=== PATIENT | female | born 1995 | race Caucasian/White ===

== ENCOUNTER 2023-02-01 20:48 | Outpatient (REF) | payer OTHER, SELFPAY ==
[2023-02-08 14:09] LABS: Age Gdln ACOG Testing Note (.); IGP, rfx Aptima HPV ASCU Note (.)
== END 2023-02-01 20:49 | disposition home or self-care (01) ==
LOC: LAB 20:48
PROVIDERS: Visit Provider Physician Assistant
DX: Z12.4 Encounter for screening for malignant neoplasm of cervix (principal)
CPT/HCPCS: G0145

== ENCOUNTER 2024-01-25 09:27 | Outpatient (OUT) | payer OTHER, SELFPAY ==
--- NOTE | 2024-01-25 09:29 | US_ITS ---
[address] [address] Patient Name: GEOVANNA MATA MRN: [id number] date: 1995 Sex: F Assigned Patient Location: [facility] Current Patient Location: [facility] Accession/Order Number: [id number] Exam Date: 01/25/2024 09:30 Report Date: 01/25/2024 14:19 At the request of: MARTIN PEREZ Procedure: US pelvis w/ transvaginal EXAMINATION: US pelvis w/ transvaginal HISTORY: POLYCYSTIC OVARIAN DISEASE ; abdominal pain, abnormal periods COMPARISON: Ultrasound pelvis 09/07/2021 TECHNIQUE: Transabdominal and/or transvaginal sonographic examination was performed as indicated by examination type. FINDINGS: UTERUS: Normal size and appearance. Uterus size: 7.9 x 3.3 x 4.6 cm ENDOMETRIUM: Normal homogeneous appearance. Endometrial thickness: 2 mm RIGHT OVARY: Contains several follicles of varying size. Duplex Doppler demonstrates normal waveform and flow; resistive index 0.6. Ovary size: 4.1 x 2.5 x 4.0 cm LEFT OVARY: Normal size and appearance. Duplex Doppler demonstrates normal waveform and flow; resistive index 0.7. Ovary size: 2.7 x 1.9 x 3.6 cm CUL-DE-SAC: Unremarkable. No significant free fluid. BLADDER: Unremarkable. OTHER: None. US/US pelvis w/ transvaginal IMPRESSION: 1. No abnormal or suspicious findings to account for patient's symptoms. 2. No ovarian findings to suggest polycystic ovarian syndrome. Electronically authenticated by: THONG PAYNE Date: 01/25/2024 14:19
== END 2024-01-25 09:28 | disposition home or self-care (01) ==
LOC: NOMS 09:27
PROVIDERS: Visit Provider Obstetrics & Gynecology
DX: E28.2 Polycystic ovarian syndrome (principal)
CPT/HCPCS: 76830; 76856

== ENCOUNTER 2024-02-09 13:48 | Outpatient (OUT) | payer OTHER, SELFPAY ==
[2024-02-09 16:00] LABS: Estimated Average Glucose 85 mg/dL; Glycohemoglobin A1C 4.6 % (4.5-6.2)
[2024-02-09 16:15] LABS: Thyroid Stimulating Hormone 1.153 uIU/mL (0.358-3.740)
[2024-02-09 16:22] LABS: HCG Quantitative <1 mIU/mL
[2024-02-09 16:48] LABS: Basophils Absolute Auto 0.1 10^3/uL (0.0-0.1); Basophils Percent Auto 0.8 % (0.2-2.0); Eosinophils Absolute Auto 0.5 10^3/uL (0.0-0.7); Eosinophils Percent Auto 4.7 % (0.9-7.0); Hematocrit 45.7 % (36.0-48.0); Hemoglobin 15.5 g/dL (12.0-16.0); Immature Granulocytes Abs Auto 0.03 10^3/uL (0.00-0.03); Immature Granulocytes Pct Auto 0.3 % (0.0-0.5); Lymphocytes Absolute Auto 2.3 10^3/uL (1.2-3.8); Lymphocytes Percent Auto 20.4 % (20.5-60.0); Mean Corpuscular HGB Conc 33.9 g/dL (29.9-35.2); Mean Corpuscular Hemoglobin 29.5 pg (26.7-34.0); Mean Platelet Volume 12.5 fL (9.5-13.5); Monocytes Absolute Auto 0.5 10^3/uL (0.3-0.8); Monocytes Percent Auto 4.1 % (1.7-12.0); Neutrophils Absolute Auto 7.9 10^3/uL (1.4-6.5); Neutrophils Percent Auto 69.7 % (43.0-75.0); Platelet Count 313 10^3/uL (150-450); Red Blood Count 5.25 10^6/uL (4.20-5.40); Red Cell Distribution Width 12.8 % (11.0-15.0); White Blood Count 11.4 10^3/uL (4.0-11.0)
[2024-02-10 08:12] LABS: FSH 2.5 mIU/mL (.); Luteinizing Hormone(LH) 3.4 mIU/mL (.)
[2024-02-14 18:08] LABS: DHEA, Serum 525 ng/dL (31-701)
== END 2024-02-09 13:49 | disposition home or self-care (01) ==
LOC: LAB 13:49
PROVIDERS: Visit Provider Obstetrics & Gynecology
DX: E28.2 Polycystic ovarian syndrome (principal)
CPT/HCPCS: 36415; 82626; 82627; 83001; 83002; 83036; 84439; 84443; 84702; 85025

== ENCOUNTER 2024-04-11 20:14 | Outpatient (REF) | payer OTHER, SELFPAY ==
--- OUTSIDE RECORDS SUMMARY | 2024-04-11 20:18 | XMS_ITS | CCD ---
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 Unavailable [phone] Jade Duarte Unavailable Gris Gardner Unavailable Reese Ramos Unavailable ALFRED Gomez Primary Care Provider MD Reese Ramos Attending Provider ALFRED Gomez Attending Provider REQUEST, NONE LISTED Primary Care Unavaila ble MIKHAIL, DR ANTON Brooks Consulting Unavailable GABRIELLA ., HU Admitting Unavailable GABRIELLA ., HU Attending Unavailable WENDY VENTURA Consulting Unavailable GABRIELLA ., HU Consulting Unavailable SIRI MARSH Consulting Unavailable MISC, DR FONTANEZ Admitting Unavailable MISC, DR FONTANEZ Attending Unavailable REQUEST, NONE LISTED Primary Care Unavaila ble MISC, DR FONTANEZ Consulting Unavailable KARASIK ., DR THORPE Admitting Unavailabl e KARASIK ., DR THORPE Attending Unavailabl e KARASIK ., DR THORPE Consulting Unavailabl e REQUEST, NONE LISTED Primary Care Unavaila KIM Macias Primary Care Physician Ty Roach DO Primary Care Provider Noemy Bhandari Unavailable Unavailable Brown, Justin A Referring Unavailable Brown, Justin A Attending Unavailable Brown, Justin A Admitting Unavailable Brown, Justin A Attending Unavailable Brown, Justin A Admitting Unavailable Brown, Justin A Referring Unavailable Brown, Justin A Referring Unavailable Brown, Justin A Attending Unavailable Brown, Justin A Admitting Unavailable Brown, Justin A Attending Unavailable Brown, Justin A Admitting Unavailable Brown, Justin A Referring Unavailable Kim Gomez Primary Care Unavailable Reese Ramos Attending Unavailable Reese Ramos Admitting Unavailable BROWN, JUSTIN A Attending Unavailable BEAN GASTON Attending Unavailable BROWN, JUSTIN A Referring Unavailable SANAZ JIMENEZ Attending Unavailable BROWN, JUSTIN A Referring Unavailable TATTERSALL, MATTIE Attending Unavailable BROWN, JUSTIN A Referring Unavailable TATTERSALL, MATTIE Attending Unavailable BROWN, JUSTIN A Referring Unavailable TATTERSALL, MATTIE Attending Unavailable BROWN, JUSTIN A Referring Unavailable TATTERSALL, MATTIE Attending Unavailable BROWN, JUSTIN A Referring Unavailable TATTERSALL, MATTIE Attending Unavailable BROWN, JUSTIN A Referring Unavailable TATTERSALL, MATTIE Attending Unavailable BROWN, JUSTIN A Referring Unavailable TATTERSALL, MATTIE Attending Unavailable BROWN, JUSTIN A Referring Unavailable TATTERSALL, MATTIE Attending Unavailable BROWN, JUSTIN A Referring Unavailable BROWN, JUSTIN A Attending Unavailable GOMEZ, KYRA Attending Unavailable BROWN, JUSTIN A Referring Unavailable BROWN, JUSTIN A Referring Unavailable BROWN, JUSTIN A Attending Unavailable BROWN, JUSTIN A Attending Unavailable DYER, KYRA Attending Unavailable BROWN, JUSTIN A Referring Unavailable TATTERSALL, MATTIE Attending Unavailable BROWN, JUSTIN A Referring Unavailable TATTERSALL, MATTIE Attending Unavailable BROWN, JUSTIN A Referring Unavailable TATTERSALL, MATTIE Attending Unavailable BROWN, JUSTIN A Referring Unavailable BROWN, JUSTIN A Attending Unavailable TATTERSALL, MATTIE Attending Unavailable BROWN, JUSTIN A Referring Unavailable TATTERSALL, MATTIE Attending Unavailable BROWN, JUSTIN A Referring Unavailable BROWN, JUSTIN A Attending Unavailable BROWN, JUSTIN A Attending Unavailable MARTIN PEREZ Attending Unavailable CHRIS, MARTIN Attending Unavailable MARIA ELENA WHITNEY Attending Unavailable Allergies Allergy Classification Reported Allergen(s) Allergy Type Date of Onset Reaction(s) Facility (20 sources) cefdinir Drug Allergy stomach upset [employer] Other (20 sources) cats, dust, ragweed Propensity to adverse reactions 3 Unknown [facility] (4 sources) Amoxicillin / Clavulanate; Translations: [amoxicillin-cl avulanate] Drug Allergy Stomach ache (finding) [facility] (4 sources) Cat; Translations: [Cats] Propensity to adverse reactions to substance Nasal congestion (finding) [facility] (4 sources) Dust; Translations: [Dust] Propensity to adverse reactions to substance Nasal congestion (finding) [facility] (4 sources) Seasonal allergy; Translations: [Seasonal] Drug allergy Congestion [facility] (4 sources) Ragweed; Translations: [Ragweed] Propensity to adverse reactions to substance Nasal congestion (finding) [facility] (6 sources) House dust mite Allergy to substance 1 Unknown [facility] (6 sources) Cat Hair Extract Allergy to substance 1 Unknown [facility] (6 sources) Mixed Ragweed Propensity to adverse reactions 1 Unknown [facility] (4 sources) cefdinir Drug Allergy 3 stomach upset [facility] (3 sources) Pollen Allergy to substance 4 [facility] (3 sources) Amoxicillin-Pot Clavulanate Drug Allergy 4 GI intolerance [facility] Medications Current Medications Medication Drug Class(es) Dates Sig (Normalized) Sig (Original) 0.5 ML semaglutide 1 MG/ML Auto-Injector [Wegovy] (4 sources) inject 1 mg by subcutaneous injection every week Wegovy 0.5 MG/0.5ML 1 mg Subcutaneous Once a week for 30 day(s) Active 0.5 ML semaglutide 2 MG/ML Auto-Injector [Wegovy] (4 sources) Start: 02-24-2021 Wegovy 1 MG/0.5ML as directed Subcutaneous Weekly for 30 days Feb, Active 0.75 ML semaglutide 2.27 MG/ML Auto-Injector [Wegovy] (1 source) Start: 02-24-2021 Wegovy 1.7 MG/0.75ML as directed Subcutaneous Weekly for 30 days Feb, Active 0.75 ML semaglutide 3.2 MG/ML Auto-Injector [Wegovy] (7 sources) Start: 02-24-2021 inject 0.75 mL by subcutaneous injection every week Wegovy 2.4 MG/0.75ML 0.75 ml Subcutaneous Weekly for 30 days Feb, Active inject 0.75 mL by salazar bcutaneous injection every week Wegovy 2.4 MG/0.75ML 0.75 ml Subcutaneou s Weekly for 30 days Active 3 ML semaglutide 1.34 MG/ML Pen Injector [Ozempic] (2 sources) Start: 01-28-2022 inject 1 mg by subcutaneous injection every week Ozempic (1 MG/DOSE) 4 MG/3ML 1 mg Subcutaneous Weekly for 1 days Jan, Active 3 ML semaglutide 2.68 MG/ML Pen Injector [Ozempic] (1 source) Start: 10-14-2021 inject 2 mg by subcutaneous injection every week Ozempic (2 MG/DOSE) 8 MG/3ML 2 mg Subcutaneous Once a week for 28 days October, Active acetaminophen 500 mg oral tablet (4 sources) Start: 08-18-2023 take 1 tablet by mouth every four hours as needed Acetaminophen Extra Strength 500 MG tablet Take 1 tablet by mouth every 4 (four) hours if needed 08/18/2023 Active [id number] 200 actuat albuterol 0.09 mg/actuat metered dose inhaler (16 sources) beta2-Adrener gic Agonist Start: 10-10-2023 take 1 puff(s) by inhalation every four hours as needed albuterol HFA 90 mcg/act inhaler Indications: Exacerbation of asthma, unspecified asthma severity, unspecified whether persistent (CMS/HCC) INHALE 1 PUFF INTO THE LUNGS EVERY 4 HOURS NEEDED FOR 30 DAYS 18 g 3 10/10/2023 Active Start: 05-11-2023 take 3 mL by inhalat ion every four hours albuterol 0.083% Inh Ernestina 3 mL 0.083% - 3mL dosing units, Inhalation, q4hr Allergy symptoms Start Date: 05/11/23 Status: Ordered Start: 07-04-2022 take 1 puff(s) by in halation every four hours as needed albuterol HFA 90 mcg/act inhaler INHALE 1 PUFF INTO THE LUNGS EVERY 4 HOURS NEEDED FOR 30 DAYS 0 07/04/2022 Active Albuterol Sulfat e HFA 108 (90 Base) MCG/ACT Inhalation for 30 Days PRN Active Albuterol Sulfat e HFA 108 (90 Base) MCG/ACT Inhalation for 30 Days PRN Active Amoxicillin / Clavulanate (4 sources) Penicillin-class Antibacterial Augmentin Active aspirin 81 mg delayed release oral tablet (1 source) Platelet Aggregation Inhibitor, Nonsteroidal Anti-inflammatory Drug Start: 08-18-19 End: 09-08-19 take 2 tablets by mouth once daily aspirin 81 mg Oral EC Tab 162 mg = 2 tab(s), Oral, Daily, X 21 day(s), # 42 tab(s), Refills(s) 0, Pharmacy: [facility] #[id number], 160.5, cm, 08/04/23 6:49:00 EST, Height/Length Dosing, 93.5, kg, 08/04/23 6:49:00 EST, Weight Dosing Start Date: 08/18/23 Stop Date: 09/08/23 Status: Ordered 24 hr buPROPion hydrochloride 300 mg extended release oral tablet (20 sources) Aminoketone take 1 tablet by mouth every twenty-four hours buPROPion HCl ER (XL) 300 MG 1 tablet in the morning Orally Once a day Active take 1 tablet by francois th every twenty-four hours buPROPion HCl ER (XL) 150 MG 1 tablet in the morning Orally Once a day Active drospirenone 4 mg oral tablet (6 sources) Progestin Start: 02-15-2024 take 1 tablet by mouth once daily Drospirenone (Slynd) 4 MG tablet Indications: PCOS (polycystic ovarian syndrome) Take 1 tablet by mouth Daily for 28 days 28 tablet 02/15/2024 Active ethinyl estradiol 0.035 mg / norgestimate 0.25 mg oral tablet (20 sources) Progestin, Estrogen Start: 06-26-2023 End: 06-25-2024 norgestimate-ethiny l estradiol (Sarah) 0.25-35 MG-MCG tablet Indications: Uses control Take 1 tablet by mouth in the morning. 28 tablet 12 06/26/2023 03/14/2024 Discontinued Start: 05-11-2023 take 1 tablet by francois th once daily Sarah 0.25mg-35mcg oral tablet 1 tab(s), Oral, Daily, Refill(s) 0, control/menstrual regulation Start Date: 05/11/23 Status: Ordered take 1 tablet by francois th every twenty-four hours Sarah 0.25-35 MG-MCG 1 tablet Orally Once a day control Active take 1 tablet by francois th every twenty-four hours Sarah 0.25-35 MG-MCG 1 tablet Orally Once a day Active fexofenadine hydrochloride 180 mg oral tablet (18 sources) Histamine-1 Receptor Antagonist Start: 05-11-2023 take 1 tablet by mouth once daily Rosanne 24 Hour Allergy oral tablet 180 mg = 1 tab(s), Oral, Daily, Allergy symptoms Start Date: 05/11/23 Status: Ordered Rosanne Active fluticasone propionate 0.05 mg/actuat metered dose nasal spray (20 sources) Corticosteroid Start: 05-11-2023 take 1 spray(s) nasal route twice daily Flonase 0.05 mg/inh [place] 1 spray(s), Nasal, BID Allergy symptoms, each nostril Start Date: 05/11/23 Status: Ordered take 1 spray(s) nasal route once daily fluticasone (Flonase) 50 MCG/ACT nasal spray USE 1 SPRAY IN EACH NOSTRIL ONCE A DAY for 90 Active take 1-2 spray(s) na dilip route once daily at bedtime FLONASE 50 mcg 1-2 sprays each NOSTRIL Q HS Active gabapentin 300 mg oral capsule (1 source) Anti-epileptic Agent Start: 08-18-2023 End: 09-01-2023 take 1 capsule by mouth three times daily gabapentin 300 mg Cap 300 mg = 1 cap(s), Oral, TID, X 14 day(s), # 42 cap(s), Refills(s) 0, Pharmacy: [email or web address] #[id number], 160.5, cm, 08/04/23 6:49:00 EST, Height/Length Dosing, 93.5, kg, 08/04/23 6:49:00 EST, Weight Dosing Start Date: 08/18/23 Stop Date: 09/01/23 Status: Ordered ketorolac tromethamine 10 mg oral tablet (1 source) Nonsteroidal Anti-inflammatory Drug, Cyclooxygenase Inhibitor Start: 08-18-2023 End: 08-23-2023 take 1 tablet by mouth three times daily at mealtime ketorolac 10 mg Tab 10 mg = 1 tab(s), Oral, TID, take with food, X 5 day(s), # 15 tab(s), Refills(s) 0, Pharmacy: [email or web address] #[id number], 160.5, cm, 08/04/23 6:49:00 EST, Height/Length Dosing, 93.5, kg, 08/04/23 6:49:00 EST, Weight Dosing Start Date: 08/18/23 Stop Date: 08/23/23 Status: Ordered loratadine 10 mg oral tablet (17 sources) take 1 tablet by mouth every twenty-four hours Loratadine 10 MG 1 tablet Orally Once a day Active meloxicam 15 mg oral tablet (1 source) Nonsteroidal Anti-inflammatory Drug Start: 08-18-2023 take 1 tablet by mouth once daily meloxicam 15 mg Tab 15 mg = 1 tab(s), Oral, Daily, start after finishing ketorolac, # 30 tab(s), Refills(s) 0, Pharmacy: [email or web address] #[id number], 160.5, cm, 08/04/23 6:49:00 EST, Height/Length Dosing, 93.5, kg, 08/04/23 6:49:00 EST, Weight Dosing Start Date: 08/18/23 Status: Ordered methylPREDNISolone 4 mg oral tablet (2 sources) Corticosteroid Start: 05-23-2021 methylPREDNISolone 4 MG as directed Orally Once a day for 6 days May, Active naltrexone hydrochloride 50 mg oral tablet (4 sources) Opioid Antagonist Start: 05-13-2022 take 0.5 tablet by mouth once daily Naltrexone HCl 50 MG 1/2 tablet Orally Once a day for 30 day(s) May, Active oxyCODONE hydrochloride 5 mg oral tablet (1 source) Opioid Agonist Start: 08-18-2023 take 1 tablet by mouth every four hours as needed for pain oxyCODONE 5 mg Tab 5 mg = 1 tab(s), Oral, q4hr, PRN Breakthrough Pain, # 20 tab(s), Refills(s) 0, Pharmacy: [email or web address] #[id number], 160.5, cm, 08/04/23 6:49:00 EST, Height/Length Dosing, 93.5, kg, 08/04/23 6:49:00 EST, Weight Dosing Start Date: 08/18/23 Status: Ordered Ozempic (2 MG/DOSE) 8 MG/3ML (1 source) Start: 10-14-2021 inject 2 mg by subcutaneous injection every week Ozempic (2 MG/DOSE) 8 MG/3ML 2 mg Subcutaneous Once a week for 28 days October, Active phentermine hydrochloride 37.5 mg oral tablet (20 sources) Sympathomimetic Amine Anorectic Start: 05-11-2023 take 1 capsule by mouth once daily Adipex-P 37.5 mg oral capsule 37.5 mg = 1 cap(s), Oral, Daily, Other (see comment) Start Date: 05/11/23 Status: Ordered Start: 02-24-2023 End: 04-13-2024 take 1 tablet by mouth before mealtime phentermine (Adipex-P) 37.5 MG tablet Indications: Encounter for weight management Take 1 tablet (37.5 mg) by mouth in the morning. Take before meals. 30 tablet 03/14/2024 04/13/2024 Active Start: 02-15-2023 take 1 tablet by francois every twenty-four hours Phentermine HCl 37.5 MG 1 tablet Orally Once a day for 30 days [id number]. Okay to fill January 27. Feb, Active Start: 01-04-2023 take 1 tablet by francois once daily Phentermine HCl 37.5 MG 1 tablet Orally Once a day for 30 days [id number]-[id number]. Okay to fill January 27. Jan, Active Start: 11-16-2022 take 1 tablet by francois once daily Phentermine HCl 37.5 MG 1 tablet Orally Once a day for 30 days [id number]-[id number]. 14 Nov, 2022 Active take 1 tablet by francois th once daily Phentermine HCl 37.5 MG 1 tablet Orally Once a day for 30 days [id number]-[id number]. Active Completed/Discontinued Medications Medication Drug Class(es) Dates Sig (Normalized) Sig (Original) atorvastatin 40 mg oral tablet (20 sources) HMG-CoA Reductase Inhibitor take 1 tablet by mouth every twenty-four hours Atorvastatin Calcium 40 MG 1 tablet Orally Once a day Not-Taking ibuprofen 200 mg oral tablet (1 source) Nonsteroidal Anti-inflammatory Drug Start: 08-03-2023 take 1-3 tablets by mouth twice daily as needed ibuprofen 200 mg Tab 400 mg = 2 tab(s), Oral, BID, PRN Pain 1-3, Refills(s) 0, Pain Start Date: 08/03/23 Status: Ordered 24 hr metFORMIN hydrochloride 500 mg extended release oral tablet (13 sources) Biguanide take 1 tablet by mouth every twenty-four hours metFORMIN HCl ER 500 MG 1 tablet Orally Once a day Not-Taking take 1 tablet by francois th every other week at dinner, then take 2 tablets by mouth once daily metFORMIN HCl ER 500 MG 1 tablet with breakfast or evening meal and in 2 weeks if no side effects take 2 tablets Orally Once a day for 90 days Active naproxen sodium 220 mg oral capsule (5 sources) Nonsteroidal Anti-inflammatory Drug Start: 05-11-2023 take 1-3 capsules by mouth every twelve hours as needed Aleve 220 mg oral capsule 220 mg = 1 cap(s), Oral, q12hr, PRN Pain 1-3 Start Date: 05/11/23 Status: Ordered naproxen (Napros yn) 250 MG tablet Take by mouth 0 Active take 1 tablet by francois th every twelve hours at mealtime as needed Aleve 220 MG 1 tablet with food or milk as needed Orally every 12 hrs Active spironolactone 100 mg oral tablet (20 sources) Aldosterone Antagonist take 1 tablet by mouth every twelve hours Spironolactone 100 MG 1 tablet p.o. bid Not-Taking Problems Active Problems Problem Classification Problem Date Documented Date Episodic/Chronic Administrative/social admission (3 sources) Dietary counseling and surveillance; Translations: [Patient encounter status] Onset: 03-29-2023 03-14-2024 Episodic Allergic reactions (6 sources) Atopic dermatitis; Translations: [Atopic dermatitis, unspecified] Onset: 02-17-2021 02-28-2023 Chronic Anxiety disorders (20 sources) Anxiety; Translations: [Anxiety disorder, unspecified] Onset: 01-24-2020 Resolved: 01-13-2022 Chronic Asthma (6 sources) Exacerbation of asthma; Translations: [Unspecified asthma with (acute) exacerbation] Onset: 04-18-2021 02-28-2023 Chronic Disorders of lipid metabolism (20 sources) Hypercholesterolemia ; Translations: [Pure hypercholesterolemia , unspecified] Onset: 03-08-2018 Resolved: 01-13-2022 Chronic Mood disorders (2 sources) Depressive disorder 08-03-2023 Chronic Other aftercare (3 sources) Encounter for therapeutic drug level monitoring Onset: 07-23-2021 Resolved: 11-12-2021 Episodic Other ear and sense organ disorders (20 sources) Impacted cerumen; Translations: [Impacted cerumen] Episodic Other endocrine disorders (20 sources) Polycystic ovaries; Translations: [Polycystic ovarian syndrome] Chronic Other endocrine disorders (14 sources) Polycystic ovarian syndrome; Translations: [PCOS (polycystic ovarian syndrome) E28.2] Onset: 02-24-2021 Resolved: 01-13-2022 Chronic Other endocrine disorders (3 sources) Polycystic ovary syndrome 05-11-2023 Chronic Other endocrine disorders (6 sources) Polycystic ovary; Translations: [Polycystic ovarian syndrome] Onset: 02-28-2023 02-28-2023 Chronic Other female genital disorders (6 sources) Abnormal uterine bleeding; Translations: [Abnormal uterine and vaginal bleeding, unspecified] Onset: 02-28-2023 02-28-2023 Chronic Other non-traumatic joint disorders (1 source) Pain in left knee; Translations: [Pain in joint, lower leg] 07-18-2023 Episodic Other nutritional; endocrine; and metabolic disorders (20 sources) Obesity; Translations: [Obesity, unspecified] Onset: 02-28-2023 02-28-2023 Chronic Other nutritional; endocrine; and metabolic disorders (15 sources) Obesity, unspecified; Translations: [Obesity (BMI 35.0-39.9 without comorbidity) E66.9] Onset: 02-24-2021 Resolved: 01-13-2022 Chronic Other nutritional; endocrine; and metabolic disorders (20 sources) Body mass index 30+ - obesity; Translations: [Body mass index (BMI) 38.0-38.9, adult] Chronic Other nutritional; endocrine; and metabolic disorders (1 source) Body mass index (BMI) 38.0-38.9, adult; Translations: [BMI 38.0-38.9,adult Z68.38] Onset: 02-26-2021 Resolved: 02-26-2021 Chronic Other nutritional; endocrine; and metabolic disorders (1 source) Body mass index (BMI) 37.0-37.9, adult Onset: 06-18-2021 Resolved: 06-18-2021 Chronic Other nutritional; endocrine; and metabolic disorders (1 source) Body mass index (BMI) 35.0-35.9, adult Onset: 10-01-2021 Resolved: 10-01-2021 Chronic Other nutritional; endocrine; and metabolic disorders (6 sources) Morbid obesity; Translations: [Morbid (severe) obesity due to excess calories] Onset: 03-08-2018 02-28-2023 Chronic Other nutritional; endocrine; and metabolic disorders (1 source) Abnormal weight gain Episodic Other nutritional; endocrine; and metabolic disorders (5 sources) Weight increased; Translations: [Abnormal weight gain] Onset: 02-28-2023 02-28-2023 Episodic Other upper respiratory disease (8 sources) Seasonal allergy; Translations: [Other seasonal allergic rhinitis] Onset: 03-06-2018 02-28-2023 Chronic Other upper respiratory infections (6 sources) Recurrent sinusitis; Translations: [Chronic sinusitis, unspecified] Onset: 02-28-2023 02-28-2023 Chronic Other upper respiratory infections (2 sources) Acute laryngitis; Translations: [Acute upper respiratory infection, unspecified] Onset: 05-23-2021 Resolved: 05-23-2021 Episodic Substance-related disorders (3 sources) Smoker 05-11-2023 Chronic Comment on above: Added secondary to d ocumentation in Social History. Unclassified (3 sources) CONTACT W/AND (SUSP) EXPOS COVID-19; Translations: [CONTACT W/AND (SUSP) EXPOS COVID-19] Onset: 07-30-2022 Past or Other Problems Problem Classification Problem Date Documented Da te Episodic/Chronic Abdominal pain (4 sources) Unspecified abdominal pain; Translations: [Right lower quadrant pain] Onset: 09-07-2021 Episodic Biliary tract disease (6 sources) Chronic cholecystitis with calculus; Translations: [Calculus of gallbladder with chronic cholecystitis without obstruction] Onset: 12-25-2015 02-28-2023 Episodic Immunizations and screening for infectious disease (2 sources) Contact with and (suspected) exposure to other viral communicable diseases; Translations: [Encounter for screening for human papillomavirus (HPV)] Onset: 05-23-2021 Resolved: 05-23-2021 Episodic Nausea and vomiting (2 sources) Nausea Onset: 11-12-2021 Resolved: 01-13-2022 Episodic Other aftercare (1 source) skilled nursing (current) use of hormonal contraceptives; Translations: [FOIL WRAPPER HORMONAL CONTRACEPTIVES] Onset: 09-09-2021 Episodic Other aftercare (1 source) watermaster (current) use of oral hypoglycemic drugs; Translations: [FPC USE ORAL HYPOGLYCEMIC DX] Onset: 09-09-2021 Episodic Other aftercare (1 source) Other halfway (current) drug therapy; Translations: [OTH FOIL WRAPPER CURRENT DRUG THERAPY] Onset: 09-09-2021 Episodic Other gastrointestinal disorders (2 sources) Diarrhea, unspecified; Translations: [Diarrhea R19.7] Onset: 02-24-2021 Resolved: 03-26-2021 Episodic Other nutritional; endocrine; and metabolic disorders (3 sources) Weight gain; Translations: [Abnormal weight gain] Onset: 02-28-2023 02-28-2023 Episodic Other screening for suspected conditions (not mental disorders or infectious disease) (4 sources) Encounter for screening for malignant neoplasm of cervix; Translations: [ENC SCREENING MALIG NEOPLASM CERV] Onset: 01-07-2022 Episodic Other skin disorders (6 sources) Female hirsutism; Translations: [Hirsutism] Onset: 02-28-2023 02-28-2023 Episodic Unclassified (1 source) CONTACT W/AND (SUSP) EXPOS COVID-19; Translations: [CONTACT W/AND (SUSP) EXPOS COVID-19] Onset: 07-27-2022 Unclassified (3 sources) Onset: 04-05-2015 Resolved: 11-21-2015 11-23-2015 Results Test Name Value Interpretation Reference Range Facility IntraOperative Documentson 0 08-25-2023 IntraOperative Documents [id number] Normal [facility] Postoperative Documentson Postoperative Documents [id number] #1.00TIFF Normal [facility] Main OR Intraoperative Recor don 08-22-2023 Main OR Intraoperative Record IntraOp Document Type FT Summary Primary Physician: Justin Vail DO Finalized Date/Time: 08/22/23 12:18:30 Pt. Name: ALEXUS MATA/Sex: 1995 Female Med Rec #: [id number] Physician: Justin Vail DO Financial #: [id number] Pt. Type: A Room/Bed: [place] [address] Admit/Disch: 08/18/23 09:52:25 - 08/18/23 17:20:00 Institution: Case Times FT Entry 1 Patient Times In Room 08/18/23 12:57:00 Out Room 08/18/23 15:20:00 Procedure Times Start 08/18/23 13:30:00 Stop 08/18/23 15:07:00 Anesthesia Times Start 08/18/23 12:57:00 Stop 08/18/23 15:20:00 Block Timeout w/ 08/18/23 12:10:00 Anesthesia Last Modified By: Mica STAFFORD, Marialuisa Richardson 08/18/23 15:20:46 General Comments: BLOCK DONE BY DR. MARK AT 1210, ASSISETD BY Valdemar PIRES RN; HR= 84BPM, O2= 100% ON ROOM AIR -Biju DIAMOND RN 08/22/2023 chart opened to review and send charges. nydia diop Case Attendance FT Entry 1 Entry 2 Entry 3 Case Attendee Julius BURTON, oMrales Vail DO, Justin Pulliam PAPER BALING 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, Asif Role Performed Anesthesiologist Surgeon - Primary PAPER BALING 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/SA Director Of Special Education Time In 08/18/23 12:57:00 08/18/23 12:57:00 08/18/23 12:57:00 Time Out 08/18/23 13:47:00 08/18/23 15:20:00 08/18/23 15:20:00 Procedure KNEE MEDIAL KNEE MEDIAL KNEE MEDIAL PATELLOFEMORAL LIGAMENT PATELLOFEMORAL LIGAMENT PATELLOFEMORAL LIGAMENT BRADLEY(Left) BRADLEY(Left) BRADLEY(Left) Comments DR. MARK SUPERVISING Last Modified By: Mica RN, Marialuisa Diamond RN, Marialuisa Diamond RN, Marialuisa Richardson 08/18/23 Jojo Richardson 08/18/23 Jojo P 08/18/23 15:20:47 15:20:47 15:20:47 Entry 4 Entry 5 Entry 6 Case Attendee Nanda ZHOU, TECHNICAL SPECIALIST, [place]ica STAFFORD, Kirsten Polk Role Performed TECHNICAL SPECIALIST Historian Research Assistant - Primary Scrub - Primary Time In 08/18/23 13:45:00 08/18/23 12:57:00 08/18/23 12:57:00 Time Out 08/18/23 14:33:00 08/18/23 15:20:00 08/18/23 15:20:00 Procedure KNEE MEDIAL KNEE MEDIAL KNEE MEDIAL PATELLOFEMORAL LIGAMENT PATELLOFEMORAL LIGAMENT PATELLOFEMORAL LIGAMENT BRADLEY(Left) BRADLEY(Left) BRADLEY(Left) Comments DR. MARK SUPERVISING Last Modified By: Mica RN, Marialuisa Diamond RN, Marialuisa Diamond RN, Marialuisa Richardson 08/18/23 Jojo P 08/18/23 Jojo P 08/18/23 15:20:47 15:20:47 15:20:47 Entry 7 Entry 8 Case Attendee Brooke BURTON, Franko Nicole RT(R), Maris Role Performed Anesthesiologist Fruit Canner Director Of Special Education Time In 08/18/23 14:30:00 08/18/23 12:57:00 Time Out 08/18/23 15:20:00 08/18/23 14:46:00 Procedure KNEE MEDIAL KNEE MEDIAL PATELLOFEMORAL LIGAMENT PATELLOFEMORAL LIGAMENT BRADLEY(Left) BRADLEY(Left) Comments DR. MARK SUPERVISING Last Modified By: Mica STAFFORD, Marialuisa Diamond RN, Marialuisa Richardson 08/18/23 Jojo P 08/18/23 15:20:47 15:20:47 General Comments: TALISHA LOAIZA - ARTHREX REP and AAKASH GREGORYI REP PRESENT FOR CASE -VNYDIA DANIELSONlighting engineer Protocols FT Pre-Care Text: Implements protective measures prior to operative or invasive procedure, confirms identity before the operative or invasive procedure, verifies operative procedure, surgical site, and laterality Entry 1 Procedure(s) KNEE MEDIAL Patient Identity Birthday, Blood Band, PATELLOFEMORAL LIGAMENT Verified (select at ID Band Check, Patient BRADLEY(Left) least 2): Participation Consents / H and P Anesthesia Consent, Operative Site Present Verified HandP, Surgery/Procedure Marking Verified Consent, Transfusion Consent Surgical Site Yes Laterality Verified Yes Verified Procedure Verified Yes Correct Patient Yes Position Verified Availability Equipment, Implant, Prep Dry Yes Verified (If Medication, X-ray Applicable) PreOp Antibiotic Yes Time Out Yared CASTRO, Justin A, Given Participants Julius BURTON, Heraclio Mckenzie CST, Mica Gold RN, Harini Smallwood Madison A Time Out Complete 08/18/23 13:27:00 Outcomes Met? Yes Last Modified By: Mica STAFFORD, Marialuisa Richardson 08/18/23 13:51:10 Post-Care Text: The patient is free from signs and symptoms of injury caused by extraneous objects Allergy Information FT Pre-Care Text: Verifies allergies Entry 1 Allergies Reviewed? Yes Allergies Reviewed Self/Patient With Outcomes Met? Yes Last Modified By: Marialuisa Diamond RN 08/18/23 13:51:14 Post-Care Text: The patient received appropriate medication(s) safely administered during the perioperative period Surgical Procedures FT Entry 1 Procedure Description Procedure KNEE MEDIAL Modifiers Left PATELLOFEMORAL LIGAMENT RECONSTRUCTION Surgeon Description LEFT KNEE ARTHROSCOPY WITH MEDIAL PATELLOFEMORAL LIGAMENT RECONSTRUCTION WITH OPEN AUTOLOGOUS CHONDROCYTE IMPLANTATION TO THE PATELLA Primary Procedure Yes Primary Surgeon Justin Vail DO Start 08/18/23 13:30:00 Stop 08/18/23 15:07:00 Anesthesia Type General Surgical Service Orthopedics Wound Class 1 - Clean Last Modified By: Marialuisa Diamond RN 08/18/23 15:07:58 General Case D (more content not included)... [facility] Consent for Anesthesiaon Consent for Anesthesia [id number] [id number] #1.00TIFF [facility] Discharge Instructionson Discharge Instructions [id number] [id number] #1.00TIFF [facility] IntraOperative Documentson 0 08-21-2023 IntraOperative Documents [id number] #1.00TIFF [facility] IntraOperative Documents [id number] #1.00TIFF [facility] IntraOperative Documents [id number] #1.00TIFF [facility] Preoperative Documentson Preoperative Documents [id number] #1.00TIFF [facility] Consent for Treatmenton 08-03 Consent for Treatment [id number] #1.00TIFF [facility] Discharge Instructionson 03- 15-2024 Discharge Instructions ADOLFO ALEXUS Youngblood :1995 Visit Date:08/18/2023 Inpatient Discharge Instructions Your Care Team Admitting Physician - Justin Vail DO Referring Physician - Justin Vail DO Reason for Your Visit LEFT KNEE PATELLA INSTABILITY Procedure History Arthroscopy of knee (05/26/2023), Cholecystectomy (05/11/2016), Arthroscopy of knee, tubes in ears. What to do next New Follow Up Appointments after Discharge Follow Up with Justin Vail When: 08/29/2023 02:30 PM EDT Comments: Appointment has already been scheduled. Call for any problems. Where: [address] [place] [id number]- [facility] (1) Medications What How Much When Instructions Next Dose New acetaminophen (acetaminophen 500 mg Tab) 1 Tablets By Mouth Every 4 hours as needed for as needed for pain Pickup at [email or web address] New aspirin (aspirin 81 mg Oral EC Tab) 2 Tablets By Mouth Every day Duration: 21 Days Pickup at [email or web address] New gabapentin (gabapentin 300 mg Cap) 1 Capsules By Mouth 3 times a day Duration: 14 Days Pickup at [facility] New ketorolac (ketorolac 10 mg Tab) 1 Tablets By Mouth 3 times a day Duration: 5 Days take with food Pickup at [facility] New meloxicam (meloxicam 15 mg Tab) 1 Tablets By Mouth Every day start after finishing ketorolac Pickup at [facility] New oxycodone (oxyCODONE 5 mg Tab) 1 Tablets By Mouth Every 4 hours as needed for Breakthrough Pain Pickup at [facility] Unchanged ethinyl estradiol-norgestima te (Sarah 0.25mg-35mcg oral tablet) 1 Tablets By Mouth Every day Unchanged fexofenadine (Rosanne 24 Hour Allergy oral tablet) 1 Tablets By Mouth Every day Unchanged fluticasone nasal (Flonase 0.05 mg/ inh [place]) 1 Sprays Nasal Inhalation 2 times a day as needed for Allergy symptoms each nostril Unchanged phentermine (Adipex-P 37.5 mg oral capsule) 1 Capsules By Mouth Every day Pharmacy Information [facility] #37: [address] [place], [place] [id number] [phone] What How Much When Comments Stop Taking ibuprofen (ibuprofen 200 mg Tab) 2 Tablets By Mouth 2 times a day as needed for Pain 1-3 Allergies Augmentin (Stomach pain) Cats (Nasal congestion) Dust (Nasal congestion) Ragweed (Nasal congestion) Seasonal (Congestion) Devices Implanted/Removed This Visit Notice: You have devices implanted this visit that may not be MRI compatible. Implanted KNEE MEDIAL PATELLOFEMORAL LIGAMENT BRADLEY Knee L ACL TIGHTROPE II RT, WITH INTERNAL BRACE LIGAMENT AUGMENTATION 08/18/2023 CONNECT PRE-SUTURED TENDON 08/18/2023 ALEXANDRA AUTOLOGOUS CHONDROCYTES ON PRCINE COLLAGEN MEMBRANE 08/18/2023 MPFL IMPLANT SYSTEM, FASTTHREAD SCREW AND BIOCOMPOSITE SWIVELOCK ANCHORS, 3.9 X 17.9/6 X 20MM 08/18/2023 Education Materials [place], [place] [facility] DISCHARGE INSTRUCTIONS: KNEE SURGERY Diet Begin with a liquid diet and advance to your normal diet as tolerated. Activity Until your first post-operative visit elevate you knee higher than your heart, whenever you are sitting or lying down. Knee swelling will gradually decrease after surgery. Increased swelling is usually a sign of over-activity and should be a signal for you to be less active and apply ice as needed. Your exercise program is the james to successful rehabilitation of your knee. Do the exercises daily as instructed. You will begin physical therapy after your first postoperative visit. You may not bear weight on your operative leg. You must use your crutches or walker for support when ambulating. This is important for protection of your knee after surgery. Your brace should remain locked in full extension at all times until your follow up visit. Driving is legal, but if you are involved in an accident, you must be able to prove that you maintained full control of your vehicle. For this reason, it is advised that you do not drive until your strength returns. Increased Pain Usually this is the result of over-activity and should respond well to rest, ice and elevation. If this does not provide relief, take the pain medication as directed but do not return to activity. If severe pain persists despite rest, elevation and medication, contact your surgeon. You will be given a prescription for pain medication when you leave the hospital. Please inform us of any known drug allergy. If you have any problems with the medication, it should be discontinued and our office notified. The sensation of splashing of fluid inside the knee is not cause for concern. It represents residual fluids from surgery and they will be absorbed generally in the first few days. Elevation of the leg and application of an ice pack to the knee will minimize swelling and discomfort in the first 48 hours after surgery. Incisions The portals of entry may be sore and (more content not included)... Normal [facility] Comment on above: Result Comment: Elec tronically Signed By: Sybil STAFFORD, Jeanie Stokes\.br\Date and Time Signed: 08/18/23 16:09 EDT H&P Updateon 08-18-2023 H&P Update [id number] #1.00TIFF Normal [facility] Inpatient Patient Summaryon 08-18-2023 Inpatient Patient Summary [address] [address] [facility] Clinical Discharge Instructions PERSON INFORMATION Name: ALEXUS MATA PHYSICIANS Admitting Physician: Justin Vail DO Attending Physician: Justin Vail DO PCP: KIM GOMEZ CNP Discharge Diagnosis: Comment: PATIENT EDUCATION INFORMATION Instructions: Wallace Vail - ACL Reconstruction/Menis cus Repair (Custom) Medication Leaflets: Follow up: MEDICATION LIST New Medications [email or web address], [address], [place] [id number], [phone] acetaminophen (acetaminophen 500 mg Tab) 1 Tablets By Mouth every 4 hours as needed as needed for pain. Refills: 0. aspirin (aspirin 81 mg Oral EC Tab) 2 Tablets By Mouth every day for 21 Days. Refills: 0. gabapentin (gabapentin 300 mg Cap) 1 Capsules By Mouth 3 times a day for 14 Days. Refills: 0. ketorolac (ketorolac 10 mg Tab) 1 Tablets By Mouth 3 times a day for 5 Days. take with food. Refills: 0. meloxicam (meloxicam 15 mg Tab) 1 Tablets By Mouth every day. start after finishing ketorolac. Refills: 0. oxycodone (oxyCODONE 5 mg Tab) 1 Tablets By Mouth every 4 hours as needed Breakthrough Pain. Refills: 0. Medications to Continue with No Changes Other Medications ethinyl estradiol-norgestima te (Sarah 0.25mg-35mcg oral tablet) 1 Tablets By Mouth every day. fexofenadine (Rosanne 24 Hour Allergy oral tablet) 1 Tablets By Mouth every day. fluticasone nasal (Flonase 0.05 mg/inh [place]) 1 Sprays Nasal Inhalation 2 times a day as needed Allergy symptoms. each nostril. phentermine (Adipex-P 37.5 mg oral capsule) 1 Capsules By Mouth every day., weight loss No Longer Take the Following Medications ibuprofen (ibuprofen 200 mg Tab) 2 Tablets By Mouth 2 times a day as needed Pain 1-3. Comment: Normal [facility] Main OR PACU I Recordon 08-03 Main OR PACU I Record PACU Phase I Document Type FT Summary Primary Physician: Justin Vail DO Finalized Date/Time: 08/18/23 16:29:33 Pt. Name: ALEXUS MATA D.O.B./Sex: 1995 Female Med Rec #: [id number] Physician: Justin Vail DO Financial #: [id number] Pt. Type: A Room/Bed: [place] [address] Admit/Disch: 08/18/23 09:52:25 - Institution: Case Times PACU I FT Pre-Care Text: Identifies barriers to communication and implements measures to provide psychological support Develops individualized plan of care, and ensures continuity of care Maintains patient's dignity and privacy, and maintains patient confidentiality Identifies and reports philosophical, cultural, and spiritual beliefs and values Identifies individual values and wishes concerning care Implements aseptic technique, and administers prescribed antibiotic therapy and immunizing agents as ordered Evaluates postoperative tissue perfusion Implements thermoregulation measures, and monitors body temperature Evaluates postoperative respiratory status Evaluates postoperative cardiac status Evaluates postoperative neurological status Assesses pain control, collaborated in initiating patient-controlled analgesia and implements alternative methods of pain control Verifies allergies, administers prescribed medications and solutions, evaluates response to medications Entry 1 In PACU I 08/18/23 15:22:00 Discharge from PACU 08/18/23 16:13:00 I Outcomes Met? Yes Last Modified By: Mattie Pires I 08/18/23 16:29:19 Post-Care Text: The patient demonstrates knowledge of the expected response to the operative or invasive procedure The patient's care is consistent with the individualized perioperative plan of care The patient's right to privacy is maintained The patient's value system, lifestyle, ethnicity, and culture are considered, respected, and incorporated into the perioperative plan of care The patient participates in decisions affecting his or her perioperative plan of care The patient is free from signs and symptoms of infection The patient has wound/tissue perfusion consistent with or improved from baseline levels established preoperatively The patient is at or returning to normothermia at the conclusion of the immediate postoperative period The patient's respiratory function is consistent with or improved from baseline levels established preoperatively The patient's cardiovascular status is consistent with or improved from baseline levels established preoperatively The patient's cardiovascular status is consistent with or improved from baseline levels established preoperatively The patient demonstrates and/or reports adequate pain control throughout the perioperative period The patient received appropriate medication(s), safely administered during the perioperative period Acuity Level PACU I FT Entry 1 Start Time 08/18/23 15:22:00 Stop Time 08/18/23 16:13:00 Acuity Level Acuity Level I Last Modified By: Mattie Pires I 08/18/23 16:29:29 Finalized By: Mattie Pires I Document Signatures Signed By: Mattie Pires I 08/18/23 16:29 Normal [facility] Main OR Preoperative Recordo n 08-18-2023 Main OR Preoperative Record PreOp Document Type FT Summary Primary Physician: Justin Vail DO Finalized Date/Time: 08/18/23 13:58:45 Pt. Name: ALEXUS MATA/Sex: 1995 Female Med Rec #: [id number] Physician: Justin Vail DO Financial #: [id number] Pt. Type: A Room/Bed: [place] [address] Admit/Disch: 08/18/23 09:52:25 - Institution: Case Times PreOp FT Pre-Care Text: Verifies consent for planned procedure, identifies individual values and wishes concerning care, includes family members in perioperative teaching Entry 1 Patient Times. In Pre Surgery 08/18/23 10:30:00 Out Pre Surgery 08/18/23 12:55:00 Outcomes Met? Yes Last Modified By: Marialuisa Diamond RN 08/18/23 13:58:43 Post-Care Text: The patient participates in decisions affecting his or her perioperative plan of care Finalized By: Marialuisa Diamond RN Document Signatures Signed By: Marialuisa Diamond RN 08/18/23 13:58 Normal [facility] Monitor Recordon 08-18-2023 Monitor Record [id number] 5#1.00TIFF Normal [facility] Monitor Record [id number] 9#1.00TIFF Normal [facility] Operative Reporton Operative Report Patient: ALEXUS MATA Age: 28 years Sex: Female : 1995 Associated Diagnoses: None Author: Justin Vail DO DATE OF SURGERY: 08/18/2023 SURGEON: Justin Vail D.O. 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 Examination under anesthesia, left knee 2. Matrix-induced autologous chondrocyte implantation to the patella (ALEXANDRA procedure) 3. Medial patellofemoral ligament reconstruction with hamstring allograft 4. Physician use of intraoperative fluoroscopy ANESTHESIA: General with regional block ANESTHESIOLOGIST: Noe Mark DO and MICHEAL Arce/MICHEAL Roman IMPLANTS: 1. ALEXANDRA 2.0 cm graft 2. MPFL reconstruction: Arthrex 3.9 mm biocomposite swivelock anchors x 2 in the patella, Tightrope in the femur, 4 mm hamstring allograft pre-sutured tendon OPERATIVE INDICATIONS: Alexus is a 28-year-old female who has a history of left knee arthroscopy with lateral release in 2010 performed by another surgeon. She was found to have cartilage damage to the medial patella at the time of surgery. She has continued to have patellar instability episodes over the years with continued pain. She underwent left knee diagnostic arthroscopy with cartilage harvesting on 05/26/2023 and recovered well from the surgery. She returns today for the second of two stages in her surgical process. She agreed to proceed after a discussion of the risks, benefits, complications, alternatives, and expectations. Please see office notes for further details. PROCEDURE IN DETAIL: The correct operative site was identified and marked in the preoperative holding area. The patient was given IV antibiotics in accordance with SCIP protocol and 1 g of tranexamic acid intravenously. The patient was transported to the regional block room and administered a regional anesthetic nerve block by the anesthesiologist. I requested the regional block to assist with intraoperative and postoperative pain control. The patient was transported to the operating room and placed supine on the operating table. The patient was administered general anesthetic. After adequate anesthesia was obtained, a well-padded tourniquet was applied to the operative upper thigh. Surgical timeout was performed with all required personnel present. The knee was examined and found to have full flexion and extension, negative jumping J sign, 3 quadrant lateral translation of the patella with the knee fully extended which is increased when compared to the contralateral right knee. Negative Jimmy's, negative anterior and posterior drawer, no varus or valgus instability at 0 and 30 degrees. No effusion. The presutured hamstring allograft was thawed in saline. A sandbag bump was placed under the left hip and the BoneFoam was placed under the left lower extremity. The operative lower extremity was prepped and draped in the usual sterile fashion. The limb was exsanguinated with an Esmarch and the tourniquet was inflated to 300 mmHg. A longitudinal incision over the anterior midline was made. Medial and lateral skin flaps were developed. A scalpel was used to dissect between the VMO and joint capsule. The layer was developed with scissors down to the medial epicondyle. The joint capsule was then opened medially and the capsulotomy was extended proximally for a few cm proximal to the patella and distally along the medial border of the patellar tendon. The medial meniscus was visualized to avoid damaging the tissue. The patella was partially everted and full access to the undersurface of the patella was achieved. The osteochondral defect was examined. It was located along the medial facet and extended into the central facet along the inferior half of the patella. This measured approximately 18 mm cephalad to caudad by 15 mm medial to lateral. The defect was near full-thickness without any bone loss. The lateral facet and trochlea were free of articular changes. The appropriately sized ALEXANDRA oval cutting guide was selected and placed around the defect. The oval cutter was pressed into the patella to create definitive borders around the defect. The indentation made by the cutter was then deepened with a 15 blade to create vertical ruvalcaba circumferentially. Fibrocartilage at the defect was removed with a ringed curette down to the calcified layer. A piece of the Esmarch was cut using the oval cutter to create a template for the ALEXANDRA implant. The oval piece of Esmarch was placed into the prepared defect and fit appropriately with full containment around all of its edges. The medial border of the patella was then exposed. A trough was created with a rongeur. The guide pin was placed in the prepared trough approximately 5 mm distal to the superior edge of the patella. The second guide pin (more content not included)... Normal [facility] Comment on above: Result Comment: Elec tronically Signed By: Justin Vail DO\.br\Date and Time Signed: 08/18/23 16:05 EDT Operative Report Patient: ALEXUS MATA Age: 28 years Sex: Female : 1995 Associated Diagnoses: None Author: Siri Weber DO Procedure Nerve Block Block Type: Adductor canal block. Laterality: Left. Informed consent for anesthesia management: Anesthesia options discussed including nerve block, Description of the procedure, risks, benefits, and alternatives was provided, The patient's questions were addressed. Time out: Confirmed correct patient, procedure and site. Time: Date/Time 08/18/2023 12:17:00. Indication: Block for postoperative pain management as requested by surgeon. Anesthesia Method: IV Sedation with monitored anesthesia care, The patient remained awake and able to interact in a meaningful way throughout the procedure. Preparation: The patient was placed in the following position Supine, Continuous pulse oximetry applied, Using maximal sterile barrier technique per current [facility] guidelines including hand hygeine, Guidance (Ultrasound used to identify anatomical landmarks, Using sterile gel and probe covers, Permanent image retained), The site was prepped with ChloraPrep. Procedure: Anesthetic Agent Ropivacaine 0.5% (20mL) with 4mg Decadron, Catheter size 21 guage, Catheter length 100 mm, Needle was inserted without pain or parasthesia in the conscious patient, Number of attempts 1, Negative attempt at aspiration for blood, Medial and lateral spread of the anesthestic was observed, Periodic negative attempts at aspiration of blood were made as the local was injected, No pain or parathesia were elicited with injection of the anesthetic in the conscious patient, It was idetified that the correct anesthetic agent was administered to the correct site, Site post-procedure care Transparent dressing applied. Complications: None, The patient tolerated the procedure as expected. Normal [facility] Comment on above: Result Comment: Elec tronically Signed By: Jas Anesthesiology ()Siri.br\Date and Time Signed: 08/18/23 12:22 EDT Outpatient Surgery Discharge Instructionon 08-18-2023 Outpatient Surgery Discharge Instruction [place] [address] Patient Discharge Instructions PERSON INFORMATION Name: ALEXUS MATA Date of : 1995 Current Date: 08/18/2023 11:46:44 PHYSICIANS Admitting Physician: Justin Vail DO Discharge Diagnosis: ALEXUS MATA has been given the following list of follow-up instructions, prescriptions, and patient education materials: IF UNABLE TO CONTACT YOUR PHYSICIAN AND YOU FEEL IT IS AN EMERGENCY, GO TO THE NEAREST EMERGENCY ROOM OR CALL 911 IADOLFO LINDSEY D, have received the attached patient education materials/instructio ns and have verbalized understanding: May we do a follow up call? Yes No I was present when discharge instructions were given Patient Signature Date Clinican/Nurse Signature Date Follow up: Pharmacy Information: You may receive a survey from [employer] asking you to rate your care experience. Your feedback is important and will help us understand what we do well and how we can improve the quality of care we provide to you, your loved ones and our community. It?s an honor to serve you. Thank you for choosing [facility] HERE ARE THE MEDICATION CHANGES THAT OCCURRED DURING YOUR HOSPITAL STAY New Medications [email or web address], [address] [place], [place] [id number], [phone] acetaminophen (acetaminophen 500 mg Tab) 1 Tablets By Mouth every 4 hours as needed as needed for pain. Refills: 0. aspirin (aspirin 81 mg Oral EC Tab) 2 Tablets By Mouth every day for 21 Days. Refills: 0. gabapentin (gabapentin 300 mg Cap) 1 Capsules By Mouth 3 times a day for 14 Days. Refills: 0. ketorolac (ketorolac 10 mg Tab) 1 Tablets By Mouth 3 times a day for 5 Days. take with food. Refills: 0. meloxicam (meloxicam 15 mg Tab) 1 Tablets By Mouth every day. start after finishing ketorolac. Refills: 0. oxycodone (oxyCODONE 5 mg Tab) 1 Tablets By Mouth every 4 hours as needed [facility]. Refills: 0. Medications to Continue with No Changes Other Medications ethinyl estradiol-norgestima te (Sarah 0.25mg-35mcg oral tablet) 1 Tablets By Mouth every day. fexofenadine (Rosanne 24 Hour Allergy oral tablet) 1 Tablets By Mouth every day. fluticasone nasal (Flonase 0.05 mg/inh [place]) 1 Sprays Nasal Inhalation 2 times a day as needed Allergy symptoms. each nostril. phentermine (Adipex-P 37.5 mg oral capsule) 1 Capsules By Mouth every day., weight loss No Longer Take the Following Medications ibuprofen (ibuprofen 200 mg Tab) 2 Tablets By Mouth 2 times a day as needed Pain 1-3. PATIENT EDUCATION INFORMATION Instructions: [place], [place] [facility] DISCHARGE INSTRUCTIONS: KNEE SURGERY Diet Begin with a liquid diet and advance to your normal diet as tolerated. Activity Until your first post-operative visit elevate you knee higher than your heart, whenever you are sitting or lying down. Knee swelling will gradually decrease after surgery. Increased swelling is usually a sign of over-activity and should be a signal for you to be less active and apply ice as needed. Your exercise program is the james to successful rehabilitation of your knee. Do the exercises daily as instructed. You will begin physical therapy after your first postoperative visit. You may not bear weight on your operative leg. You must use your crutches or walker for support when ambulating. This is important for protection of your knee after surgery. Your brace should remain locked in full extension at all times until your follow up visit. Driving is legal, but if you are involved in an accident, you must be able to prove that you maintained full control of your vehicle. For this reason, it is advised that you do not drive until your strength returns. Increased Pain Usually this is the result of over-activity and should respond well to rest, ice and elevation. If this does not provide relief, take the pain medication as directed but do not return to activity. If severe pain persists despite rest, elevation and medication, contact your surgeon. You will be given a prescription for pain medication when you leave the hospital. Please inform us of any known drug allergy. If you have any problems with the medication, it should be discontinued and our office notified. The sensation of splashing of fluid inside the knee is not cause for concern. It represents residual fluids from surgery and they will be absorbed generally in the first few days. Elevation of the leg and application of an ice pack to the knee will minimize swelling and discomfort in the first 48 hours (more content not included)... Normal [facility] Patient Education - Texton 0 08-18-2023 Patient Education - Text [place], [place] [facility] DISCHARGE INSTRUCTIONS: KNEE SURGERY Diet Begin with a liquid diet and advance to your normal diet as tolerated. Activity Until your first post-operative visit elevate you knee higher than your heart, whenever you are sitting or lying down. Knee swelling will gradually decrease after surgery. Increased swelling is usually a sign of over-activity and should be a signal for you to be less active and apply ice as needed. Your exercise program is the james to successful rehabilitation of your knee. Do the exercises daily as instructed. You will begin physical therapy after your first postoperative visit. You may not bear weight on your operative leg. You must use your crutches or walker for support when ambulating. This is important for protection of your knee after surgery. Your brace should remain locked in full extension at all times until your follow up visit. Driving is legal, but if you are involved in an accident, you must be able to prove that you maintained full control of your vehicle. For this reason, it is advised that you do not drive until your strength returns. Increased Pain Usually this is the result of over-activity and should respond well to rest, ice and elevation. If this does not provide relief, take the pain medication as directed but do not return to activity. If severe pain persists despite rest, elevation and medication, contact your surgeon. You will be given a prescription for pain medication when you leave the hospital. Please inform us of any known drug allergy. If you have any problems with the medication, it should be discontinued and our office notified. The sensation of splashing of fluid inside the knee is not cause for concern. It represents residual fluids from surgery and they will be absorbed generally in the first few days. Elevation of the leg and application of an ice pack to the knee will minimize swelling and discomfort in the first 48 hours after surgery. Incisions The portals of entry may be sore and develop bruising over the next several days. The bruising eventually resolves and does not require any special care. There may be some numbness around the portals that can take several days or several weeks to resolve as the swelling subsides. Do not apply creams or lotions to your knee. Your portals will heal best if kept dry. Dressing A soft compression dressing has been applied to your knee. This dressing should be comfortable and absorb any leakage of fluid after surgery. Although the dressing may become moist or blood stained, this is not usually a cause for concern. If this persists beyond 2-3 days, notify your surgeon. Your bandage may be removed at your first physical therapy appointment. Leave the adhesive bandage in place until follow up. The adhesive bandage is waterproof, so you may shower. Precautions If you develop fever (101 degrees or above), increasing pain (not relieved by rest, elevation, ice and medication as prescribed), redness, or persistent swelling in your calves or feet that doesn't respond to elevation, please contact the office or the hospital. If you notice increasing drainage from the operative portals after the first few days, this should also be reported. You may have been prescribed aspirin after surgery. Take this as prescribed to help prevent blood clots. Return Visit Your post-operative follow-up appointment is generally between 7 and 14 days after surgery. You will be given an appointment card with this information. Do not hesitate to call the office or the hospital if any problems or questions arise before your appointment. Justin Vail DO [facility] [address] [place] [address] Reviewed: 11-20 [facility] Progress Note-Physicianon Progress Note-Physician Patient: ALEXUS MATA Age: 28 years Sex: Female : 1995 Associated Diagnoses: None Author: Brandon Schilling Jr., DO Postoperative Information Postoperative disposition: Postoperative disposition: Home. Optimetrix number: Optimetrix number [id number]. Anesthetic utilized: General. Physical Examination Vital Signs 08/18/2023 16:15 EDT Heart Rate Monitored 69 bpm SpO2 100 % 08/18/2023 16:15 EDT Respiratory Rate 16 br/min 08/18/2023 16:15 EDT Systolic Blood Pressure 127 mmHg Diastolic Blood Pressure 82 mmHg Mean Arterial Pressure, Monitered 97 mmHg 08/18/2023 15:50 EDT Heart Rate Monitored 80 bpm Respiratory Rate Monitored 16 br/min Systolic Blood Pressure 118 mmHg Diastolic Blood Pressure 71 mmHg Mean Arterial Pressure, Cuff 87 mmHg SpO2 99 % 08/18/2023 15:35 EDT Heart Rate Monitored 82 bpm Respiratory Rate Monitored 16 br/min Systolic Blood Pressure 88 mmHg LOW Diastolic Blood Pressure 61 mmHg Mean Arterial Pressure, Cuff 70 mmHg SpO2 99 % 08/18/2023 15:30 EDT Heart Rate Monitored 89 bpm Respiratory Rate Monitored 17 br/min Systolic Blood Pressure 106 mmHg Diastolic Blood Pressure 58 mmHg LOW Mean Arterial Pressure, Cuff 74 mmHg SpO2 98 % 08/18/2023 15:25 EDT Heart Rate Monitored 87 bpm Respiratory Rate Monitored 13 br/min Systolic Blood Pressure 115 mmHg Diastolic Blood Pressure 80 mmHg Mean Arterial Pressure, Cuff 92 mmHg SpO2 100 % 08/18/2023 15:22 EDT Temperature Temporal Artery 36.4 DegC Heart Rate Monitored 84 bpm Respiratory Rate Monitored 13 br/min Systolic Blood Pressure 113 mmHg Diastolic Blood Pressure 46 mmHg LOW Mean Arterial Pressure, Cuff 68 mmHg SpO2 99 % Pain Assessment: Pain Assessment 08/18/2023 15:47 EDT Patient Preferred Pain Tool Other 08/18/2023 15:43 EDT Primary Pain Location Knee Primary Pain Laterality Left Patient Preferred Pain Tool Numeric rating Numeric Pain Scale 5 = Moderate pain Numeric Pain Score 5 08/18/2023 15:39 EDT Primary Pain Location Knee Primary Pain Laterality Left Patient Preferred Pain Tool Numeric rating Numeric Pain Scale 5 = Moderate pain Numeric Pain Score 5 08/18/2023 15:35 EDT Primary Pain Location Knee Primary Pain Laterality Left Patient Preferred Pain Tool Numeric rating Numeric Pain Scale 6 Numeric Pain Score 6 08/18/2023 15:31 EDT Primary Pain Location Knee Primary Pain Laterality Left Patient Preferred Pain Tool Numeric rating Numeric Pain Scale 6 Numeric Pain Score 6 08/18/2023 15:22 EDT Primary Pain Location Knee Primary Pain Laterality Left Numeric Pain Scale 6 Numeric Pain Score 6 . General: Awake, Alert, Appropriate. Respiratory: Adequate air exchange, Non-labored. Cardiovascular: Stable, Normal peripheral perfusion. Neurological: Neurologic exam at baseline. No changes.. Assessment Anesthetic outcome No anesthetic complications noted. No nausea/vomiting. Review / Management Condition: Stable. Plan Transfer/Discharge: Transfer/Discharge Discharge when meets criteria ( From PACU to Ambulatory Surgery Unit, and To home ). Normal [facility] Comment on above: Result Comment: Elec tronically Signed By: Brandon Schilling Jr., DO.tobias\Date and Time Signed: 08/18/23 16:26 EDT Progress Note-Physician Patient: ALEXUS MATA Age: 28 years Sex: Female : 1995 Associated Diagnoses: None Author: [facility] ()Siri Preoperative Information Anesthesia history: Patient history: None. Family history+: None. Anesthesia results Informed consent: Signed by patient. Including risks, benefits, and alternatives related to the: Anesthetic plan, Postoperative pain management plan. Re-evaluation prior to induction: Siri Mark DO. Health Status Allergies: Allergic Reactions (Selected) Severity Not Documented Augmentin- Stomach pain. Cats- Nasal congestion. Dust- Nasal congestion. Ragweed- Nasal congestion. Seasonal- Congestion., Allergies (5) Active Severity Reaction Dust Nasal congestion Cats Nasal congestion Ragweed Nasal congestion Seasonal Congestion Augmentin Stomach pain Current medications: (Selected) Inpatient Medications Ordered HYDROmorphone 1 mg/mL injectable solution: 0.4 mg = 0.4 mL, Injection, IV Push, q4min PRN Pain for 5 dose(s), Stop date Limited # of times, Routine, Start date 08/18/23 10:47:00 EDT, 08/18/23 10:47:00 EDT Lactated Ringers IV Ernestina 1000 mL 1,000 mL: 1,000 mL, IV, 100 mL/hr, Routine, Start date 08/18/23 10:47:00 EDT, 10 hour(s), Total volume (mL): 1,000, 93.5 kg, 2.04, m2 Lactated Ringers IV Ernestina 1000 mL 1,000 mL: 1,000 mL, IV, 150 mL/hr, Routine, Start date 08/18/23 10:00:00 EDT, 6.7 hour(s), Total volume (mL): 1,000, 93.5 kg, 2.04, m2 Zofran 4 mg/2 mL Injection: 4 mg = 2 mL, Injection, IV Push, Once PRN Nausea/Vomiting, Routine, Start date 08/18/23 10:47:00 EDT, 08/18/23 10:47:00 EDT cefazolin additive + Sodium Chloride 0.9% intravenous solution 50 mL: 2 gram = 1 EA, Powder-Inj, IV Piggyback, PREOP, Routine, Start date 08/18/23 10:00:00 EDT, 100 mL/hr, Infuse over 30 minute(s) promethazine additive 12.5 mg + Sodium Chloride 0.9% IV Ernestina 50 mL (INT) 50 mL: IV Piggyback, Once PRN Nausea/Vomiting, Routine, Start date 08/18/23 10:47:00 EDT, 151.5 mL/hr, Infuse over 20 minute(s), 08/18/23 10:47:00 EDT tranexamic acid additive + premix generic diluent 100 mL: 1,000 mg = 100 mL, Soln-IV, IV Piggyback, Once, Stop date 08/18/23 10:00:00 EDT, Routine, Start date 08/18/23 10:00:00 EDT, 200 mL/hr, Infuse over 30 minute(s) Documented Medications Documented Adipex-P 37.5 mg oral capsule: 37.5 mg = 1 cap(s), Oral, Daily, Other (see comment) Rosanne 24 Hour Allergy oral tablet: 180 mg = 1 tab(s), Oral, Daily, Allergy symptoms Flonase 0.05 mg/inh [place]: 1 spray(s), Nasal, BID Allergy symptoms, each nostril Sarah 0.25mg-35mcg oral tablet: 1 tab(s), Oral, Daily, Refill(s) 0, control/menstrual regulation ibuprofen 200 mg Tab: 400 mg = 2 tab(s), Oral, BID, PRN Pain 1-3, Refills(s) 0, Pain, Home Medications (5) Active Adipex-P 37.5 mg oral capsule 37.5 mg = 1 cap(s), Oral, Daily Rosanne 24 Hour Allergy oral tablet 180 mg = 1 tab(s), Oral, Daily Flonase 0.05 mg/inh [place] 1 spray(s), PRN, Nasal, BID ibuprofen 200 mg Tab 400 mg = 2 tab(s), PRN, Oral, BID Sarah 0.25mg-35mcg oral tablet 1 tab(s), Oral, Daily , Medications (7) Active Scheduled: (2) ceFAZolin + Sodium Chloride 0.9% Minibag 50 mL 2 gram 1 EA, IV Piggyback, PREOP tranexamic acid + Generic Diluent 100 mL 1,000 mg 100 mL, IV Piggyback, Once Continuous: (2) Lactated Ringers 1,000 mL 1,000 mL, IV, 150 mL/hr Lactated Ringers 1,000 mL 1,000 mL, IV, 100 mL/hr PRN: (3) HYDROmorphone 1 mg/mL SOLN [F] 0.4 mg 0.4 mL, IV Push, q4min ondansetron 2 mg/mL Inj [F] 4 mg 2 mL, IV Push, Once promethazine 12.5 mg + Sodium Chloride 0.9% 50 mL 12.5 mg 0.5 mL, IV Piggyback, Once Problem list: All Problems Anxiety / SNOMED CT 21803937 / Confirmed Depression / SNOMED CT 92735308 / Confirmed PCOS (polycystic ovarian syndrome) / SNOMED CT 331073430 / Confirmed Seasonal allergies / SNOMED CT 4444179927 / Confirmed Smoker / SNOMED CT 015193633 / Confirmed Added secondary to documentation in Social History. Resolved: / SNOMED CT 877132354, Active Problems (5) Anxiety Depression PCOS (polycystic ovarian syndrome) Seasonal allergies Smoker Histories Past Medical History: Resolved ([id number]): Onset on 04/05/2015 at 19 years. Resolved on 11/21/2015 at 20 years. Family History: No family history items have been selected or recorded. Procedure history: Arthroscopy of knee ([id number]) on 05/26/2023 at 27 Years. Cholecystectomy ([id number]) on 05/11/2016 at 20 Years. tubes in ears. Arthroscopy of LEFT knee ([id number]). 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 Normal [facility] Comment on above: Result Comment: Elec tronically Signed By: [facility] (), Siri Hoover.br\Date and Time Signed: 08/18/23 10:48 EDT SEROLOGYOrdered By: Tico Shine on 08-18-2023 HCG.beta subunit (U) [Moles/Vol] Negative Normal [facility] [place] U BetaHcg [place] 08-18-2023 HCG.beta subunit (U) [Moles/Vol] Negative Normal [facility] Comment on above: Performed By: #### 2 [id number] ####[facility] [id number] [place] [address] XR Knee 1 or 2 Views Lefton 08-18-2023 XR Knee 1 or 2 Views Left Exam Date/Time: 08/18/2023 14:56 EDT Reason for Exam: Pain, Traumatic Report IMPRESSION: Intraprocedural fluoroscopic support has been provided. Please refer to the procedure report. EXAMINATION: XR Knee 1 or 2 Views Left CLINICAL HISTORY: Pain, Traumatic COMPARISONS: None available. FINDINGS: Fluoroscopic assistance was provided during ACL repair Number of images: 5 series The total radiation time is 27.8 seconds, Radiation dose area product is microGy*m2 Cumulative radiation dose is 2.16mGy Ordering Provider: Justin Vail FINAL REPORT Dictated: 08/18/2023 4:52 pm Isauro Reza MD, V. Signed (Electronic Signature): 08/18/2023 4:52 pm Signed by: Isauro Reza MD, V. Transcribed by: SUSAN Technologist: CC Technical Comments Radiation Dose: Ka,r in mGy = 2.16 DAP = na Normal [facility] Consent for Procedure/Surger yon 08-17-2023 Consent for Procedure/Surgery [id number] #1.00TIFF Normal [facility] Scanned GI Testingon 024 Scanned GI Testing [id number] 6#1.00TIFF Normal [facility] CBC w/ Auto Diffon 4 Basophils/100 WBC (Bld) 0.7 % Normal 0.0-2.0 [facility] Comment on above: Performed By: #### 2 [id number] ####[address] [address] Basophils/Leukocytes Auto (Bld) [Pure # fraction] 0.1 E9/L Normal 0.0-0.2 [facility] Comment on above: Performed By: #### 2 752207 ####[address] [address] Eosinophils (Bld) [#/Vol] 0.3 E9/L Normal 0.0-0.5 [facility] Comment on above: Performed By: #### 2 352499 ####[address] [address] Eosinophils/100 WBC (Bld) 4.2 % Normal 0.0-8.0 [facility] Comment on above: Performed By: #### 2 791589 ####[address] [address] Erythrocyte distribution width (RBC) [Ratio] 13.1 % Normal 10.9-14.2 [facility] Comment on above: Performed By: #### 2 044680 ####[address] [address] Hematocrit (Bld) [Volume fraction] 42.7 % Normal 34.0-46.0 [facility] Comment on above: Performed By: #### 2 345562 ####[address] [address] Hemoglobin (Bld) [Mass/Vol] 14.1 g/dL Normal 12.0-16.0 [facility] Comment on above: Performed By: #### 2 981531 ####[address] [address] Lymphocytes (Bld) [#/Vol] 1.8 E9/L Normal 1.0-4.0 [facility] Comment on above: Performed By: #### 2 752584 ####[address] [address] Lymphocytes/100 WBC (Bld) 23.9 % Normal 14.0-50.0 [facility] Comment on above: Performed By: #### 2 160356 ####[address] [address] MCH (RBC) [Entitic mass] 29.5 pg Normal 27.0-34.0 [facility] Comment on above: Performed By: #### 2 834549 ####[address] [address] MCHC (RBC) [Mass/Vol] 32.9 g/dL Normal 31.4-36.[address] [facility] Comment on above: Performed By: #### 2 578775 ####[address] [address] MCV (RBC) [Entitic vol] 89.7 fL Normal 80.0-100.0 [facility] Comment on above: Performed By: #### 2 950864 ####[address] [address] Monocytes (Bld) [#/Vol] 0.4 E9/L Normal 0.2-1.0 [facility] Comment on above: Performed By: #### 2 318689 ####[address] [address] Neutrophils (Bld) [#/Vol] 4.9 E9/L Normal 2.0-7.5 [facility] Comment on above: Performed By: #### 2 468490 ####[address] [address] Neutrophils/100 WBC (Bld) 66.2 % Normal 36.0-75.0 [facility] Comment on above: Performed By: #### 2 095976 ####[address] [address] Platelet mean volume (Bld) [Entitic vol] 10.3 fL Normal 6.4-10.8 [facility] Comment on above: Performed By: #### 2 561952 ####[facility] [address] [place] [address] Platelets (Bld) [#/Vol] 251.0 E9/L Normal 150.0-500.0 [facility] Comment on above: Performed By: #### 2 983410 ####[facility] [id number] [place] [address] RBC (Bld) [#/Vol] 4.8 E12/L Normal 4.3-5.9 [facility] Comment on above: Performed By: #### 2 606986 ####[facility] [id number] [place] [address] WBC corrected for nucl RBC Auto (Bld) [#/Vol] 7.4 E9/L Normal 4.0-11.0 [facility] Comment on above: Performed By: #### 2 482098 ####[facility] [address] [place] [address] Consent for Treatmenton 07-07 Consent for Treatment [id number] #1.00TIFF Normal [facility] HEMATOLOGYOrdered By: SYSTEM SYSTEM on 08-03-2023 Basophils/100 WBC (Bld) 0.7 % Normal 0.0 - 2.0 % Remisol Heme Basophils/Leukocytes Auto (Bld) [Pure # fraction] 0.1 E9/L Normal 0.0 - 0.2 E9/L Remisol Heme Eosinophils (Bld) [#/Vol] 0.3 E9/L Normal 0.0 - 0.5 E9/L Remisol Heme Eosinophils/100 WBC (Bld) 4.2 % Normal 0.0 - 8.0 % Remisol Heme Erythrocyte distribution width (RBC) [Ratio] 13.1 % Normal 10.9 - 14.2 % Remisol Heme Hematocrit (Bld) [Volume fraction] 42.7 % Normal 34.0 - 46.0 % Remisol Heme Hemoglobin (Bld) [Mass/Vol] 14.1 g/dL Normal 12.0 - 16.0 gm/dL Remisol Heme Lymphocytes (Bld) [#/Vol] 1.8 E9/L Normal 1.0 - 4.0 E9/L Remisol [facility]e Lymphocytes/100 WBC (Bld) 23.9 % Normal 14.0 - 50.0 % Remisol Heme MCH (RBC) [Entitic mass] 29.5 pg Normal 27.0 - 34.0 pg Remisol Heme MCHC (RBC) [Mass/Vol] 32.9 g/dL Normal 31.4 - 36.0 gm/dL Remisol [facility]e MCV (RBC) [Entitic vol] 89.7 fL Normal 80.0 - 100.0 fL [facility]e Monocytes (Bld) [#/Vol] 0.4 E9/L Normal 0.2 - 1.0 E9/L Remisol Heme Monocytes/100 WBC (Bld) 5.0 % Normal 4.0 - 14.0 % Remisol Heme Neutrophils (Bld) [#/Vol] 4.9 E9/L Normal 2.0 - 7.5 E9/L Remisol Heme Neutrophils/100 WBC (Bld) 66.2 % Normal 36.0 - 75.0 % Remisol Heme Platelet mean volume (Bld) [Entitic vol] 10.3 fL Normal 6.4 - 10.8 fL Remisol Heme Platelets (Bld) [#/Vol] 251.0 E9/L Normal 150.0 - 500.0 E9/L Remisol Heme RBC (Bld) [#/Vol] 4.8 E12/L Normal 4.3 - 5.9 E12/L [facility]e WBC corrected for nucl RBC Auto (Bld) [#/Vol] 7.4 E9/L Normal 4.0 - 11.0 E9/L Rem[facility]e IntraOperative Documentson 0 06-08-2023 IntraOperative Documents [id number] #1.00TIFF Normal [facility] Postoperative Documentson Postoperative Documents [id number] 7#1.00TIFF Normal [facility] Consent for Anesthesiaon Consent for Anesthesia [id number] 8#1.00TIFF Normal [facility] Discharge Instructionson Discharge Instructions [id number] 3#1.00TIFF Normal [facility] IntraOperative Documentson 1 07-31-2022 IntraOperative Documents [id number] 5#1.00TIFF Normal [facility] Main OR Intraoperative Recor don 05-30-2023 Main OR Intraoperative Record IntraOp Document Type FT Summary Primary Physician: Justin Vail DO Finalized Date/Time: 05/30/23 14:29:53 Pt. Name: ALEXUS MATA /Sex: 1995 Female Med Rec #: [id number] Physician: Justin Vail DO Financial #: [id number] Pt. Type: A Room/Bed: [place] [address] Admit/Disch: 05/26/23 07:17:31 - 05/26/23 12:00:00 Institution: Case Times FT Entry 1 Patient Times In Room 05/26/23 09:17:00 Out Room 05/26/23 10:08:00 Procedure Times Start 05/26/23 09:41:00 Stop 05/26/23 10:04:00 Anesthesia Times Start 05/26/23 09:17:00 Stop 05/26/23 10:08:00 Last Modified By: Tavia Sanchez 05/26/23 10:12:04 General Comments: 05/30/23 Chart opened to review and send charges LRoth CSFA Case Attendance FT Entry 1 Entry 2 Entry 3 Case Attendee Franko Pacheco DO, Jason A Wilhelm CST, Benjamin Role Performed Anesthesiologist Surgeon - Primary PAPER BALING 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/SA Director Of Special Education Time In 05/26/23 09:17:00 05/26/23 09:17:00 05/26/23 09:17:00 Time Out 05/26/23 10:08:00 05/26/23 10:08:00 05/26/23 10:08:00 Procedure KNEE ARTHROSCOPY(Left) KNEE ARTHROSCOPY(Left) KNEE ARTHROSCOPY(Left) Comments IS SUPERVISING Last Modified By: Fara PAPER BALING 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, Liane Amy Waldrop CST, CST, Amy Hauser 05/30/23 14:20:49 05/30/23 14:20:49 05/30/23 14:20:49 Entry 4 Entry 5 Entry 6 Case Attendee Hector Field Kelsie E Crosby RN, Maria Elena Keith Role Performed Scrub - Primary Historian Research Assistant - Primary Historian Research Assistant - Primary Time In 05/26/23 09:17:00 05/26/23 09:17:00 05/26/23 09:17:00 Time Out 05/26/23 10:08:00 05/26/23 10:08:00 05/26/23 10:08:00 Procedure KNEE ARTHROSCOPY(Left) KNEE ARTHROSCOPY(Left) KNEE ARTHROSCOPY(Left) Comments Last Modified By: Amy Chaudhari CST, CST, Liane E Roth CST, Amy Hauser 05/30/23 14:20:49 05/30/23 14:20:49 05/30/23 14:20:49 General Comments: TREVOR JOLLY, ARTHREX REP, IN ATTENDANCE.MAYELA CASTAÑEDA RN. Perioperative Protocols FT Pre-Care Text: Implements protective measures prior to operative or invasive procedure, confirms identity before the operative or invasive procedure, verifies operative procedure, surgical site, and laterality Entry 1 Procedure(s) KNEE ARTHROSCOPY(Left) Patient Identity Birthday, ID Band Verified (select at Check, Patient least 2): Participation Consents / H and P Anesthesia Consent, Operative Site Present Verified HandP, Surgery/Procedure Marking Verified Consent, Transfusion Consent Surgical Site Yes Laterality Verified Yes Verified Procedure Verified Yes Correct Patient Yes Position Verified Availability Equipment, Medication Prep Dry Yes Verified (If Applicable) PreOp Antibiotic Yes Time Out Franko Pacheco, Given Participants Justin Vail DO, Wilhelm CST, Emir Gold Kendall R, Burgderfer, Kelsie E, Crosby RN, Maria Elena Keith Time Out Complete 05/26/23 09:38:00 Outcomes Met? Yes Last Modified By: Amy Chaudhari CST 05/30/23 14:20:53 Post-Care Text: The patient is free from signs and symptoms of injury caused by extraneous objects Allergy Information FT Pre-Care Text: Verifies allergies Entry 1 Allergies Reviewed? Yes Allergies Reviewed Self/Patient With Outcomes Met? Yes Last Modified By: Tavia Sanchez 05/26/23 09:12:08 Post-Care Text: The patient received appropriate medication(s) safely administered during the perioperative period Surgical Procedures FT Entry 1 Procedure Description Procedure KNEE ARTHROSCOPY Modifiers Left Surgeon Description LEFT KNEE ARTHROSCOPY, CARTILAGE HARVEST AND CHONDROPLASTY Primary Procedure Yes Primary Surgeon Justin Vail DO Start 05/26/23 09:41:00 Stop 05/26/23 10:04:00 Anesthesia Type General Surgical Service Orthopedics Wound Class 1 - Clean Last Modified By: Amy Chaudhari CST 05/30/23 14:21:08 General Case Data FT Pre-Care Text: Classifies surgical wound, implements aseptic technique, initiates traffic control Entry 1 Case Information OR OR 7 FT Case Level Level 3 Wound Class 1 - Clean Specialty Orthopedics ASA Class 2 Preop Diagnosis LEFT KNEE PATELLA Postop Same As Preop Yes INSTABILITY Postop Diagnosis LEFT KNEE PATELLA Outcomes Met? Yes INSTABILITY Last Modified By: Amy Chaudhari CST 05/30/23 14:22:30 Post-Care Text: The patient is free from signs and symptoms of infection Skin Assessment (Pre Procedure) FT Pre-Care Text: Implements protective measures to prevent skin/ tissue injury due to thermal or mechanical sources Evaluates for signs and symptoms of physical injury to skin and tissue Entry 1 Skin Integrity Intact, [place], Warm, and Skin Abnormality No Dry Outcomes Met? Yes Last Modified By: Tavia Sanchez 05/26/23 09:34:41 Post-Care Text: The patient is free from signs and symptoms of injury caused by extraneous objects Patient Positioning FT Pre-Care Text: Identifies physical alterations that require additional precautions for procedure-specific posi (more content not included)... Normal [facility] Preoperative Documentson Preoperative Documents [id number] 4#1.00TIFF [facility] Consent for Treatmenton 05-06 Consent for Treatment [id number] #1.00TIFF [facility] Discharge Instructionson Discharge Instructions ALEXUS MATA :1995 Visit Date:05/26/2023 Inpatient Discharge Instructions Your Care Team Admitting Physician - Justin Vail DO Referring Physician - Justin Vail DO Reason for Your Visit LEFT KNEE PATELLA INSTABILITY Tests Performed U Beta Hcg Qual This Is Your Medications List acetaminophen-hydroc odone ([place] 325 mg-5 mg oral tablet) albuterol (albuterol 0.083% Inh Ernestina 3 mL) aspirin (aspirin 81 mg Oral EC Tab) docusate (Colace 100 mg Cap) ethinyl estradiol-norgestima te (Sarah 0.25mg-35mcg oral tablet) fexofenadine (Rosanne 24 Hour Allergy oral tablet) fluticasone nasal (Flonase 0.05 mg/inh [place]) ibuprofen (ibuprofen 600 mg Tab) phentermine (Adipex-P 37.5 mg oral capsule) [Image Removed: STOP]Stop taking these medications naproxen (Aleve 220 mg oral capsule) Medications What How Much When Instructions Next Dose New acetaminophen-hydroc odone ([place] 325 mg-5 mg oral tablet) See instructions 1-2 tab(s) Oral q4hr Pickup at [facility] take with food New aspirin (aspirin 81 mg Oral EC Tab) 2 Tablets By Mouth Every day Pickup at [facility] New docusate (Colace 100 mg Cap) 1 Capsules By Mouth 2 times a day as needed for for constipation Pickup at [facility] New ibuprofen (ibuprofen 600 mg Tab) 1 Tablets By Mouth Every 6 hours as needed for as needed for pain with food or milk Pickup at [facility] Unchanged albuterol (albuterol 0.083% Inh Ernestina 3 mL) 0.083% - 3mL dosing units Inhalation Every 4 hours as needed for Allergy symptoms Unchanged ethinyl estradiol-norgestima te (Sarah 0.25mg-35mcg oral tablet) 1 Tablets By Mouth Every day Unchanged fexofenadine (Rosanne 24 Hour Allergy oral tablet) 1 Tablets By Mouth Every day Unchanged fluticasone nasal (Flonase 0.05 mg/ inh [place]) 1 Sprays Nasal Inhalation 2 times a day as needed for Allergy symptoms each nostril Unchanged phentermine (Adipex-P 37.5 mg oral capsule) 1 Capsules By Mouth Every day Pharmacy Information [email or web address]: [address] [place], [place] [id number] [phone] What How Much When Comments Stop Taking naproxen (Aleve 220 mg oral capsule) 1 Capsules By Mouth Every 12 hours as needed for Pain 1-3 Allergies Augmentin (Stomach pain) Cats (Nasal congestion) Dust (Nasal congestion) Ragweed (Nasal congestion) Seasonal (Congestion) Education Materials [place], [place] [facility] DISCHARGE INSTRUCTIONS: KNEE ARTHROSCOPY Diet Begin with a liquid diet and advance to your normal diet as tolerated. Activity You may gradually increase your activity as tolerated. Until your first post-operative visit elevate your knee higher than your heart, whenever you are sitting or lying down. Knee swelling will gradually decrease after surgery. Increased swelling is usually a sign of over-activity and should be a signal for you to be less active and apply ice as needed. Your exercise program is the james to successful rehabilitation of your knee. Do the exercises daily as instructed. You will receive further exercises at your next visit as needed. The possible need for Physical Therapy will then be discussed. You may bear weight on your operative leg, but you use your crutches or walker for support when ambulating. This is important for protection of your knee after surgery. Although you will find that you can walk without crutches or walker, it is not healthy for you until you regain adequate muscle strength. Use your crutches or walker until your limp is gone. You are encouraged to bend your knee as this is comfortably tolerated. Do not forcefully bend until you have permission by your surgeon. Driving is legal, but if you are involved in an accident, you must be able to prove that you maintained full control of your vehicle. For this reason, it is advised that you do not drive until your strength returns, generally in 1-2 weeks. Similarly, all sports activities are discouraged, at least until your first post-operative visit at which time we will discuss how and when to resume sports. Increased Pain Usually this is the result of over-activity and should respond well to rest, ice and elevation. If this does not provide relief, take the pain medication as directed but do not return to activity. If severe pain persists despite rest, elevation and medication, contact your surgeon. You will be given a prescription for pain medication when you leave the hospital. Please inform us of any known drug allergy. If you have any problems with the medication, it should be discontinued and our office notified. The sensation of splashing of fluid inside the knee is not cause for concern. It represents residual fluids from surgery and they will be absorbed generally in the first few days. Elevation of the leg and application of an ice pack to (more content not included)... Normal [facility] Comment on above: Result Comment: Elec tronically Signed By: Jalen STAFFORD, Yessica Olson\.br\Date and Time Signed: 05/26/23 11:43 EST H&P Updateon 05-26-2023 H&P Update [id number] #1.00TIFF Normal [facility] Inpatient Patient Summaryon 05-26-2023 Inpatient Patient Summary [address] [address] [facility] Clinical Discharge Instructions PERSON INFORMATION Name: ALEXUS MATA [facility]#:[id number] PHYSICIANS Admitting Physician: Justin Vail DO Attending Physician: Justin Vail DO PCP: KIM GOMEZ CNP Discharge Diagnosis: Comment: PATIENT EDUCATION INFORMATION Instructions: Wallace Vail - Knee Arthroscopy (Custom) Medication Leaflets: Follow up: MEDICATION LIST New Medications [facility], [address], [place] [id number], [phone] acetaminophen-hydroc odone ([place] 325 mg-5 mg oral tablet) 1-2 tab(s) Oral q4hr; as needed for pain. Refills: 0. aspirin (aspirin 81 mg Oral EC Tab) 2 Tablets By Mouth every day. Refills: 0. docusate (Colace 100 mg Cap) 1 Capsules By Mouth 2 times a day as needed for constipation. Refills: 0. ibuprofen (ibuprofen 600 mg Tab) 1 Tablets By Mouth every 6 hours as needed as needed for pain. with food or milk. Refills: 0. Medications to Continue with No Changes Other Medications albuterol (albuterol 0.083% Inh Ernestina 3 mL) 0.083% - 3mL dosing units Inhalation every 4 hours as needed Allergy symptoms. ethinyl estradiol-norgestima te (Sarah 0.25mg-35mcg oral tablet) 1 Tablets By Mouth every day. fexofenadine (Rosanne 24 Hour Allergy oral tablet) 1 Tablets By Mouth every day. fluticasone nasal (Flonase 0.05 mg/inh [place]) 1 Sprays Nasal Inhalation 2 times a day as needed Allergy symptoms. each nostril. phentermine (Adipex-P 37.5 mg oral capsule) 1 Capsules By Mouth every day. No Longer Take the Following Medications naproxen (Aleve 220 mg oral capsule) 1 Capsules By Mouth every 12 hours as needed Pain 1-3. Comment: Amena [facility] Main OR PACU I Recordon 05-06 Main OR PACU I Record PACU Phase I Document Type FT Summary Primary Physician: Justin Vail DO Finalized Date/Time: 05/26/23 10:40:59 Pt. Name: ALEXUS MATA./Sex: 1995 Female Med Rec #: [id number] Physician: Justin Vail DO Financial #: [id number] Pt. Type: A Room/Bed: [place] [address] Admit/Disch: 05/26/23 07:17:31 - Institution: Case Times PACU I FT Pre-Care Text: Identifies barriers to communication and implements measures to provide psychological support Develops individualized plan of care, and ensures continuity of care Maintains patient's dignity and privacy, and maintains patient confidentiality Identifies and reports philosophical, cultural, and spiritual beliefs and values Identifies individual values and wishes concerning care Implements aseptic technique, and administers prescribed antibiotic therapy and immunizing agents as ordered Evaluates postoperative tissue perfusion Implements thermoregulation measures, and monitors body temperature Evaluates postoperative respiratory status Evaluates postoperative cardiac status Evaluates postoperative neurological status Assesses pain control, collaborated in initiating patient-controlled analgesia and implements alternative methods of pain control Verifies allergies, administers prescribed medications and solutions, evaluates response to medications Entry 1 In PACU I 05/26/23 10:11:00 Discharge from PACU 05/26/23 10:51:00 I Outcomes Met? Yes Last Modified By: Sonia Carpenter RN 05/26/23 10:40:47 Post-Care Text: The patient demonstrates knowledge of the expected response to the operative or invasive procedure The patient's care is consistent with the individualized perioperative plan of care The patient's right to privacy is maintained The patient's value system, lifestyle, ethnicity, and culture are considered, respected, and incorporated into the perioperative plan of care The patient participates in decisions affecting his or her perioperative plan of care The patient is free from signs and symptoms of infection The patient has wound/tissue perfusion consistent with or improved from baseline levels established preoperatively The patient is at or returning to normothermia at the conclusion of the immediate postoperative period The patient's respiratory function is consistent with or improved from baseline levels established preoperatively The patient's cardiovascular status is consistent with or improved from baseline levels established preoperatively The patient's cardiovascular status is consistent with or improved from baseline levels established preoperatively The patient demonstrates and/or reports adequate pain control throughout the perioperative period The patient received appropriate medication(s), safely administered during the perioperative period Acuity Level PACU I FT Entry 1 Start Time 05/26/23 10:11:00 Stop Time 05/26/23 10:51:00 Acuity Level Acuity Level I Last Modified By: Sonia Carpenter RN 05/26/23 10:40:57 Finalized By: Sonia Carpenter RN Document Signatures Signed By: Sonia Carpenter RN 05/26/23 10:40 Normal [facility] Main OR PACU II Recordon Main OR PACU II Record PACU Phase II Document Type FT Summary Primary Physician: Justin Vail DO Finalized Date/Time: 05/26/23 13:17:39 Pt. Name: ALEXUS MATA/Sex: 1995 Female Med Rec #: [id number] Physician: Justin Vail DO Financial #: [id number] Pt. Type: A Room/Bed: [place] [address] Admit/Disch: 05/26/23 07:17:31 - 05/26/23 12:00:00 Institution: Case Times PACU II FT Pre-Care Text: Identifies barriers to communication and implements measures to provide psychological support and determines knowledge level Develops individualized plan of care, and ensures continuity of care Maintains patient's dignity and privacy, and maintains patient confidentiality Identifies and reports philosophical, cultural, and spiritual beliefs and values Identifies individual values and wishes concerning care administers prescribed antibiotic therapy and immunizing agents as ordered, Evaluates postoperative tissue perfusion Implements thermoregulation measures, and monitors body temperature Evaluates postoperative respiratory status Evaluates postoperative cardiac status Evaluates postoperative neurological status Assesses pain control, collaborated in initiating patient-controlled analgesia and implements alternative methods of pain control Verifies allergies, administers prescribed medications and solutions, evaluates response to medications Entry 1 In PACU II 05/26/23 11:00:00 Discharge from PACU 05/26/23 12:00:00 II Outcomes Met? Yes Last Modified By: Yessica Rao RN 05/26/23 13:17:36 Post-Care Text: The patient demonstrates knowledge of the expected response to the operative or invasive procedure The patient's care is consistent with the individualized perioperative plan of care The patient's right to privacy is maintained The patient's value system, lifestyle, ethnicity, and culture are considered, respected, and incorporated into the perioperative plan of care The patient participates in decisions affecting his or her perioperative plan of care. The patient is free from signs and symptoms of infection The patient has wound/tissue perfusion consistent with or improved from baseline levels established preoperatively The patient is at or returning to normothermia at the conclusion of the immediate postoperative period The patient's respiratory function is consistent with or improved from baseline levels established preoperatively The patient's cardiovascular status is consistent with or improved from baseline levels established preoperatively The patient's neurological status is consistent with or improved from baseline levels established preoperatively The patient demonstrates and/or reports adequate pain control throughout the perioperative period The patient received appropriate medication(s), safely administered during the perioperative period Finalized By: Yessica Rao RN Document Signatures Signed By: Yessica Rao RN 05/26/23 13:17 Normal [facility] Main OR Preoperative Recordo n 05-26-2023 Main OR Preoperative Record PreOp Document Type FT Summary Primary Physician: Justin Vail DO Finalized Date/Time: 05/26/23 09:34:50 Pt. Name: ALEXUS MATA D.O.B./Sex: 1995 Female Med Rec #: [id number] Physician: Justin Vail DO Financial #: [id number] Pt. Type: A Room/Bed: [facility]/ Admit/Disch: 05/26/23 07:17:31 - Institution: Case Times PreOp FT Pre-Care Text: Verifies consent for planned procedure, identifies individual values and wishes concerning care, includes family members in perioperative teaching Entry 1 Patient Times. In Pre Surgery 05/26/23 07:15:00 Out Pre Surgery 05/26/23 09:15:00 Outcomes Met? Yes Last Modified By: Tavia Sanchez 05/26/23 09:34:48 Post-Care Text: The patient participates in decisions affecting his or her perioperative plan of care Finalized By: Tavia Sanchez Document Signatures Signed By: Tavia Sanchez 05/26/23 09:34 Normal [facility] Monitor Recordon 05-26-2023 Monitor Record [id number] [id number] Normal [facility] Operative Reporton Operative Report Patient: ALEXUS MATA Age: 27 years Sex: Female : 1995 Associated Diagnoses: None Author: Justin Vail DO DATE OF SURGERY: 05/26/2023 SURGEON: Justin Vail D.O. CUSTODIAL MANAGER: Bk Pulliam CFA PREOPERATIVE DIAGNOSIS: Recurrent patellar instability, cartilage defect medial patellar facet, left knee POSTOPERATIVE DIAGNOSIS: Recurrent patellar instability, cartilage defect medial patellar facet, left knee PROCEDURE: 1. Examination under anesthesia, left knee 2. Left knee diagnostic arthroscopy 3. Arthroscopic chondroplasty to the patella 4. Arthroscopic cartilage harvest ANESTHESIA: General ANESTHESIOLOGIST: MICHEAL Roman and Brandon Schilling DO OPERATIVE INDICATIONS: Alexus is a 27-year-old female who underwent left knee arthroscopy, excision of plica, chondroplasty, and lateral release on 11/15/2010 by another surgeon. The intraoperative photographs showed significant cartilage damage to the medial patella with a delaminated loose chondral flap. Since surgery she has had continued intermittent pain in the knee. She has been complaining of a painful popping sensation and feels her kneecap has been popping out of place . Her pain is located primarily at the medial aspect of the knee. She has not been able to remain as active as she would like. MRI showed cartilage irregularity at the medial patella, normal TT-TG distance, and normal patellar height. No loose bodies or meniscus/ligamentous pathology. She presents today for the above procedure and we will plan on returning at a later date to implant cartilage to her patella and perform a reconstruction of the medial patellofemoral ligament to stabilize the patella. She agreed to proceed after a discussion of the risks, benefits, complications, alternatives, and expectations. Please see office notes for further details. PROCEDURE IN DETAIL: The correct operative site was identified and marked in the preoperative holding area. The patient was transported to the operating room and placed supine on the operating table. The patient was administered general anesthetic. After adequate anesthesia was obtained, a well-padded tourniquet was applied to the operative upper thigh. Surgical timeout was performed with all required personnel present. The knee was examined and found to have full flexion and extension, negative jumping J sign, negative Jimmy's, negative anterior and posterior drawer, no varus or valgus instability. Increased lateral patellar translation when compared to the contralateral right knee. The operative lower extremity was placed into the arthroscopic leg sotelo and the nonoperative lower extremity was placed onto the padded well leg sotelo. The foot of the table was dropped. The operative lower extremity was prepped and draped in the usual sterile fashion. The limb was exsanguinated with an Esmarch and the tourniquet was inflated to 300 mmHg. A standard anterolateral portal was made. The arthroscope was introduced into the knee. The scope was taken medially where an anteromedial portal was established with outside-in technique using spinal needle localization. A hook probe was inserted and a diagnostic arthroscopy was carried out with the findings as noted below: 1. Patellofemoral compartment: The patella had a grade 3 osteochondral defect measuring approximately 21 mm cephalad to caudad and 18 m medial to lateral that extended from the medial facet into the central patella. Grade 2 changes surrounding the periphery of the lesion. Lateral patellar facet was free of articular changes. The trochlea had grade 1 grooving centrally. No loose bodies, no plica, no synovitis. 2. Medial compartment: Medial meniscus was free of tears. Medial femoral condyle and medial tibial plateau were free of articular changes. 3. Intercondylar notch: ACL and PCL intact. 4. Lateral compartment: Lateral meniscus free of tears. Lateral femoral condyle and lateral tibial plateau were free of articular changes. 5. The medial and lateral gutters were free of any loose bodies or debris. The arthroscope was placed into the AM portal and all aspects of the knee were examined once again. The fibrillated cartilage along the patella was smoothed with the motorized shaver. The scope was placed into the intercondylar notch where a ringed curette was used to harvest cartilage from the anterior aspect of the notch. The cartilage fragments were transferred to the ALEXANDRA container in sterile fashion. The knee was thoroughly irrigated. All arthroscopic instruments were removed. The portals were closed with 4-0 nylon. Dressing consisting of bacitracin, Adaptic, 4 x 4?s, and soft roll was applied. Tourniquet was deflated and adequate perfusion was noted to return to the extremity. Yair bandage was wrapped around the knee. The patient was reversed from anesthesia having tolerated the procedure well. The patient was transported to the recovery room in good condition. Sponge and needle counts w (more content not included)... Normal [facility] Comment on above: Result Comment: Elec tronically Signed By: Justin Vail DO\.br\Date and Time Signed: 05/26/23 18:28 EST Outpatient Surgery Discharge Instructionon 05-26-2023 Outpatient Surgery Discharge Instruction [place] [id number] Patient Discharge Instructions PERSON INFORMATION Name: ALEXUS MATA Date of : 1995 Current Date: 05/26/2023 10:08:57 PHYSICIANS Admitting Physician: Justin Vail DO Discharge Diagnosis: ALEXUS MATA has been given the following list of follow-up instructions, prescriptions, and patient education materials: IF UNABLE TO CONTACT YOUR PHYSICIAN AND YOU FEEL IT IS AN EMERGENCY, GO TO THE NEAREST EMERGENCY ROOM OR CALL 911 IADOLFO LINDSEY D, have received the attached patient education materials/instructio ns and have verbalized understanding: May we do a follow up call? Yes No I was present when discharge instructions were given Patient Signature Date Clinican/Nurse Signature Date Follow up: Pharmacy Information: You may receive a survey from [employer] asking you to rate your care experience. Your feedback is important and will help us understand what we do well and how we can improve the quality of care we provide to you, your loved ones and our community. It?s an honor to serve you. Thank you for choosing [facility] HERE ARE THE MEDICATION CHANGES THAT OCCURRED DURING YOUR HOSPITAL STAY New Medications [facility], [address] [place], [place] [id number], [phone] acetaminophen-hydroc odone ([place] 325 mg-5 mg oral tablet) 1-2 tab(s) Oral q4hr; as needed for pain. Refills: 0. aspirin (aspirin 81 mg Oral EC Tab) 2 Tablets By Mouth every day. Refills: 0. docusate (Colace 100 mg Cap) 1 Capsules By Mouth 2 times a day as needed for constipation. Refills: 0. ibuprofen (ibuprofen 600 mg Tab) 1 Tablets By Mouth every 6 hours as needed as needed for pain. with food or milk. Refills: 0. Medications to Continue with No Changes Other Medications albuterol (albuterol 0.083% Inh Ernestina 3 mL) 0.083% - 3mL dosing units Inhalation every 4 hours as needed Allergy symptoms. ethinyl estradiol-norgestima te (Sarah 0.25mg-35mcg oral tablet) 1 Tablets By Mouth every day. fexofenadine (Rosanne 24 Hour Allergy oral tablet) 1 Tablets By Mouth every day. fluticasone nasal (Flonase 0.05 mg/inh [place]) 1 Sprays Nasal Inhalation 2 times a day as needed Allergy symptoms. each nostril. phentermine (Adipex-P 37.5 mg oral capsule) 1 Capsules By Mouth every day. No Longer Take the Following Medications naproxen (Aleve 220 mg oral capsule) 1 Capsules By Mouth every 12 hours as needed Pain 1-3. PATIENT EDUCATION INFORMATION Instructions: [place], [place] [facility] DISCHARGE INSTRUCTIONS: KNEE ARTHROSCOPY Diet Begin with a liquid diet and advance to your normal diet as tolerated. Activity You may gradually increase your activity as tolerated. Until your first post-operative visit elevate your knee higher than your heart, whenever you are sitting or lying down. Knee swelling will gradually decrease after surgery. Increased swelling is usually a sign of over-activity and should be a signal for you to be less active and apply ice as needed. Your exercise program is the james to successful rehabilitation of your knee. Do the exercises daily as instructed. You will receive further exercises at your next visit as needed. The possible need for Physical Therapy will then be discussed. You may bear weight on your operative leg, but you use your crutches or walker for support when ambulating. This is important for protection of your knee after surgery. Although you will find that you can walk without crutches or walker, it is not healthy for you until you regain adequate muscle strength. Use your crutches or walker until your limp is gone. You are encouraged to bend your knee as this is comfortably tolerated. Do not forcefully bend until you have permission by your surgeon. Driving is legal, but if you are involved in an accident, you must be able to prove that you maintained full control of your vehicle. For this reason, it is advised that you do not drive until your strength returns, generally in 1-2 weeks. Similarly, all sports activities are discouraged, at least until your first post-operative visit at which time we will discuss how and when to resume sports. Increased Pain Usually this is the result of over-activity and should respond well to rest, ice and elevation. If this does not provide relief, take the pain medication as directed but do not return to activity. If severe pain persists despite rest, elevation and medication, contact your surgeon. You will be given a prescription for pain medication when you leave the hospital. (more content not included)... Normal [facility] Patient Education - Texton 1 07-27-2022 Patient Education - Text [place], [place] [facility] DISCHARGE INSTRUCTIONS: KNEE ARTHROSCOPY Diet Begin with a liquid diet and advance to your normal diet as tolerated. Activity You may gradually increase your activity as tolerated. Until your first post-operative visit elevate your knee higher than your heart, whenever you are sitting or lying down. Knee swelling will gradually decrease after surgery. Increased swelling is usually a sign of over-activity and should be a signal for you to be less active and apply ice as needed. Your exercise program is the james to successful rehabilitation of your knee. Do the exercises daily as instructed. You will receive further exercises at your next visit as needed. The possible need for Physical Therapy will then be discussed. You may bear weight on your operative leg, but you use your crutches or walker for support when ambulating. This is important for protection of your knee after surgery. Although you will find that you can walk without crutches or walker, it is not healthy for you until you regain adequate muscle strength. Use your crutches or walker until your limp is gone. You are encouraged to bend your knee as this is comfortably tolerated. Do not forcefully bend until you have permission by your surgeon. Driving is legal, but if you are involved in an accident, you must be able to prove that you maintained full control of your vehicle. For this reason, it is advised that you do not drive until your strength returns, generally in 1-2 weeks. Similarly, all sports activities are discouraged, at least until your first post-operative visit at which time we will discuss how and when to resume sports. Increased Pain Usually this is the result of over-activity and should respond well to rest, ice and elevation. If this does not provide relief, take the pain medication as directed but do not return to activity. If severe pain persists despite rest, elevation and medication, contact your surgeon. You will be given a prescription for pain medication when you leave the hospital. Please inform us of any known drug allergy. If you have any problems with the medication, it should be discontinued and our office notified. The sensation of splashing of fluid inside the knee is not cause for concern. It represents residual fluids from surgery and they will be absorbed generally in the first few days. Elevation of the leg and application of an ice pack to the knee will minimize swelling and discomfort in the first 48 hours after surgery. Incisions The portals of entry may be sore and develop bruising over the next several days. The bruising eventually resolves and does not require any special care. There may be some numbness around the portals that can take several days or several weeks to resolve as the swelling subsides. Do not apply creams or lotions to your knee. Your portals will heal best if kept dry. [facility] Discharge Instructs for Knee Arthroscopy Page 2 Dressing A soft compression dressing has been applied to your knee. This dressing should be comfortable and absorb any leakage of fluid after surgery. Although the dressing may become moist or blood stained, this is not usually a cause for concern. If this persists beyond 2-3 days, notify your surgeon. You may remove the dressing 2 days after your surgery. You may possibly have tape strips or sutures under the dressing. Do not remove these if present. Apply bandaids to the operative sites and keep these clean until your first post-operative visit. Apply betadine and band-aids to the puncture wounds in the morning (and again in the evening as needed) on a daily basis. Bathing You may shower 2 days after surgery. Bathing or soaking in water should be avoided until your first post-operative visit. Keep incisions dry until healed over. Precautions If you develop fever (101 degrees or above), increasing pain (not relieved by rest, elevation, ice and medication as prescribed), redness, or persistent swelling in your calves or feet that doesn't respond to elevation, please contact the office or the hospital. If you notice increasing drainage from the operative portals after the first few days, this should also be reported. You may have been prescribed aspirin after surgery. Take this as prescribed to help prevent blood clots. Return Visit Your post-operative follow-up appointment is generally between 7 and 10 days after surgery. You will be given an appointment card with this information. Do not hesitate to call the office or the hospital if any problems or questions arise before your appointment. Justin Vail DO [facility] [address] [place] [address] Reviewed: 08-20 [facility] Progress Note-Physicianon Progress Note-Physician Patient: ALEXUS MATA Age: 27 years Sex: Female : 1995 Associated Diagnoses: None Author: Brandon Schilling Jr., DO Postoperative Information Postoperative disposition: Postoperative disposition: Home. Optimetrix number: Optimetrix number [id number]. Anesthetic utilized: General. Physical Examination Vital Signs 05/26/2023 11:58 EST Heart Rate Monitored 72 bpm SpO2 98 % 05/26/2023 11:58 EST Respiratory Rate 16 br/min 05/26/2023 11:58 EST Systolic Blood Pressure 123 mmHg Diastolic Blood Pressure 72 mmHg Mean Arterial Pressure, Monitered 89 mmHg 05/26/2023 10:58 EST Heart Rate Monitored 80 bpm SpO2 100 % 05/26/2023 10:58 EST Respiratory Rate 20 br/min 05/26/2023 10:56 EST Temperature Oral 36.3 DegC 05/26/2023 10:56 EST Systolic Blood Pressure 110 mmHg Diastolic Blood Pressure 73 mmHg Mean Arterial Pressure, Monitered 85 mmHg 05/26/2023 10:51 EST Temperature Temporal Artery 37.1 DegC Heart Rate Monitored 58 bpm LOW Respiratory Rate Monitored 15 br/min Systolic Blood Pressure 89 mmHg Diastolic Blood Pressure 64 mmHg Mean Arterial Pressure, Cuff 72 mmHg SpO2 100 % 05/26/2023 10:45 EST Heart Rate Monitored 80 bpm Respiratory Rate Monitored 24 br/min Systolic Blood Pressure 111 mmHg Diastolic Blood Pressure 89 mmHg Mean Arterial Pressure, Cuff 96 mmHg SpO2 100 % 05/26/2023 10:30 EST Heart Rate Monitored 82 bpm Respiratory Rate Monitored 16 br/min Systolic Blood Pressure 109 mmHg Diastolic Blood Pressure 65 mmHg Mean Arterial Pressure, Cuff 80 mmHg SpO2 99 % 05/26/2023 10:25 EST Heart Rate Monitored 75 bpm Respiratory Rate Monitored 21 br/min Systolic Blood Pressure 105 mmHg Diastolic Blood Pressure 72 mmHg Mean Arterial Pressure, Cuff 83 mmHg SpO2 98 % 05/26/2023 10:20 EST Heart Rate Monitored 95 bpm Respiratory Rate Monitored 15 br/min Systolic Blood Pressure 95 mmHg Diastolic Blood Pressure 64 mmHg Mean Arterial Pressure, Cuff 74 mmHg SpO2 98 % 05/26/2023 10:15 EST Heart Rate Monitored 80 bpm Respiratory Rate Monitored 23 br/min Systolic Blood Pressure 109 mmHg Diastolic Blood Pressure 63 mmHg Mean Arterial Pressure, Cuff 78 mmHg SpO2 98 % 05/26/2023 10:11 EST Temperature Temporal Artery 36.5 DegC Heart Rate Monitored 78 bpm Respiratory Rate Monitored 20 br/min Systolic Blood Pressure 105 mmHg Diastolic Blood Pressure 65 mmHg Blood Pressure Location Left arm Mean Arterial Pressure, Cuff 78 mmHg SpO2 98 % Pain Assessment: Controlled, Pain Assessment 05/26/2023 11:58 EST Preliminary Pain Scale 3 05/26/2023 10:58 EST Preliminary Pain Scale 4 05/26/2023 10:46 EST Numeric Pain Scale 4 Acceptable Pain Intensity - Numeric 4 05/26/2023 10:30 EST Pain Symptoms Self Report Yes, able to self report Primary Pain Location Knee Primary Pain Laterality Left Primary Pain Quality Burning Numeric Pain Scale 5 = Moderate pain . General: Awake, Alert, Appropriate. Respiratory: Adequate air exchange, Non-labored. Cardiovascular: Stable, Normal peripheral perfusion. Neurological: Neurologic exam at baseline. No changes.. Assessment Anesthetic outcome No anesthetic complications noted. No nausea/vomiting. Review / Management Condition: Stable. Plan Transfer/Discharge: Transfer/Discharge Discharge when meets criteria ( From PACU to Ambulatory Surgery Unit, and To home ). Normal [facility] Comment on above: Result Comment: Elec tronically Signed By: Brandon Schilling Jr., DO\.br\Date and Time Signed: 05/26/23 12:24 EST Progress Note-Physician Patient: ALEXUS MATA Age: 27 years Sex: Female : 1995 Associated Diagnoses: None Author: Brandon Schilling Jr., DO Preoperative Information Anesthesia Preop Info NPO since midnight Anesthesia history: Patient history: No prior anesthetic problems. Informed consent: Signed by patient. Re-evaluation prior to induction: Initial evaluation reviewed: No significant change. Health Status Allergies: Allergic Reactions (Selected) Severity Not Documented Augmentin- Stomach pain. Cats- Nasal congestion. Dust- Nasal congestion. Ragweed- Nasal congestion. Seasonal- Congestion., Allergies (5) Active Reaction Augmentin Stomach pain Cats Nasal congestion Dust Nasal congestion Ragweed Nasal congestion Seasonal Congestion Current medications: (Selected) Inpatient Medications Ordered HYDROmorphone 1 mg/mL injectable solution: 0.4 mg = 0.4 mL, Injection, IV Push, q4min PRN Pain for 5 dose(s), Stop date Limited # of times, Routine, Start date 05/26/23 8:37:00 EST, 05/26/23 8:37:00 EST Lactated Ringers IV Ernestina 1000 mL 1,000 mL: 1,000 mL, IV, 100 mL/hr, Routine, Start date 05/26/23 8:37:00 EST, 10 hour(s), Total volume (mL): 1,000, 90.5 kg, 2.01, m2 Lactated Ringers IV Ernestina 1000 mL 1,000 mL: 1,000 mL, IV, 150 mL/hr, Routine, Start date 05/26/23 7:15:00 EST, 6.7 hour(s), Total volume (mL): 1,000, 90.5 kg, 2.01, m2 cefazolin additive + Sodium Chloride 0.9% intravenous solution 50 mL: 2 gram = 1 EA, Powder-Inj, IV Piggyback, PREOP, Routine, Start date 05/26/23 7:15:00 EST, 100 mL/hr, Infuse over 30 minute(s) tranexamic acid additive + premix generic diluent 100 mL: 1,000 mg = 100 mL, Soln-IV, IV Piggyback, Once, Stop date 05/26/23 8:00:00 EST, Routine, Start date 05/26/23 8:00:00 EST, 200 mL/hr, Infuse over 30 minute(s) Documented Medications Documented Adipex-P 37.5 mg oral capsule: 37.5 mg = 1 cap(s), Oral, Daily, Anxiety Aleve 220 mg oral capsule: 220 mg = 1 cap(s), Oral, q12hr, PRN Pain 1-3 Rosanne 24 Hour Allergy oral tablet: 180 mg = 1 tab(s), Oral, Daily, Allergy symptoms Flonase 0.05 mg/inh [place]: 1 spray(s), Nasal, BID Allergy symptoms, each nostril Sarah 0.25mg-35mcg oral tablet: 1 tab(s), Oral, Daily, Refill(s) 0, control/menstrual regulation albuterol 0.083% Inh Ernestina 3 mL: 0.083% - 3mL dosing units, Inhalation, q4hr Allergy symptoms, Home Medications (6) Active Adipex-P 37.5 mg oral capsule 37.5 mg = 1 cap(s), Oral, Daily albuterol 0.083% Inh Ernestina 3 mL 0.083% - 3mL dosing units, PRN, Inhalation, q4hr Aleve 220 mg oral capsule 220 mg = 1 cap(s), PRN, Oral, q12hr Rosanne 24 Hour Allergy oral tablet 180 mg = 1 tab(s), Oral, Daily Flonase 0.05 mg/inh [place] 1 spray(s), PRN, Nasal, BID Sarah 0.25mg-35mcg oral tablet 1 tab(s), Oral, Daily , Medications (5) Active Scheduled: (2) ceFAZolin + Sodium Chloride 0.9% Minibag 50 mL 2 gram 1 EA, IV Piggyback, PREOP tranexamic acid + Generic Diluent 100 mL 1,000 mg 100 mL, IV Piggyback, Once Continuous: (2) Lactated Ringers 1,000 mL 1,000 mL, IV, 150 mL/hr Lactated Ringers 1,000 mL 1,000 mL, IV, 100 mL/hr PRN: (1) HYDROmorphone 1 mg/mL SOLN [F] 0.4 mg 0.4 mL, IV Push, q4min Problem list: All Problems PCOS (polycystic ovarian syndrome) / SNOMED CT 678788044 / Confirmed Smoker / SNOMED CT 055070151 / Confirmed Added secondary to documentation in Social History. Resolved: / SNOMED CT 522359482 Histories Past Medical History: Resolved ([id number]): Onset on 04/05/2015 at 19 years. Resolved on 11/21/2015 at 20 years. Procedure history: Cholecystectomy ([id number]) on 05/11/2016 at 20 Years. tubes in ears. Arthroscopy of LEFT knee ([id number]). 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 Physical Examination Vital Signs 05/26/2023 7:40 EST Apical Heart Rate 96 bpm 05/26/2023 7:38 EST Heart Rate Monitored 86 bpm Systolic Blood Pressure 112 mmHg Diastolic Blood Pressure 69 mmHg Mean Arterial Pressure, Monitered 84 mmHg 05/26/2023 7:37 EST Heart Rate Monitored 86 bpm SpO2 97 % 05/26/2023 7:36 EST Respiratory Rate 20 br/min 05/26/2023 7:36 EST Systolic Blood Pressure 126 mmHg Diastolic Blood Pressure 70 mmHg Mean Arterial Pressure, Monitered 89 mmHg 05/26/2023 7:36 EST Temperature Oral 36.6 DegC Airway: Mallampati classification: II (soft palate, fauces, uvula visible). Respiratory: Lungs are clear to auscultation, Respirations are non-labored. Cardiovascular: Regular rhythm. Review / Management Results r (more content not included)... Normal [facility] Comment on above: Result Comment: Elec tronically Signed By: Brandon Schilling Jr., DO\.br\Date and Time Signed: 05/26/23 08:47 EST U BetaHcg [place] 05-26-2023 HCG.beta subunit (U) [Moles/Vol] Negative Normal [facility] Comment on above: Performed By: #### 2 [id number] ####[facility] [id number] [place] [address] Consent for Procedure/Surger yon 05-25-2023 Consent for Procedure/Surgery [id number]#[id number] Normal [facility] Auto Diffon 05-11-2023 Basophils/100 WBC (Bld) 0.9 % Normal 0.0-2.0 [facility] Comment on above: Order Comment: Order Added by Discern Expert. Performed By: #### 2 [id number], [id number] ####[address] [address] Basophils/Leukocytes Auto (Bld) [Pure # fraction] 0.1 E9/L Normal 0.0-0.2 [facility] Comment on above: Order Comment: Order Added by Discern Expert. Performed By: #### 2 [id number], [id number] ####[address] [address] Eosinophils/100 WBC (Bld) 9.2 % High 0.0-8.0 [facility] Comment on above: Order Comment: Order Added by Garcia Expert. Performed By: #### 2 [id number], [id number] ####[address] [address] Eosinophils/Leukocytes Auto (Bld) [Pure # fraction] 0.5 E9/L Normal 0.0-0.5 [facility] Comment on above: Order Comment: Order Added by Garcia Expert. Performed By: #### 2 [id number], [id number] ####[address] [address] Lymphocytes/100 WBC (Bld) 23.1 % Normal 14.0-50.0 [facility] Comment on above: Order Comment: Order Added by Garcia Expert. Performed By: #### 2 [id number], [id number] ####[address] [address] Lymphocytes/Leukocytes Auto (Bld) [Pure # fraction] 1.3 E9/L Normal 1.0-4.0 [facility] Comment on above: Order Comment: Order Added by Discern Expert. Performed By: #### 2 [id number], [id number] ####[address] [address] Monocytes/100 WBC (Bld) 5.5 % Normal 4.0-14.0 [facility] Comment on above: Order Comment: Order Added by Discern Expert. Performed By: #### 2 [id number], [id number] ####[place] [address] [place] [address] Monocytes/Leukocytes Auto (Bld) [Pure # fraction] 0.3 E9/L Normal 0.2-1.0 [facility] Comment on above: Order Comment: Order Added by Discern Expert. Performed By: #### 2 [id number], [id number] ####[address] [address] Neutrophils/100 WBC (Bld) 61.3 % Normal 36.0-75.0 [facility] Comment on above: Order Comment: Order Added by Discern Expert. Performed By: #### 2 [id number], [id number] ####[address] [address] Neutrophils/Leukocytes Auto (Bld) [Pure # fraction] 3.5 E9/L Normal 2.0-7.5 [facility] Comment on above: Order Comment: Order Added by Discern Expert. Performed By: #### 2 [id number], [id number] ####[address] [address] CBC w/ Auto Diffon 3 Erythrocyte distribution width (RBC) [Ratio] 13.2 % Normal 10.9-14.2 [facility] Comment on above: Performed By: #### 2 900455, [id number] ####[address] [address] Hematocrit (Bld) [Volume fraction] 42.7 % Normal 34.0-46.0 [facility] Comment on above: Performed By: #### 2 408046, [id number] ####[address] [address] Hemoglobin (Bld) [Mass/Vol] 14.2 g/dL Normal 12.0-16.0 [facility] Comment on above: Performed By: #### 2 536729, [id number] ####[address] [address] MCH (RBC) [Entitic mass] 29.8 pg Normal 27.0-34.0 [facility] Comment on above: Performed By: #### 2 [id number], [id number] ####[address] [address] MCHC (RBC) [Mass/Vol] 33.2 g/dL Normal 31.4-36.[address] [facility] Comment on above: Performed By: #### 2 [id number], [id number] ####[place] [id number] MCV (RBC) [Entitic vol] 89.9 fL Normal 80.0-100.0 [facility] Comment on above: Performed By: #### 2 186677, [id number] ####[place] [address] Platelet mean volume (Bld) [Entitic vol] 10.9 fL High 6.4-10.8 [facility] Comment on above: Performed By: #### 2 988071, [id number] ####[address] [address] Platelets (Bld) [#/Vol] 249.0 E9/L Normal 150.0-500.0 [facility] Comment on above: Performed By: #### 2 [id number], [id number] ####[place] [id number] RBC (Bld) [#/Vol] 4.8 E12/L Normal 4.3-5.9 [facility] Comment on above: Performed By: #### 2 928698, [id number] ####[place] [id number] WBC corrected for nucl RBC Auto (Bld) [#/Vol] 5.6 E9/L Normal 4.0-11.0 [facility] Comment on above: Performed By: #### 2 938404, [id number] ####[place] [id number] Consent for Treatmenton Consent for Treatment [id number] #1.00TIFF Normal [facility] HEMATOLOGYOrdered By: SYSTEM SYSTEM on 05-11-2023 Basophils/100 WBC (Bld) 0.9 % Normal 0.0 - 2.0 % [facility] Basophils/Leukocytes Auto (Bld) [Pure # fraction] 0.1 E9/L Normal 0.0 - 0.2 E9/L [facility] Eosinophils/100 WBC (Bld) 9.2 % High 0.0 - 8.0 % [facility] Eosinophils/Leukocytes Auto (Bld) [Pure # fraction] 0.5 E9/L Normal 0.0 - 0.5 E9/L [facility] Lymphocytes/100 WBC (Bld) 23.1 % Normal 14.0 - 50.0 % [facility] Lymphocytes/Leukocytes Auto (Bld) [Pure # fraction] 1.3 E9/L Normal 1.0 - 4.0 E9/L [facility] Monocytes/100 WBC (Bld) 5.5 % Normal 4.0 - 14.0 % [facility] Monocytes/Leukocytes Auto (Bld) [Pure # fraction] 0.3 E9/L Normal 0.2 - 1.0 E9/L [facility] Neutrophils/100 WBC (Bld) 61.3 % Normal 36.0 - 75.0 % [facility] Neutrophils/Leukocytes Auto (Bld) [Pure # fraction] 3.5 E9/L Normal 2.0 - 7.5 E9/L [facility] HEMATOLOGYOrdered By: Aiyana Cruz on 05-11-2023 Erythrocyte distribution width (RBC) [Ratio] 13.2 % Normal 10.9 - 14.2 % [facility] Hematocrit (Bld) [Volume fraction] 42.7 % Normal 34.0 - 46.0 % [facility] Hemoglobin (Bld) [Mass/Vol] 14.2 g/dL Normal 12.0 - 16.0 gm/dL [facility] MCH (RBC) [Entitic mass] 29.8 pg Normal 27.0 - 34.0 pg [facility] MCHC (RBC) [Mass/Vol] 33.2 g/dL Normal 31.4 - 36.0 gm/dL [facility] MCV (RBC) [Entitic vol] 89.9 fL Normal 80.0 - 100.0 fL [facility] Platelet mean volume (Bld) [Entitic vol] 10.9 fL High 6.4 - 10.8 fL [facility] Platelets (Bld) [#/Vol] 249.0 E9/L Normal 150.0 - 500.0 E9/L [facility] RBC (Bld) [#/Vol] 4.8 E12/L Normal 4.3 - 5.9 E12/L [facility] [place] [facility] WBC corrected for nucl RBC Auto (Bld) [#/Vol] 5.6 E9/L Normal 4.0 - 11.0 E9/L [facility] [place] [facility] RESPIRATORY PANEL PLUSon Adenovirus Not detected Normal NOT DETECTED [facility] Comment on above: Performed By: #### R SPLUS #### [facility] [address] [place] [address] Dr. Lucy Andrews. Parapertusis Not detected Normal NOT DETECTED [facility] Comment on above: Performed By: #### R SPLUS #### [facility] [address] [place] [address] Dr. Lucy Werner Pertussis Not detected Normal NOT DETECTED [facility] Comment on above: Performed By: #### R SPLUS #### [facility] [address] [place] [address] Dr. Lucy Thomas Chlamydia Pneumoniae Not detected Normal NOT DETECTED [facility] Comment on above: Performed By: #### R SPLUS #### [facility] [address] [place] [address] Dr. Lucy Thomas Coronavirus [id number] Not detected Normal NOT DETECTED [facility] Comment on above: Performed By: #### R SPLUS #### [facility] [address] [place] [address] Dr. Lucy Thomas Coronavirus [id number] Not detected Normal NOT DETECTED [facility] Comment on above: Performed By: #### R SPLUS #### [facility] [address] [place], [place] [id number] Dr. Lucy Thomas Coronavirus [id number] Not detected Normal NOT DETECTED [facility] Comment on above: Performed By: #### R SPLUS #### [facility] [address] [place] [address] Dr. Lucy Thomas Coronavirus OC43 Not detected Normal NOT DETECTED [facility] [place] Comment on above: Performed By: #### R SPLUS #### [facility] [place] [facility] [address] [place] [address] Dr. Lucy Thomas Influenza A H1 Not detected Normal NOT DETECTED [facility] Comment on above: Performed By: #### R SPLUS #### [facility] [place] [facility] [address] [place] [address] Dr. Lucy Thomas Influenza A H1 2009 Not detected Normal NOT DETECTED [facility] Comment on above: Performed By: #### R SPLUS #### [facility] [place] [facility] [address] [place] [address] Dr. Lucy Thomas Influenza A H3 Not detected Normal NOT DETECTED [facility] Comment on above: Performed By: #### R SPLUS #### [facility] [place] [facility] [address] [place] [address] Dr. Lucy Thomas Influenza B Not detected Normal NOT DETECTED [facility] Comment on above: Performed By: #### R SPLUS #### [facility] [place] [facility] [address] [place] [address] Dr. Lucy Thomas Metapneumovirus Not detected Normal NOT DETECTED The [facility] Comment on above: Performed By: #### R SPLUS #### [facility] [place] [facility] [address] [place] [address] Dr. Lucy Thomas Mycoplas. Pneumoniae Not detected Normal NOT DETECTED The [facility] [place] Comment on above: Performed By: #### R SPLUS #### [facility] [place] [facility] [address] [place] [address] Dr. Lucy Thomas Parainfluenza 1 Not detected Normal NOT DETECTED The [facility] Comment on above: Performed By: #### R SPLUS #### [facility] [place] [facility] [address] [place] [address] Dr. Lucy Thomas Parainfluenza 2 Not detected Normal NOT DETECTED The [facility] Comment on above: Performed By: #### R SPLUS #### [facility] [place] [facility] [address] [place] [address] Dr. Lucy Thomas Parainfluenza 3 Not detected Normal NOT DETECTED The [facility] Comment on above: Performed By: #### R SPLUS #### [facility] [place] [facility] [address] [place] [address] Dr. Lucy Thomas Parainfluenza 4 Not detected Normal NOT DETECTED The [facility] Comment on above: Performed By: #### R SPLUS #### [facility] [place] [facility] [address] [place] [address] Dr. Lucy Thomas Rhino/Enterovirus Not detected Normal NOT DETECTED The [facility] [place] Comment on above: Performed By: #### R SPLUS #### [facility] [place] [facility] [address] [place] [address] Dr. Lucy Thomas RP2 Header 1 RESPIRATORY PANEL: VIRUSES Normal The [facility] [place] Comment on above: Performed By: #### R SPLUS #### [facility] [place] [facility] [address] [place] [address] Dr. Lucy Thomas RP2 Header 2 RESPIRATORY PANEL: BACTERIA Normal The [facility] [place] Comment on above: Performed By: #### R SPLUS #### [facility] [place] [facility] [address] [place] [address] Dr. Lucy Thomas RSV Not detected Normal NOT DETECTED [facility] Comment on above: Performed By: #### R SPLUS #### [facility] [place] [facility] [address] [place] [address] Dr. Lucy Thomas SARS-CoV-2 (COVID-19) RNA BAUTISTA+probe Ql (Unsp spec) Not detected Normal NOT DETECTED The [facility] [place] Comment on above: Performed By: #### R SPLUS #### [facility] [place] [facility] [address] [place] [address] Dr. Lucy Thomas Vitamin B12on 07-22-2022 Cobalamin (Vitamin B12) [Mass/Vol] 309 pg/mL [employer] Other COVID-19 Detected/Not Detect edOrdered By: Kim Gomez on 05-19-2022 SARS-CoV-2 (COVID-19) RNA BAUTISTA+non-probe Ql (Nph) Not detected Not Detecte [facility] Comment on above: This is a duplicate RP2.1 COVID (PCR) result to be used for statistical tracking purpose only. No Panel InformationOrdered By: Kim Gomez on 05-19-2022 Respiratory Panel (PCR) [facility] PAP ACOG PANEL 2: 21 to 29on 01-11-2022 . . Normal [facility] Comment on above: Performed By: #### [id number] #### [facility] [place] [facility] [address] [place] [address] Dr. Lucy Thomas Age Gdln ACOG Testing - [facility] Comment on above: Performed By: #### [id number] #### [facility] [place] [facility] [address] [place] [address] Dr. Lucy Thomas DIAGNOSIS: Comment [facility] Comment on above: Result Comment: NEGA TIVE FOR INTRAEPITHELIAL LESION OR MALIGNANCY. Performed By: #### [id number] #### [facility] [place] [facility] [address] [place] [address] Dr. Lucy Thomas Methodology: Comment [facility] Comment on above: Result Comment: This liquid based ThinPrep(R) pap test was screened with the use of an image guided system. Performed By: #### [id number] #### [facility] [place] [facility] [address] [place] [address] Dr. Lucy Thomas Note: Comment [facility] Comment on above: Result Comment: The Pap smear is a screening test designed to aid in the detection of premalignant and malignant conditions of the uterine cervix. It is not a diagnostic procedure and should not be used as the sole means of detecting cervical cancer. Both false-positive and false-negative reports do occur. . Performed By: #### [id number] #### [facility] [place] [facility] [address] [place] [address] Dr. Lucy Thomas Performed by: Comment Normal [facility] Comment on above: Result Comment: [employer] (ASCP) Performed By: #### [id number] #### [facility] [place] [facility] [address] [place] [address] Dr. Lucy Thomas Reflex Criteria: Comment Normal [facility] Comment on above: Result Comment: The HPV DNA reflex criteria were not met with this specimen result therefore, no HPV testing was performed. . Performed By: #### [id number] #### [facility] [place] [facility] [address] [place] [address] Dr. Lucy Thomas Specimen adequacy: Comment Normal [facility] Comment on above: Result Comment: Sati sfactory for evaluation. Endocervical and/or squamous metaplastic cells (endocervical component) are present. Performed By: #### 4 [id number] #### [facility] [place] [facility] [address] [place] [address] Dr. Lucy Thomas AMYLASEon 09-07-2021 Amylase [Catalytic activity/Vol] 52 U/L Normal 25-115 [facility] Comment on above: Performed By: #### A MY, LIPA, CMP #### [facility] [place] [facility] [address] [place] [address] Dr. Lucy Thomas CBC AUTO DIFFon 09-07-2021 BASO # 0.0 103/ul Normal 0.0-0.1 [facility] Comment on above: Performed By: #### C BC #### [facility] [place] [facility] [address] [place] [address] Dr. Lucy Thomas Basophils/100 WBC (Bld) 0.4 % Normal 0.2-2.0 [facility] Comment on above: Performed By: #### C BC #### [facility] [place] [facility] [address] [place] [address] Dr. Lucy Thomas EO # 0.2 103/ul Normal 0.0-0.7 [facility] Comment on above: Performed By: #### C BC #### [facility] [place] [facility] [address] [place] [address] Dr. Lucy Thomas Eosinophils/100 WBC (Bld) 1.9 % Normal 0.9-7.0 [facility] Comment on above: Performed By: #### C BC #### [facility] [place] [facility] [address] [place] [address] Dr. Lucy Thomas Erythrocyte distribution width (RBC) [Ratio] 12.8 % Normal 11.0-15.0 [facility] Comment on above: Performed By: #### C BC #### [facility] [place] [facility] [address] [place] [address] Dr. Lucy Thomas Hematocrit (Bld) [Volume fraction] 42.6 % Normal 36.0-48.0 [facility] Comment on above: Performed By: #### C BC #### [facility] [place] [facility] [address] [place] [address] Dr. Lucy Thomas Hemoglobin (Bld) [Mass/Vol] 14.4 g/dL Normal 12.0-16.0 The [facility] [place] Comment on above: Performed By: #### C BC #### [facility] [place] [facility] [address] [place] [address] Dr. Lucy Thomas IG # 0.03 10e3/ul Normal 0.00-0.03 [facility] Comment on above: Performed By: #### C BC #### [facility] [place] [facility] [address] [place] [address] Dr. Lucy Thomas IG % 0.3 % Normal 0.0-0.5 [facility] Comment on above: Performed By: #### C BC #### [facility] [place] [facility] [address] [place] [address] Dr. Lucy Thomas LYMPH # 2.2 103/ul Normal 1.2-3.8 [facility] Comment on above: Performed By: #### C BC #### [facility] [place] [facility] [address] [place] [address] Dr. Lucy Thomas Lymphocytes/100 WBC (Bld) 22.7 % Normal 20.5-60.0 The [facility] [place] Comment on above: Performed By: #### C BC #### [facility] [place] [facility] [address] [place] [address] Dr. Lucy Thomas MANUAL DIFF REQ NO Normal [facility] Comment on above: Performed By: #### C BC #### [facility] [place] [facility] [address] [place] [address] Dr. Lucy Thomas MCH (RBC) [Entitic mass] 29.0 pg Normal 26.7-34.0 [facility] Comment on above: Performed By: #### C BC #### [facility] [place] [facility] [address] [place] [address] Dr. Lucy Thomas MCHC (RBC) [Mass/Vol] 33.8 g/dL Normal 29.9-35.2 [facility] Comment on above: Performed By: #### C BC #### [facility] [place] [facility] [address] [place] [address] Dr. Lucy Thomas MCV (RBC) [Entitic vol] 85.7 fL Normal 81.0-99.0 The [facility] [place] Comment on above: Performed By: #### C BC #### [facility] [place] [facility] [address] [place] [address] Dr. Lucy Thomas MONO # 0.5 103/ul Normal 0.3-0.8 [facility] Comment on above: Performed By: #### C BC #### [facility] [place] [facility] [address] [place] [address] Dr. Lucy Thomas Monocytes/100 WBC (Bld) 5.5 % Normal 1.7-12.0 [facility] Comment on above: Performed By: #### C BC #### [facility] [place] [facility] [address] [place] [address] Dr. Lucy Thomas NEUT # 6.8 103/ul Critically high 1.4-6.5 [facility] Comment on above: Performed By: #### C BC #### [facility] [place] [facility] [address] [place] [address] Dr. Lucy Thomas Neutrophils/100 WBC (Bld) 69.2 % Normal 43.0-75.0 The [facility] [place] Comment on above: Performed By: #### C BC #### [facility] [place] [facility] [address] [place] [address] Dr. Lucy Thomas Platelet mean volume (Bld) [Entitic vol] 12.0 fL Normal 9.5-13.5 [facility] Comment on above: Performed By: #### C BC #### [facility] [place] [facility] [address] [place] [address] Dr. Lucy Thomas PLT 282 103/ul Normal 150-450 [facility] Comment on above: Performed By: #### C BC #### [facility] [place] [facility] [address] [place], [place] [address] Dr. Lucy Thomas RBC 4.97 106/ul Normal 4.20-5.40 [facility] Comment on above: Performed By: #### C BC #### [facility] [place] [facility] [address] [place], [place] [address] Dr. Lucy Thomas WBC 9.8 103/ul Normal 4.0-11.0 [facility] Comment on above: Performed By: #### C BC #### [facility] [place] [facility] [address] [place], [place] [address] ABD/PELV W CONon 09-08-19 CT ABD/PELV W CON EXAM: CT ABD/PELV W CON REASON FOR EXAM: Female, 26 years, ABDOMINAL DISTENSION (GASEOUS). TECHNIQUE: Computed tomography of the abdomen and pelvis is performed in the axial projection from the lung bases to the pubic symphysis. Sagittal and coronal reconstructed images are performed. Dose reduction techniques were achieved by using automated exposure control and/or adjustment of mA and/or KVP according to patient size and/or use of iterative reconstruction technique. A total of 100 mL Omnipaque 300 IV contrast was given. Study was performed without oral contrast. COMPARISON: Pelvic ultrasound, same date FINDINGS: Lung bases: The lung bases are clear. There is no pleural effusion. The visualized portions of the heart are unremarkable. Liver: The liver is normal. Gallbladder: The gallbladder has been removed. Spleen: The spleen is normal. Pancreas: The pancreas is normal. Adrenal glands: The adrenal glands are normal bilaterally. Right kidney: The kidney is normal in size. There is no renal calculus or hydronephrosis. Left kidney: The kidney is normal in size. There is no renal calculus or hydronephrosis. Stomach: The stomach is normal. Small bowel: The small bowel is normal. Large bowel: The colon is normal. Appendix: The appendix is not confidently identified. No right lower quadrant inflammatory changes are seen. Aorta: The aorta is normal. IVC: The IVC is normal. Retroperitoneum: Normal retroperitoneum. Bladder: The bladder is normal. Pelvic organs: Normal uterus. Abdominal wall: Normal abdominal wall. Osseous structures: Normal bony structures. IMPRESSION: No bowel obstruction or acute renal pathology. The appendix is not confidently identified. Postoperative changes of cholecystectomy. Electronically authenticated by: WENDY VENTURA Date: 2021-09-07 19:17 Normal The [facility] [place] ER URINE PROFILEon 2 Bilirubin Ql (U) Negative Normal NEGATIVE The [facility] Comment on above: Performed By: #### E RUR #### [facility] [place] [facility] [address] [place] [address] Dr. Lucy Thomas Clarity (U) CLEAR Normal CLEAR The [facility] [place] Comment on above: Performed By: #### E RUR #### [facility] [place] [facility] [address] [place] [address] Dr. Lucy Thomas Color (U) LT. YELLOW Normal YELLOW [facility] Comment on above: Performed By: #### E RUR #### [facility] [place] [facility] [address] [place] [address] Dr. Lucy JACOBO A micrscopic examination will be performed if indicated. Normal The [facility] [place] Comment on above: Performed By: #### E RUR #### [facility] [place] [facility] [address] [place] [address] Dr. Lucy Thomas Glucose Ql (U) Negative Normal NEGATIVE [facility] Comment on above: Performed By: #### E RUR #### [facility] [place] [facility] [address] [place] [address] Dr. Lucy Thomas Hemoglobin Ql (U) Negative Normal NEGATIVE The [facility] Comment on above: Performed By: #### E RUR #### [facility] [place] [facility] [address] [place] [address] Dr. Lucy Thomas Ketones Ql (U) 15 mg/dl Abnormal NEGATIVE [facility] Comment on above: Performed By: #### E RUR #### [facility] [place] [facility] [address] [place] [address] Dr. Lucy Thomas LEUKOCYTES Negative Normal NEGATIVE The [facility] [place] Comment on above: Performed By: #### E RUR #### [facility] [place] [facility] [address] [place] [address] Dr. Lucy Thomas Nitrite Ql (U) Negative Normal NEGATIVE [facility] Comment on above: Performed By: #### E RUR #### [facility] [place] [facility] [address] [place] [address] Dr. Lucy Thomas pH (U) 6.0 [pH] Normal 5-9 [facility] Comment on above: Performed By: #### E RUR #### [facility] [place] [facility] [address] [place] [address] Dr. Lucy Thomas SPEC GRAVITY <=1.005 Abnormal 1.005-<=1.02 5 [facility] Comment on above: Performed By: #### E RUR #### [facility] [place] [facility] [address] [place] [address] Dr. Lucy Thomas UA PROTEIN Negative Normal NEGATIVE/ TRACE [facility] Comment on above: Performed By: #### E RUR #### [facility] [place] [facility] [address] [place] [address] Dr. Lucy Thomas UR MICRO IND NOT INDICATED Normal [facility] Comment on above: Performed By: #### E RUR #### [facility] [place] [facility] [address] [place] [address] Dr. Lucy Thomas Urobilinogen Qn (U) 0.2 {Yamileth'U}/dL Normal 0.2 - 1. 0 [facility] Comment on above: Performed By: #### E RUR #### [facility] [place] [facility] [address] [place] [address] Dr. Lucy Thomas LIPASEon 09-07-2021 Lipase [Catalytic activity/Vol] 96.0 U/L Normal 23.0-300.0 [facility] Comment on above: Performed By: #### A MY, LIPA, CMP #### [facility] [place] [facility] [address] [place] [address] Dr. Lucy Thomas PREG HCG QUALon 09-07-2021 , QUAL Negative Normal NEGATIVE [facility] Comment on above: Performed By: #### P REG #### [facility] [place] [facility] [address] [place] [address] Dr. Lucy Thomas PROF 14(COMP METB)on 022 Albumin [Mass/Vol] 3.7 g/dL Normal 3.4-5.0 [facility] Comment on above: Performed By: #### A NEMO SANCHEZA, CMP #### [facility] [place] [facility] [address] [place] [address] Dr. Lucy Thomas Albumin/Globulin [Mass ratio] 1.0 {ratio} Normal [facility] Comment on above: Performed By: #### A LAURA LIPA, CMP #### [facility] [place] [facility] [address] [place] [address] Dr. Lucy Thomas ALP [Catalytic activity/Vol] 73 U/L Normal 46-116 [facility] Comment on above: Performed By: #### A LAURA LIPA, CMP #### [facility] [place] [facility] [address] [place] [address] Dr. Lucy Thomas ALT [Catalytic activity/Vol] 24 U/L Normal 14-59 [facility] Comment on above: Performed By: #### A LAURA LIPA, CMP #### [facility] [place] [facility] [address] [place] [address] Dr. Lucy Thomas Anion gap [Moles/Vol] 15.5 mmol/L Normal [facility] Comment on above: Performed By: #### A LAURA LIPA, CMP #### [facility] [place] [facility] [address] [place] [address] Dr. Lucy Thomas AST [Catalytic activity/Vol] 14 U/L Critically low 15-37 [facility] Comment on above: Performed By: #### A LAURA LIPA, CMP #### [facility] [place] [facility] [address] [place] [address] Dr. Lucy Thomas Bilirubin [Mass/Vol] 0.8 mg/dL Normal 0.2-1.3 The [facility] [place] Comment on above: Performed By: #### A LAURA LIPA, CMP #### [facility] [place] [facility] [address] [place] [address] Dr. Lucy Thomas Calcium [Mass/Vol] 8.9 mg/dL Normal 8.5-10.1 [facility] Comment on above: Performed By: #### A LAURA LIPA, CMP #### [facility] [place] [facility] [address] [place] [address] [address] Lucy Thomas Chloride [Moles/Vol] 102 mmol/L Normal 98-107 The [facility] [place] Comment on above: Performed By: #### A CHRIS SANCHEZ, CMP #### [facility] [place] [facility] [address] [place] [address] Dr. Lucy Thomas CO2 [Moles/Vol] 21.8 mmol/L Critically low 22.0-30.0 The [facility] [place] Comment on above: Performed By: #### A CHRIS SANCHEZ, CMP #### [facility] [place] [facility] [address] [place] [address] [address] Lucy Thomas Creatinine [Mass/Vol] 0.77 mg/dL Normal 0.52-1.04 The [facility] [place] Comment on above: Performed By: #### A CHRIS SANCHEZ, CMP #### [facility] [place] [facility] [address] [place] [address] Dr. Lucy Thomas EGFR-AF ZAMBIAN >60 Normal >=60 [facility] Comment on above: Performed By: #### A CHRIS SANCHEZ, CMP #### [facility] [place] [facility] [address] [place] [address] Dr. Lucy Thomas EGFR-NON AF ZAMBIAN >60 Normal >=60 The [facility] [place] Comment on above: Performed By: #### A CHRIS SANCHEZ, CMP #### [facility] [place] [facility] [address] [place] [address] Dr. Lucy Thomas Globulin (S) [Mass/Vol] 3.6 g/dL Normal The [facility] [place] Comment on above: Performed By: #### A CHRIS SANCHEZ, CMP #### [facility] [address] [place] [address] Dr. Lucy Thomas Glucose [Mass/Vol] 82 mg/dL Normal 74-106 [facility] Comment on above: Performed By: #### A CHRIS SANCHEZ, CMP #### [facility] [address] [place] [address] Dr. Lucy Thomas Potassium [Moles/Vol] 3.3 mmol/L Critically low 3.4-5.0 [facility] Comment on above: Performed By: #### A CHRIS SANCHEZ, CMP #### [facility] [address] [address] [address] Lucy Thomas Protein [Mass/Vol] 7.3 g/dL Normal 6.1-8.2 [facility] Comment on above: Performed By: #### A MY, LIPA, CMP #### [facility] [address] [address] [address] Lucy Thomas Sodium [Moles/Vol] 136 mmol/L Critically low 137-145 [facility] Comment on above: Performed By: #### A MY, LIPA, CMP #### [facility] [address] [place] [address] Dr. Lucy Thomas Urea nitrogen [Mass/Vol] 8.0 mg/dL Normal 7.0-18.0 [facility] Comment on above: Performed By: #### A MY, LIPA, CMP #### [facility] [address] [place] [address] Dr. Lucy Thomas Urea nitrogen/Creatinine [Mass ratio] 10.4 mg/mg Normal [facility] Comment on above: Performed By: #### A MY, LIPA, CMP #### [facility] [address] [place] [address] Dr. Lucy Thomas US PELVIS TRANSVAGon 09-07- 022 US PELVIS TRANSVAG EXAM: Pelvic sonography TECHNIQUE: Endovaginal B-mode ultrasound with color Doppler. COMPARISONS: Pelvic ultrasound 01/21/2017 HISTORY: Pain FINDINGS: Uterus demonstrates normal echotexture and gross appearance. The uterus measures 8.3 x 3.7 x 4.9 cm. Endometrial stripe measures 2 mm. Unremarkable appearance of the cervix. There is trace likely physiologic free fluid in the right adnexa. Right ovary measures 3.2 x 1.3 x 1.7 cm. Normal parenchymal echotexture, color Doppler flow and arterial and venous waveforms. Left ovary measures 2.1 x 2.6 x 2.2 cm. Normal parenchymal echotexture, color Doppler flow and arterial and venous waveforms. No solid or cystic adnexal mass. IMPRESSION: Trace likely physiologic free fluid within the right adnexa. Pelvic viscera is otherwise unremarkable appearance. Electronically authenticated by: SIRI MARSH Date: 2021-09-07 18:29 Normal [facility] COVID Quick Testingon 2020 Result Negative [employer] Other Vital Signs Date Time Vital Sign Value Performing Clinician Facility 03-14-2024 11:17-0400 Body height 157.5 cm Maria Elena VELASCO Work Phone: [facility] 03-14-2024 11:17-0400 Body mass index (BMI) [Ratio] 36.95 kg/m2 Maria Elena Whitney PA Work Phone: [facility] 03-14-2024 11:17-0400 Body weight 91.63 kg Maria Elena Whitney PA Work Phone: [facility] 03-14-2024 11:17-0400 Diastolic blood pressure 80 mm[Hg] Maria Elena VELASCO Work Phone: [facility] 03-14-2024 11:17-0400 Systolic blood pressure 122 mm[Hg] Maria Elena VELASCO Work Phone: [facility] 08-18-2023 17:06-0400 Heart rate 70 /min Justin Vail [facility] 08-18-2023 17:06-0400 SaO2% (BldA) [Mass fraction] 98 % Justin Vail [facility] 08-18-2023 17:06-0400 Diastolic blood pressure 78 mm[Hg] Justin Vail [facility] 08-18-2023 17:06-0400 Mean blood pressure 93 mm[Hg] Justin Vail [facility] 08-18-2023 17:06-0400 Systolic blood pressure 123 mm[Hg] Justin Vail [facility] 08-18-2023 17:05-0400 Respiratory rate 16 /min Justin Vail [facility] 08-18-2023 16:15-0400 Heart rate 69 /min Justin Vail [facility] 08-18-2023 16:15-0400 SaO2% (BldA) [Mass fraction] 100 % Justin Brown [facility] 08-18-2023 16:15-0400 Respiratory rate 16 /min Justin Brown [facility] 08-18-2023 16:15-0400 Diastolic blood pressure 82 mm[Hg] Justin Brown [facility] 08-18-2023 16:15-0400 Mean blood pressure 97 mm[Hg] Justin Brown [facility] 08-18-2023 16:15-0400 Systolic blood pressure 127 mm[Hg] Justin Brown [facility] 08-18-2023 16:15-0400 Mean blood pressure 97 mm[Hg] Justin Brown [facility] 08-18-2023 16:08-0400 Body temperature 97.34 [degF] Justin Vail [facility] 08-18-2023 16:08-0400 Diastolic blood pressure 65 mm[Hg] Justin Brown [facility] 08-18-2023 16:08-0400 Heart rate 73 /min Justin Vail [facility] 08-18-2023 16:08-0400 Mean blood pressure 74 mm[Hg] Justin Brown [facility] 08-18-2023 16:08-0400 Respiratory rate 14 /min Justin Brown [facility] 08-18-2023 16:08-0400 SaO2% (BldA) [Mass fraction] 99 % Justin Vail [facility] 08-18-2023 16:08-0400 Systolic blood pressure 93 mm[Hg] Justin Brown [facility] 08-18-2023 15:55-0400 Mean blood pressure 82 mm[Hg] Justin Brown [facility] 08-18-2023 15:55-0400 Respiratory rate 14 /min Justin Brown [facility] 08-18-2023 15:50-0400 Respiratory rate 16 /min Justin Brown [facility] 08-18-2023 15:22-0400 Body temperature 97.52 [degF] Justin Vail [facility] 08-18-2023 15:15-0400 Respiratory rate 15 /min Justin Vail [facility] 08-18-2023 10:26-0400 Blood Pressure Location Justin Brown [facility] 08-18-2023 10:26-0400 Mean blood pressure 83 mm[Hg] Justin Brown [facility] 08-18-2023 10:23-0400 Blood Pressure Location Justin Brown [facility] 08-18-2023 10:23-0400 Body temperature 98.06 [degF] Justin Brown [facility] 08-03-2023 12:35-0500 Diastolic blood pressure 83 mm[Hg] Justin Brown [facility] 08-03-2023 12:35-0500 Heart rate 97 /min Justin Brown [facility] 08-03-2023 12:35-0500 Mean blood pressure 104 mm[Hg] Justin Brown [facility] 08-03-2023 12:35-0500 Systolic blood pressure 146 mm[Hg] Justin Brown [facility] 08-03-2023 12:34-0500 Heart rate 75 /min Justin Vail [facility] 08-03-2023 12:34-0500 SaO2% (BldA) [Mass fraction] 98 % Justin Vail [facility] 08-03-2023 12:34-0500 Respiratory rate 18 /min Justin Vail [facility] 08-03-2023 12:34-0500 Body temperature 98.24 [degF] Justin Vail [facility] 08-03-2023 12:34-0500 Diastolic blood pressure 78 mm[Hg] Justin Vail [facility] 08-03-2023 12:34-0500 Mean blood pressure 97 mm[Hg] Justin Vail [facility] 08-03-2023 12:34-0500 Systolic blood pressure 136 mm[Hg] Justin Brown [facility] 05-11-2023 07:52-0500 Diastolic blood pressure 71 mm[Hg] Justin Vail [facility] 05-11-2023 07:52-0500 Heart rate 99 /min Justin Vail [facility] 05-11-2023 07:52-0500 Mean blood pressure 88 mm[Hg] Justin Brown [facility] 05-11-2023 07:52-0500 Systolic blood pressure 121 mm[Hg] Justin Brown [facility] 05-11-2023 07:51-0500 Heart rate 104 /min Justin Vail [facility] 05-11-2023 07:51-0500 SaO2% (BldA) [Mass fraction] 99 % Justin Vail [facility] 05-11-2023 07:50-0500 Diastolic blood pressure 75 mm[Hg] Justin Vail [facility] 05-11-2023 07:50-0500 Mean blood pressure 89 mm[Hg] Justin Vail [facility] 05-11-2023 07:50-0500 Systolic blood pressure 115 mm[Hg] Justin Vail [facility] 03-29-2023 10:30-0400 Body height 157.48 cm Reese Ramos Other [employer] Other 03-29-2023 10:30-0400 Body mass index (BMI) [Ratio] 36.01 kg/m2 Reese Ramos Other [employer] Other 03-29-2023 10:30-0400 Body weight 89.31 kg Reese Ramos Other [employer] Other 03-29-2023 10:30-0400 Diastolic blood pressure 72 mm[Hg] Reese Ramos Other [employer] Other 03-29-2023 10:30-0400 Respiratory rate 18 /min Reese Ramos Other [employer] Other 03-29-2023 10:30-0400 SaO2% (BldA) [Mass fraction] 95 % Reese Ramos Other [employer] Other 03-29-2023 10:30-0400 Systolic blood pressure 112 mm[Hg] Reese Ramos Other [employer] Other 01-04-2023 09:00-0400 Body height 157.48 cm Reese Ramos Other [employer] Other 01-04-2023 09:00-0400 Body mass index (BMI) [Ratio] 35.97 kg/m2 Reese Ramos Other [employer] Other 01-04-2023 09:00-0400 Body weight 89.22 kg Reese Rojodiff Other [employer] Other 01-04-2023 09:00-0400 Diastolic blood pressure 72 mm[Hg] Reese Rojodiff Other [employer] Other 01-04-2023 09:00-0400 Respiratory rate 18 /min Reese Rojodiff Other [employer] Other 01-04-2023 09:00-0400 SaO2% (BldA) [Mass fraction] 94 % Reese Rojodiff Other [employer] Other 01-04-2023 09:00-0400 Systolic blood pressure 109 mm[Hg] Reese Rojodiff Other [employer] Other 11-16-2022 09:15-0400 Body height 157.48 cm Reese Rojodiff Other [employer] Other 11-16-2022 09:15-0400 Body mass index (BMI) [Ratio] 36.39 kg/m2 Reese Rojodiff Other [employer] Other 11-16-2022 09:15-0400 Body weight 90.27 kg Reese Rojodiff Other [employer] Other 11-16-2022 09:15-0400 Diastolic blood pressure 80 mm[Hg] Reese Ramos Other [employer] Other 11-16-2022 09:15-0400 Respiratory rate 18 /min Reese Ramos Other [employer] Other 11-16-2022 09:15-0400 SaO2% (BldA) [Mass fraction] 98 % Reese Ramos Other [employer] Other 11-16-2022 09:15-0400 Systolic blood pressure 102 mm[Hg] Reese Rojodiff Other [employer] Other 10-12-2022 15:00-0400 Body height 157.48 cm Reese Ramos Other [employer] Other 10-12-2022 15:00-0400 Body mass index (BMI) [Ratio] 38.19 kg/m2 Reese Rojodiff Other [employer] Other 10-12-2022 15:00-0400 Body weight 94.71 kg Reese Rojodiff Other [employer] Other 10-12-2022 15:00-0400 Diastolic blood pressure 63 mm[Hg] Reese Rojodiff Other [employer] Other 10-12-2022 15:00-0400 Respiratory rate 18 /min Reese Rojodiff Other [employer] Other 10-12-2022 15:00-0400 SaO2% (BldA) [Mass fraction] 97 % Reese Rojodiff Other [employer] Other 10-12-2022 15:00-0400 Systolic blood pressure 113 mm[Hg] Reese Rojodiff Other [employer] Other 07-22-2022 10:30-0500 Body height 157.48 cm Reese Rojodiff Other [employer] Other 07-22-2022 10:30-0500 Body mass index (BMI) [Ratio] 35.5 kg/m2 Reese Rojodiff Other [employer] Other 07-22-2022 10:30-0500 Body weight 88.04 kg Reese Rojodiff Other [employer] Other 07-22-2022 10:30-0500 Diastolic blood pressure 74 mm[Hg] Reese Rojodiff Other [employer] Other 07-22-2022 10:30-0500 Respiratory rate 18 /min Reese Rojodiff Other [employer] Other 07-22-2022 10:30-0500 SaO2% (BldA) [Mass fraction] 98 % Reese Rojodiff Other [employer] Other 07-22-2022 10:30-0500 Systolic blood pressure 106 mm[Hg] Reese Rojodiff Other [employer] Other 05-13-2022 11:00-0500 Body height 157.48 cm Reese Rojodiff Other [employer] Other 05-13-2022 11:00-0500 Body mass index (BMI) [Ratio] 35.41 kg/m2 Reese Ramos Other [employer] Other 05-13-2022 11:00-0500 Body weight 87.82 kg Reese Ramos Other [employer] Other 05-13-2022 11:00-0500 Diastolic blood pressure 71 mm[Hg] Reese Ramos Other [employer] Other 05-13-2022 11:00-0500 Respiratory rate 18 /min Reese Ramos Other [employer] Other 05-13-2022 11:00-0500 SaO2% (BldA) [Mass fraction] 98 % Reese Ramos Other [employer] Other 05-13-2022 11:00-0500 Systolic blood pressure 106 mm[Hg] Reese Ramos Other [employer] Other 01-13-2022 12:15-0400 Body height 157.48 cm Reese Ramos Other [employer] Other 01-13-2022 12:15-0400 Body mass index (BMI) [Ratio] 34.89 kg/m2 Reese Ramos Other [employer] Other 01-13-2022 12:15-0400 Body weight 86.55 kg Reese Ramos Other [employer] Other 01-13-2022 12:15-0400 Diastolic blood pressure 76 mm[Hg] Reese Rojodiff Other [employer] Other 01-13-2022 12:15-0400 Respiratory rate 18 /min Reese Ramos Other [employer] Other 01-13-2022 12:15-0400 SaO2% (BldA) [Mass fraction] 98 % Reese Ramos Other [employer] Other 01-13-2022 12:15-0400 Systolic blood pressure 106 mm[Hg] Reese Ramos Other [employer] Other 11-12-2021 09:30-0400 Body height 157.48 cm Reese Ramos Other [employer] Other 11-12-2021 09:30-0400 Body mass index (BMI) [Ratio] 35.04 kg/m2 Reese Ramos Other [employer] Other 11-12-2021 09:30-0400 Body weight 86.91 kg Reese Ramos Other [employer] Other 11-12-2021 09:30-0400 Diastolic blood pressure 73 mm[Hg] Reese Rojodiff Other [employer] Other 11-12-2021 09:30-0400 Respiratory rate 18 /min Reese Ramos Other [employer] Other 11-12-2021 09:30-0400 SaO2% (BldA) [Mass fraction] 97 % Reesemagy Rojodiff Other [employer] Other 11-12-2021 09:30-0400 Systolic blood pressure 106 mm[Hg] Reesemagy Rojodiff Other [employer] Other 10-01-2021 10:15-0400 Body height 157.48 cm Jade Fitt Other [employer] Other 10-01-2021 10:15-0400 Body mass index (BMI) [Ratio] 35.68 kg/m2 Jade Fitt Other [employer] Other 10-01-2021 10:15-0400 Body weight 88.5 kg Jade Fitt Other [employer] Other 07-23-2021 11:30-0500 Body height 157.48 cm Reese Ramos Other [employer] Other 07-23-2021 11:30-0500 Body mass index (BMI) [Ratio] 35.9 kg/m2 Reese Ramos Other [employer] Other 07-23-2021 11:30-0500 Body weight 89.04 kg Reese Ramos Other [employer] Other 07-23-2021 11:30-0500 Diastolic blood pressure 69 mm[Hg] Reese Ramos Other [employer] Other 07-23-2021 11:30-0500 Respiratory rate 18 /min Reese Ramos Other [employer] Other 07-23-2021 11:30-0500 SaO2% (BldA) [Mass fraction] 99 % Reese Ramos Other [employer] Other 07-23-2021 11:30-0500 Systolic blood pressure 105 mm[Hg] Reese Ramos Other [employer] Other 06-18-2021 10:15-0500 Body height 157.48 cm Jade Fitt Other [employer] Other 06-18-2021 10:15-0500 Body mass index (BMI) [Ratio] 37.29 kg/m2 Jade Fitt Other [employer] Other 06-18-2021 10:15-0500 Body weight 92.49 kg Jade Fitt Other [employer] Other 05-23-2021 14:00-0500 Body height 157.48 cm Gris Gardner Other [employer] Other 05-23-2021 14:00-0500 Body mass index (BMI) [Ratio] 36.94 kg/m2 Gris Gardner Other [employer] Other 05-23-2021 14:00-0500 Body temperature 97.5 [degF] Gris Gardner Other [employer] Other 05-23-2021 14:00-0500 Body weight 91.63 kg Gris Gardner Other [employer] Other 05-23-2021 14:00-0500 Respiratory rate 18 /min Gris Gardner Other [employer] Other 05-23-2021 14:00-0500 SaO2% (BldA) [Mass fraction] 97 % Gris Gardner Other [employer] Other 03-26-2021 11:00-0400 Body height 157.48 cm Reese Ramos . Other [employer] Other 03-26-2021 11:00-0400 Body mass index (BMI) [Ratio] 38 kg/m2 Reese Ramos Jr. Other [employer] Other 03-26-2021 11:00-0400 Body weight 94.26 kg Reese Ramos Jr. Other [employer] Other 03-26-2021 11:00-0400 Diastolic blood pressure 80 mm[Hg] Reese Ramos Jr. Other [employer] Other 03-26-2021 11:00-0400 Respiratory rate 18 /min Reese De Diosjulien Hernandez. Other [employer] Other 03-26-2021 11:00-0400 SaO2% (BldA) [Mass fraction] 95 % Reese De Diosjulien Hernandez. Other [employer] Other 03-26-2021 11:00-0400 Systolic blood pressure 112 mm[Hg] Reese Ramos . Other [employer] Other 02-26-2021 09:30-0400 Body height 157.48 cm Jade Duarte Other [employer] Other 02-24-2021 12:30-0400 Body height 157.48 cm Reese Ramos Jr. Other [employer] Other 02-24-2021 12:30-0400 Body mass index (BMI) [Ratio] 38.83 kg/m2 Reese Rojochante Noel Other [employer] Other 02-24-2021 12:30-0400 Body weight 96.3 kg Reese Ramos Other [employer] Other 02-24-2021 12:30-0400 Diastolic blood pressure 77 mm[Hg] Reese Rojochante Noel Other [employer] Other 02-24-2021 12:30-0400 Respiratory rate 18 /min Reese Rojochante Noel Other [employer] Other 02-24-2021 12:30-0400 SaO2% (BldA) [Mass fraction] 97 % Reese Rojochante Noel Other [employer] Other 02-24-2021 12:30-0400 Systolic blood pressure 114 mm[Hg] Reese De Diosjulien Noel Other [employer] Other Encounters Encounter Date Encounter Type Care Provider Facility Start: 03-14-2024 End: 03-14-2024 Bamboo flowsheet Maria Elena VELASCO Work Phone: [facility] Start: 03-14-2024 End: 03-14-2024 Bamboo flowsheet Maria Elena VELASCO Work Phone: [facility] Start: 03-14-2024 End: 03-14-2024 Office outpatient visit 15 minutes Maria Elena VELASCO Work Phone: [facility] Comment on above: Encounter for weight management; Weight gain Start: 03-14-2024 End: 03-14-2024 ambulatory MARIA ELENA WHITNEY Not Available Start: 02-15-2024 End: 02-15-2024 ambulatory MARTIN PEREZ Not Available Start: 01-18-2024 End: 01-18-2024 ambulatory MARTIN PEREZ Not Available Start: 01-16-2024 End: 01-16-2024 ambulatory JUSTIN Olson YARED Not Available Start: 11-14-2023 End: 11-14-2023 ambulatory JUSTIN Olson YARED Not Available Start: 10-31-2023 End: 10-31-2023 ambulatory MATTIE MOYALL Not Available Start: 10-17-2023 End: 10-17-2023 ambulatory MATTIE MENGTERSALL Not Available Start: 10-03-2023 End: 10-03-2023 ambulatory JUSTIN VAIL Not Available Start: 09-28-2023 End: 09-28-2023 ambulatory MATTIE MOYALL Not Available Start: 09-21-2023 End: 09-21-2023 ambulatory MATTIE MOYALL Not Available Start: 09-14-2023 End: 09-14-2023 ambulatory MATTIE MOYALL Not Available Start: 09-04-2023 End: 09-04-2023 ambulatory KYRA DYER Not Available Start: 08-29-2023 End: 08-29-2023 ambulatory JUSTIN Olson YARED Not Available Start: 08-21-2023 End: 08-21-2023 ambulatory KYRA DYER Not Available Start: 08-18-2023 End: 08-18-2023 ambulatory Justin Whitney Yared Facility[facility] Start: 08-18-2023 End: 08-18-2023 Admission to same day surgery center Justin Vail [facility] Start: 08-03-2023 End: 08-04-2023 ambulatory Justin Vail Facility:[facility] Start: 08-03-2023 End: 08-03-2023 ambulatory JUSTIN Olson YARED Not Available Start: 08-03-2023 End: 08-03-2023 Patient encounter procedure Justin Vail [facility] Start: 07-18-2023 Bamboo flowsheet Mattie Doll P TA [facility] Start: 07-18-2023 Bamboo flowsheet Mattie Tattersall P TA [facility] Start: 07-18-2023 End: 07-18-2023 Admission to same day surgery center 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 Doll 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 [facility] Comment on above: S/P arthroscopic gerry carla of left knee (Primary Dx); Acute pain of left knee Start: 07-18-2023 End: 07-18-2023 ambulatory Mattie Doll 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 [facility] Start: 07-13-2023 Bamboo flowsheet Mattie Mengtersall P TA [facility] Start: 07-13-2023 Bamboo flowsheet Mattie Moyall P TA [facility] Start: 07-13-2023 End: 07-13-2023 ambulatory MATTIE MENGTERSALL Not Available Start: 07-06-2023 End: 07-06-2023 ambulatory MATTIE TATTERSALL Not Available Start: 2023 End: 2023 ambulatory MATTIE TATTERSALL Not Available Start: 06-29-2023 End: 06-29-2023 ambulatory MATTIE TATTERSALL Not Available Start: 06-27-2023 End: 06-27-2023 ambulatory MATTIE TATTERSALL Not Available Start: 06-22-2023 End: 06-22-2023 ambulatory MATTIE TATTERSALL Not Available Start: 06-20-2023 End: 06-20-2023 ambulatory MATTIE TATTERSALL Not Available Start: 06-16-2023 End: 06-16-2023 ambulatory SANAZ RIYAALEXIS Not Available Start: 06-14-2023 End: 06-14-2023 ambulatory BEAN GASTON Not Available Start: 06-06-2023 End: 06-06-2023 ambulatory JUSTIN VAIL Not Available Start: 05-26-2023 End: 05-26-2023 ambulatory Justin Vail Facility:[facility] Start: 05-11-2023 End: 05-12-2023 ambulatory Justin Vail Facility:[facility] Start: 05-11-2023 End: 05-11-2023 Patient encounter procedure Justin Vail [facility] Start: 03-29-2023 Follow-up encounter Reese reyes [facility] Start: 03-29-2023 End: 03-30-2023 ambulatory Kim Gomez [facility] Other Start: 02-15-2023 End: 02-15-2023 ambulatory Reese Ramos Other [employer] [facility] Other Start: 02-15-2023 Telephone encounter Reese reyes [facility] Start: 02-03-2023 End: 02-03-2023 ambulatory Reese Ramos Other [facility] [facility] Other Start: 02-03-2023 Telephone encounter Reese reyes [facility] Start: 01-04-2023 End: 01-04-2023 ambulatory Reese Ramos Other [facility] [facility] Other Start: 01-04-2023 Follow-up encounter Reese reyes [facility] Start: 11-16-2022 End: 11-16-2022 ambulatory Reese Ramos Other [facility] [facility] Other Start: 11-16-2022 Follow-up encounter Reese reyes [facility] Start: 10-12-2022 End: 10-12-2022 ambulatory Reese Ramos Other [facility] Other Start: 10-12-2022 Follow-up encounter Reese reyes [facility] Start: 09-23-2022 End: 09-23-2022 ambulatory Jade Gerald Other [employer] [facility] Other Start: 09-23-2022 Telephone encounter Jade Sarabia [facility] Start: 07-27-2022 End: 07-27-[address] DOCTOR MAGDALENO Facility: Start: 07-22-2022 End: 07-22-2022 ambulatory Reesemagy Ramos Other [employer] [facility] Other Start: 07-22-2022 Follow-up encounter Reese Richard Gustavo [facility]ant[facility] Start: 07-08-2022 End: 07-08-2022 ambulatory Reese Ramos Other [facility] [facility] Other Start: 07-08-2022 Telephone encounter Reese Richard Gustavo amy [facility] Start: 05-19-2022 End: 05-19-2022 ambulatory SAUSAGE WRAPPER-C Kim Gomez Work Phone: [facility] Work Phone: Start: 05-19-2022 End: 05-19-2022 Patient encounter procedure SAUSAGE WRAPPER-C Kim Gomez Work Phone: [facility] Swab Start: 05-13-2022 End: 05-13-2022 ambulatory Reese Ramos Other [facility] [facility] Other Start: 05-13-2022 Follow-up encounter Reese Ramos Gustavo amy [facility] Start: 05-13-2022 Registered Recurring SAUSAGE WRAPPER-C Soraya Gomez Work Phone: [facility] Management Start: 04-21-2022 End: 04-21-2022 ambulatory Jade Duarte Other [employer] [facility] Other Start: 04-21-2022 Telephone encounter Jade Duarte [facility] Start: 04-19-2022 End: 04-19-2022 ambulatory Reese Ramos Other [facility] [facility] Other Start: 04-19-2022 Telephone encounter Reese Ramos Gustavo amy [facility] Start: 01-13-2022 End: 01-13-2022 ambulatory Reese Ramos Other [facility] [facility] Other Start: 01-13-2022 Follow-up encounter Reese Ramos Gustavo reyes [facility] Start: 01-07-2022 End: 01-07-[address] MAURILIO TURK . 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 Jade Duarte [facility] Start: 10-01-2021 End: 10-01-2021 ambulatory Jade Duarte Other [facility] [facility] Other Start: 09-07-2021 End: 09-07-[address] VALENTINO LISTED REQUEST [facility] [facility] Other Start: 09-07-2021 Telephone encounter Reese Richard Gustavo reyes [facility] Start: 08-20-2021 End: 08-20-2021 ambulatory Jade Duarte Other [facility] [facility] Other Start: 08-20-2021 Telephone encounter Jade Duarte [facility] Start: 08-10-2021 End: 08-10-2021 ambulatory Reese Ramos Other [facility] [facility] Other Start: 08-10-2021 Telephone encounter Reese Ramos Gustavo reyes [facility] Start: 07-23-2021 End: 07-23-2021 ambulatory Reese Ramos Other [facility] [facility] Other Start: 07-23-2021 Follow-up encounter Reese Ramos Gustavo reyes [facility] Start: 06-18-2021 ([facility] FU) [facility] F/ 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 Jade Duarte [facility] Start: 06-18-2021 End: 06-18-2021 ambulatory Jade Duarte Other [employer] Other Start: 05-23-2021 End: 05-23-2021 ambulatory Gris Gardner Other [employer] Other Start: 05-23-2021 Office outpatient vi sit 15 minutes Gris Gardner [facility] [place] Start: 03-26-2021 Follow-up encounter Reese peterson [facility] Start: 03-15-2021 Telephone encounter Reese peterson [facility] Start: 03-10-2021 Telephone encounter Reese peterson [facility] Start: 02-26-2021 IBT for Obesity init ial 30 min (Max charge 2 units) Jade Paulnellie [facility] Start: 02-24-2021 Follow-up encounter Reese peterson [facility] Procedures Date Procedure Procedure Detail Performing Clinician Start: 08-18-2023 Arthroscopy of knee Francois on [employer] Comment on above: with medial patellof emoral ligament reconstruction with open autologous chondrocyte implantation Start: 05-26-2023 Arthroscopy of knee Francois on [employer] Start: 05-11-2016 Cholecystectomy Justin thompson Arthroscopy of knee Justin Tobias own History of operative procedure on knee S/P arthroscopic surgery of left knee Mattie Mengcamilla 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 Respiratory Panel (PCR) [employer] Kim Gomez Work Phone: tubes in ears Justin Vail Plan of Treatment Date Care Activity Detail Author Start: 04-18-2024 End: 04-18-2024 Patient encounter procedure 04/18/2024 3:45 PM EST Office Visit [facility] [address] [place] [address] Brown, Justin A, DO [address] [place] [address] [facility] Start: 04-11-2024 End: 04-11-2024 Patient encounter procedure 04/11/2024 10:00 AM EST Office Visit [facility] [address] [place] [phone] Maria Elena Whitney, PA [address] [place], [place] [id number] [facility] Start: 03-14-2024 End: 03-14-2024 Patient encounter procedure 03/14/2024 11:20 AM EDT Office Visit [facility] [address] [place] [phone] Maria Elena Whitney, PA [address] [place], [place] [id number] Arrived [facility] Comment on above: Arrived Start: 02-07-2024 End: 02-07-2024 Patient encounter procedure 02/07/2024 11:00 AM EDT Office Visit [facility] [address] [place] [phone] Maria Elena Whitney, PA [address] [place] [address] [facility] Start: 02-04-2024 Influenza vaccination Influenza Vacc ine (#1) [facility] Start: 08-03-2023 End: 08-03-2023 Patient encounter procedure 08/03/2023 1:15 PM EST Office Visit [facility] [address] [place] [phone] Justin Vail, DO [address] [place] [address] [facility] Start: 07-18-2023 End: 07-18-2023 Admission to same day surgery center 07/18/2023 11:00 AM EST Treatment [facility] [address] [place] [address] Mattie Doll PTA S/P arthroscopic surgery of left knee (Primary Dx); Acute pain of left knee [facility] Comment on above: S/P arthroscopic gerry carla of left knee (Primary Dx); Acute pain of left knee Start: 07-18-2023 End: 07-18-2023 ambulatory 07/18/2023 11:00 AM EST Treatment [facility] [address] [place] [address] Mattie Doll PTA [facility] Start: 07-13-2023 End: 07-13-2023 ambulatory 07/13/2023 10:30 AM EST Treatment [facility] [address] [place] [address] Mattie Doll PTA Arrived [facility] Comment on above: Arrived Start: 02-03-2023 Influenza vaccination Influenza Vacc ine (#1) [facility] Immunizations Immunization Date Immunization Notes Care Provider Fa [facility] 07-09-2020 COVID-19 Vaccine Moderna - Documentation Purposes Only Reese Ramos Jr. Other [facility] 06-11-2020 COVID-19 Vaccine Moderna - Documentation Purposes Only Reese Ramos Jr. Other [facility] 03-05-2020 influenza, injectabl e, quadrivalent, preservative free Mattiesteven Doll [facility] 03-05-2020 influenza virus vaccine, unspecified formulation Mattie Doll [facility] 03-29-2018 seasonal influenza, intradermal, preservative free Mattie Doll [facility] 11-22-2015 tetanus toxoid, redu annette diphtheria toxoid, and acellular pertussis vaccine, adsorbed Justin Vail [facility] Comment on above: Reason for Medicatio n: Other (see comment) 08-07-2012 meningococcal polysaccharide (groups A, C, Y and W-135) diphtheria toxoid conjugate vaccine (MCV4P) [facility] 04-05-2011 influenza virus vaccine, live, attenuated, for intranasal use [facility] 07-29-2008 HPV, unspecified formulation [facility] 07-29-2008 human papilloma viru s vaccine, quadrivalent [facility] 03-04-2008 HPV, unspecified formulation [facility] 03-04-2008 human papilloma viru s vaccine, quadrivalent [facility] 01-01-2008 HPV, unspecified formulation [facility] 01-01-2008 human papilloma viru s vaccine[facility] 01-01-2008 meningococcal ACWY vaccine, unspecified formulation [facility] 01-01-2008 meningococcal polysaccharide (groups A, C, Y and W-135) diphtheria toxoid conjugate vaccine (MCV4P) [facility] 01-24-2006 tetanus toxoid, redu annette diphtheria toxoid, and acellular pertussis vaccine, adsorbed [facility] 09-12-2000 diphtheria, tetanus toxoids and acellular pertussis vaccine [facility] 09-12-2000 diphtheria, tetanus toxoids and acellular pertussis vaccine, unspecified formulation [facility] 09-12-2000 measles, mumps and rubella virus vaccine [facility] 09-12-2000 poliovirus vaccine, inactivated [facility] 02-17-1997 diphtheria, tetanus toxoids and acellular pertussis vaccine [facility] 02-17-1997 diphtheria, tetanus toxoids and acellular pertussis vaccine, unspecified formulation [facility] 02-17-1997 poliovirus vaccine, inactivated [facility] 02-17-1997 trivalent poliovirus vaccine, live, oral [facility] 12-16-1996 haemophilus influenz ae type b vaccine, conjugate unspecified formulation [facility] 12-16-1996 haemophilus influenz ae type b vaccine, PRP-OMP conjugate [facility] 02-15-1996 diphtheria, tetanus toxoids and acellular pertussis vaccine [facility] 02-15-1996 DTP-Haemophilus influenzae type b conjugate vaccine [facility] 02-15-1996 haemophilus influenz ae type b vaccine, conjugate unspecified formulation [facility] 02-15-1996 hepatitis B vaccine, adult dosage [facility] 02-15-1996 hepatitis B vaccine, pediatric or pediatric/adolescent dosage [facility] 1995 measles, mumps and rubella virus vaccine [facility] 1995 diphtheria, tetanus toxoids and acellular pertussis vaccine [facility] 1995 diphtheria, tetanus toxoids and acellular pertussis vaccine, unspecified formulation [facility] 1995 haemophilus influenz ae type b vaccine, conjugate unspecified formulation [facility] 1995 haemophilus influenz ae type b vaccine, PRP-OMP conjugate [facility] 1995 poliovirus vaccine, inactivated [facility] 1995 diphtheria, tetanus toxoids and acellular pertussis vaccine [facility] 1995 diphtheria, tetanus toxoids and acellular pertussis vaccine, unspecified formulation [facility] 1995 haemophilus influenz ae type b vaccine, conjugate unspecified formulation [facility] 1995 haemophilus influenz ae type b vaccine, PRP-OMP conjugate [facility] 1995 hepatitis B vaccine, adult dosage [facility] 1995 hepatitis B vaccine, pediatric or pediatric/adolescent dosage [facility] 1995 poliovirus vaccine, inactivated [facility] 1995 hepatitis B vaccine, adult dosage [facility] 1995 hepatitis B vaccine, pediatric or pediatric/adolescent dosage [facility] Payers Date Payer Category Payer Unknown [id number] 2020 Self-pay [id number] 1995 Unknown [id number] 2.16.84 0.1.036194.3.579.2.593 1995 Unknown [id number] 2.16.84 0.1.129485.3.579.2.593 1995 Unknown [id number] 2.16.84 0.1.993533.3.579.2.593 1995 Unknown [id number] 2.16.8 40.1.797562.3.579.2.727 1995 Unknown [id number] 2.16.8 40.1.559138.3.579.2.727 1995 Unknown [id number] 2.16.8 40.1.704441.3.579.2.727 1995 Unknown [id number] 2.16.8 40.1.924248.3.579.2.727 1995 Unknown [id number] 2.16.84 0.1.797292.3.579.2.1259 1995 Unknown [id number] 2.16.84 0.1.447498.3.579.2.1259 1995 Unknown [id number] 2.16.84 0.1.189213.3.579.2.1259 1995 Unknown [id number] 2.16.84 0.1.973165.3.579.2.1259 1995 Unknown [id number] 2.16.84 0.1.687765.3.579.2.1259 1995 Unknown [id number] 2.16.84 0.1.718779.3.579.2.1259 1995 Unknown [id number] 2.16.84 0.1.046164.3.579.2.1259 1995 Unknown [id number] 2.16.84 0.1.305841.3.579.2.9 1995 Unknown [id number] 2.16.84 0.1.199621.3.579.2.9 1995 Unknown [id number] 2.16.84 0.1.642168.3.579.2.1258 1995 Unknown [id number] 2.16.84 0.1.857859.3.579.2.1258 1995 Unknown [id number] 2.16.84 0.1.027336.3.579.2.1258 1995 Unknown [id number] 2.16.84 0.1.158713.3.579.2.1258 1995 Unknown [id number] 2.16.84 0.1.733287.3.579.2.1258 1995 Unknown [id number] 2.16.84 0.1.437279.3.579.2.1258 1995 Unknown [id number] 2.16.84 0.1.887281.3.579.2.1258 1995 Unknown [id number] 2.16.84 0.1.005989.3.579.2.1258 1995 Unknown [id number] 2.16.84 0.1.113383.3.579.2.1258 1995 Unknown [id number] 2.16.84 0.1.355902.3.579.2.1258 1995 Unknown [id number] 2.16.84 0.1.307252.3.579.2.1258 1995 Unknown [id number] 2.16.84 0.1.187505.3.579.2.1258 1995 Unknown [id number] 2.16.84 0.1.349374.3.579.2.9 1995 Unknown [id number] 2.16.84 0.1.187289.3.579.2.1258 1995 Unknown [id number] 2.16.84 0.1.481796.3.579.2.1259 1995 Unknown [id number] 2.16.84 0.1.186537.3.579.2.1259 1995 Unknown [id number] 2.16.84 0.1.030817.3.579.2.9 1995 Unknown [id number] 2.16.840 .1.410675.3.579.2.9 1995 Unknown [id number] 2.16.840 .1.979385.3.579.2.1259 1959 Unknown [id number] 2. 16.840.1.583376.19 Unknown Digna BC/MONTEZ [id number] Unknown [id number] 2.16.8 40.1.711652.3.579.2.531 Social History Date Type Detail Facility Start: 03-01-2023 End: 06-05-2023 Sex Assigned At [facility] Start: 1995 Sex Assigned At [facility] Start: 05-11-2023 Tobacco smoking status Smokeless tobacco user within last 30 days [facility] Start: 03-01-2023 Tobacco smoking status CAIS Never smoked tobacco [facility] Start: 03-01-2023 Tobacco use and exposure Smokeless tobacco non-user [facility] Start: 06-06-2023 Alcohol intake Current drinker of alcohol (finding) [facility] Start: 03-01-2023 End: 06-05-2023 History of Social function [facility] How often to you hav e a drink containing alcohol? 2-4 times a month [facility] How many standard drinks containing alcohol do you have on a typical day? 1 or 2 [facility] How often do you hav e 6 or more drinks on 1 occasion? Never [facility] Start: 01-31-2023 Alcohol Comment 1-2 drinks 2-4x a month in the past year, Caffeine intake: none [facility] Start: 12-26-2022 Gender identity Identifies as female gender (finding) [facility] Start: 12-26-2022 Sexual orientation Heterosexual (finding) [facility] Start: 02-15-2024 Alcoholic beverage intake Ex-drinker (finding) [facility] Start: 08-03-2023 Alcohol Comment Every once in a while [facility] Medical Equipment Procedure Code Equipment Code Equipment Original Text Equipment Identifier Dates KNEE MEDIAL PATELLOFEMORAL LIGAMENT BRADLEY Justin Vail DO A 08/18/23 Unknown Knee L FDA Start: 08-18-2023 KNEE MEDIAL PATELLOFEMORAL LIGAMENT BRADLEY Yared DO Justin A 08/18/23 Unknown Knee L FDA Start: 08-18-2023 KNEE MEDIAL PATELLOFEMORAL LIGAMENT BRADLEY Geoff Vail DOson A 08/18/23 Unknown Knee L FDA Start: 08-18-2023 KNEE MEDIAL PATELLOFEMORAL LIGAMENT BRADLEY Justin Vail DO A 08/18/23 Unknown Knee L FDA Start: 08-18-2023 Functional Status Date Assessment Result Facility 08-03-2023 Functional Status No [facility] 05-11-2023 Functional Status No [facility] Clinical Notes 02-24-2021 to 03-14-2024 ROD Asher - 03/14/2024 11:20 AM EDT Note Date & Type Note Facility 03-14-2024 History of Presen t illness Narrative Reason for Appointment: Patient ID: Alexus Mata is a 28 y.o. female who presents for Weight Management Patient presents today for Weight Management Consult. MEDICATIONS Current Outpatient Medications Medication Instructions Acetaminophen Extra Strength 500 MG tablet 1 tablet, Oral, Every 4 hours PRN albuterol HFA 90 mcg/act inhaler INHALE 1 PUFF INTO THE LUNGS EVERY 4 HOURS NEEDED FOR 30 DAYS Drospirenone (Slynd) 4 MG tablet 1 tablet, Oral, Daily Drospirenone (Slynd) 4 MG tablet 1 tablet, Oral, Daily fexofenadine (Rosanne Allergy) 180 MG tablet Every 24 hours fluticasone (Flonase) 50 MCG/ACT nasal spray USE 1 SPRAY IN EACH NOSTRIL ONCE A DAY for 90 phentermine (ADIPEX-P) 37.5 mg, Oral, Daily phentermine (ADIPEX-P) 37.5 mg, Oral, Daily before breakfast phentermine (ADIPEX-P) 37.5 mg, Oral, Daily before breakfast phentermine (ADIPEX-P) 37.5 mg, Oral, Daily before breakfast ALLERGIES Allergies Allergen Reactions Amoxicillin-Pot Clavulanate GI intolerance Cat Hair Extract Unknown Cefdinir Other Reaction(s): stomach upset Dust Mite Extract Unknown Mixed Ragweed Unknown Other Reaction(s): Nasal congestion Pollen Extract Other Reaction(s): Congestion PROBLEMS Active Ambulatory Problems Diagnosis Date Noted Abnormal uterine bleeding 02/28/2023 Anxiety 01/24/2020 Mixed anxiety depressive disorder 11/06/2020 Anxiety with depression 02/28/2023 Asthma exacerbation ([facility] 04/18/2021 Atopic dermatitis 02/17/2021 Chronic cholecystitis with calculus 12/25/2015 Female hirsutism 02/28/2023 Hyperlipidemia ([facility]) 03/08/2018 Hyperlipidemia LDL goal <100 ([facility]) 02/28/2023 Morbid obesity ([facility]) 03/08/2018 Obesity 02/28/2023 Polycystic ovaries 02/28/2023 Recurrent sinusitis 02/28/2023 Seasonal allergies 03/06/2018 Weight gain 02/28/2023 Resolved Ambulatory Problems Diagnosis Date Noted No Resolved Ambulatory Problems Past Medical History: Diagnosis Date Abnormal uterine bleeding (AUB) Allergies Asthma ([facility]) Depression ([facility]) Encounter for gynecological examination (general) (routine) without abnormal findings Obesity (BMI 30-39.9) PCOS (polycystic ovarian syndrome) HISTORY PAST MEDICAL HISTORY SOCIAL HISTORY Past Medical History: Diagnosis Date Abnormal uterine bleeding (AUB) Allergies Anxiety Asthma ([facility]) as a child Depression ([facility]) Encounter for gynecological examination (general) (routine) without abnormal findings Female hirsutism Hyperlipidemia ([facility]) Obesity (BMI 30-39.9) PCOS (polycystic ovarian syndrome) Weight gain Social History Tobacco Use Smoking status: Never Smokeless tobacco: Never Vaping Use Vaping status: Every Day Substance Use Topics Alcohol use: Not Currently Comment: Every once in a while Drug use: Never FAMILY HISTORY Family History Problem Relation Name Age of Onset Hypertension Mother Taylor Diabetes Father Jr Lymphoma Father Jr Cancer Father Jr Hypertension Brother Addy No Known Problems Daughter SURGICAL HISTORY Past Surgical History: Procedure Laterality Date CHOLECYSTECTOMY 2016 INNER EAR SURGERY 1998 Procedure:tubes in ears;Disease: KNEE ARTHROSCOPY W/ DEBRIDEMENT Left 05/26/2023 JAB KNEE ARTHROSCOPY W/ DEBRIDEMENT Left 08/18/2023 L Knee ALEXANDRA JAB KNEE SURGERY Left 2011 Procedure:Arthroscopy L knee MTP;Disease: VAGINAL DELIVERY childbirth REVIEW OF SYSTEMS Review of Systems: Review of Systems Constitutional: Negative. HENT: Negative. Eyes: Negative. Respiratory: Negative. Cardiovascular: Negative. Gastrointestinal: Negative. Genitourinary: Negative. Musculoskeletal: Negative. Skin: Negative. Neurological: Negative. All other systems reviewed and are negative. Hematological: Negative. Endocrine: Negative. Allergic/Immunologic: Negative. OBJECTIVE Objective: Physical Exam Constitutional: Appearance: Normal appearance. She is normal weight. HENT: Head: Normocephalic. Cardiovascular: Rate and Rhythm: Normal rate. Pulses: Normal pulses. Pulmonary: Effort: Pulmonary effort is normal. Breath sounds: Normal breath sounds. Abdominal: Palpations: Abdomen is soft. Musculoskeletal: General: Normal range of motion. Neurological: General: No focal deficit present. Mental Status: She is alert and oriented to person, place, and time. Psychiatric: Mood and Affect: Mood normal. Behavior: Behavior normal. Thought Content: Thought content normal. Judgment: Judgment normal. Vitals and nursing note reviewed. Vitals: Estimated body mass index is 36.95 kg/m as calculated from the following: Height as of this encounter: 5' 2 . Weight as of this encounter: 202 lb. BP: 122/80 No LMP recorded. ASSESSMENT & PLAN ICD-10-CM 1. Encounter for weight management Z76.89 phentermine (Adipex-P) 37.5 MG tablet 2. Weight gain R63.5 Patient presents today for 3rd Adipex prescription. Patient desires additional weigh loss and she is currently taking metformin along with working out to achieve further results. The possibility of Ozempic for future use has been discussed. Weight and blood pressure has been captured and it has been discussed/reiterated the importance of keeping a food journal, proper nutrition/diet, and exercise regimen. Patient verbalized understanding. Patient has not lost more than 5% of her initial body weight Follow Up: Patient is to return to the office in 1 month for further evaluation to assess patient progress. Weight and blood pressure will need to be obtained in order for patient to receive 4th Adipex prescription. Documented by Kaylin Becker on behalf of: ROD Asher documented in this encounter [facility] 08-18-2023 Hospital Discharg e instructions Patient Education 08/18/2023 16:07:56 Post Op Patient Instructions - FT (Custom) (CUSTOM) 08/18/2023 11:46:44 Wallace Vail - ACL Reconstruction/Meniscus Repair (Custom) [place], [place] [facility] DISCHARGE INSTRUCTIONS: KNEE SURGERY Diet Begin with a liquid diet and advance to your normal diet as tolerated. Activity Until your first post-operative visit elevate you knee higher than your heart, whenever you are sitting or lying down. Knee swelling will gradually decrease after surgery. Increased swelling is usually a sign of over-activity and should be a signal for you to be less active and apply ice as needed. Your exercise program is the james to successful rehabilitation of your knee. Do the exercises daily as instructed. You will begin physical therapy after your first postoperative visit. You may not bear weight on your operative leg. You must use your crutches or walker for support when ambulating. This is important for protection of your knee after surgery. Your brace should remain locked in full extension at all times until your follow up visit. Driving is legal, but if you are involved in an accident, you must be able to prove that you maintained full control of your vehicle. For this reason, it is advised that you do not drive until your strength returns. Increased Pain Usually this is the result of over-activity and should respond well to rest, ice and elevation. If this does not provide relief, take the pain medication as directed but do not return to activity. If severe pain persists despite rest, elevation and medication, contact your surgeon. You will be given a prescription for pain medication when you leave the hospital. Please inform us of any known drug allergy. If you have any problems with the medication, it should be discontinued and our office notified. The sensation of splashing of fluid inside the knee is not cause for concern. It represents residual fluids from surgery and they will be absorbed generally in the first few days. Elevation of the leg and application of an ice pack to the knee will minimize swelling and discomfort in the first 48 hours after surgery. Incisions The portals of entry may be sore and develop bruising over the next several days. The bruising eventually resolves and does not require any special care. There may be some numbness around the portals that can take several days or several weeks to resolve as the swelling subsides. Do not apply creams or lotions to your knee. Your portals will heal best if kept dry. Dressing A soft compression dressing has been applied to your knee. This dressing should be comfortable and absorb any leakage of fluid after surgery. Although the dressing may become moist or blood stained, this is not usually a cause for concern. If this persists beyond 2-3 days, notify your surgeon. Your bandage may be removed at your first physical therapy appointment. Leave the adhesive bandage in place until follow up. The adhesive bandage is waterproof, so you may shower. Precautions If you develop fever (101 degrees or above), increasing pain (not relieved by rest, elevation, ice and medication as prescribed), redness, or persistent swelling in your calves or feet that doesn't respond to elevation, please contact the office or the hospital. If you notice increasing drainage from the operative portals after the first few days, this should also be reported. You may have been prescribed aspirin after surgery. Take this as prescribed to help prevent blood clots. Return Visit Your post-operative follow-up appointment is generally between 7 and 14 days after surgery. You will be given an appointment card with this information. Do not hesitate to call the office or the hospital if any problems or questions arise before your appointment. Justin Vail, DO [facility] [address] [place], [place] [address] Reviewed: 18 Follow Up Care 07/14/2023 10:31:08 With:Jsutin Vail Address: [address] [place] [id number] Business (1) When:08/29/2023 14:30:00 Comments:Appointment has already been scheduled. Call for any problems. [facility] 08-18-2023 Evaluation + Plan note Extrac tho from: Title:ANES Post-operative Note - General Author: Brandon Schilling Jr., DO Date:08/18/23 Plan Transfer/Discharge: Transfer/Discharge Discharge when meets criteria ( From PACU to Ambulatory Surgery Unit, and To home ). Extracted from: Title:Jas Basic PRE Author:Jas encinas ()Siri Date:08/18/23 Plan [place] [employer] (ASA) physical status classification: Class II. Anesthetic Preoperative Plan: Anesthesia General. Regional Adductor Canal Block. [facility]03-14-2024 Note [id number]23 [id number]10-[facility] Evaluation note* Encounter Date Diagnosis Assessment Notes Treatment Notes Treatment Clinical Notes Mar, Hypercholesterolemia (ICD-10 - E78.00) Mar, Obesity (BMI 35.0-39 .9 without comorbidity) (ICD-10 - E66.9) Mar, PCOS (polycystic ova richard syndrome) (ICD-10 - E28.2) Mar, Anxiety (ICD-10 - F41.9) [employer] Other 09-13-2023 Evaluation note* Encounter Date Diagnosis Assessment Notes Treatment Notes Treatment Clinical Notes Feb, Obesity (BMI 35.0-39.9 without comorbidity) (ICD-10 - E66.9) [employer] Other 08-02-2023 Evaluation note* Encounter Date Diagnosis Assessment Notes Treatment Notes Treatment Clinical Notes Jan, Hypercholesterolemia (ICD-10 - E78.00) Jan, Obesity (BMI 35.0-39 .9 without comorbidity) (ICD-10 - E66.9) Jan, PCOS (polycystic ova richard syndrome) (ICD-10 - E28.2) Jan, Anxiety (ICD-10 - F41.9) [employer] Other 06-14-2023 Evaluation note* Encounter Date Diagnosis Assessment Notes Treatment Notes Treatment Clinical Notes Nov, Hypercholesterolemia (ICD-10 - E78.00) Nov, Obesity (BMI 35.0-39 .9 without comorbidity) (ICD-10 - E66.9) 14 Nov, 2022 PCOS (polycystic ova richard syndrome) (ICD-10 - E28.2) Nov, Anxiety (ICD-10 - F41.9) [employer] Other 05-10-2023 Evaluation note* Encounter Date Diagnosis Assessment Notes Treatment Notes Treatment Clinical Notes October, Hypercholesterolemia (ICD-10 - E78.00) October, Obesity (BMI 35.0-39 .9 without comorbidity) (ICD-10 - E66.9) October, PCOS (polycystic ova richard syndrome) (ICD-10 - E28.2) October, Anxiety (ICD-10 - F41.9) [employer] Other 02-17-2023 Evaluation note* Encounter Date Diagnosis Assessment Notes Treatment Notes Treatment Clinical Notes Jul, Hypercholesterolemia (ICD-10 - E78.00) Jul, Obesity (BMI 35.0-39 .9 without comorbidity) (ICD-10 - E66.9) Jul, PCOS (polycystic ova richard syndrome) (ICD-10 - E28.2) Jul, Anxiety (ICD-10 - F41.9) [employer] Other 02-03-2023 Evaluation note* Encounter Date Diagnosis Assessment Notes Treatment Notes Treatment Clinical Notes Jul, Hypercholesterolemia (ICD-10 - E78.00) Jul, Medication monitorin g encounter (ICD-10 - Z51.81) Jul, Abnormal weight gain (ICD-10 - R63.5) [employer] Other 12-09-2022 Evaluation note* Encounter Date Diagnosis Assessment Notes Treatment Notes Treatment Clinical Notes May, Hypercholesterolemia (ICD-10 - E78.00) May, Obesity (BMI 30.0-34 .9) (ICD-10 - E66.9) May, PCOS (polycystic ova richard syndrome) (ICD-10 - E28.2) May, Anxiety (ICD-10 - F41.9) [employer] Other 08-11-2022 Evaluation note* Encounter Date Diagnosis Assessment Notes Treatment Notes Treatment Clinical Notes Jan, Hypercholesterolemia (ICD-10 - E78.00) Jan, Obesity (BMI 30.0-34 .9) (ICD-10 - E66.9) Jan, Nausea (ICD-10 - R11.0) Jan, PCOS (polycystic ova richard syndrome) (ICD-10 - E28.2) Jan, Anxiety (ICD-10 - F41.9) [employer] Other 06-10-2022 Evaluation note* Encounter Date Diagnosis Assessment Notes Treatment Notes Treatment Clinical Notes Nov, Obesity (BMI 35.0-39 .9 without comorbidity) (ICD-10 - E66.9) Nov, Nausea (ICD-10 - R11.0) Nov, PCOS (polycystic ova richard syndrome) (ICD-10 - E28.2) Nov, Hypercholesterolemia (ICD-10 - E78.00) Nov, Anxiety (ICD-10 - F41.9) Nov, Medication monitorin g encounter (ICD-10 - Z51.81) [employer] Other 04-29-2022 Evaluation note* Encounter Date Diagnosis Assessment Notes Treatment Notes Treatment Clinical Notes Sep, Obesity, unspecified classification, unspecified obesity type, unspecified whether serious comorbidity present (ICD-10 - E66.9) Sep, BMI 35.0-35.9,adult (ICD-10 - Z68.35) Sep, Other Summary of Visi t: (A) Discussed self-care (B) Continue current nutrition habits (C) Discussed options for exercise [employer] Other 02-18-2022 Evaluation note* Encounter Date Diagnosis Assessment Notes Treatment Notes Treatment Clinical Notes Jul, PCOS (polycystic ova richard syndrome) (ICD-10 - E28.2) Jul, Obesity (BMI 35.0-39 .9 without comorbidity) (ICD-10 - E66.9) Jul, Hypercholesterolemia (ICD-10 - E78.00) Jul, Anxiety (ICD-10 - F41.9) Jul, Medication monitorin g encounter (ICD-10 - Z51.81) [employer] [facility] Other 01-14-2022 Evaluation note* Encounter Date Diagnosis Assessment Notes Treatment Notes Treatment Clinical Notes Jun, Obesity, unspecified classification, unspecified obesity type, unspecified whether serious comorbidity present (ICD-10 - E66.9) Jun, BMI 37.0-37.9, adult (ICD-10 - Z68.37) Jun, Other Summary of Visit: (A) Meal planning apps available (B) Continue current nutrition regimen [employer] [facility] Other 12-19-2021 Evaluation note* Encounter Date Diagnosis Assessment Notes Treatment Notes Treatment Clinical Notes May, Contact with and (suspected) exposure to other viral communicable diseases (ICD-10 - Z20.828) Today test was performed in office. Results are currently negative. That does not mean that you will not develop COVID or do not currently have a low viral count of COVID. The rapid test works best if symptoms have been over 72 hours and the results can vary if you are asymptomatic There is a higher chance of false negative results to occur if testing is performed too soon. It is recommended that even if results are negative and you have been exposed to someone that has COVID that you follow current CDC recommendations. These can be found at CDC.GOV. Follow up with primary care provider if symptoms persist or do not improve *VIRAL URI HANOUT GIVEN ON OTC TREATMENTS, FOLLOW UP AND WHEN TO SEEK EMERGENCY TREATMENT May, Laryngitis (ICD-10 - J04.0) May, Other Additional time spent conducting pre-visit phone call, screening for symptoms, instructions on social distancing, application and removal of PPE, and cleaning of examination room, equipment and supplies was preformed. Patient education given for testing methodology and results. Patient care instructions given in writting by [facility] Care At Home document. [employer] Other 10-22-2021 Evaluation note* Encounter Date Diagnosis Assessment Notes Treatment Notes Treatment Clinical Notes Mar, Obesity (BMI 35.0-39 .9 without comorbidity) (ICD-10 - E66.9) Mar, Hypercholesterolemia (ICD-10 - E78.00) Mar, Diarrhea (ICD-10 - R19.7) Mar, PCOS (polycystic ova richard syndrome) (ICD-10 - E28.2) Mar, Anxiety (ICD-10 - F41.9) [employer] Other 10-11-2021 Evaluation note* Encounter Date Diagnosis Assessment Notes Treatment Notes Treatment Clinical Notes Mar, PCOS (polycystic ovarian syndrome) (ICD-10 - E28.2) [employer] Other 10-06-2021 Evaluation note* Encounter Date Diagnosis Assessment Notes Treatment Notes Treatment Clinical Notes Mar, PCOS (polycystic ovarian syndrome) (ICD-10 - E28.2) [employer] Other 09-24-2021 Evaluation note* Encounter Date Diagnosis Assessment Notes Treatment Notes Treatment Clinical Notes Feb, Obesity, unspecified classification, unspecified obesity type, unspecified whether serious comorbidity present (ICD-10 - E66.9) Feb, BMI 38.0-38.9,adult (ICD-10 - Z68.38) Feb, Other Summary of Visit: (A) discussed positive self talk (B) discussed finding and maintaining motivation for the gym (C) continue current healthy eating habits [employer] Other 09-22-2021 Evaluation note* Encounter Date Diagnosis Assessment Notes Treatment Notes Treatment Clinical Notes Feb, Obesity (BMI 35.0-39 .9 without comorbidity) (ICD-10 - E66.9) Feb, Hypercholesterolemia (ICD-10 - E78.00) Feb, PCOS (polycystic ova richard syndrome) (ICD-10 - E28.2) Feb, Diarrhea (ICD-10 - R19.7) Feb, Anxiety (ICD-10 - F41.9) [employer] Other Evaluation + Plan note Future Appointments Appointment Date:05/26/2023 10:15:00 AM Scheduled Provider: Location:[facility] Future Appointments Appointment Date:08/18/2023 01:00:00 PM Scheduled Provider: Location:[facility] App[facility]No InformationN[facility] [employer] Other Evaluation noteNo assessment information available [facility] Work Phone: Evaluation note* Diagnosis S/P arthroscopic surgery of left knee- Primary Other postprocedural status Acute pain of left knee documented in this encounter [facility] Healthcare[facility]* Diagnosis Encounter for weight management Weight gain Other symptoms concerning nutrition, metabolism, and development documented in this encounter [facility] HealthcareHistory general Narrative - Reported* Type Description Date Medical History anxiety Medical History high testerone Medical History Environmental Allergies Medical History depression Medical History high cholesterol Surgical History left knee arthroscopy 2009 Surgical History gall bladder removal 2015 Hospitalization History childbirth 2015 [facility] [employer] Other Hospital course Narrative No data available for this section [facility] No data available for this section [facility] No data available for this section [facility] Narrative* Consultation (Routine) - Closed Specialty Diagnoses / Procedures Referred By Pura ballard Referred To Contact Physical Therapy Diagnoses Acute pain of left knee Procedures DC OFFICE/OUTPATIENT NEW HIGH MDM 60 MINUTES Justin Vail, DO [address] [place] [address] Bean Gaston, PT [address] [facility] [address] [place] [address] Referral ID Status Reason Start Date Expiration Date V isits Requested Visits Authorized [id number] Closed Consult and Treat 06/06/2023 12/03/2023 20 20 [facility] Chief Complaint and Reason for Visit Chief Complaint Obesity J06.9 Advance Directives Advance Directive Response Recorded Date/ Time Advance Directives No March 27, 2017 9:58am Summary Purpose Family History Relationship Condition Age at Onset Recorded Date/T sujit family member Obesity Unknown father Diabetes mellitus Unknown grandparent Obesity Unknown Not Specified Hypertension Unknown Additional Source Comments REASON FOR VISIT (unrecogniz ed section and content) Reason Comments Weight Management Care Teams (unrecognized sec tion and content) Team Status: Active Member Role Status Dates Kim Gomez SAUSAGE WRAPPER-C Primary Care Provider Active Reese Ramos MD Attending Provider Active Team Status: Inactive Member Role Status Dates Kmi Gomez SAUSAGE WRAPPER-C Primary Care Provider, Attending Pro vider Active Team Status: Active Member Role Status Dates Kim Gomez SAUSAGE WRAPPER-C Primary Care Provider Active Casting Operator Helper Relationship Specialty Start Date End Date Ty Roach, DO [address] [place] [address] PCP - General Family Medicine 10/11/22 Casting Operator Helper Relationship Specialty Start Date End Date Ty Roach DO [address] [place] [address] PCP - General Family Medicine 10/11/22 Casting Operator Helper Relationship Specialty Start Date End Date Ty Roach DO [address] [place] [address] PCP - General Family Medicine 10/11/22 Casting Operator Helper Relationship Specialty Start Date End Date Ty Roach DO [address] [place] [address] PCP - General Family Medicine 10/11/22 Casting Operator Helper Relationship Specialty Start Date End Date Ty Roach, DO [address] [place] [address] PCP - General Family Medicine 10/11/22 Goals (unrecognized section and content) Goals may be documented in a n alternate section INFORMATION SOURCE (unrecogn ized section and content) DATE CREATED AUTHOR 07/31/2022 [facility] DATE CREATED AUTHOR AUTHOR'S ORGANIZ ATION 08/27/2023 [facility] DATE CREATED AUTHOR AUTHOR'S ORGANIZ ATION 09/26/2023 [facility] DATE CREATED AUTHOR AUTHOR'S ORGANIZ ATION 03/16/2024 [facility] FOR RECORDS PERTAINING TO PATIENTS WHO ARE OR HAVE BEEN ENROLLED IN A CHEMICAL DEPENDENCY/SUBSTANCEABUSE PROGRAM, SOME INFORMATION MAY BE OMITTED. This clinical summary was aggregated from multiple sources. Caution should be exercised in using it in the provision of clinical care. This summary normalizes information from multiple sources, and as a consequence, information in this document may materially change the coding, format and clinical context of patient data. In addition, data may be omitted in some cases. CLINICAL DECISIONS SHOULD BE BASED ON THE PRIMARY CLINICAL RECORDS. [employer] provides no warranty or guarantee of the accuracy or completeness of information in this document.
[2024-04-17 14:11] LABS: Age Gdln ACOG Testing Note (.); IGP, rfx Aptima HPV ASCU Note (.)
== END 2024-04-11 20:15 | disposition home or self-care (01) ==
LOC: LAB 20:14
PROVIDERS: Visit Provider Physician Assistant
DX: Z01.419 Encounter for gynecological examination (general) (routine) without abnormal findings (principal)
CPT/HCPCS: 88175

== ENCOUNTER 2025-02-24 09:46 | Outpatient (OUT) | payer OTHER, SELFPAY ==
--- OUTSIDE RECORDS SUMMARY | 2025-02-24 09:56 | XMS_ITS | Encounter Summary ---
Author Organization [facility] Address [address] [place] [address] Care Team Providers Care Serging Machine Operator Name Role Phone PumaTy shaw Primary Care Provider Encounter Details Date Type Department Care Team (Late st Contact Info) Description 01/25/2024 Clinisync Result Encounter [facility] External Department Unsolicited Petar Hamilton DO [address] [facility] [place] [id number] Social History Tobacco Use Types Packs/Day Years Used Date Smoking Tobacco: Never Smokeless Tobacco: Never Alcohol Use Standard Drinks/Week Comments Yes 0 (1 standard drink = 0.6 oz pur e alcohol) Every once in a while AUDIT-C Answer Date Recorded Q1: How often do you have a drink containing alc ohol? 2-4 times a month 08/16/2023 Q2: How many drinks containi ng alcohol do you have on a typical day when you are drinking? 1 or 2 08/16/2023 Q3: How often do you have si x or more drinks on one occasion? Never 08/16/2023 PHQ-2 Answer Date Recorded Patient Health Questionnaire-2 Score 0 03/01/2023 Comments No Sex and Gender Information Value Date Recorded Sex Assigned at Female 12/26/2022 5:26 PM EDT Legal Sex Female 6:37 PM EDT Gender Identity Female 12/26/2022 5:26 PM EDT Sexual Orientation Straight 12/26/2022 5: 26 PM EDT documented as of this encounter Plan of Treatment Upcoming Encounters Date Type Department Care Team (Late st Contact Info) Description 04/02/2025 9:30 AM EDT Office Visit LEYDA LLAMAS [address] [facility] [place] [address] Sammie Babcock, SHAUN [address] [facility] [place] [address] 04/15/2025 9:00 AM EST Office Visit LEYDA LLAMAS [address] [facility] [place] [address] Maria Elena Whitney PA [address] [facility] [place] [address] documented as of this encounter Procedures Procedure Name Priority Date/Time Associated Diagnosis Comments US PELVIS W/ TRANSVAGINAL 01/25/2024 2:19 PM EDT documented in this encounter Results * US PELVIS W/ TRANSVAGINAL (01/25/2024 2:19 PM EDT) Anatomical Region Laterality Modality Other 01/25/2024 2:19 PM EDT Narrative 01/25/2024 2:22 PM EDT The [place] [id number] Ultrasound Report Signed Patient: ALEXUS LI MR#: [id number] : 1995 Acct:[id number] Age/Sex: 28 / F ADM Date: 01/25/24 Loc: [facility] Attending Dr: Petar Hamilton D.O. Ordering Physician: Petar Hamilton D.O. Date of Service: 01/25/24 Procedure(s): US pelvis w/ transvaginal Accession Number(s): [id number] cc: Petar Hamilton D.O.; Physician,Non-Staff [place] The [address] [address] Patient Name: ALEXUS LI MRN: [facility]:[id number] date: 1995 Sex: F Assigned Patient Location: [facility] Current Patient Location: [facility] Accession/Order Number: [id number] Exam Date: 01/25/2024 09:30 Report Date: 01/25/2024 14:19 At the request of: PETAR HAMILTON Procedure: US pelvis w/ transvaginal EXAMINATION: US pelvis w/ transvaginal HISTORY: POLYCYSTIC OVARIAN DISEASE ; abdominal pain, abnormal periods COMPARISON: Ultrasound pelvis 09/07/2021 TECHNIQUE: Transabdominal and/or transvaginal sonographic examination was performed as indicated by examination type. FINDINGS: UTERUS: Normal size and appearance. Uterus size: 7.9 x 3.3 x 4.6 cm ENDOMETRIUM: Normal homogeneous appearance. Endometrial thickness: 2 mm RIGHT OVARY: Contains several follicles of varying size. Duplex Doppler demonstrates normal waveform and flow; resistive index 0.6. Ovary size: 4.1 x 2.5 x 4.0 cm LEFT OVARY: Normal size and appearance. Duplex Doppler demonstrates normal waveform and flow; resistive index 0.7. Ovary size: 2.7 x 1.9 x 3.6 cm CUL-DE-SAC: Unremarkable. No significant free fluid. BLADDER: Unremarkable. OTHER: None. US/US pelvis w/ transvaginal IMPRESSION: 1. No abnormal or suspicious findings to account for patient's symptoms. 2. No ovarian findings to suggest polycystic ovarian syndrome. Electronically authenticated by: JEFF GILMORE Date: 01/25/2024 14:19 Dictated By: Jeff Gilmore M.D. Signed By: 01/25/24 1422 DD/ 1419 TD/TT: Branch Officer: Procedure Note Radiology, Radiologist, MD - 01/25/2024 [place] [address] Ultrasound Report Signed Patient: ALEXUS LI [facility]#: [id number] : 1995Acct:[id number] Age/Sex: 28 / FADM Date: 01/25/24 Loc: [facility] Attending Dr: Petar Hamilton D.O. Ordering Physician: Petar Hamilton D.O. Date of Service: 01/25/24 Procedure(s): US pelvis w/ transvaginal Accession Number(s): [id number] cc: Petar Hamilton D.O.; Physician,Non-Staff [place] [address] [address] Patient Name: ALEXUS LI MRN: [id number] date: 1995 Sex: F Assigned Patient Location: [facility] Current Patient Location: [facility] Accession/Order Number: [id number] Exam Date: 01/25/2024 09:30 Report Date: 01/25/2024 14:19 At the request of: PETAR HAMILTON Procedure: US pelvis w/ transvaginal EXAMINATION: US pelvis w/ transvaginal HISTORY: POLYCYSTIC OVARIAN DISEASE ; abdominal pain, abnormal periods COMPARISON: Ultrasound pelvis 09/07/2021 TECHNIQUE: Transabdominal and/or transvaginal sonographic examination was performed as indicated by examination type. FINDINGS: UTERUS: Normal size and appearance. Uterus size: 7.9 x 3.3 x 4.6 cm ENDOMETRIUM: Normal homogeneous appearance. Endometrial thickness: 2 mm RIGHT OVARY: Contains several follicles of varying size. Duplex Doppler demonstrates normal waveform and flow; resistive index 0.6. Ovary size:4.1 x 2.5 x 4.0 cm LEFT OVARY: Normal size and appearance. Duplex Doppler demonstrates normal waveform and flow; resistive index 0.7. Ovary size: 2.7 x 1.9 x 3.6 cm CUL-DE-SAC: Unremarkable. No significant free fluid. BLADDER: Unremarkable. OTHER: None. US/US pelvis w/ transvaginal IMPRESSION: 1. No abnormal or suspicious findings to account for patient's symptoms. 2. No ovarian findings to suggest polycystic ovarian syndrome. Electronically authenticated by: JEFF GILMORE Date: 01/25/2024 14:19 Dictated By: Jeff Gilmore M.D. Signed By:01/25/24 1422 DD/ 1419 TD/TT: Branch Officer: us Petar Hamilton DO [facility] Final Result documented in this encounter Visit Diagnoses Not on filedocumented in this encounter Care Teams Serging Machine Operator Relationship Specialty Start Date End Date Ty Roach DO [address] [place] [id number] PCP - General Family Medicine 10/11/22 documented as of this encounter
--- OUTSIDE RECORDS SUMMARY | 2025-02-24 09:56 | XMS_ITS | Encounter Summary ---
Author Organization [facility] Address [address] [place] [address] Care Team Providers Care Drainlayer Name Role Phone Ty Roach DO Primary Care Provider [phone] Encounter Details Date Type Department Care Team (Late st Contact Info) Description 08/04/2023 Orders Only [facility] [place] [facility] [address] [place] [phone] A, Unknown Practice [address] [place] [id number] Social History Tobacco Use Types Packs/Day Years Used Date Smoking Tobacco: Never Smokeless Tobacco: Never Alcohol Use Standard Drinks/Week Comments Yes 0 (1 standard drink = 0.6 oz pur e alcohol) Every once in a while AUDIT-C Answer Date Recorded Q1: How often do you have a drink containing alc ohol? 2-4 times a month 08/02/2023 Q2: How many drinks containi ng alcohol do you have on a typical day when you are drinking? 1 or 2 08/02/2023 Q3: How often do you have si x or more drinks on one occasion? Never 08/02/2023 PHQ-2 Answer Date Recorded Patient Health Questionnaire-2 [...] Description 04/02/2025 9:30 AM EDT Office Visit NOMSivan LLAMAS [address] [facility] [address] Sammie Babcock NP [address] [facility] [place] [address] 04/15/2025 9:00 AM EST Office Visit NOMSivan LLAMAS [address] [facility] [place] [address] Maria Elena Whitney PA [address] [facility] [place] [address] documented as of this encounter Procedures Procedure Name Priority Date/Time Associated Diagnosis Comments SCANNED LABS Routine 08/03/2023 11:07 AM EST documented in this encounter Results * SCANNED LABS (08/03/2023 11:07 AM EST) us Unknown Practice A LAB CHG PERFORMABLES Final Re sult documented in this encounter Visit Diagnoses Not on filedocumented in this encounter Care Teams Drainlayer Relationship Specialty Start Date End Date Ty Roach DO [address] [place] [address] PCP - General Family Medicine 10/11/22 documented as of this encounter
--- OUTSIDE RECORDS SUMMARY | 2025-02-24 09:56 | XMS_ITS | Encounter Summary ---
Author Organization [facility] Address [address] [place] [address] Care Team Providers Care Lead Net Software Developer Name Role Phone Ty Roach Primary Care Provider [phone] Encounter Details Date Type Department Care Team (Late st Contact Info) Description 01/31/2023 Abstract [facility] [place] [facility] [address] [facility] [place] [phone] Maria Elena Whitney PA [address] [facility] [address] [place], [id number] Social History Tobacco Use Types Packs/Day Years Used Date Smoking Tobacco: Never Tobacco Cessation:Counseling Given: Not Answered Alcohol Use Standard Drinks/Week Comments Yes 0 (1 standard drink = 0.6 oz pure alcohol) 1-2 drinks 2-4x a month in the past year, Caffeine intake: none Comments Unknown Sex and Gender Information Value Date Recorded Sex Assigned at Female 12/26/2022 5:26 PM EDT Legal Sex Female 6:37 PM EDT Gender Identity Female 12/26/2022 5:26 PM EDT Sexual Orientation Straight 12/26/2022 5: 26 PM EDT COVID-19 Exposure Response Date Recorded In the last 10 days, have yo u been in contact with someone who was confirmed or suspected to have Coronavirus/COVID-19? No / Unsure 01/31/2023 10:39 AM EDT documented as of this encounter Plan of Treatment Upcoming Encounters Date Type Department Care Team (Late st Contact Info) Description 04/02/2025 9:30 AM EDT Office Visit [facility] Eduardo LLAMAS [address] [facility] [place] [address] Sammie Babcock, SHAUN [address] [facility] [place] [address] 04/15/2025 9:00 AM EST Office Visit NOMSivan LLAMAS [address] [facility] [place] [address] Maria Elena Whitney PA [address] [facility] [place] [address] documented as of this encounter Visit Diagnoses Not on filedocumented in this encounter Care Teams Lead Net Software Developer Relationship Specialty Start Date End Date Ty Roach DO [address] [place] [address] PCP - General Family Medicine 10/11/22 documented as of this encounter
--- OUTSIDE RECORDS SUMMARY | 2025-02-24 09:56 | XMS_ITS | Encounter Summary ---
Author Organization [facility] Address [address] [place] [address] Care Team Providers Care Echocardiograph Tech Name Role Phone PumaTy shaw Primary Care Provider [phone] Encounter Details Date Type Department Care Team (Late st Contact Info) Description 03/01/2023 Abstract [facility] [address] [place] [phone] Kim Gomez, SHAUN [address] [place] [address] Social History Tobacco Use Types Packs/Day Years Used Date Smoking Tobacco: Never Smokeless Tobacco: Never Alcohol Use Standard Drinks/Week Comments Yes 0 (1 standard drink = 0.6 oz pure alcohol) 1-2 drinks 2-4x a month in the past year, Caffeine intake: none PHQ-2 Answer Date Recorded Patient Health Questionnaire-2 [...] AM EDT documented as of this encounter Functional Status * Over the past 2 weeks, how often have you been bothered by any of the following problems? Question Answer Date of Assessment Author Little interest or pleasure in doing things Not at all 03/01/2023 9:30 AM EDT Trell Garcia MA Feeling down, depressed, or hopeless Not at all 03/01/2023 9:30 AM EDT Trell Garcia MA Patient Health Questionnaire -2 Score 0 03/01/2023 9:30 AM EDT Trell Garcia MA documented as of this encounter Plan of Treatment Upcoming Encounters Date Type Department Care Team (Late st Contact Info) Description 04/02/2025 9:30 AM EDT Office Visit LEYDA LLAMAS [address] [facility] [place] [address] Sammie Babcock, SHAUN [address] [facility] [place] [phone] 04/15/2025 9:00 AM EST Office Visit LEYDA LLAMAS [address] [facility] [place] [address] Maria Elena Whitney PA [address] [facility] [place] [address] documented as of this encounter Visit Diagnoses Not on filedocumented in this encounter Care Teams Echocardiograph Tech Relationship Specialty Start Date End Date Ty Roach DO [address] [place] [address] PCP - General Family Medicine 10/11/22 documented as of this encounter
--- OUTSIDE RECORDS SUMMARY | 2025-02-24 09:56 | XMS_ITS | Clinical Summary ---
Author Organization [facility] Address [address] [place] [address] Care Team Providers Care Child Guidance Counselor Name Role Phone SheaTy raines Primary Care Provider [phone] Allergies Active Allergy Reactions Criticality Noted Date Comments Amoxicillin-Pot Clavulanate GI intolerance 08/03/2023 Cat Dander Unknown 04/18/2021 Cefdinir 03/29/2023 Other Reaction(s): stomach upset Dust Mite Extract Unknown 04/18/2021 Mixed Ragweed Unknown 04/18/2021 Other Reaction(s): Nasal congestion Pollen Extract 08/29/2023 Other Reaction(s): Congestion Medications fluticasone (Flonase) 50 MCG/ACT nasal spray USE 1 SPRAY IN EACH NOSTRIL ONCE A DAY for 90 Active fexofenadine (Rosanne Allergy) 180 MG tablet 1 (one) time each day at the same time. Active Acetaminophen Extra Strength 500 MG tablet Take 1 tablet by mouth every 4 (four) hours if needed 08/18/2023 Active albuterol HFA 90 mcg/act inhalerIndicatio ns:Exacerbation of asthma, unspecified asthma severity, unspecified whether persistent (HCC) INHALE 1 PUFF INTO THE LUNGS EVERY 4 HOURS NEEDED FOR 30 DAYS 18 g 3 10/10/2023 Active phentermine (Adipex-P) 37.5 MG tabletIndication s:Encounter for weight management Take 1 tablet (37.5 mg) by mouth in the morning. Take before meals. 90 tablet 07/11/2024 Active phentermine (Adipex-P) 37.5 MG tabletIndication s:Encounter for weight management Take 1 tablet (37.5 mg) by mouth in the morning. Take before meals. 90 tablet 10/03/2024 Active Slynd 4 MG tabletIndication s:PCOS (polycystic ovarian syndrome) TAKE 1 TABLET BY MOUTH EVERY DAY 28 tablet 11 12/18/2024 Active phentermine (Adipex-P) 37.5 MG tabletIndication s:Encounter for weight management Take 1 tablet (37.5 mg) by mouth in the morning. Take before meals. 90 tablet 01/06/2025 04/06/20 Active Active Problems Problem Noted Date Diagnosed Date Abnormal uterine bleeding 02/28/2023 Anxiety with depression 02/28/2023 Female hirsutism 02/28/2023 Hyperlipidemia LDL goal <100 02/28/2023 Obesity 02/28/2023 Polycystic ovaries 02/28/2023 Recurrent sinusitis 02/28/2023 Weight gain 02/28/2023 Asthma exacerbation 04/18/2021 Atopic dermatitis 02/17/2021 Mixed anxiety depressive disorder 11/06/2020 Anxiety 01/24/2020 Hyperlipidemia 03/08/2018 Morbid obesity 03/08/2018 Seasonal allergies 03/06/2018 Chronic cholecystitis with calculus 12/25/2015 Encounters Date Type Department Care Team Description 01/06/2025 10:00 AM EDT Office Visit [facility] [address] [facility] [place] [address] Sammie Babcock, SHAUN Encounter for contraceptive management, unspecified type (Primary Dx); Encounter for weight management 01/06/2025 Bamboo flowsheet [facility] Eduardo LLAMAS [address] [place] [phone] Sammie Babcock NP 12/16/2024 Refill [facility] [address] [facility] [place] [address] Petar Hamilton DO PCOS (polycystic ovarian syndrome) from Last 3 Months Immunizations Immunization Administration Dates Next Due DTP / HiB 02/15/1996 DTaP 09/12/2000, 7,02/15/1996,11/26,1995 DTaP, Unspecified 09/12/2000, 7,1995,09/03 HPV, Quadrivalent 07/29/2008,03/04/2008,01/01/20 08 HPV, Unspecified 07/29/2008,03/04/2008, 8 Hep B, Adolescent or Pediatric 02/15/1996,1995,1995 Hep B, adult 02/15/1996,1995,1995 HiB, unspecified 12/16/1996, 6,1995,09/03 Hib (PRP-OMP) 12/16/1996,1995,1995 IPV 09/12/2000, 7,1995,09/03 Influenza, injectable, quadr ivalent, preservative free 03/05/2020 Influenza, live, intranasal 04/05/2011 Influenza, seasonal, intrade rmal, preservative free 03/29/2018 MMR 09/12/2000,1995 Meningococcal ACWY, unspecified 01/01/2008 Meningococcal MCV4P 08/07/2012,01/01/2008 OPV 02/17/1997 Tdap 11/22/2015,01/24/2006 Family History Medical History Relation Name Comments Hypertension Brother Addy No Known Problems Daughter Cancer Father Jr Diabetes Father Jr Lymphoma Father Jr Alzheimer's disease Mother Taylor Hypertension Mother Taylor Relation Name Status Comments Brother Addy Alive 2, healthy Daughter 1, healthy Father Jr Alive Mother Taylor Alive Social History Tobacco Use Types Packs/Day Years Used Date Smoking Tobacco: Never Smokeless Tobacco: Never Tobacco Cessation:Counseling Given: Not Answered Alcohol Use Standard Drinks/Week Comments Not Currently 0 (1 standard drink = 0.6 oz [...] Orientation Straight 12/26/2022 5: 26 PM EDT Last Filed Vital Signs Vital Sign Reading Time Taken Comments Blood Pressure 108/70 01/06/2025 10:06 AM EDT Pulse 100 03/01/2023 9:26 AM EDT Temperature 36.3 C (97.4 F) 01/16/2024 3:39 PM EDT Respiratory Rate - - Oxygen Saturation 96% 03/01/2023 9:26 AM EDT Inhaled Oxygen Concentration - - Weight 84.7 kg (186 lb 12.8 oz) 025 10:06 AM EDT Height 157.5 cm (5' 2 ) 04/18/2024 3:52 PM EST Body Mass Index 34.17 04/18/2024 3:52 PM EST Plan of Treatment Upcoming Encounters Date Type Department Care Team (Late st Contact Info) Description 04/02/2025 9:30 AM EDT Office Visit LEYDA LLAMAS [address] [place] [address] [place] [address] Sammie Babcock, SHAUN [address] [facility] [place] [phone] 04/15/2025 9:00 AM EST Office Visit LEYDA LLAMAS [address] [place] [address] Maria Elena Whitney PA [address] [facility] [place] [address] Health Maintenance Due Date Last Done Comments Influenza Vaccine (#1) 2025 03/05/2020, 2017, 04/05/2011 Insurance [employer] Care Teams Child Guidance Counselor Relationship Specialty Start Date End Date Ty Roach DO [address] [place] [address] PCP - General Family Medicine 10/11/22
--- OUTSIDE RECORDS SUMMARY | 2025-02-24 09:56 | XMS_ITS | Clinical Summary ---
Author Organization [facility] Address [address], [address] [place] [address] Care Team Providers Care Supervisor Fertilizer Processing Name Role Phone Janusz Marinelli MD Primary Care Provider [phone] Allergies No known active allergies Medications omeprazole (PRILOSEC) 20 MG capsule Take 20 mg by mouth daily Active NUVARING 0.12-0.015 MG/24HR vaginal ring Insert 1 ring vaginally in for 3 weeks, then out for 1 week 3 6 Active Active Problems Problem Noted Date Diagnosed Date Chronic cholecystitis with calculus 12/25/2015 Immunizations Immunization Administration Dates Next Due DTaP 09/12/2000, 7,02/15/1996,11/26,1995 HPV Quadrivalent (Gardasil) 07/29/2008, 8,01/01/2008 Hepatitis B 02/15/1996,1995,1995 Hib, unspecified 12/16/1996, 6,1995,09/03 MMR, PRIORIX, M-M-R II, (age 12m+), SC, 0.5mL 09/12/2000,1995 Meningococcal ACWY, MENACTRA (MenACWY-D), (age 9m-55y), IM, 0.5mL 08/07/2012,01/01/2008 Poliovirus, IPOL, (age 6w+), SC/IM, 0.5mL 09/12/2000,02/17/1997,1995,09/03 TDaP, ADACEL (age 10y-64y), BOOSTRIX (age 10y+), IM, 0.5mL 01/24/2006 Family History Medical History Relation Name Comments Cancer Brother High Blood Pressure Mother Relation Name Status Comments Brother Mother Social History Tobacco Use Types Packs/Day Years Used Date Smoking Tobacco: Never Tobacco Cessation:Counseling Given: No Alcohol Use Standard Drinks/Week Comments No 0 (1 standard drink = 0.6 oz pur e alcohol) Comments No Sex and Gender Information Value Date Recorded Sex Assigned at Not on file Legal Sex Female 11:04 PM EST Gender Identity Not on file Sexual Orientation Not on file Last Filed Vital Signs Vital Sign Reading Time Taken Comments Blood Pressure 114/62 01/18/2016 3:06 PM EDT Pulse 94 12/17/2015 2:37 PM EDT Temperature 37 C (98.6 F) 01/18/2016 3:06 PM EDT Respiratory Rate 16 12/17/2015 2:37 PM EDT Oxygen Saturation - - Inhaled Oxygen Concentration - - Weight 104.8 kg (231 lb) 01/18/2016 3:06 PM EDT Height 157.5 cm (5' 2 ) 01/18/2016 3:06 PM EDT Body Mass Index 42.25 01/18/2016 3:06 PM EDT Plan of Treatment Not on file Insurance 64 [address] Care Teams Supervisor Fertilizer Processing Relationship Specialty Start Date End Date Janusz Marinelli MD [address] [id number] PCP - General 08/28/18
--- OUTSIDE RECORDS SUMMARY | 2025-02-24 09:56 | XMS_ITS | Encounter Summary ---
Author Organization [facility] Address [address] [place] [address] Care Team Providers Care Pickle Sorter Name Role Phone Ty Roach Primary Care Provider [phone] Encounter Details Date Type Department Care Team (Late st Contact Info) Description 05/24/2023 Abstract [facility] [address] [facility] [place] [phone] Kendra Stallworth, NYDIA [address] [place], [place] Social History Tobacco Use Types Packs/Day Years Used Date Smoking Tobacco: Never Smokeless Tobacco: Never Alcohol Use Standard Drinks/Week Comments Yes 0 (1 standard drink = 0.6 oz pure alcohol) 1-2 drinks 2-4x a month in the past year, Caffeine intake: none AUDIT-C Answer Date Recorded Q1: How often do you have a drink containing alc ohol? 2-4 times a month 05/26/2023 Q2: How many drinks containi ng alcohol do you have on a typical day when you are drinking? 1 or 2 05/26/2023 Q3: How often do you have si x or more drinks on one occasion? Never 05/26/2023 PHQ-2 Answer Date Recorded Patient Health Questionnaire-2 [...] suspected to have Coronavirus/COVID-19? No / Unsure 05/10/2023 10:11 AM EST documented as of this encounter Functional Status * Audit-C Score Answer Date of Assessment Author 2 05/26/2023 6:47 AM Kaden Wilkinson * Question Answer Date of Assessment Author Q1: How often do you have a drink containing alcohol? 2-4 times a month 05/26/2023 6:47 AM Kaden Wilkinson Q2: How many drinks containing alcohol do you have on a typical day when you are drinking? 1 or 2 05/26/2023 6:47 AM Kaden Wilkinson Q3: How often do you have six or more drinks on one occasion? Never 05/26/2023 6:47 AM Kaden Wilkinson documented as of this encounter Plan of Treatment Upcoming Encounters Date Type Department Care Team (Late st Contact Info) Description 04/02/2025 9:30 AM EDT Office Visit LEYDA LLAMAS [address] [facility] [phone] Sammie Babcock, SHAUN [address] [facility] [phone] 04/15/2025 9:00 AM EST Office Visit LEYDA LLAMAS [address] [facility] [place] [address] Maria Elena Whitney PA [address] [address] [place], [facility] documented as of this encounter Visit Diagnoses Not on filedocumented in this encounter Care Teams Pickle Sorter Relationship Specialty Start Date End Date Ty Roach DO [address] [place] [address] PCP - General Family Medicine 10/11/22 documented as of this encounter
--- OUTSIDE RECORDS SUMMARY | 2025-02-24 09:56 | XMS_ITS | Encounter Summary ---
Author Organization [facility] Address [address] [place] [address] Care Team Providers Care Setter Induction Heating Equipment Name Role Phone SheaTy raines Primary Care Provider [phone] Encounter Details Date Type Department Care Team (Late Contact Info) Description 01/16/2024 Telephone [facility] [place] [facility] [address] [place] [phone] Mattie Doll PTA Social History Tobacco Use Types Packs/Day Years [...] Encounters Date Type Department Care Team (Late Contact Info) Description 04/02/2025 9:30 AM EDT Office Visit NOMSivan LLAMAS [address] [facility] [place] [address] Sammie Babcock, SHAUN [address] [facility] [place] [address] 04/15/2025 9:00 AM EST Office Visit NOMSivan LLAMAS [address] [facility] [place] [address] Maria Elena Whitney PA [address] [facility] [place] [address] documented as of this encounter Visit Diagnoses Not on filedocumented in this encounter Care Teams Setter Induction Heating Equipment Relationship Specialty Start Date End Date Ty Roach DO [address] [place] [address] PCP - General Family Medicine 10/11/22 documented as of this encounter
--- OUTSIDE RECORDS SUMMARY | 2025-02-24 09:56 | XMS_ITS | Encounter Summary ---
Author Organization [facility] Address [address] [facility] [place] [address] Care Team Providers Care Key Account Director Name Role Phone Ty Roach Primary Care Provider [phone] Encounter Details Date Type Department Care Team (Late st Contact Info) Description 06/14/2023 Abstract [facility] [address] [facility] [place] [phone] Kendra Stallworth RN [address] [place], [place] Social History Tobacco Use Types Packs/Day Years Used Date Smoking Tobacco: Never Smokeless Tobacco: Never Alcohol Use Standard Drinks/Week Comments Yes 0 (1 standard drink = 0.6 oz pure alcohol) 1-2 drinks 2-4x a month in the past year, Caffeine intake: none AUDIT-C Answer Date Recorded Q1: How often do you have a drink containing alc ohol? 2-4 times a month 06/05/2023 Q2: How many drinks containi ng alcohol do you have on a typical day when you are drinking? 1 or 2 06/05/2023 Q3: How often do you have si x or more drinks on one occasion? Never 06/05/2023 PHQ-2 Answer Date Recorded Patient Health Questionnaire-2 [...] AM EDT Office Visit NOMSivan LLAMAS [address] [place] [address] Sammie Babcock, SHAUN [address] [facility] [place] [address] 04/15/2025 9:00 AM EST Office Visit NOMSivan LLAMAS [address] [place] [address] Maria Elena Whitney PA [address] [facility] [place] [address] documented as of this encounter Visit Diagnoses Not on filedocumented in this encounter Care Teams Key Account Director Relationship Specialty Start Date End Date Ty Roach DO [address] [place] [address] PCP - General Family Medicine 10/11/22 documented as of this encounter
--- OUTSIDE RECORDS SUMMARY | 2025-02-24 09:56 | XMS_ITS | Encounter Summary ---
Author Organization [facility] Address [address] [facility] [place] [address] Care Team Providers Care Truck Loader And Unloader Name Role Phone Ty Roach Primary Care Provider [phone] Encounter Details Date Type Department Care Team (Late st Contact Info) Description 06/21/2023 Abstract [facility] [address] [facility] [place] [phone] Kendra Stallworth RN [address] [place], [place] Social History Tobacco Use Types Packs/Day [...] AM EDT Office Visit NOMSivan LLAMAS [address] [facility] [place] [place] [address] Sammie Babcock, SHAUN [address] [facility] [place] [address] 04/15/2025 9:00 AM EST Office Visit NOMSivan LLAMAS [address] [facility] [place] [address] Maria Elena Whitney PA [address] [facility] [place] [address] documented as of this encounter Visit Diagnoses Not on filedocumented in this encounter Care Teams Truck Loader And Unloader Relationship Specialty Start Date End Date Ty Roach DO [address] [place] [address] PCP - General Family Medicine 10/11/22 documented as of this encounter
--- OUTSIDE RECORDS SUMMARY | 2025-02-24 09:56 | XMS_ITS | Encounter Summary ---
Author Organization [facility] Address [address] [facility] [place] [address] Care Team Providers Care Radio Division Lieutenant Name Role Phone SheaTy raines Primary Care Provider [phone] Encounter Details Date Type Department Care Team (Late st Contact Info) Description 08/18/2023 Clinisync Result Encounter [facility] External Department Unsolicited Justin Rosen, [address] [place] [address] Social History Tobacco Use Types Packs/Day Years [...] AM EDT Office Visit NOM[facility]ivan LLAMAS [address] [facility] [place] [address] Sammie Babcock, SHAUN [address] [facility] [place] [phone] 04/15/2025 9:00 AM EST Office Visit NOM[facility]ivan LLAMAS [address] [facility] [place] [address] Maria Elena Whitney PA [address] [facility] [place] [address] documented as of this encounter Procedures Procedure Name Priority Date/Time Associated Diagnosis Comments XR KNEE 1 OR 2 VIEWS LEFT 08/18/2023 12:50 PM EDT documented in this encounter Results * XR KNEE 1 OR 2 VIEWS LEFT (08/18/2023 12:50 PM EDT) Anatomical Region Laterality Modality Other 08/18/2023 12:5 0 PM EDT Narrative 08/18/2023 4:55 PM EDT Exam Date/Time: 08/18/2023 14:56 EDT Reason for [...] radiation dose is 2.16mGy Ordering Provider: Justin Rosen FINAL REPORT Dictated: 08/18/2023 4:52 pm Isauro Reza MD, V. Signed (Electronic Signature): 08/18/2023 4:52 pm Signed by: Isauro Reza MD, V. Transcribed by: SUSAN Technologist: SHEA Technical Comments Radiation Dose: Ka,r in mGy = 2.16 DAP = na Procedure Note Radiology, Radiologist, - 08/18/2023 Exam Date/Time: 08/18/2023 14:56 EDT Reason for [...] radiation dose is 2.16mGy Ordering Provider: Justin Rosen FINAL REPORT Dictated: 08/18/2023 4:52 pm Isauro Reza MD, V. Signed (Electronic Signature): 08/18/2023 4:52 pm Signed by: Isauro Reza MD, V. Transcribed by: SUSAN Technologist: CC Technical Comments Radiation Dose: Ka,r in mGy = 2.16 DAP = na Justin Rosen DO [facility] Final Result documented in this encounter Visit Diagnoses Not on filedocumented in this encounter Care Teams Radio Division Lieutenant Relationship Specialty Start Date End Date Ty Roach DO [address] [facility] [address] [place] [address] PCP - General Family Medicine 10/11/22 documented as of this encounter
--- OUTSIDE RECORDS SUMMARY | 2025-02-24 09:56 | XMS_ITS | Encounter Summary ---
Author Organization [facility] Address [address] [place] [address] Care Team Providers Care Senior Catering Sales Manager Name Role Phone Ty Roach DO Primary Care Provider [phone] Encounter Details Date Type Department Care Team (Late st Contact Info) Description 05/12/2023 Orders Only [facility] [place] [facility] [address] [place] [phone] A, Unknown Practice [address] [phone] Social History Tobacco Use Types Packs/Day Years Used Date Smoking Tobacco: Never Smokeless Tobacco: Never Alcohol Use Standard Drinks/Week Comments Yes 0 (1 standard drink = 0.6 oz pure alcohol) 1-2 drinks 2-4x a month in the past year, Caffeine intake: none AUDIT-C Answer Date Recorded Q1: How often do you have a drink containing alc ohol? 2-4 times a month 05/10/2023 Q2: How many drinks containi ng alcohol do you have on a typical day when you are drinking? 1 or 2 05/10/2023 Q3: How often do you have si x or more drinks on one occasion? Never 05/10/2023 PHQ-2 Answer Date Recorded Patient Health Questionnaire-2 Score 0 03/01/2023 Comments No Sex and Gender Information Value Date Recorded Sex Assigned at Female 12/26/2022 5:26 PM EDT Legal Sex Female 6:37 PM EDT Gender Identity Female 12/26/2022 5:26 PM EDT Sexual Orientation Straight 12/26/2022 5: 26 PM EDT COVID-19 Exposure Response Date Recorded In the last 10 days, have vira u been in contact with someone who was confirmed or suspected to have Coronavirus/COVID-19? No / Unsure 05/10/2023 10:11 AM EST documented as of this encounter Plan of Treatment Upcoming Encounters Date Type Department Care Team (Late st Contact Info) Description 04/02/2025 9:30 AM EDT Office Visit [facility] LLAMAS [address] [facility] [place] [address] Sammie Babcock NP [address] [facility] [place] [address] 04/15/2025 9:00 AM EST Office Visit LEYDA LLAMAS [address] [facility] [place] [address] Maria Elena Whitney PA [address] [facility] [address] [place], [facility] documented as of this encounter Procedures Procedure Name Priority Date/Time Associated Diagnosis Comments SCANNED LABS Routine 05/11/2023 10:48 AM EST documented in this encounter Results * SCANNED LABS (05/11/2023 10:48 AM EST) us Unknown Practice A LAB CHG PERFORMABLES Final Re sult documented in this encounter Visit Diagnoses Not on filedocumented in this encounter Care Teams Senior Catering Sales Manager Relationship Specialty Start Date End Date Ty Roach DO [address] [place] [address] PCP - General Family Medicine 10/11/22 documented as of this encounter
--- OUTSIDE RECORDS SUMMARY | 2025-02-24 09:56 | XMS_ITS | Encounter Summary ---
Author Organization [facility] Address [address] [facility] [place] [address] Care Team Providers Care Distribution Systems Serviceperson Name Role Phone Ty Roach Primary Care Provider [phone] Encounter Details Date Type Department Care Team (Late st Contact Info) Description 07/20/2023 Abstract [facility] [address] [facility] [place] [phone] Kendra Stallworth RN [address] [place], [place] Social History Tobacco Use Types Packs/Day [...] AM EDT Office Visit N[facility] LLAMAS [address] [place] [address] Sammie Babcock, SHAUN [address] [facility] [place] [address] 04/15/2025 9:00 AM EST Office Visit [facility] [address] [place] [address] Maria Elena Whitney PA [address] [facility] [place] [address] documented as of this encounter Visit Diagnoses Not on filedocumented in this encounter Care Teams Distribution Systems Serviceperson Relationship Specialty Start Date End Date Ty Roach DO [address] [place] [address] PCP - General Family Medicine 10/11/22 documented as of this encounter
--- OUTSIDE RECORDS SUMMARY | 2025-02-24 09:56 | XMS_ITS | Encounter Summary ---
Author Organization [facility] Address [address] [place] [address] Care Team Providers Care Upsetter Helper Name Role Phone Ty Roach Primary Care Provider [phone] Encounter Details Date Type Department Care Team (Late st Contact Info) Description 07/14/2023 Abstract [facility] [address] [facility] [place] [id number] Kendra Stallworth RN [address] [place], [place] Social History Tobacco Use Types Packs/Day [...] AM EDT Office Visit [facility] [address] [place] [address] Sammie Babcock, SHAUN [address] [facility] [place] [address] 04/15/2025 9:00 AM EST Office Visit [facility] [address] [place] [address] Maria Elena Whitney PA [address] [facility] [place] [address] documented as of this encounter Visit Diagnoses Not on filedocumented in this encounter Care Teams Upsetter Helper Relationship Specialty Start Date End Date Ty Roach DO [address] [place] [address] PCP - General Family Medicine 10/11/22 documented as of this encounter
--- NOTE | 2025-02-24 09:58 | XR_ITS ---
The [address] [address] Patient Name: GEOVANNA MATA MRN: [id number] date: 1995 Sex: F Assigned Patient Location: [facility] Current Patient Location: [facility] Accession/Order Number: [id number] Exam Date: 02/24/2025 10:00 Report Date: 02/24/2025 10:48 At the request of: ELLEN MURPHY DPShalonda Procedure: XR foot LT min 3V CLINICAL DATA: Swelling at the top of the left foot for the past month. No reported injury. LEFT ANKLE - 3 views COMPARISON: None Standing AP, lateral and oblique views were obtained. There is no evidence of fracture or dislocation. The talar dome is intact. There is slight lateral soft tissue swelling. XR/XR foot LT min 3V IMPRESSION: NO ACUTE BONY FINDINGS. LEFT FOOT - 3 views COMPARISON: None Standing AP, lateral and oblique views were obtained. There is no evidence of fracture or dislocation. An os trigonum is visualized. Mild soft tissue swelling is seen at the dorsum of the foot distally. IMPRESSION: NO ACUTE BONY FINDINGS. Impression dictated by: Thuy Natarajan M.D. 02/24/2025 10:48 AM Dictation Location: [place] [address] Electronically authenticated by: [id number] Y Date: 02/24/2025 10:48
--- NOTE | 2025-02-24 09:58 | XR_ITS ---
The [address] [address] Patient Name: GEOVANNA MATA MRN: [id number] date: 1995 Sex: F Assigned Patient Location: [facility] Current Patient Location: [facility] Accession/Order Number: [id number] Exam Date: 02/24/2025 10:00 Report Date: 02/24/2025 10:48 At the request of: ELLEN MURPHY DPShalonda Procedure: XR foot LT min 3V CLINICAL DATA: Swelling at the top of the left foot for the past month. No reported injury. LEFT ANKLE - 3 views COMPARISON: None Standing AP, lateral and oblique views were obtained. There is no evidence of fracture or dislocation. The talar dome is intact. There is slight lateral soft tissue swelling. XR/XR ankle LT min 3V IMPRESSION: NO ACUTE BONY FINDINGS. LEFT FOOT - 3 views COMPARISON: None Standing AP, lateral and oblique views were obtained. There is no evidence of fracture or dislocation. An os trigonum is visualized. Mild soft tissue swelling is seen at the dorsum of the foot distally. IMPRESSION: NO ACUTE BONY FINDINGS. Impression dictated by: Thuy Natarajan M.D. 02/24/2025 10:48 AM Dictation Location: [place] [address] Electronically authenticated by: [id number] Y Date: 02/24/2025 10:48
--- OUTSIDE RECORDS SUMMARY | 2025-02-24 09:58 | XMS_ITS | CCD ---
Author Organization [facility] Care Team Providers Care Power Manager Name Role Phone Reese Ramos Jr. Unavailable [phone] Jade Duarte Unavailable Gris Gardner Unavailable Reese Ramos Unavailable ALFRED Gomez Primary Care Provider MD Reese Ramos Attending Provider ALFRED Gomez Attending Provider [phone] REQUEST, NONE LISTED Primary Care Unavaila ble [...] Care Unavaila KIM Macias Primary Care Physician yT Roach DO Primary Care Provider Noemy Bhandari [...] Ramos Attending Unavailable Reese Ramos Admitting Unavailable MARIA ELENA WHITNEY Attending Unavailable TOÑA BABCOCK Attending Unavailable TOÑA BABCOCK Attending Unavailable JUSTIN VAIL Attending Unavailable PETAR HAMILTON Attending Unavailable PETAR HAMILTON Attending Unavailable MARIA ELENA WHITNEY Attending Unavailable MARIA ELENA WHITNEY Attending Unavailable JUSTIN VAIL Attending Unavailable Allergies Allergy Classification Reported Allergen(s) Allergy Type Date of Onset Reaction(s) Facility (20 sources) cefdinir Drug Allergy stomach upset [employer] Other (20 sources) cats, dust, ragweed Propensity to adverse reactions 3 Unknown [facility] (4 sources) Amoxicillin / Clavulanate; Translations: [amoxicillin-cl avulanate] Drug Allergy Stomach ache (finding) [facility] (4 sources) Cat; Translations: [Cats] Propensity to adverse reactions to substance Nasal congestion (finding) [facility] (4 sources) Dust; Translations: [Dust] Propensity to adverse reactions to substance Nasal congestion (finding) [facility] (4 sources) Seasonal allergy; Translations: [Seasonal] Drug allergy Congestion [facility] (4 sources) Ragweed; Translations: [Ragweed] Propensity to adverse reactions to substance Nasal congestion (finding) [facility] (20 sources) House dust mite Allergy to substance 1 Unknown [facility] (20 sources) Cat Hair Extract Allergy to substance 1 Unknown [facility] (20 sources) Mixed Ragweed Propensity to adverse reactions 1 Unknown [facility] (20 sources) cefdinir Drug Allergy 3 stomach upset [facility] (20 sources) Pollen Allergy to substance 4 [facility] (20 sources) Amoxicillin-Pot Clavulanate Drug Allergy 4 GI intolerance [facility] Medications Current Medications Medication Drug Class(es) [...] October, Active acetaminophen 500 mg oral tablet (20 sources) Start: 08-18-2023 take 1 tablet by mouth every four hours as needed Acetaminophen Extra Strength 500 MG tablet Take 1 tablet by mouth every 4 (four) hours if needed 08/18/2023 Active [id number] 200 actuat albuterol 0.09 mg/actuat metered dose inhaler (20 sources) beta2-Adrener gic Agonist Start: 10-10-2023 take [...] day(s), # 42 tab(s), Refills(s) 0, Pharmacy: [facility], 160.5, cm, 08/04/23 6:49:00 EST, Height/Length [...] day Active drospirenone 4 mg oral tablet (20 sources) Progestin Start: 12-18-2024 take 1 tablet by mouth once daily Slynd 4 MG tablet Indications: PCOS (polycystic ovarian syndrome) TAKE 1 TABLET BY MOUTH EVERY DAY 28 tablet 11 12/18/2024 Active Start: 01-18-2024 End: 04-11-2024 take 1 tablet by mouth once daily Drospirenone (Slynd) 4 MG tablet Indications: PCOS (polycystic ovarian syndrome) Take 1 tablet by mouth Daily for 28 days 28 tablet 11 02/15/2024 03/14/2024 Active ethinyl estradiol 0.035 mg / norgestimate 0.25 mg oral tablet (20 sources) Progestin, Estrogen Start: 06-26-2023 End: 06-25-2024 norgestimate-ethinyl estradiol (Sarah) 0.25-35 MG-MCG tablet Indications: Uses [...] Active fexofenadine hydrochloride 180 mg oral tablet (20 sources) Histamine-1 Receptor Antagonist Start: 05-11-2023 take 1 tablet by mouth once daily Rosanne 24 Hour Allergy oral tablet 180 mg = 1 tab(s), Oral, Daily, Allergy symptoms Start Date: 05/11/23 Status: Ordered Rosanne Active fluticasone propionate 0.05 mg/actuat metered dose nasal spray (20 sources) Corticosteroid Start: 05-11-2023 take 1 spray(s) nasal route twice daily Flonase 0.05 mg/inh [place] 1 spray(s), Nasal, BID Allergy symptoms, each [...] day(s), # 42 cap(s), Refills(s) 0, Pharmacy: [facility], 160.5, cm, 08/04/23 6:49:00 EST, Height/Length [...] day(s), # 15 tab(s), Refills(s) 0, Pharmacy: [facility], 160.5, cm, 08/04/23 6:49:00 EST, Height/Length [...] ketorolac, # 30 tab(s), Refills(s) 0, Pharmacy: [facility], 160.5, cm, 08/04/23 6:49:00 EST, Height/Length [...] Pain, # 20 tab(s), Refills(s) 0, Pharmacy: [facility], 160.5, cm, 08/04/23 6:49:00 EST, Height/Length [...] tablet (20 sources) Sympathomimetic Amine Anorectic Start: 01-06-2025 End: 04-06-2025 take 1 tablet by mouth before mealtime phentermine (Adipex-P) 37.5 MG tablet Indications: Encounter for weight management Take 1 tablet (37.5 mg) by mouth in the morning. Take before meals. 90 tablet 01/06/2025 04/06/2025 Active Start: 05-11-2023 take 1 capsule by [facility] once daily Adipex-P 37.5 mg oral capsule 37.5 mg = 1 cap(s), Oral, Daily, Other (see comment) Start Date: 05/11/23 Status: Ordered Start: 02-24-2023 End: 01-01-2025 take 1 tablet by mouth before mealtime phentermine (Adipex-P) 37.5 MG tablet Indications: Encounter for weight management Take 1 tablet (37.5 mg) by mouth in the morning. Take before meals. 90 tablet 10/03/2024 Active Start: 02-15-2023 take 1 tablet by francois th every twenty-four hours Phentermine HCl 37.5 MG 1 tablet Orally Once a day for 30 days bmi-35. Okay to fill January 27. Feb, Active Start: 01-04-2023 take 1 tablet by francois th once daily Phentermine HCl 37.5 MG 1 tablet Orally Once a day for 30 days bmi-35. Okay to fill January 27Jan, Active Start: 11-16-2022 take 1 tablet by francois th once [...] Problem Date Documented Date Episodic/Chronic Administrative/social admission (11 sources) Dietary counseling and surveillance; Translations: [Patient encounter status] Onset: 03-29-2023 03-14-2024 Episodic Allergic reactions (20 sources) Atopic dermatitis; Translations: [Atopic dermatitis, unspecified] Onset: 02-17-2021 02-28-2023 Chronic Anxiety disorders (20 sources) Anxiety; Translations: [Anxiety disorder, unspecified] Onset: 01-24-2020 Resolved: 01-13-2022 Chronic Asthma (20 sources) Exacerbation of asthma; Translations: [Unspecified asthma with (acute) exacerbation] Onset: 04-18-2021 02-28-2023 Chronic Contraceptive and procreative management (1 source) Patient encounter status; Translations: [Encounter for contraceptive management, unspecified] 01-06-2025 Episodic Disorders of lipid metabolism (20 sources) Hypercholesterolemia; Translations: [Pure hypercholesterolemia, unspecified] Onset: 03-08-2018 Resolved: 01-13-2022 Chronic Mood disorders (2 sources) Depressive disorder 08-03-2023 Chronic Other aftercare (3 sources) Encounter for therapeutic drug level monitoring Onset: 07-23-2021 Resolved: 11-12-2021 Episodic Other connective tissue disease (4 sources) Pain in left lower limb; Translations: [Pain in left leg] 04-19-2024 Episodic Other connective tissue disease (4 sources) Pain in right lower limb; Translations: [Pain in right leg] 04-19-2024 Episodic Other connective tissue disease (2 sources) Other symptoms and signs involving the musculoskeletal system; Translations: [Other musculoskeletal symptoms referable to limbs] 04-19-2024 Episodic Other ear and sense organ disorders (20 sources) Impacted cerumen; Translations: [Impacted cerumen] Episodic Other endocrine disorders (20 sources) Polycystic ovaries; Translations: [Polycystic ovarian syndrome] Chronic Other endocrine disorders (14 sources) Polycystic ovarian syndrome; Translations: [PCOS (polycystic ovarian syndrome) E28.2] Onset: 02-24-2021 Resolved: 01-13-2022 Chronic Other endocrine disorders (5 sources) Polycystic ovary syndrome; Translations: [Polycystic ovarian syndrome] 05-11-2023 Chronic Other endocrine disorders (20 sources) Polycystic ovary; Translations: [Polycystic ovarian syndrome] Onset: 02-28-2023 02-28-2023 Chronic Other female genital disorders (20 sources) Abnormal uterine bleeding; Translations: [Abnormal uterine and vaginal bleeding, unspecified] Onset: 02-28-2023 02-28-2023 Chronic Other nervous system disorders (4 sources) Numbness; Translations: [Anesthesia of skin] 04-19-2024 Episodic Other non-traumatic joint disorders (1 source) Pain [...] nutritional; endocrine; and metabolic disorders (20 sources) Morbid obesity; Translations: [Morbid (severe) obesity due to excess calories] Onset: 03-08-2018 02-28-2023 Chronic Other nutritional; endocrine; and metabolic disorders (1 source) Abnormal weight gain Episodic Other upper respiratory disease (20 sources) Seasonal allergy; Translations: [Other seasonal allergic rhinitis] Onset: 03-06-2018 02-28-2023 Chronic Other upper respiratory infections (20 sources) Recurrent sinusitis; Translations: [Chronic sinusitis, unspecified] Onset: 02-28-2023 02-28-2023 Chronic Other upper respiratory infections (2 sources) Acute laryngitis; Translations: [Acute upper respiratory infection, unspecified] Onset: 05-23-2021 Resolved: 05-23-2021 Episodic Residual codes; unclassified (2 sources) History of arthroscopy of knee joint; Translations: [Other specified postprocedural states] 04-18-2024 Episodic Substance-related disorders (3 sources) Smoker 05-11-2023 Chronic Comment on above: Added secondary to d ocumentation in Social History. Unclassified (3 sources) CONTACT W/AND (SUSP) EXPOS COVID-19; Translations: [CONTACT W/AND (SUSP) EXPOS COVID-19] Onset: 07-30-2022 Unclassified (2 sources) Bilateral leg weakness 04-19-2024 Past or Other Problems Problem Classification Problem Date Documented Da te Episodic/Chronic Abdominal pain (4 sources) Unspecified abdominal pain; Translations: [Right lower quadrant pain] Onset: 09-07-2021 Episodic Biliary tract disease (20 sources) Chronic cholecystitis with calculus; Translations: [Calculus [...] Resolved: 01-13-2022 Episodic Other aftercare (1 source) termite control servicer (current) use of hormonal contraceptives; Translations: [SNF HORMONAL CONTRACEPTIVES] Onset: 09-09-2021 Episodic Other aftercare (1 source) termite control servicer (current) use of oral hypoglycemic drugs; Translations: [SNF USE ORAL HYPOGLYCEMIC DX] Onset: 09-09-2021 Episodic Other aftercare (1 source) Other termite control servicer (current) drug therapy; Translations: [OTH SNF CURRENT DRUG THERAPY] Onset: 09-09-2021 Episodic Other gastrointestinal disorders (2 sources) Diarrhea, unspecified; Translations: [Diarrhea R19.7] Onset: 02-24-2021 Resolved: 03-26-2021 Episodic Other nutritional; endocrine; and metabolic disorders (7 sources) Weight gain; Translations: [Abnormal weight gain] Onset: 02-28-2023 02-28-2023 Episodic Other nutritional; endocrine; and metabolic disorders (20 sources) Weight increased; Translations: [Abnormal weight gain] Onset: 02-28-2023 02-28-2023 Episodic Other screening for suspected conditions (not mental disorders or infectious disease) (4 sources) Encounter for screening for malignant neoplasm of cervix; Translations: [ENC SCREENING MALIG NEOPLASM CERV] Onset: 01-07-2022 Episodic Other skin disorders (20 sources) Female hirsutism; Translations: [Hirsutism] Onset: 02-28-2023 02-28-2023 Episodic Unclassified (1 source) CONTACT W/AND (SUSP) EXPOS COVID-19; Translations: [CONTACT W/AND (SUSP) EXPOS COVID-19] Onset: 07-27-2022 Unclassified (3 sources) Onset: 04-05-2015 Resolved: 11-21-2015 11-23-2015 Unclassified (3 sources) Patient encounter status 10-03-2024 Results Test Name Value Interpretation Reference Range Facility IGP,APTIMA HPV,AGE GDLNon AGE GDLN ACOG TESTING Note . [facility] Comment on above: TESTS RESULT FLAG UN ITS REF RANGE LAB Clinician Provided Cytology Information Source.............Cervix;Endocervix No. of containers..01 ThinPrep Vial Age Algo ACOG Rula... FLAG LEGEND: L-Low Normal,H-High Normal,LL-Alert Low,HH-Alert High <-Panic Low,>-Panic High,A-Abnormal,AA-Critical Abnormal Performed at: 01 [facility] [address] Priscila Almeida MD, IGP, RFX APTIMA HPV ASCU Note . [facility] Comment on above: TESTS RESULT FLAG UN ITS REF RANGE LAB DIAGNOSIS: 02 NEGATIVE FOR INTRAEPITHELIAL LESION OR MALIGNANCY. THIS SPECIMEN WAS RESCREENED PART OF OUR CHEMIST STEROIDS PROGRAM. Specimen adequacy: 02 Satisfactory for evaluation. No endocervical component is identified. Performed by: 03 Marie Donaldson, Per Diem ([facility]) QC reviewed by: 02 Elisha Christopher Per Diem . 02 Note: Note 02 The Pap smear is a screening test designed to aid in the detection of premalignant and malignant conditions of the uterine cervix. It is not a diagnostic procedure and should not be used as the sole means of detecting cervical cancer. Both false-positive and false-negative reports do occur. Test Methodology: Note 02 This liquid based ThinPrep(R) pap test was screened with the use of an image guided system. . 02 The HPV DNA reflex criteria were not met with this specimen result therefore, no HPV testing was performed. FLAG LEGEND: L-Low Normal,H-High Normal,LL-Alert Low,HH-Alert High <-Panic Low,>-Panic High,A-Abnormal,AA-Critical Abnormal Performed at: [address] [address] rPiscila Almeida MD, 03 [facility] [address] [address] Ciro Hull PhD, Performed at: = - [facility] [id number] Shoer: Priscila Almeida MD, Phone: [phone] Performed at: [facility] [id number] Shoer: Priscila Almeida MD, Phone: [phone] BRUSH-SPATULA CERVIX ENDOCERVIX [facility] M[facility] HEMOGLOBIN A1Con 024 Glucose [Mass/Vol] 85 mg/dL [facility] HbA1c (Bld) [Mass fraction] 4.6 % 4.5 - 6.2 % [facility] Comment on above: ADA RECOMMENDED LIMI T 4.0 - 6.0 ADA THERAPEUTIC TARGET < 7.0 ACTION SUGGESTED > 7.0 [facility] IntraOperative Documentson 0 08-25-2023 IntraOperative Documents [id number] 8#1.00TIFF Normal [facility] Postoperative Documentson Postoperative Documents [id number] #1.00TIFF Normal [facility] Main OR Intraoperative Recor don 08-22-2023 Main OR Intraoperative Record IntraOp Document Type FT Summary Primary Physician: Justin Vail DO Finalized Date/Time: 08/22/23 12:18:30 Pt. Name: ALEXUS MATA Ford BuschB./Sex: 1995 Female Med Rec #: [id number] Physician: Justin Vail DO Financial #: [id number] Pt. Type: A Room/Bed: [place] [address] Admit/Disch: 08/18/23 09:52:25 - 08/18/23 17:20:00 Institution: Case Times FT Entry 1 Patient Times In Room 08/18/23 12:57:00 Out Room 08/18/23 15:20:00 Procedure Times Start 08/18/23 13:30:00 Stop 08/18/23 15:07:00 Anesthesia Times Start 08/18/23 12:57:00 Stop 08/18/23 15:20:00 Block Timeout w08/18/23 12:10:00 Anesthesia Last Modified By: Mica STAFFORD, Marialuisa Richardson 08/18/23 15:20:46 General Comments: BLOCK DONE BY DR. MARK AT 1210, ASSISETD BY Valdemar PIRES RN; HR= 84BPM, O2= 100% ON ROOM AIR -Biju DIAMOND RN 08/22/2023 chart opened to review and send charges. nydia diop Case Attendance FT Entry 1 Entry 2 Entry 3 Case Attendee Morales Santos DO, Jason A Wilhelm CST, Benjamin Role Performed Anesthesiologist Surgeon - Primary DEVELOPMENT ADVISOR/SA Ingredient Handler Time In 08/18/23 12:57:00 08/18/23 12:57:00 08/18/23 12:57:00 Time Out 08/18/23 13:47:00 08/18/23 15:20:00 08/18/23 15:20:00 Procedure KNEE MEDIAL KNEE MEDIAL KNEE MEDIAL PATELLOFEMORAL LIGAMENT PATELLOFEMORAL LIGAMENT PATELLOFEMORAL LIGAMENT BRADLEY(Left) BRADLEY(Left) BRADLEY(Left) Comments DR. MARK SUPERVISING Last Modified By: Mica STAFFORD, Marialuisa Diamond RN, Marialuisa Diamond RN, Marialuisa Richardson 08/18/23 Jojo Richardson 08/18/23 Jojo P 08/18/23 15:20:47 15:20:47 15:20:47 Entry 4 Entry 5 Entry 6 Case Attendee Nanda ZHOU, GINSENG FARMER, Queen Mica STAFFORD, Kirsten Polk Jojo P Role Performed GINSENG FARMER Wastewater Technician - Primary Scrub - Primary Time In 08/18/23 13:45:00 08/18/23 12:57:00 08/18/23 12:57:00 Time Out 08/18/23 14:33:00 08/18/23 15:20:00 08/18/23 15:20:00 Procedure KNEE MEDIAL KNEE MEDIAL KNEE MEDIAL PATELLOFEMORAL LIGAMENT PATELLOFEMORAL LIGAMENT PATELLOFEMORAL LIGAMENT BRADLEY(Left) BRADLEY(Left) BRADLEY(Left) Comments DR. MARK SUPERVISING Last Modified By: Mica RN, Marialuisa Diamond RN, Marialuisa Diamond RN, Marialuisa Uribe P 08/18/23 Jojo P 08/18/23 Jojo P 08/18/23 15:20:47 15:20:47 15:20:47 Entry 7 Entry 8 Case Attendee Franko Pacheco RT(R), Maris Role Performed Anesthesiologist Senior [employer] Sql Developer Ingredient Handler Time In 08/18/23 14:30:00 08/18/23 12:57:00 Time Out 08/18/23 15:20:00 08/18/23 14:46:00 Procedure KNEE MEDIAL KNEE MEDIAL PATELLOFEMORAL LIGAMENT PATELLOFEMORAL LIGAMENT BRADLEY(Left) BRADLEY(Left) Comments DR. MARK SUPERVISING Last Modified By: Mica STAFFORD, Marialuisa Diamond RN, Marialuisa Uribe P 08/18/23 Jojo P 08/18/23 15:20:47 15:20:47 General Comments: TALISHA LOAIZA - ARTHREX REP and AAKASH MORRIS REP PRESENT FOR CASE -VNYDIA DANIELSONdry cleaning counter clerk Protocols FT Pre-Care Text: Implements protective measures [...] X-ray Applicable) PreOp Antibiotic Yes Time Out Justin Vail DO, Given Participants Julius BURTON, Heraclio Mckenzie CST, Mica Gold RN, Harini Smallwood Madison A Time Out Complete 08/18/23 13:27:00 Outcomes Met? Yes Last Modified By: Marialuisa Diamond RN 08/18/23 13:51:10 Post-Care Text: The patient is [...] General Case D (more content not included)... Normal [facility] Consent for Anesthesiaon Consent for Anesthesia [id number] #1.00TIFF [facility] Discharge Instructionson Discharge Instructions [id number] #1.00TIFF [facility] IntraOperative Documentson 0 08-21-2023 IntraOperative Documents [id number] #1.00TIFF [facility] IntraOperative Documents [id number] #1.00TIFF [facility] IntraOperative Documents [id number] #1.00TIFF [facility] Preoperative Documentson Preoperative Documents [id number] #1.00TIFF [facility] Consent for Treatmenton 08-03 Consent for Treatment [id number] #1.00TIFF [facility] Discharge Instructionson Discharge Instructions ALEXUS MATA :1995 Visit Date:08/18/2023 Inpatient Discharge Instructions Your [...] been scheduled. Call for any problems. Where: [address] [place] [address] [place] [address] [facility] (1) Medications What How Much When Instructions Next Dose New acetaminophen (acetaminophen 500 mg Tab) 1 Tablets By Mouth Every 4 hours as needed for as needed for pain Pickup at [facility] New aspirin (aspirin 81 mg Oral EC Tab) 2 Tablets By Mouth Every day Duration: 21 Days Pickup at [facility] New gabapentin (gabapentin 300 mg Cap) 1 Capsules By Mouth 3 times a day Duration: 14 Days Pickup at [facility] New ketorolac (ketorolac 10 mg Tab) 1 Tablets By Mouth 3 times a day Duration: 5 Days take with food Pickup at [facility] New meloxicam (meloxicam 15 mg Tab) 1 Tablets By Mouth Every day start after finishing ketorolac Pickup at [facility] New oxycodone (oxyCODONE 5 mg Tab) 1 Tablets By Mouth Every 4 hours as needed for Breakthrough Pain Pickup at [facility] Unchanged ethinyl estradiol-norgestima te (Sarah 0.25mg-35mcg oral tablet) 1 Tablets By Mouth Every day Unchanged fexofenadine (Rosanne 24 Hour Allergy oral tablet) 1 Tablets By Mouth Every day Unchanged fluticasone nasal (Flonase 0.05 mg/ inh [place]) 1 Sprays Nasal Inhalation 2 times a day as needed for Allergy symptoms each nostril Unchanged phentermine (Adipex-P 37.5 mg oral capsule) 1 Capsules By Mouth Every day Pharmacy Information [facility]: [address] [place], [place] [id number] [phone] What How Much When Comments Stop Taking [...] X 17.9/6 X 20MM 08/18/2023 Education Materials [place], [place] [facility] DISCHARGE INSTRUCTIONS: KNEE SURGERY [...] sore and (more content not included)... Normal [facility] Comment on above: Result Comment: Elec tronically Signed By: Sybil STAFFORD, Jeanie Stokes\.br\Date and Time Signed: 08/18/23 16:09 EDT H&P Updateon 08-18-2023 H&P Update [id number] #1.00TIFF Normal [facility] Inpatient Patient Summaryon 08-18-2023 Inpatient Patient Summary [place] [address] [facility] Clinical Discharge Instructions PERSON INFORMATION Name: ALEXUS MATA PHYSICIANS Admitting Physician: Justin Vail DO Attending Physician: Justin Vail DO PCP: KIM GOMEZ CNP Discharge Diagnosis: Comment: PATIENT EDUCATION INFORMATION Instructions: Wallace Vail - ACL Reconstruction/Menis cus Repair (Custom) Medication Leaflets: Follow up: MEDICATION LIST New Medications [facility], [address] [place], [place] [id number], [phone] acetaminophen (acetaminophen 500 mg Tab) 1 Tablets [...] every day. fluticasone nasal (Flonase 0.05 mg/inh [place]) 1 Sprays Nasal Inhalation 2 times a day as needed Allergy symptoms. each nostril. phentermine (Adipex-P 37.5 mg oral capsule) 1 Capsules By Mouth every day., weight loss No Longer Take the Following Medications ibuprofen (ibuprofen 200 mg Tab) 2 Tablets By Mouth 2 times a day as needed Pain 1-3. Comment: Amena [facility] Main OR PACU I Recordon 08-03 Main OR PACU I Record PACU Phase I Document Type FT Summary Primary Physician: Justin Vail DO Finalized Date/Time: 08/18/23 16:29:33 Pt. Name: ALEXUS MATA/Sex: 1995 Female Med Rec #: [id number] Physician: Justin Vail DO Financial #: [id number] Pt. Type: A Room/Bed: [place] [address] Admit/Disch: 08/18/23 09:52:25 - Institution: Case Times [...] Signed By: Mattie Pires I 08/18/23 16:29 [facility] Main OR Preoperative Recordo n 08-18-2023 Main OR Preoperative Record PreOp Document Type FT Summary Primary Physician: Justin Vail DO Finalized Date/Time: 08/18/23 13:58:45 Pt. Name: ALEXUS MATA Ford Sullivan./Sex: 1995 Female Med Rec #: [id number] Physician: Justin Vail DO Financial #: [id number] Pt. Type: A Room/Bed: [place] [address] Admit/Disch: 08/18/23 09:52:25 - Institution: Case Times [...] By: Marialuisa Diamond RN 08/18/23 13:58 Normal [facility] Monitor Recordon 08-18-2023 Monitor Record [id number] 5#1.00TIFF Normal [facility] Monitor Record [id number] 9#1.00TIFF Normal [facility] Operative Reporton Operative Report Patient: ALEXUS MATA Age: 28 years Sex: Female : 1995 Associated Diagnoses: None Author: Justin Vail DO DATE OF SURGERY: 08/18/2023 SURGEON: Justin Vail D.O. DIRECTOR OF VOCATIONAL GUIDANCE: Bk Pulliam CFA PREOPERATIVE DIAGNOSIS: Recurrent patellar [...] guide pin (more content not included)... Normal [facility] Comment on above: Result Comment: Elec tronically Signed By: Justin Vail DO\.tobias\Date and Time Signed: 08/18/23 16:05 EDT Operative Report Patient: ALEXUS MATA Age: 28 years Sex: Female : 1995 Associated Diagnoses: None Author: [facility] ()Siri Procedure Nerve Block Block Type: Adductor canal [...] Using maximal sterile barrier technique per current [facility] guidelines including hand hygeine, Guidance (Ultrasound used [...] patient tolerated the procedure as expected. Normal [facility] Comment on above: Result Comment: Elec tronically Signed By: [facility] ()Siri\.br\Date and Time Signed: 08/18/23 12:22 EDT Outpatient Surgery Discharge Instructionon 08-18-2023 Outpatient Surgery Discharge Instruction [address] [address] Patient Discharge Instructions PERSON INFORMATION Name: ALEXUS [...] Information: You may receive a survey from [employer] asking you to rate your care experience. Your feedback is important and will help us understand what we do well and how we can improve the quality of care we provide to you, your loved ones and our community. It?s an honor to serve you. Thank you for choosing [facility] HERE ARE THE MEDICATION CHANGES THAT OCCURRED DURING YOUR HOSPITAL STAY New Medications [facility] [address], [address], [place] [id number], [phone] acetaminophen (acetaminophen 500 mg Tab) 1 Tablets [...] every day. fluticasone nasal (Flonase 0.05 mg/inh [place]) 1 Sprays Nasal Inhalation 2 times a day as needed Allergy symptoms. each nostril. phentermine (Adipex-P 37.5 mg oral capsule) 1 Capsules By Mouth every day., weight loss No Longer Take the Following Medications ibuprofen (ibuprofen 200 mg Tab) 2 Tablets By Mouth 2 times a day as needed Pain 1-3. PATIENT EDUCATION INFORMATION Instructions: [place], [place] [facility] DISCHARGE INSTRUCTIONS: KNEE SURGERY [...] 48 hours (more content not included)... Normal [facility] Patient Education - Texton 0 08-18-2023 Patient Education - Text [place], [place] [facility] DISCHARGE INSTRUCTIONS: KNEE SURGERY [...] your appointment. Justin Vail, DO [facility] [address] [place] [address] Reviewed: 11-20 [facility] Progress Note-Physicianon Progress Note-Physician Patient: ALEXUS MATA Age: 28 years Sex: Female : 1995 Associated Diagnoses: None Author: Brandon Schilling Jr., DO Postoperative Information Postoperative disposition: Postoperative disposition: Home. Optimetrix number: Optimetrix number [id number]. Anesthetic utilized: General. Physical Examination Vital Signs [...] Surgery Unit, and To home ). Normal [facility] Comment on above: Result Comment: Elec tronically Signed By: Brandon Schilling Jr., DO\.br\Date and Time Signed: 08/18/23 16:26 EDT Progress [...] Oral, Daily, Allergy symptoms Flonase 0.05 mg/inh [place]: 1 spray(s), Nasal, BID Allergy symptoms, each [...] 1 tab(s), Oral, Daily Flonase 0.05 mg/inh [place] 1 spray(s), PRN, Nasal, BID ibuprofen 200 [...] list: All Problems Anxiety / SNOMED CT 53315175 / Confirmed Depression / SNOMED CT 69030277 / Confirmed PCOS (polycystic ovarian syndrome) / SNOMED CT 104478357 / Confirmed Seasonal allergies / SNOMED CT 3109365827 / Confirmed Smoker / SNOMED CT 240272511 / Confirmed Added secondary to documentation in Social History. Resolved: / SNOMED CT 706653567, Active Problems (5) Anxiety Depression PCOS (polycystic ovarian syndrome) Seasonal allergies Smoker Histories Past Medical History: Resolved (899399256): Onset on 04/05/2015 at 19 years. Resolved on 11/21/2015 at 20 years. Family History: No family history items have been selected or recorded. Procedure history: Arthroscopy of knee ([id number]) on 05/26/2023 at 27 Years. Cholecystectomy (21905728) on 05/11/2016 at 20 Years. tubes in ears. Arthroscopy of LEFT knee (280666415). Social History Social & Psychosocial Habits Alcohol 08/03/2023 Risk Assessment: Low Risk 08/03/2023 Use: Current Type: Wine Frequency: 1-2 times per month Employment/School 08/03/2023 Description: [facility] [place] Substance Abuse 08/03/2023 Risk Assessment: Medium Risk 08/03/2023 Use: Current Type: Marijuana Frequency: 1-2 times per week 08/03/2023 Use: Current Type: Bhavna (more content not included)... Normal [facility] Comment on above: Result Comment: Elec tronically Signed By: Jas Anesthesiology (), Siri Hoover.br\Date and Time Signed: 08/18/23 10:48 EDT SEROLOGYOrdered By: Tico Shine on 08-18-2023 HCG.beta subunit (U) [Moles/Vol] Negative Normal [facility] Man Sero U BetaHcg Qualon 08-18-2023 HCG.beta subunit (U) [Moles/Vol] Negative Normal [facility] Comment on above: Performed By: #### 2 [id number] ####[facility] [address] [place] [address] XR Knee 1 or 2 Views Lefton [...] mGy = 2.16 DAP = na Normal [facility] Consent for Procedure/Surger yon 08-17-2023 Consent for Procedure/Surgery [id number] #1.00TIFF Normal [facility] Scanned GI Testingon 024 Scanned GI Testing [id number] 6#1.00TIFF Normal [facility] CBC w/ Auto Diffon 4 Basophils/100 WBC (Bld) 0.7 % Normal 0.0-2.0 [facility] Comment on above: Performed By: #### 2 996150 ####[address] [address] Basophils/Leukocytes Auto (Bld) [Pure # fraction] 0.1 E9/L Normal 0.0-0.2 [facility] Comment on above: Performed By: #### 2 377025 ####[address] [address] Eosinophils (Bld) [#/Vol] 0.3 E9/L Normal 0.0-0.5 [facility] Comment on above: Performed By: #### 2 629314 ####[address] [address] Eosinophils/100 WBC (Bld) 4.2 % Normal 0.0-8.0 [facility] Comment on above: Performed By: #### 2 437667 ####[address] [address] Erythrocyte distribution width (RBC) [Ratio] 13.1 % Normal 10.9-14.2 [facility] Comment on above: Performed By: #### 2 588306 ####[address] [address] Hematocrit (Bld) [Volume fraction] 42.7 % Normal 34.0-46.0 [facility] Comment on above: Performed By: #### 2 669988 ####[place] [address] [address] Hemoglobin (Bld) [Mass/Vol] 14.1 g/dL Normal 12.0-16.0 [facility] Comment on above: Performed By: #### 2 125442 ####[address] [address] Lymphocytes (Bld) [#/Vol] 1.8 E9/L Normal 1.0-4.0 [facility] Comment on above: Performed By: #### 2 970056 ####[address] [address] Lymphocytes/100 WBC (Bld) 23.9 % Normal 14.0-50.0 [facility] Comment on above: Performed By: #### 2 980836 ####[address] [address] MCH (RBC) [Entitic mass] 29.5 pg Normal 27.0-34.0 [facility] Comment on above: Performed By: #### 2 789706 ####[address] [address] MCHC (RBC) [Mass/Vol] 32.9 g/dL Normal 31.4-36.0 [facility] Comment on above: Performed By: #### 2 476390 ####[address] [address] MCV (RBC) [Entitic vol] 89.7 fL Normal 80.0-100.0 [facility] Comment on above: Performed By: #### 2 613296 ####[address] [address] Monocytes (Bld) [#/Vol] 0.4 E9/L Normal 0.2-1.0 [facility] Comment on above: Performed By: #### 2 744001 ####[address] [address] Neutrophils (Bld) [#/Vol] 4.9 E9/L Normal 2.0-7.5 [facility] Comment on above: Performed By: #### 2 479515 ####[address] [address] Neutrophils/100 WBC (Bld) 66.2 % Normal 36.0-75.0 [facility] Comment on above: Performed By: #### 2 213805 ####[address] [address] Platelet mean volume (Bld) [Entitic vol] 10.3 fL Normal 6.4-10.8 [facility] Comment on above: Performed By: #### 2 837650 ####[address] [address] Platelets (Bld) [#/Vol] 251.0 E9/L Normal 150.0-500.0 [facility] Comment on above: Performed By: #### 2 533709 ####[address] [address] RBC (Bld) [#/Vol] 4.8 E12/L Normal 4.3-5.9 [facility] Comment on above: Performed By: #### 2 775913 ####[address] [address] WBC corrected for nucl RBC Auto (Bld) [#/Vol] 7.4 E9/L Normal 4.0-11.0 [facility] Comment on above: Performed By: #### 2 600499 ####[address] [address] Consent for Treatmenton 07-07 Consent for Treatment [id number] #1.00TIFF Normal [facility] HEMATOLOGYOrdered By: SYSTEM SYSTEM on 08-03-2023 [...] Heme IntraOperative Documentson 0 06-08-2023 IntraOperative Documents [id number] #1.00TIFF Normal [facility] Postoperative Documentson Postoperative Documents [id number] 7#1.00TIFF Normal [facility] Consent for Anesthesiaon Consent for Anesthesia [id number] 8#1.00TIFF Normal [facility] Discharge Instructionson Discharge Instructions [id number] 3#1.00TIFF Normal [facility] IntraOperative Documentson 1 07-31-2022 IntraOperative Documents [id number] 5#1.00TIFF Normal [facility] Main OR Intraoperative Recor don 05-30-2023 Main OR Intraoperative Record IntraOp Document Type FT Summary Primary Physician: Justin Vail DO Finalized Date/Time: 05/30/23 14:29:53 Pt. Name: ALEXUS MATA/Sex: 1995 Female Med Rec #: [id number] Physician: Justin Vail DO Financial #: [id number] Pt. Type: A Room/Bed: [place] [address] Admit/Disch: 05/26/23 07:17:31 - 05/26/23 12:00:00 Institution: [...] Entry 3 Case Attendee Franko Pacheco DO, Justin Pulliam CST, Asif Role Performed Anesthesiologist Surgeon - Primary DEVELOPMENT ADVISOR/SA Ingredient Handler Time In 05/26/23 09:17:00 05/26/23 09:17:00 05/26/23 09:17:00 Time Out 05/26/23 10:08:00 05/26/23 10:08:00 05/26/23 10:08:00 Procedure KNEE ARTHROSCOPY(Left) KNEE ARTHROSCOPY(Left) KNEE ARTHROSCOPY(Left) Comments IS SUPERVISING Last Modified By: Fara DEVELOPMENT ADVISOR, Amy Chaudhari DEVELOPMENT ADVISOR, Amy E Fara DEVELOPMENT ADVISOR, Liane E 05/30/23 14:20:49 05/30/23 14:20:49 05/30/23 14:20:49 Entry 4 Entry 5 Entry 6 Case Attendee Hector Field, Maria Elena Mosqueda RN Role Performed Scrub - Primary Wastewater Technician - Primary Wastewater Technician - Primary Time In 05/26/23 09:17:00 05/26/23 09:17:00 05/26/23 09:17:00 Time Out 05/26/23 10:08:00 05/26/23 10:08:00 05/26/23 10:08:00 Procedure KNEE ARTHROSCOPY(Left) KNEE ARTHROSCOPY(Left) KNEE ARTHROSCOPY(Left) Comments Last Modified By: Fara DEVELOPMENT ADVISOR, Amy E Fara DEVELOPMENT ADVISOR, Liane E Fara DEVELOPMENT ADVISOR, Liane E 05/30/23 14:20:49 05/30/23 14:20:49 05/30/23 14:20:49 General [...] DO, Wilhelm CST, Emir Gold Kendall R, Tavia Sanchez, [place] RN, Maria Elena Keith Time Out Complete [...] and tissue Entry 1 Skin Integrity Intact, [place], Warm, and Skin Abnormality No Dry Outcomes Met? Yes Last Modified By: Tavia Sanchez 05/26/23 09:34:41 Post-Care Text: The patient is free from signs and symptoms of injury caused by extraneous objects Patient Positioning FT Pre-Care Text: Identifies physical alterations that require additional precautions for procedure-specific posi (more content not included)... [facility] Preoperative Documentson Preoperative Documents [id number] 4#1.00TIFF [facility] Consent for Treatmenton 05-06 Consent for Treatment [id number] #1.00TIFF [facility] Discharge Instructionson Discharge Instructions ALEXUS MATA :1995 Visit Date:05/26/2023 Inpatient Discharge Instructions Your Care Team Admitting Physician - Justin Vail DO Referring Physician - Justin Vail DO Reason for Your Visit LEFT KNEE PATELLA INSTABILITY Tests Performed U Beta Hcg Qual This Is Your Medications List acetaminophen-hydroc odone ([place] 325 mg-5 mg oral tablet) albuterol (albuterol 0.083% Inh Ernestina 3 mL) aspirin (aspirin 81 mg Oral EC Tab) docusate (Colace 100 mg Cap) ethinyl estradiol-norgestima te (Sarah 0.25mg-35mcg oral tablet) fexofenadine (Rosanne 24 Hour Allergy oral tablet) fluticasone nasal (Flonase 0.05 mg/inh [place]) ibuprofen (ibuprofen 600 mg Tab) phentermine (Adipex-P 37.5 mg oral capsule) [Image Removed: STOP]Stop taking these medications naproxen (Aleve 220 mg oral capsule) Medications What How Much When Instructions Next Dose New acetaminophen-hydroc odone ([place] 325 mg-5 mg oral tablet) See instructions 1-2 tab(s) Oral q4hr Pickup at [facility] take with food New aspirin (aspirin 81 mg Oral EC Tab) 2 Tablets By Mouth Every day Pickup at [email or web address] New docusate (Colace 100 mg Cap) 1 Capsules By Mouth 2 times a day as needed for for constipation Pickup at [facility] New ibuprofen (ibuprofen 600 mg Tab) 1 Tablets By Mouth Every 6 hours as needed for as needed for pain with food or milk Pickup at [facility] Unchanged albuterol (albuterol 0.083% Inh Ernestina 3 mL) 0.083% - 3mL dosing units Inhalation Every 4 hours as needed for Allergy symptoms Unchanged ethinyl estradiol-norgestima te (Sarah 0.25mg-35mcg oral tablet) 1 Tablets By Mouth Every day Unchanged fexofenadine (Rosanne 24 Hour Allergy oral tablet) 1 Tablets By Mouth Every day Unchanged fluticasone nasal (Flonase 0.05 mg/ inh [place]) 1 Sprays Nasal Inhalation 2 times a day as needed for Allergy symptoms each nostril Unchanged phentermine (Adipex-P 37.5 mg oral capsule) 1 Capsules By Mouth Every day Pharmacy Information [facility]: [address] [place], [place] [id number] [phone] What How Much When Comments Stop Taking naproxen (Aleve 220 mg oral capsule) 1 Capsules By Mouth Every 12 hours as needed for Pain 1-3 Allergies Augmentin (Stomach pain) Cats (Nasal congestion) Dust (Nasal congestion) Ragweed (Nasal congestion) Seasonal (Congestion) Education Materials [place], [place] [facility] DISCHARGE INSTRUCTIONS: KNEE ARTHROSCOPY [...] pack to (more content not included)... Normal [facility] Comment on above: Result Comment: Elec tronically Signed By: Jalen STAFFORD, Yessica Olson\.br\Date and Time Signed: 05/26/23 11:43 EST H&P Updateon 05-26-2023 H&P Update [id number] #1.00TIFF Normal [facility] Inpatient Patient Summaryon 05-26-2023 Inpatient Patient Summary [address] [address] [facility] Clinical Discharge Instructions PERSON INFORMATION Name: ALEXUS MATA PHYSICIANS Admitting Physician: Justin Vail DO Attending Physician: Justin Vail DO PCP: KIM GOMEZ CNP Discharge Diagnosis: Comment: PATIENT EDUCATION INFORMATION Instructions: Wallace Vail - Knee Arthroscopy (Custom) Medication Leaflets: Follow up: MEDICATION LIST New Medications [facility] [address], [address] [place], [place] [address], [phone] acetaminophen-hydroc odone ([place] 325 mg-5 mg oral tablet) 1-2 tab(s) [...] every day. fluticasone nasal (Flonase 0.05 mg/inh [place]) 1 Sprays Nasal Inhalation 2 times a day as needed Allergy symptoms. each nostril. phentermine (Adipex-P 37.5 mg oral capsule) 1 Capsules By Mouth every day. No Longer Take the Following Medications naproxen (Aleve 220 mg oral capsule) 1 Capsules By Mouth every 12 hours as needed Pain 1-3. Comment: Amena [facility] Main OR PACU I Recordon 05-06 Main OR PACU I Record PACU Phase I Document Type FT Summary Primary Physician: Justin Vail DO Finalized Date/Time: 05/26/23 10:40:59 Pt. Name: ALEXUS MATA/Sex: 1995 Female Med Rec #: [id number] Physician: Justin Vail DO Financial #: [id number] Pt. Type: A Room/Bed: [facility]07/06 Admit/Disch: 05/26/23 07:17:31 - Institution: Case Times [...] By: Sonia Carpenter RN 05/26/23 10:40 Normal [facility] Main OR PACU II Recordon Main OR PACU II Record PACU Phase II Document Type FT Summary Primary Physician: Justin Vail DO Finalized Date/Time: 05/26/23 13:17:39 Pt. Name: ALEXUS MATA Ford BuschB./Sex: 1995 Female Med Rec #: [id number] Physician: Justin Vail DO Financial #: [id number] Pt. Type: A Room/Bed: [facility] Admit/Disch: 05/26/23 07:17:31 - 05/26/23 12:00:00 Institution: [...] II Outcomes Met? Yes Last Modified By: Jalen STAFFORD, Yessica Olson 05/26/23 13:17:36 Post-Care Text: The patient demonstrates [...] By: Yessica Rao RN 05/26/23 13:17 Normal [facility] Main OR Preoperative Recordo n 05-26-2023 Main OR Preoperative Record PreOp Document Type FT Summary Primary Physician: Justin Vail DO Finalized Date/Time: 05/26/23 09:34:50 Pt. Name: ALEXUS MATA Ford Youngblood/Sex: 1995 Female Med Rec #: [id number] Physician: Justin Vail DO Financial #: [id number] Pt. Type: A Room/Bed: [facility]07/06 Admit/Disch: 05/26/23 07:17:31 - Institution: Case Times [...] Signed By: Tavia Sanchez 05/26/23 09:34 Normal [facility] Monitor Recordon 05-26-2023 Monitor Record [id number] 0#1.00TIFF Normal [facility] Operative Reporton Operative Report Patient: ALEXUS MATA Age: 27 years Sex: Female : 1995 Associated Diagnoses: None Author: Justin Vail DO DATE OF SURGERY: 05/26/2023 SURGEON: Justin Vail D.O. DIRECTOR OF VOCATIONAL GUIDANCE: Bk Pulliam CFA PREOPERATIVE DIAGNOSIS: Recurrent patellar [...] counts w (more content not included)... Normal [facility] Comment on above: Result Comment: Elec tronically Signed By: Justin Vail DO\.tobias\Date and Time Signed: 05/26/23 18:28 EST Outpatient Surgery Discharge Instructionon 05-26-2023 Outpatient Surgery Discharge Instruction [place] [id number] Patient Discharge Instructions PERSON INFORMATION Name: ALEXUS MATA Date of : 1995 Current Date: 05/26/2023 10:08:57 PHYSICIANS Admitting Physician: Justin Vail DO Discharge Diagnosis: ALEXUS MATA has been given the following list of follow-up instructions, prescriptions, and patient education materials: IF UNABLE TO CONTACT YOUR PHYSICIAN AND YOU FEEL IT IS AN EMERGENCY, GO TO THE NEAREST EMERGENCY ROOM OR CALL 911 ADOLFO Redd LINDSEY D, have received the attached patient [...] to serve you. Thank you for choosing [facility] HERE ARE THE MEDICATION CHANGES THAT OCCURRED DURING YOUR HOSPITAL STAY New Medications [facility] [address], [address] [place], [place] [address], [phone] acetaminophen-hydroc odone ([place] 325 mg-5 mg oral tablet) 1-2 tab(s) [...] every day. fluticasone nasal (Flonase 0.05 mg/inh [place]) 1 Sprays Nasal Inhalation 2 times a day as needed Allergy symptoms. each nostril. phentermine (Adipex-P 37.5 mg oral capsule) 1 Capsules By Mouth every day. No Longer Take the Following Medications naproxen (Aleve 220 mg oral capsule) 1 Capsules By Mouth every 12 hours as needed Pain 1-3. PATIENT EDUCATION INFORMATION Instructions: [place], [place] [facility] DISCHARGE INSTRUCTIONS: KNEE ARTHROSCOPY [...] the hospital. (more content not included)... Normal [facility] Patient Education - Texton 1 07-27-2022 Patient Education - Text [place], [place] [facility] DISCHARGE INSTRUCTIONS: KNEE ARTHROSCOPY [...] your appointment. Justin Vail DO [facility] [address] [place] [address] Reviewed: 08-20 [facility] Progress Note-Physicianon Progress Note-Physician Patient: ALEXUS MATA Age: 27 years Sex: Female : 1995 Associated Diagnoses: None Author: Brandon Schilling Jr., DO Postoperative Information Postoperative disposition: Postoperative disposition: Home. Optimetrix number: Optimetrix number [id number]. Anesthetic utilized: General. Physical Examination Vital Signs [...] Surgery Unit, and To home ). Normal [facility] Comment on above: Result Comment: Elec [...] Oral, Daily, Allergy symptoms Flonase 0.05 mg/inh [place]: 1 spray(s), Nasal, BID Allergy symptoms, each [...] 1 tab(s), Oral, Daily Flonase 0.05 mg/inh [place] 1 spray(s), PRN, Nasal, BID Sarah 0.25mg-35mcg [...] PCOS (polycystic ovarian syndrome) / SNOMED CT 003720848 / Confirmed Smoker / SNOMED CT 902498620 / Confirmed Added secondary to documentation in Social History. Resolved: / SNOMED CT 659049178 Histories Past Medical History: Resolved (011744296): Onset on 04/05/2015 at 19 years. Resolved on 11/21/2015 at 20 years. Procedure history: Cholecystectomy (69860105) on 05/11/2016 at 20 Years. tubes in ears. Arthroscopy of LEFT knee (218185705). Social History Social & Psychosocial Habits Alcohol 05/26/2023 Risk Assessment: Low Risk 05/26/2023 Use: Current Type: Wine Frequency: 1-2 times per month Employment/School 05/26/2023 Description: [facility] [employer] [facility] [place] Substance Abuse 05/26/2023 Risk Assessment: Medium Risk [...] Results r (more content not included)... Normal [facility] Comment on above: Result Comment: Elec tronically Signed By: Brandon Schilling Jr., DO.tobias\Date and Time Signed: 05/26/23 08:47 EST U BetaHcg Qualon 05-26-2023 HCG.beta subunit (U) [Moles/Vol] Negative Normal [facility] Comment on above: Performed By: #### 2 [id number] ####[facility] [address] [place] [address] Consent for Procedure/Surger yon 05-25-2023 Consent for Procedure/Surgery [id number] 2#1.00TIFF Normal [facility] Auto Diffon 05-11-2023 Basophils/100 WBC (Bld) 0.9 % Normal 0.0-2.0 [facility] Comment on above: Order Comment: Order Added by Discern Expert. Performed By: #### 2 464064, [id number] ####[address] [address] Basophils/Leukocytes Auto (Bld) [Pure # fraction] 0.1 E9/L Normal 0.0-0.2 [facility] Comment on above: Order Comment: Order Added by Discern Expert. Performed By: #### 2 585253, [id number] ####[address] [address] Eosinophils/100 WBC (Bld) 9.2 % High 0.0-8.0 [facility] Comment on above: Order Comment: Order Added by Discern Expert. Performed By: #### 2 299142, [id number] ####[address] [address] Eosinophils/Leukocytes Auto (Bld) [Pure # fraction] 0.5 E9/L Normal 0.0-0.5 [facility] Comment on above: Order Comment: Order Added by Discern Expert. Performed By: #### 2 012102, [id number] ####[address] [address] Lymphocytes/100 WBC (Bld) 23.1 % Normal 14.0-50.0 [facility] Comment on above: Order Comment: Order Added by Discern Expert. Performed By: #### 2 215044, 5005074 ####[place] [address] [place] [address] Lymphocytes/Leukocytes Auto (Bld) [Pure # fraction] 1.3 E9/L Normal 1.0-4.0 [facility] Comment on above: Order Comment: Order Added by Discern Expert. Performed By: #### 2 240995, 2413703 ####[address] [address] Monocytes/100 WBC (Bld) 5.5 % Normal 4.0-14.0 [facility] Comment on above: Order Comment: Order Added by Discern Expert. Performed By: #### 2 281227, [id number] ####[address] [address] Monocytes/Leukocytes Auto (Bld) [Pure # fraction] 0.3 E9/L Normal 0.2-1.0 [facility] Comment on above: Order Comment: Order Added by Discern Expert. Performed By: #### 2 419910, 5946420 ####[address] [address] Neutrophils/100 WBC (Bld) 61.3 % Normal 36.0-75.0 [facility] Comment on above: Order Comment: Order Added by Discern Expert. Performed By: #### 2 706458, 7056840 ####[address] [address] Neutrophils/Leukocytes Auto (Bld) [Pure # fraction] 3.5 E9/L Normal 2.0-7.5 [facility] Comment on above: Order Comment: Order Added by Discern Expert. Performed By: #### 2 452234, [id number] ####[address] [address] CBC w/ Auto Diffon 3 Erythrocyte distribution width (RBC) [Ratio] 13.2 % Normal 10.9-14.2 [facility] Comment on above: Performed By: #### 2 046733, 1511292 ####[address] [address] Hematocrit (Bld) [Volume fraction] 42.7 % Normal 34.0-46.0 [facility] Comment on above: Performed By: #### 2 785770, 6873035 ####[address] [address] Hemoglobin (Bld) [Mass/Vol] 14.2 g/dL Normal 12.0-16.0 [facility] Comment on above: Performed By: #### 2 331842, 5151164 ####[address] [address] MCH (RBC) [Entitic mass] 29.8 pg Normal 27.0-34.0 [facility] Comment on above: Performed By: #### 2 799970, 8762992 ####[address] [address] MCHC (RBC) [Mass/Vol] 33.2 g/dL Normal 31.4-36.0 [facility] Comment on above: Performed By: #### 2 718503, 6288568 ####[address] [address] MCV (RBC) [Entitic vol] 89.9 fL Normal 80.0-100.0 [facility] Comment on above: Performed By: #### 2 305001, 0932724 ####[address] [address] Platelet mean volume (Bld) [Entitic vol] 10.9 fL High 6.4-10.8 [facility] Comment on above: Performed By: #### 2 [id number] ####[address] [address] Platelets (Bld) [#/Vol] 249.0 E9/L Normal 150.0-500.0 [facility] Comment on above: Performed By: #### 2 [id number] ####[address] [address] RBC (Bld) [#/Vol] 4.8 E12/L Normal 4.3-5.9 [facility] Comment on above: Performed By: #### 2 [id number], [id number] ####[facility] [address] [place] [address] WBC corrected for nucl RBC Auto (Bld) [#/Vol] 5.6 E9/L Normal 4.0-11.0 [facility] Comment on above: Performed By: #### 2 [id number], [id number] ####[facility] [address] [place] [address] Consent for Treatmenton Consent for Treatment [id number] 31 [id number] #1.00TIFF Normal [facility] HEMATOLOGYOrdered By: SYSTEM SYSTEM on 05-11-2023 [...] 3.5 E9/L Normal 2.0 - 7.5 E9/L [facility] HEMATOLOGYOrdered By: Aiyana Cruz on 05-11-2023 Erythrocyte distribution width (RBC) [Ratio] 13.2 % Normal 10.9 - 14.2 % [facility] Hematocrit (Bld) [Volume fraction] 42.7 % Normal 34.0 - 46.0 % [facility] Hemoglobin (Bld) [Mass/Vol] 14.2 g/dL Normal 12.0 - 16.0 gm/dL [facility] MCH (RBC) [Entitic mass] 29.8 pg Normal 27.0 - 34.0 pg [facility] MCHC (RBC) [Mass/Vol] 33.2 g/dL Normal 31.4 - 36.0 gm/dL [facility] MCV (RBC) [Entitic vol] 89.9 fL Normal 80.0 - 100.0 fL [facility] Platelet mean volume (Bld) [Entitic vol] 10.9 fL High 6.4 - 10.8 fL [facility] Platelets (Bld) [#/Vol] 249.0 E9/L Normal 150.0 - 500.0 E9/L [facility] RBC (Bld) [#/Vol] 4.8 E12/L Normal 4.3 - 5.9 E12/L [facility] WBC corrected for nucl RBC Auto (Bld) [#/Vol] 5.6 E9/L Normal 4.0 - 11.0 E9/L [facility] RESPIRATORY PANEL PLUSon Adenovirus Not detected Normal NOT DETECTED [facility] Comment on above: Performed By: #### R SPLUS #### [facility] [address] [place] [address] Dr. Lucy Andrews. Parapertusis Not detected Normal NOT DETECTED [facility] Comment on above: Performed By: #### R SPLUS #### [facility] [address] [place] [address] Dr. Lucy Andrews. Pertussis Not detected Normal NOT DETECTED [facility] Comment on above: Performed By: #### R SPLUS #### [facility] [address] [place] [address] Dr. Lucy Thomas Chlamydia Pneumoniae Not detected Normal NOT DETECTED [facility] Comment on above: Performed By: #### R SPLUS #### [facility] [address] [place] [address] Dr. Lucy Thomas Coronavirus 229E Not detected Normal NOT DETECTED [facility] Comment on above: Performed By: #### R SPLUS #### [facility] [address] [place] [address] Dr. Lucy Thomas Coronavirus HKU1 Not detected Normal NOT DETECTED [facility] Comment on above: Performed By: #### R SPLUS #### [facility] [address] [place] [address] Dr. Lucy Thomas Coronavirus NL63 Not detected Normal NOT DETECTED [facility] Comment on above: Performed By: #### R SPLUS #### [facility] [address] [place] [address] Dr. Lucy Thomas Coronavirus OC43 Not detected Normal NOT DETECTED [facility] Comment on above: Performed By: #### R SPLUS #### [facility] [address] [place] [address] Dr. Lucy Thomas Influenza A H1 Not detected Normal NOT DETECTED [facility] Comment on above: Performed By: #### R SPLUS #### [facility] [address] [place] [address] Dr. Lucy Thomas Influenza A H1 2009 Not detected Normal NOT DETECTED [facility] Comment on above: Performed By: #### R SPLUS #### [facility] [address] [place] [address] Dr. Lucy Thomas Influenza A H3 Not detected Normal NOT DETECTED [facility] Comment on above: Performed By: #### R SPLUS #### [facility] [address] [place] [address] Dr. Lucy Thomas Influenza B Not detected Normal NOT DETECTED [facility] Comment on above: Performed By: #### R SPLUS #### [facility] [address] [place] [address] Dr. Lucy Thomas Metapneumovirus Not detected Normal NOT DETECTED [facility] Comment on above: Performed By: #### R SPLUS #### [facility] [address] [place] [address] Dr. Lucy Thomas Mycoplas. Pneumoniae Not detected Normal NOT DETECTED [facility] Comment on above: Performed By: #### R SPLUS #### [facility] [address] [place] [address] Dr. Lucy Thomas Parainfluenza 1 Not detected Normal NOT DETECTED [facility] Comment on above: Performed By: #### R SPLUS #### [facility] [address] [place] [address] Dr. Lucy Thomas Parainfluenza 2 Not detected Normal NOT DETECTED [facility] Comment on above: Performed By: #### R SPLUS #### [facility] [address] [place] [address] Dr. Lucy Thomas Parainfluenza 3 Not detected Normal NOT DETECTED [facility] Comment on above: Performed By: #### R SPLUS #### [facility] [address] [place] [address] Dr. Lucy Thomas Parainfluenza 4 Not detected Normal NOT DETECTED [facility] Comment on above: Performed By: #### R SPLUS #### [facility] [address] [place] [address] Dr. Lucy Thomas Rhino/Enterovirus Not detected Normal NOT DETECTED [facility] Comment on above: Performed By: #### R SPLUS #### [facility] [address] [place] [address] Dr. Lucy Thomas RP2 Header 1 RESPIRATORY PANEL: VIRUSES Normal [facility] Comment on above: Performed By: #### R SPLUS #### [facility] [address] [place] [address] Dr. Lucy Thomas RP2 Header 2 RESPIRATORY PANEL: BACTERIA Normal [facility] Comment on above: Performed By: #### R SPLUS #### [facility] [address] [place] [address] Dr. Lucy Thomas RSV Not detected Normal NOT DETECTED [facility] Comment on above: Performed By: #### R SPLUS #### [facility] [address] [address] [address] Lucy Thomas SARS-CoV-2 (COVID-19) RNA BAUTISTA+probe Ql (Unsp spec) Not detected Normal NOT DETECTED [facility] Comment on above: Performed By: #### R SPLUS #### [facility] [address] [address] [address] Lucy Thomas Vitamin B12on 07-22-2022 Cobalamin (Vitamin B12) [Mass/Vol] 309 pg/mL [employer] Other COVID-19 Detected/Not Detect edOrdered By: Kim Gomez on 05-19-2022 SARS-CoV-2 (COVID-19) RNA BAUTISTA+non-probe Ql (Nph) Not detected Not Detecte [facility] Comment on above: This is a duplicate RP2.1 COVID (PCR) result to be used for statistical tracking purpose only. No Panel InformationOrdered By: Kim Gomez on 05-19-2022 Respiratory Panel (PCR) [facility] PAP ACOG PANEL 2: 21 to 29on 01-11-2022 . . Normal [facility] Comment on above: Performed By: #### 4 [id number] #### [facility] [address] [place] [address] Dr. Lucy Thomas Age Gdln ACOG Testing - Normal [facility] Comment on above: Performed By: #### 4 [id number] #### [facility] [address] [place] [address] Dr. Lucy Thomas DIAGNOSIS: Comment Normal [facility] Comment on above: Result Comment: NEGA TIVE FOR INTRAEPITHELIAL LESION OR MALIGNANCY. Performed By: #### 4 [id number] #### [facility] [address] [address] [address] Lucy Thomas Methodology: Comment [facility] Comment on above: Result Comment: This liquid based ThinPrep(R) pap test was screened with the use of an image guided system. Performed By: #### 4 [id number] #### [facility] [address] [place] [address] Dr. Lucy Thomas Note: Comment [facility] Comment on above: Result Comment: The Pap smear is a screening test designed to aid in the detection of premalignant and malignant conditions of the uterine cervix. It is not a diagnostic procedure and should not be used as the sole means of detecting cervical cancer. Both false-positive and false-negative reports do occur. . Performed By: #### 4 [id number] #### [facility] [address] [place] [address] Dr. Lucy Thomas Performed by: Comment Normal [facility] Comment on above: Result Comment: Nima Webster Per Diem (ASCP) Performed By: #### 4 [id number] #### [facility] [address] [place] [address] Dr. Lucy Thomas Reflex Criteria: Comment Normal [facility] Comment on above: Result Comment: The HPV DNA reflex criteria were not met with this specimen result therefore, no HPV testing was performed. . Performed By: #### 4 [id number] #### [facility] [address] [place] [address] Dr. Lucy Thomas Specimen adequacy: Comment Normal [facility] Comment on above: Result Comment: Sati sfactory for evaluation. Endocervical and/or squamous metaplastic cells (endocervical component) are present. Performed By: #### 4 [id number] #### [facility] [address] [place] [address] Dr. Lucy Thomas AMYLASEon 09-07-2021 Amylase [Catalytic activity/Vol] 52 U/L Normal 25-115 [facility] Comment on above: Performed By: #### A MY, LIPA, CMP #### [facility] [address] [place] [address] Dr. Lucy Thomas CBC AUTO DIFFon 09-07-2021 BASO # 0.0 103/ul Normal 0.0-0.1 [facility] Comment on above: Performed By: #### C BC #### [facility] [address] [place] [address] Dr. Lucy Thomas Basophils/100 WBC (Bld) 0.4 % Normal 0.2-2.0 [facility] Comment on above: Performed By: #### C BC #### [facility] [address] [place] [address] Dr. Lucy Thomas EO # 0.2 103/ul Normal 0.0-0.7 [facility] Comment on above: Performed By: #### C BC #### [facility] [address] [place] [address] Dr. Lucy Thomas Eosinophils/100 WBC (Bld) 1.9 % Normal 0.9-7.0 [facility] Comment on above: Performed By: #### C BC #### [facility] [address] [place] [address] Dr. Lucy Thomas Erythrocyte distribution width (RBC) [Ratio] 12.8 % Normal 11.0-15.0 [facility] Comment on above: Performed By: #### C BC #### [facility] [address] [place] [address] Dr. Lucy Thomas Hematocrit (Bld) [Volume fraction] 42.6 % Normal 36.0-48.0 [facility] Comment on above: Performed By: #### C BC #### [facility] [address] [place] [address] Dr. Lucy Thomas Hemoglobin (Bld) [Mass/Vol] 14.4 g/dL Normal 12.0-16.0 [facility] Comment on above: Performed By: #### C BC #### [facility] [address] [place] [address] Dr. Lucy Thomas IG # 0.03 10e3/ul Normal 0.00-0.03 [facility] Comment on above: Performed By: #### C BC #### [facility] [address] [place] [address] Dr. Lucy Thomas IG % 0.3 % Normal 0.0-0.5 [facility] Comment on above: Performed By: #### C BC #### [facility] [address] [place] [address] Dr. Lucy Thomas LYMPH # 2.2 103/ul Normal 1.2-3.8 [facility] Comment on above: Performed By: #### C BC #### [facility] [address] [place] [address] Dr. Lucy Thomas Lymphocytes/100 WBC (Bld) 22.7 % Normal 20.5-60.0 [facility] Comment on above: Performed By: #### C BC #### [facility] [address] [place] [address] Dr. Lucy Thomas MANUAL DIFF REQ NO Normal [facility] Comment on above: Performed By: #### C BC #### [facility] [address] [place] [address] Dr. Lucy Thomas MCH (RBC) [Entitic mass] 29.0 pg Normal 26.7-34.0 [facility] Comment on above: Performed By: #### C BC #### [facility] [address] [place] [address] Dr. Lucy Thomas MCHC (RBC) [Mass/Vol] 33.8 g/dL Normal 29.9-35.2 [facility] Comment on above: Performed By: #### C BC #### [facility] [address] [place] [address] Dr. Lucy Thomas MCV (RBC) [Entitic vol] 85.7 fL Normal 81.0-99.0 [facility] Comment on above: Performed By: #### C BC #### [facility] [address] [place] [address] Dr. Lucy Thomas MONO # 0.5 103/ul Normal 0.3-0.8 [facility] Comment on above: Performed By: #### C BC #### [facility] [address] [place] [address] Dr. Lucy Thomas Monocytes/100 WBC (Bld) 5.5 % Normal 1.7-12.0 [facility] Comment on above: Performed By: #### C BC #### [facility] [address] [place] [address] Dr. Lucy Thomas NEUT # 6.8 103/ul Critically high 1.4-6.5 [facility] Comment on above: Performed By: #### C BC #### [facility] [address] [place] [address] Dr. Lucy Thomas Neutrophils/100 WBC (Bld) 69.2 % Normal 43.0-75.0 [facility] Comment on above: Performed By: #### C BC #### [facility] [address] [place] [address] Dr. Lucy Thomas Platelet mean volume (Bld) [Entitic vol] 12.0 fL Normal 9.5-13.5 [facility] Comment on above: Performed By: #### C BC #### [facility] [address] [place] [address] Dr. Lucy Thomas PLT 282 103/ul Normal 150-450 [facility] Comment on above: Performed By: #### C BC #### [facility] [address] [place] [address] Dr. Lucy Thomas RBC 4.97 106/ul Normal 4.20-5.40 [facility] Comment on above: Performed By: #### C BC #### [facility] [address] [place] [address] Dr. Lucy Thomas WBC 9.8 103/ul Normal 4.0-11.0 [facility] Comment on above: Performed By: #### C BC #### [facility] [address] [place] [address] ABD/PELV W CONon [...] WENDY VENTURA Date: 2021-09-07 19:17 Normal [facility] ER URINE PROFILEon 2 Bilirubin Ql (U) Negative Normal NEGATIVE [facility] Comment on above: Performed By: #### E RUR #### [facility] [address] [place] [address] Dr. Lucy Thomas Clarity (U) CLEAR Normal CLEAR [facility] Comment on above: Performed By: #### E RUR #### [facility] [address] [place] [address] Dr. Lucy Thomas Color (U) LT. YELLOW Normal YELLOW [facility] Comment on above: Performed By: #### E RUR #### [facility] [address] [place] [address] Dr. Lucy JACOBO A micrscopic examination will be performed if indicated. Normal [facility] Comment on above: Performed By: #### E RUR #### [facility] [address] [place] [address] Dr. Lucy Thomas Glucose Ql (U) Negative Normal NEGATIVE [facility] Comment on above: Performed By: #### E RUR #### [facility] [address] [place] [address] Dr. Lucy Thomas Hemoglobin Ql (U) Negative Normal NEGATIVE [facility] Comment on above: Performed By: #### E RUR #### [facility] [address] [place] [address] Dr. Lucy Thomas Ketones Ql (U) 15 mg/dl Abnormal NEGATIVE [facility] Comment on above: Performed By: #### E RUR #### [facility] [address] [place] [address] Dr. Lucy Thomas LEUKOCYTES Negative Normal NEGATIVE [facility] Comment on above: Performed By: #### E RUR #### [facility] [address] [place] [address] Dr. Lucy Thomas Nitrite Ql (U) Negative Normal NEGATIVE [facility] Comment on above: Performed By: #### E RUR #### [facility] [address] [place] [address] Dr. Lucy Thomas pH (U) 6.0 [pH] Normal 5-9 [facility] Comment on above: Performed By: #### E RUR #### [facility] [address] [place] [address] Dr. Lucy Thomas SPEC GRAVITY <=1.005 Abnormal 1.005-<=1.02 5 [facility] Comment on above: Performed By: #### E RUR #### [facility] [address] [place] [address] Dr. Lucy Thomas UA PROTEIN Negative Normal NEGATIVE/ TRACE [facility] Comment on above: Performed By: #### E RUR #### [facility] [address] [place] [address] Dr. Lucy Thomas UR MICRO IND NOT INDICATED Normal [facility] Comment on above: Performed By: #### E RUR #### [facility] [address] [place] [address] Dr. Lucy Thomas Urobilinogen Qn (U) 0.2 {Yamileth'U}/dL Normal 0.2 - 1. 0 [facility] Comment on above: Performed By: #### E RUR #### [facility] [address] [place] [address] Dr. Lucy Thomas LIPASEon 09-07-2021 Lipase [Catalytic activity/Vol] 96.0 U/L Normal 23.0-300.0 [facility] Comment on above: Performed By: #### A LAURA LIPA, CMP #### [facility] [address] [address] [address] Lucy Thomas PREG HCG QUALon 09-07-2021 , QUAL Negative Normal NEGATIVE [facility] Comment on above: Performed By: #### P REG #### [facility] [address] [address] [address] Lucy Thomas PROF 14(COMP METB)on 022 Albumin [Mass/Vol] 3.7 g/dL Normal 3.4-5.0 [facility] Comment on above: Performed By: #### A MY LIPA, CMP #### [facility] [address] [place] [address] Dr. Lucy Thomas Albumin/Globulin [Mass ratio] 1.0 {ratio} Normal [facility] Comment on above: Performed By: #### A MY LIPA, CMP #### [facility] [address] [place] [address] Dr. Lucy Thomas ALP [Catalytic activity/Vol] 73 U/L Normal 46-116 [facility] Comment on above: Performed By: #### A LAURA LIPA, CMP #### [facility] [address] [place] [address] Dr. Lucy Thomas ALT [Catalytic activity/Vol] 24 U/L Normal 14-59 [facility] Comment on above: Performed By: #### A MY LIPA, CMP #### [facility] [address] [place] [address] Dr. Lucy Thomas Anion gap [Moles/Vol] 15.5 mmol/L Normal [facility] Comment on above: Performed By: #### A MY LIPA, CMP #### [facility] [address] [place] [address] Dr. Lucy Thomas AST [Catalytic activity/Vol] 14 U/L Critically low 15-37 [facility] Comment on above: Performed By: #### A MY LIPA, CMP #### [facility] [address] [address] [address] Lucy Tohmas Bilirubin [Mass/Vol] 0.8 mg/dL Normal 0.2-1.3 [facility] Comment on above: Performed By: #### A MY, LIPA, CMP #### [facility] [address] [address] [address] Lucy Thomas Calcium [Mass/Vol] 8.9 mg/dL Normal 8.5-10.1 [facility] Comment on above: Performed By: #### A MY, LIPA, CMP #### [facility] [address] [address] [address] Lucy Thomas Chloride [Moles/Vol] 102 mmol/L Normal 98-107 [facility] Comment on above: Performed By: #### A MY, LIPA, CMP #### [facility] [address] [place] [address] Dr. Lucy Thomas CO2 [Moles/Vol] 21.8 mmol/L Critically low 22.0-30.0 [facility] Comment on above: Performed By: #### A MY LIPA, CMP #### [facility] [address] [address] [address] Lucy Thomas Creatinine [Mass/Vol] 0.77 mg/dL Normal 0.52-1.04 [facility] Comment on above: Performed By: #### A MY LIPA, CMP #### [facility] [address] [place] [address] Dr. Lucy Thomas EGFR-AF ANDORRAN >60 Normal >=60 [facility] Comment on above: Performed By: #### A MY, LIPA, CMP #### [facility] [address] [place] [address] Dr. Lucy Thomas EGFR-NON AF ANDORRAN >60 Normal >=60 [facility] Comment on above: Performed By: #### A MY, LIPA, CMP #### [facility] [address] [place] [address] Dr. Lucy Thomas Globulin (S) [Mass/Vol] 3.6 g/dL Normal [facility] Comment on above: Performed By: #### A LAURA LIPA, CMP #### [facility] [address] [address] [address] Lucy Thomas Glucose [Mass/Vol] 82 mg/dL Normal 74-106 [facility] Comment on above: Performed By: #### A LAURA LIPA, CMP #### [facility] [address] [address] [address] Lucy Thomas Potassium [Moles/Vol] 3.3 mmol/L Critically low 3.4-5.0 [facility] Comment on above: Performed By: #### A LAURA LIPA, CMP #### [facility] [address] [address] [address] Lucy Thomas Protein [Mass/Vol] 7.3 g/dL Normal 6.1-8.2 [facility] Comment on above: Performed By: #### A NEMO SANCHEZA, CMP #### [facility] [address] [address] [address] Lucy Thomas Sodium [Moles/Vol] 136 mmol/L Critically low 137-145 [facility] Comment on above: Performed By: #### A NEMO SANCHEZA, CMP #### [facility] [address] [address] [address] Lucy Thomas Urea nitrogen [Mass/Vol] 8.0 mg/dL Normal 7.0-18.0 [facility] Comment on above: Performed By: #### A NEMO SANCHEZA, CMP #### [facility] [address] [place] [address] Dr. Lucy Thomas Urea nitrogen/Creatinine [Mass ratio] 10.4 mg/mg Normal [facility] Comment on above: Performed By: #### A CHRIS SANCHEZ, CMP #### [facility] [address] [place] [address] Dr. Lucy Thomas US PELVIS TRANSVAGon 022 US PELVIS TRANSVAG EXAM: Pelvic sonography [...] SIRI MARSH Date: 2021-09-07 18:29 Normal [facility] [employer] Quick Testingon 2020 Result Negative [employer] Other Vital Signs Date Time Vital Sign Value Performing Clinician Facility 01-06-2025 10:06-0400 Body mass index (BMI) [Ratio] 34.17 kg/m2 Toña Kowngly [employer]IDE FINISHER Work Phone: [facility] 01-06-2025 10:06-0400 Body weight 84.73 kg Toña Yoko INSIDE FINISHER Work Phone: [facility] 01-06-2025 10:06-0400 Diastolic blood pressure 70 mm[Hg] Toña Yoko INSIDE FINISHER Work Phone: [facility] 01-06-2025 10:06-0400 Systolic blood pressure 108 mm[Hg] Toña Yoko INSIDE FINISHER Work Phone: [facility] 10-03-2024 10:06-0400 Body mass index (BMI) [Ratio] 33.68 kg/m2 Toña Yoko INSIDE FINISHER Work Phone: [facility] 10-03-2024 10:06-0400 Body weight 83.52 kg Toña Yoko INSIDE FINISHER Work Phone: [facility] 10-03-2024 10:06-0400 Diastolic blood pressure 68 mm[Hg] Toña Yoko INSIDE FINISHER Work Phone: [facility] 10-03-2024 10:06-0400 Systolic blood pressure 124 mm[Hg] Toña Chinchillaerly INSIDE FINISHER Work Phone: [facility] 07-11-2024 09:42-0500 Body mass index (BMI) [Ratio] 35.08 kg/m2 Maria Elena Chelo PA Work Phone: [facility] 07-11-2024 09:42-0500 Body weight 87 kg Maria Elena Chelo PA Work Phone: [facility] 07-11-2024 09:42-0500 Diastolic blood pressure 70 mm[Hg] Maria Elena Philmont PA Work Phone: [facility] 07-11-2024 09:42-0500 Systolic blood pressure 120 mm[Hg] Maria Elena Chelo PA Work Phone: [facility] 04-18-2024 15:52-0500 Body height 157.5 cm Justin Vail DO Work Phone: [facility] 04-18-2024 15:52-0500 Body mass index (BMI) [Ratio] 36.03 kg/m2 Justin Brown DO Work Phone: [facility] 04-18-2024 15:52-0500 Body weight 89.36 kg Justin Brown DO Work Phone: [facility] 04-11-2024 10:27-0500 Body mass index (BMI) [Ratio] 36.03 kg/m2 Maria Elena Chelo PA Work Phone: [facility] [facility] 04-11-2024 10:27-0500 Body weight 89.36 kg Maria Elena Philmont PA Work Phone: [facility] 04-11-2024 10:27-0500 Diastolic blood pressure 70 mm[Hg] Maria Elena Chelo PA Work Phone: [facility] 04-11-2024 10:27-0500 Systolic blood pressure 120 mm[Hg] Maria Elena Chelo PA Work Phone: [facility] 03-14-2024 11:17-0400 Body height 157.5 cm Maria Elena Chelo PA Work Phone: [facility] 03-14-2024 11:17-0400 Body mass index (BMI) [Ratio] 36.95 kg/m2 Maria Elena Whitney ROD Work Phone: [facility] 03-14-2024 11:17-0400 Body weight 91.63 kg Maria Elena Whitney PA Work Phone: [facility] 03-14-2024 11:17-0400 Diastolic blood pressure 80 mm[Hg] Maria Elena Whitney PA Work Phone: [facility] 03-14-2024 11:17-0400 Systolic blood pressure 122 mm[Hg] Maria Elena Whitney PA Work Phone: [facility] 02-15-2024 10:48-0400 Body height 157.5 cm Petar Joy DO Work Phone: [facility] 02-15-2024 10:48-0400 Body mass index (BMI) [Ratio] 37.31 kg/m2 Petar Joy DO Work Phone: [facility] 02-15-2024 10:48-0400 Body weight 92.53 kg Petar Joy DO Work Phone: [facility] 02-15-2024 10:48-0400 Diastolic blood pressure 72 mm[Hg] Petar Joy DO Work Phone: [facility] 02-15-2024 10:48-0400 Systolic blood pressure 118 mm[Hg] Petar Joy DO Work Phone: [facility] 08-18-2023 17:06-0400 Heart rate 70 /min Justin Vail [facility] 08-18-2023 17:06-0400 SaO2% (BldA) [Mass fraction] 98 % Justin Vail [facility] 08-18-2023 17:06-0400 Diastolic blood pressure 78 mm[Hg] Justin Vail [facility] 08-18-2023 17:06-0400 Mean blood pressure 93 mm[Hg] Justin Brown [facility] 08-18-2023 17:06-0400 Systolic blood pressure 123 mm[Hg] Justin Brown [facility] 08-18-2023 17:05-0400 Respiratory rate 16 /min Justin Brown [facility] 08-18-2023 16:15-0400 Heart rate 69 /min Justin Brown [facility] 08-18-2023 16:15-0400 SaO2% (BldA) [Mass fraction] 100 % Justin Brown [facility] 08-18-2023 16:15-0400 Respiratory rate 16 /min Justin Brown [facility] 08-18-2023 16:15-0400 Diastolic blood pressure 82 mm[Hg] Justin Brown [facility] 08-18-2023 16:15-0400 Mean blood pressure 97 mm[Hg] Justin Brown [facility] 08-18-2023 16:15-0400 Systolic blood pressure 127 mm[Hg] Justin Brown [facility] 08-18-2023 16:15-0400 Mean blood pressure 97 mm[Hg] Justin Brown [facility] 08-18-2023 16:08-0400 Body temperature 97.34 [degF] Justin Brown [facility] 08-18-2023 16:08-0400 Diastolic blood pressure 65 mm[Hg] Justin Brown [facility] 08-18-2023 16:08-0400 Heart rate 73 /min Justin Brown [facility] 08-18-2023 16:08-0400 Mean blood pressure 74 mm[Hg] Justin Brown [facility] 08-18-2023 16:08-0400 Respiratory rate 14 /min Justin Vail [facility] 08-18-2023 16:08-0400 SaO2% (BldA) [Mass fraction] 99 % Justin Vail [facility] 08-18-2023 16:08-0400 Systolic blood pressure 93 mm[Hg] Justin Vail [facility] 08-18-2023 15:55-0400 Mean blood pressure 82 mm[Hg] Justin Vail [facility] 08-18-2023 15:55-0400 Respiratory rate 14 /min Justin Vail [facility] 08-18-2023 15:50-0400 Respiratory rate 16 /min Justin Vail [facility] 08-18-2023 15:22-0400 Body temperature 97.52 [degF] Justin Vail [facility] 08-18-2023 15:15-0400 Respiratory rate 15 /min Justin Vail [facility] 08-18-2023 10:26-0400 Blood Pressure Location Justin Vail [facility] 08-18-2023 10:26-0400 Mean blood pressure 83 mm[Hg] Justin Vail [facility] 08-18-2023 10:23-0400 Blood Pressure Location Jusitn Vail [facility] 08-18-2023 10:23-0400 Body temperature 98.06 [degF] Justin Vail [facility] 08-03-2023 12:35-0500 Diastolic blood pressure 83 mm[Hg] Justin Vail [facility] 08-03-2023 12:35-0500 Heart rate 97 /min Justin Vail [facility] 08-03-2023 12:35-0500 Mean blood pressure 104 mm[Hg] Justin Vail [facility] 08-03-2023 12:35-0500 Systolic blood pressure 146 mm[Hg] Justin Vail [facility] 08-03-2023 12:34-0500 Heart rate 75 /min Justin Vail [facility] 08-03-2023 12:34-0500 SaO2% (BldA) [Mass fraction] 98 % Justin Vail [facility] 08-03-2023 12:34-0500 Respiratory rate 18 /min Justin Vail [facility] 08-03-2023 12:34-0500 Body temperature 98.24 [degF] Justin Vail [facility] 08-03-2023 12:34-0500 Diastolic blood pressure 78 mm[Hg] Justin Vail [facility] 08-03-2023 12:34-0500 Mean blood pressure 97 mm[Hg] uJstin Vail [facility] 08-03-2023 12:34-0500 Systolic blood pressure 136 mm[Hg] Justin Vail [facility] 05-11-2023 07:52-0500 Diastolic blood pressure 71 mm[Hg] Justin Vail [facility] 05-11-2023 07:52-0500 Heart rate 99 /min Justin Vail [facility] 05-11-2023 07:52-0500 Mean blood pressure 88 mm[Hg] Justin Vail [facility] 05-11-2023 07:52-0500 Systolic blood pressure 121 mm[Hg] Justin V[facility] 05-11-2023 07:51-0500 Heart rate 104 /min Justin Vail [facility] 05-11-2023 07:51-0500 SaO2% (BldA) [Mass fraction] 99 % Justin Vail [facility] 05-11-2023 07:50-0500 Diastolic blood pressure 75 mm[Hg] Justin Vail [facility] 05-11-2023 07:50-0500 Mean blood pressure 89 mm[Hg] Jsutin Vail [facility] 05-11-2023 07:50-0500 Systolic blood pressure 115 mm[Hg] Justin Vail [facility] 03-29-2023 10:30-0400 Body height 157.48 cm Reese Ramos Other [employer] Other 03-29-2023 10:30-0400 Body mass index (BMI) [Ratio] 36.01 kg/m2 Reese Ramos Other [employer] Other 03-29-2023 10:30-0400 Body weight 89.31 kg Reese Ramos Other [employer] Other 03-29-2023 10:30-0400 Diastolic blood pressure 72 mm[Hg] Reese Ramos Other [employer] Other 03-29-2023 10:30-0400 Respiratory rate 18 /min Reese Ramos Other [employer] Other 03-29-2023 10:30-0400 SaO2% (BldA) [Mass fraction] 95 % Reese Rojodiff Other [employer] Other 03-29-2023 10:30-0400 Systolic blood pressure 112 mm[Hg] Reese Rojodiff Other [employer] Other 01-04-2023 09:00-0400 Body height 157.48 cm Reese Rojodiff Other [employer] Other 01-04-2023 09:00-0400 Body mass index (BMI) [Ratio] 35.97 kg/m2 Reese Rojodiff Other [employer] Other 01-04-2023 09:00-0400 Body weight 89.22 kg Reese Rojodiff Other [employer] Other 01-04-2023 09:00-0400 Diastolic blood pressure 72 mm[Hg] Reese Rojodiff Other [employer] Other 01-04-2023 09:00-0400 Respiratory rate 18 /min Reese Rojodiff Other [employer] Other 01-04-2023 09:00-0400 SaO2% (BldA) [Mass fraction] 94 % Reese Rojodiff Other [employer] Other 01-04-2023 09:00-0400 Systolic blood pressure 109 mm[Hg] Reese Ramos Other [employer] Other 11-16-2022 09:15-0400 Body height 157.48 cm Reese Ramos Other [employer] Other 11-16-2022 09:15-0400 Body mass index (BMI) [Ratio] 36.39 kg/m2 Reese Ramos Other [employer] Other 11-16-2022 09:15-0400 Body weight 90.27 kg Reese Rojodiff Other [employer] Other 11-16-2022 09:15-0400 Diastolic blood pressure 80 mm[Hg] Reese Rojodiff Other [employer] Other 11-16-2022 09:15-0400 Respiratory rate 18 /min Reese Ramos Other [employer] Other 11-16-2022 09:15-0400 SaO2% (BldA) [Mass fraction] 98 % Reese Rojodiff Other [employer] Other 11-16-2022 09:15-0400 Systolic blood pressure 102 mm[Hg] Reese Rojodiff Other [employer] Other 10-12-2022 15:00-0400 Body height 157.48 cm Reese Rojodiff Other [employer] Other 10-12-2022 15:00-0400 Body mass index (BMI) [Ratio] 38.19 kg/m2 Reese Rojodiff Other [employer] Other 10-12-2022 15:00-0400 Body weight 94.71 kg Reese Rojodiff Other [employer] Other 10-12-2022 15:00-0400 Diastolic blood pressure 63 mm[Hg] Reese Ramos Other [employer] Other 10-12-2022 15:00-0400 Respiratory rate 18 /min Reese Ramos Other [employer] Other 10-12-2022 15:00-0400 SaO2% (BldA) [Mass fraction] 97 % Reese Ramos Other [employer] Other 10-12-2022 15:00-0400 Systolic blood pressure 113 mm[Hg] Reese Ramos Other [employer] Other 07-22-2022 10:30-0500 Body height 157.48 cm Reese Ramos Other [employer] Other 07-22-2022 10:30-0500 Body mass index (BMI) [Ratio] 35.5 kg/m2 Reese Ramos Other [employer] Other 07-22-2022 10:30-0500 Body weight 88.04 kg Reese Ramos Other [employer] Other 07-22-2022 10:30-0500 Diastolic blood pressure 74 mm[Hg] Reese Ramos Other [employer] Other 07-22-2022 10:30-0500 Respiratory rate 18 /min Reese Ramos Other [employer] Other 07-22-2022 10:30-0500 SaO2% (BldA) [Mass fraction] 98 % Reese Rojodiff Other [employer] Other 07-22-2022 10:30-0500 Systolic blood pressure 106 mm[Hg] Reese Rojodiff Other [employer] Other 05-13-2022 11:00-0500 Body height 157.48 cm Reese Rojodiff Other [employer] Other 05-13-2022 11:00-0500 Body mass index (BMI) [Ratio] 35.41 kg/m2 Reese Rojodiff Other [employer] Other 05-13-2022 11:00-0500 Body weight 87.82 kg Reese Rojodiff Other [employer] Other 05-13-2022 11:00-0500 Diastolic blood pressure 71 mm[Hg] Reese Ramos Other [employer] Other 05-13-2022 11:00-0500 Respiratory rate 18 /min Reese Rojodiff Other [employer] Other 05-13-2022 11:00-0500 SaO2% (BldA) [Mass fraction] 98 % Reese Ramos Other [employer] Other 05-13-2022 11:00-0500 Systolic blood pressure 106 mm[Hg] Reese Ramos Other [employer] Other 01-13-2022 12:15-0400 Body height 157.48 cm Reese Ramos Other [employer] Other 01-13-2022 12:15-0400 Body mass index (BMI) [Ratio] 34.89 kg/m2 Reese Ramos Other [employer] Other 01-13-2022 12:15-0400 Body weight 86.55 kg Reese Ramos Other [employer] Other 01-13-2022 12:15-0400 Diastolic blood pressure 76 mm[Hg] Reese Ramos Other [employer] Other 01-13-2022 12:15-0400 Respiratory rate 18 /min Reese Ramos Other [employer] Other 01-13-2022 12:15-0400 SaO2% (BldA) [Mass fraction] 98 % Reese Ramos Other [employer] Other 01-13-2022 12:15-0400 Systolic blood pressure 106 mm[Hg] Reese Ramos Other [employer] Other 11-12-2021 09:30-0400 Body height 157.48 cm Reese Ramos Other [employer] Other 11-12-2021 09:30-0400 Body mass index (BMI) [Ratio] 35.04 kg/m2 Reese Ramos Other [employer] Other 11-12-2021 09:30-0400 Body weight 86.91 kg Reese Ramos Other [employer] Other 11-12-2021 09:30-0400 Diastolic blood pressure 73 mm[Hg] Reese Ramos Other [employer] Other 11-12-2021 09:30-0400 Respiratory rate 18 /min Reese Rojodiff Other [employer] Other 11-12-2021 09:30-0400 SaO2% (BldA) [Mass fraction] 97 % Reesemagy Ramos Other [employer] Other 11-12-2021 09:30-0400 Systolic blood pressure 106 mm[Hg] Reese Ramos Other [employer] Other 10-01-2021 10:15-0400 Body height 157.48 cm Jade Fitt Other [employer] Other 10-01-2021 10:15-0400 Body mass index (BMI) [Ratio] 35.68 kg/m2 Jade Fitt Other [employer] Other 10-01-2021 10:15-0400 Body weight 88.5 kg Jade Fitt Other [employer] Other 07-23-2021 11:30-0500 Body height 157.48 cm Reese Rojodiff Other [employer] Other 07-23-2021 11:30-0500 Body mass index (BMI) [Ratio] 35.9 kg/m2 Reese Ramos Other [employer] Other 07-23-2021 11:30-0500 Body weight 89.04 kg Reese Ramos Other [employer] Other 07-23-2021 11:30-0500 Diastolic blood pressure 69 mm[Hg] Reese Ramos Other [employer] Other 07-23-2021 11:30-0500 Respiratory rate 18 /min Reese Ramos Other [employer] Other 07-23-2021 11:30-0500 SaO2% (BldA) [Mass fraction] 99 % Reese Ramos Other [employer] Other 07-23-2021 11:30-0500 Systolic blood pressure 105 mm[Hg] Reese Ramos Other [employer] Other 06-18-2021 10:15-0500 Body height 157.48 cm Jade Fitt Other [employer] Other 06-18-2021 10:15-0500 Body mass index (BMI) [Ratio] 37.29 kg/m2 Jade Fitt Other [employer] Other 06-18-2021 10:15-0500 Body weight 92.49 kg Jade Fitt Other [employer] Other 05-23-2021 14:00-0500 Body height 157.48 cm Gris Gardner Other [employer] Other 05-23-2021 14:00-0500 Body mass index (BMI) [Ratio] 36.94 kg/m2 Gris Gardner Other [employer] Other 05-23-2021 14:00-0500 Body temperature 97.5 [degF] Gris Gardner Other [employer] Other 05-23-2021 14:00-0500 Body weight 91.63 kg Gris Gardner Other [employer] Other 05-23-2021 14:00-0500 Respiratory rate 18 /min Gris Gardner Other [employer] Other 05-23-2021 14:00-0500 SaO2% (BldA) [Mass fraction] 97 % Gris Gardner Other [employer] Other 03-26-2021 11:00-0400 Body height 157.48 cm Reese Ramos . Other [employer] Other 03-26-2021 11:00-0400 Body mass index (BMI) [Ratio] 38 kg/m2 Reese Rojodiff Jr. Other [employer] Other 03-26-2021 11:00-0400 Body weight 94.26 kg Reese Ramos Jr. Other [employer] Other 03-26-2021 11:00-0400 Diastolic blood pressure 80 mm[Hg] Reese Rojodiff Jr. Other [employer] Other 03-26-2021 11:00-0400 Respiratory rate 18 /min Reese De Diosff Jr. Other [employer] Other 03-26-2021 11:00-0400 SaO2% (BldA) [Mass fraction] 95 % Reese Richard . Other [employer] Other 03-26-2021 11:00-0400 Systolic blood pressure 112 mm[Hg] Reese Richard Jr. Other [employer] Other 02-26-2021 09:30-0400 Body height 157.48 cm Jade Duarte Other [employer] Other 02-24-2021 12:30-0400 Body height 157.48 cm Reese Ramos . Other [employer] Other 02-24-2021 12:30-0400 Body mass index (BMI) [Ratio] 38.83 kg/m2 Reese Rojochante Hernandez. Other [employer] Other 02-24-2021 12:30-0400 Body weight 96.3 kg Reese Rojochante Hernandez. Other [employer] Other 02-24-2021 12:30-0400 Diastolic blood pressure 77 mm[Hg] Reese Rojochante Hernandez. Other [employer] Other 02-24-2021 12:30-0400 Respiratory rate 18 /min Reese Rojochante Hernandez. Other [employer] Other 02-24-2021 12:30-0400 SaO2% (BldA) [Mass fraction] 97 % Reese Ramos Jr. Other [employer] Other 02-24-2021 12:30-0400 Systolic blood pressure 114 mm[Hg] Reese Rojochante Hernandez. Other [employer] Other Encounters Encounter Date Encounter Type Care Provider Facility Start: 01-06-2025 End: 01-06-2025 Noeboo flowsheet Toña Babcock NP Work Phone: [facility] Start: 01-06-2025 End: 01-06-2025 Bamboo flowsheet Toña Yoko INSIDE FINISHER Work Phone: [facility] Start: 01-06-2025 End: 01-06-2025 Office outpatient visit 15 minutes Toña Yoko INSIDE FINISHER Work Phone: [facility] Comment on above: Encounter for contra ceptive management, unspecified type (Primary Dx); Encounter for weight management Start: 01-06-2025 End: 01-06-2025 ambulatory TOÑA YOKO Not Available Start: 10-03-2024 End: 10-03-2024 Bamboo flowsheet Toña Yoko INSIDE FINISHER Work Phone: [facility] Start: 10-03-2024 End: 10-03-2024 Bamboo flowsheet Toña Yoko INSIDE FINISHER Work Phone: [facility] Start: 10-03-2024 End: 10-03-2024 ambulatory TOÑA YOKO Not Available Start: 10-03-2024 End: 10-03-2024 Office outpatient visit 15 minutes Toña Yoko INSIDE FINISHER Work Phone: [facility] Comment on above: Encounter for weight management Start: 07-11-2024 End: 07-11-2024 Bamboo flowsheet Maria Elena Whitney PA Work Phone: [facility] Start: 07-11-2024 End: 07-11-2024 Bamboo flowsheet Maria Elena Whitney PA Work Phone: [facility] Start: 07-11-2024 End: 07-11-2024 Office outpatient visit 15 minutes Maria Elena Chelo PA Work Phone: [facility] Comment on above: Encounter for weight management Start: 07-11-2024 End: 07-11-2024 ambulatory MARIA ELENA WHITNEY Not Available Start: 04-25-2024 End: 04-25-2024 Telephone encounter Anton Morgan MD Work Phone: [facility] Start: 04-18-2024 End: 04-18-2024 Patient encounter procedure Justin Vail DO Work Phone: [facility] Comment on above: S/P left knee arthro scopy (Primary Dx); Numbness; Leg pain, left; Leg pain, right; Bilateral leg weakness Start: 04-18-2024 End: 04-18-2024 ambulatory JUSTIN Olson YARED Not Available Start: 04-11-2024 End: 04-11-2024 Bamboo flowsheet Maria Elena VELASCO Work Phone: [facility] Start: 04-11-2024 End: 04-17-2024 Bamboo flowsheet Maria Elena VELASCO Work Phone: [facility] Start: 04-11-2024 End: 04-17-2024 Clinisync Result Encounter Maria Elena VELASCO Work Phone: [facility] External Department Unsolicited Start: 04-11-2024 End: 04-11-2024 Patient encounter procedure Maria Elena VELASCO Work Phone: [facility] Healthcare Work Phone: Start: 04-11-2024 End: 04-11-2024 Periodic preventive med est patient 18-39 yrs Maria Elena VELASCO Work Phone: [facility] Comment on above: Well woman exam with routine gynecological exam; Encounter for weight management Start: 04-11-2024 End: 04-11-2024 ambulatory MARIA ELENA WHITNEY Not Available Start: 03-14-2024 End: 03-14-2024 Bamboo flowsheet Maria Elena VELASCO Work Phone: [facility] Start: 03-14-2024 End: 03-14-2024 Bamboo flowsheet Maria Elena VELASCO Work Phone: [facility] Start: 03-14-2024 End: 03-14-2024 Office outpatient visit 15 minutes Maria Elena VELASCO Work Phone: [facility] Comment on above: Encounter for weight management; Weight gain Start: 03-14-2024 End: 03-14-2024 ambulatory MARIA ELENA WHITNEY Not Available Start: 02-15-2024 End: 02-15-2024 Bamboo flowsheet Petar Joy DO Work Phone: [facility] Start: 02-15-2024 End: 02-15-2024 Bamboo flowsheet Petar Joy DO Work Phone: [facility] Start: 02-15-2024 End: 02-15-2024 Office outpatient visit 15 minutes Petar Joy DO Work Phone: [facility] Comment on above: PCOS (polycystic ova richard syndrome); Encounter for weight management Start: 02-15-2024 End: 02-15-2024 ambulatory PETAR JOY Not Available Start: 02-09-2024 End: 02-09-2024 Clinisync Result Encounter Petar Joy DO Work Phone: [facility] External Department Unsolicited Start: 02-09-2024 End: 02-09-2024 Clinisync Result Encounter Petar Joy DO Work Phone: [facility] Unsolicited Start: 01-18-2024 End: 01-18-2024 ambulatory PETAR JOY Not Available Start: 01-16-2024 End: 01-16-2024 ambulatory JUSTIN VAIL Not Available Start: 08-18-2023 End: 08-18-2023 ambulatory Justin Vail Facility:[facility] Start: 08-18-2023 End: 08-18-2023 Admission to same day surgery center Justin V[facility] Start: 08-03-2023 End: 08-04-2023 ambulatory Justin Vail Facility:[facility] Start: 08-03-2023 End: 08-03-2023 Patient encounter procedure Justin Vail [facility] Start: 07-18-2023 Bamboo flowsheet Mattie NIEVES [facility] Start: 07-18-2023 Bamboo flowsheet Mattie NIEVES [facility] Start: 07-18-2023 End: 07-18-2023 Admission to same day surgery center Mattie Doll FINISH MACHINE TENDER [facility] Comment on above: S/P arthroscopic gerry carla of left knee (Primary Dx); Acute pain of left knee Start: 07-18-2023 End: 07-18-2023 ambulatory Mattie Doll FINISH MACHINE TENDER [facility] Start: 07-13-2023 Bamboo flowsheet Mattie Doll P TA [facility] Start: 07-13-2023 Bamboo flowsheet Mattie Doll P TA [facility] Start: 05-26-2023 End: 05-26-2023 ambulatory Justin Vail Facility:[facility] Start: 05-11-2023 End: 05-12-2023 ambulatory Justin Vail Facility:[facility] Start: 05-11-2023 End: 05-11-2023 Patient encounter procedure Jusitn Vail [facility] Start: 03-29-2023 Follow-up encounter Reese [facility] Start: 03-29-2023 End: 03-30-2023 ambulatory Kim Gomez [employer] Other Start: 02-15-2023 End: 02-15-2023 ambulatory Reese Ramos Other [employer] Other Start: 02-15-2023 Telephone encounter Reese reyes [facility] Start: 02-03-2023 End: 02-03-2023 ambulatory Reese Ramos Other [employer] Other Start: 02-03-2023 Telephone encounter Reese reyes [facility] Start: 01-04-2023 End: 01-04-2023 ambulatory Reese Ramos Other [employer] Other Start: 01-04-2023 Follow-up encounter Reese reyes [facility] Start: 11-16-2022 End: 11-16-2022 ambulatory Reese Ramos Other [employer] Other Start: 11-16-2022 Follow-up encounter Reese reyes [facility] Start: 10-12-2022 End: 10-12-2022 ambulatory Reese Ramos Other [employer] Other Start: 10-12-2022 Follow-up encounter Reese reyes [facility] Start: 09-23-2022 End: 09-23-2022 ambulatory Jade Duarte Other [employer] Other Start: 09-23-2022 [facility] Start: 07-27-2022 End: 07-27-[address] DOCTOR MAGDALENO Facility: Start: 07-22-2022 End: 07-22-2022 ambulatory Reese Ramos Other [employer] Other Start: 07-22-2022 Follow-up encounter Reese reyes [facility] Start: 07-08-2022 End: 07-08-2022 ambulatory Reese Ramos Other [employer] Other Start: 07-08-2022 Telephone encounter Reese reyes [facility] Start: 05-19-2022 End: 05-19-2022 ambulatory INSIDE FINISHER-C Kim Gmoez Work Phone: [facility] Work Phone: Start: 05-19-2022 End: 05-19-2022 Patient encounter procedure INSIDE FINISHER-C Kim Gomez Work Phone: [facility] Start: 05-13-2022 End: 05-13-2022 ambulatory Resee Ramos Other [employer] Other Start: 05-13-2022 Follow-up encounter Reese reyes [facility] Start: 05-13-2022 Registered Recurring ALFRED Gomez Work Phone: [facility] Start: 04-21-2022 End: 04-21-2022 ambulatory Jade Duarte Other [employer] Other Start: 04-21-2022 Telephone encounter Jade Duarte [facility] Start: 04-19-2022 End: 04-19-2022 ambulatory Resee Ramos Other [employer] Other Start: 04-19-2022 Telephone encounter Reese reyes [facility] Start: 01-13-2022 End: 01-13-2022 ambulatory Reese Ramos Other [employer] Other Start: 01-13-2022 Follow-up encounter Reese reyes [facility] Start: 01-07-2022 End: 01-07-[address] MAURILIO TURK . Facility: Start: 11-12-2021 End: 11-12-2021 ambulatory Reese Ramos Other [employer] Other Start: 11-12-2021 Follow-up encounter Reese reyes [facility] Start: 10-01-2021 ([facility] RD FU) [facility] F/ U Registerd Carburizer Jade Duarte [facility] Start: 10-01-2021 End: 10-01-2021 ambulatory Jade Duarte Other [employer] Other Start: 09-07-2021 End: 09-07-[address] VALENTINO LISTED REQUEST [employer] Other Start: 09-07-2021 Telephone encounter Reese reyes [facility] Start: 08-20-2021 End: 08-20-2021 ambulatory Jade Duarte Other [employer] Other Start: 08-20-2021 [facility] Start: 08-10-2021 End: 08-10-2021 ambulatory Reese Ramos Other [employer] Other Start: 08-10-2021 Telephone encounter Reese Ramos Gustavo [facility]hatal[facility] Start: 07-23-2021 End: 07-23-2021 ambulatory Reese Ramos Other [employer] Other Start: 07-23-2021 Follow-up encounter Reese Chen [facility] Start: 06-18-2021 ([facility] RD FU) [facility] F/ U Registerd Carburizer Jade Duarte [facility] Start: 06-18-2021 End: 06-18-2021 ambulatory Jade Duarte Other [employer] Other Start: 05-23-2021 End: 05-23-2021 ambulatory Gris Gardner Other [employer] Other Start: 05-23-2021 Office outpatient vi sit 15 minutes Gris Gardner [facility] [place] Start: 03-26-2021 Follow-up encounter Reese peterson [facility] Start: 03-15-2021 Telephone encounter Reese peterson [facility] Start: 03-10-2021 Telephone encounter Reese peterson [facility] Start: 02-26-2021 IBT for Obesity init ial 30 min (Max charge 2 units) Jade Duarte [facility] Start: 02-24-2021 Follow-up encounter Reese peterson [facility] Procedures Date Procedure Procedure Detail Performing Clinician Start: 04-11-2024 IGP,APTIMA HPV,AGE GDLN Maria Elena Chelo PA Work Phone: Start: 02-09-2024 MLR HEMOGLOBIN A1C Core y Joy DO Work Phone: Start: 08-18-2023 Arthroscopy of knee [place] on [place] Comment on above: with medial patellof emoral ligament reconstruction with open autologous chondrocyte implantation Start: 05-26-2023 Arthroscopy of knee Francois on [place] Start: 05-11-2016 Cholecystectomy Justin thompson Arthroscopy of knee Justin Tobias own History of operative procedure on knee S/P arthroscopic surgery of left knee Mattie Doll FINISH MACHINE TENDER Respiratory Panel (PCR) INSIDE FINISHERQuinten Gomez Work Phone: tubes in ears Justin [place] Plan of Treatment Date Care Activity Detail Author Start: 04-15-2025 End: 04-15-2025 Patient encounter procedure [facility] Start: 04-02-2025 End: 04-02-2025 Patient encounter procedure 04/02/2025 9:30 AM EDT Office Visit LEYDA LLAMAS [address] [place] [address] Toña Babcock, INSIDE FINISHER [address] [place] [address] [facility] Start: 02-03-2025 Influenza vaccination [facility] Start: 01-06-2025 End: 01-06-2025 Patient encounter procedure 01/06/2025 10:00 AM EDT Office Visit LEYDA LLAMAS [address] [place] [address] Toña Babcock, INSIDE FINISHER [address] [place] [address] Arrived LEYDA [facility] Comment on above: Arrived Start: 12-25-2024 End: 12-25-2024 Patient encounter procedure 12/25/2024 8:30 AM EDT Office Visit [facility] [address] [place] [phone] Maria Elnea Whitney, PA [address] [facility] [address] [place], [place] [id number] [facility] Start: 10-03-2024 End: 10-03-2024 Patient encounter procedure 10/03/2024 9:30 AM EDT Office Visit [facility] [address] [place] [address] Maria Elena Whitney, PA [address] [facility] [address] [place], [place] [id number] [facility] Start: 07-11-2024 End: 07-11-2024 Patient encounter procedure [facility] Comment on above: Arrived Start: 04-19-2024 End: 04-19-2025 EMG AND NERVE CONDUCTION STUDY EMG AND NERVE CONDUCTION STUDY Neurology Routine Numbness Leg pain, left Leg pain, right Bilateral leg weakness Expected: 04/19/2024 (Approximate), Expires: 04/19/2025 [facility] Work Phone: Comment on above: Expected: 04/19/2024 (Approximate), Expires: 04/19/2025 Start: 04-18-2024 End: 04-18-2024 Patient encounter procedure 04/18/2024 3:45 PM EST Office Visit [facility] [address] [place] [phone] Justin Vail DO [address] [place] [address] [facility] Start: 04-11-2024 End: 04-11-2024 Patient encounter procedure [facility] Comment on above: Arrived Start: 03-14-2024 End: 03-14-2024 Patient encounter procedure [facility] Comment on above: Arrived Start: 02-15-2024 End: 02-15-2024 Patient encounter procedure [facility] Comment on above: Arrived Start: 02-07-2024 End: 02-07-2024 Patient encounter procedure 02/07/2024 11:00 AM EDT Office Visit [facility] [address] [place] [phone] Maria Elena Whitney PA [address] [facility] [address] [facility] Start: 02-04-2024 Influenza vaccination Influenza Vacc ine (#1) [facility] Start: 08-03-2023 End: 08-03-2023 Patient encounter procedure 08/03/2023 1:15 PM EST Office Visit [facility] [address] [place] [phone] Justin Vail DO [address] [place] [address] [facility] Start: 07-18-2023 End: 07-18-2023 Admission to same day surgery center 07/18/2023 11:00 AM EST Treatment [facility] [address] [place] [phone] Mattie Doll PTA S/P arthroscopic surgery of left knee (Primary Dx); Acute pain of left knee [facility] Comment on above: S/P arthroscopic gerry carla of left knee (Primary Dx); Acute pain of left knee Start: 07-18-2023 End: 07-18-2023 ambulatory 07/18/2023 11:00 AM EST Treatment [facility] [address] [place] [phone] Mattie Doll PTA [facility] Start: 07-13-2023 End: 07-13-2023 ambulatory 07/13/2023 10:30 AM EST Treatment [facility] [address] [place] [phone] Mattie Doll [facility] Arrived [facility] Comment on above: Arrived Start: 02-03-2023 Influenza vaccination Influenza Vacc ine (#1) [facility] Cytology Cervical or vaginal smear or scraping study Pap Smear Pathology and Cytology Routine Well woman exam with routine gynecological exam Ordered: 04/11/2024 [facility] Work Phone: Comment on above: Ordered: 04/11/2024 Immunizations Immunization Date Immunization Notes Care Provider Willy rosario 07-09-2020 COVID-19 Vaccine Moderna - Documentation Purposes Only Reese Ramos Jr. Other [facility] 06-11-2020 COVID-19 Vaccine Moderna - Documentation Purposes Only Reese Ramos Jr. Other [facility] 03-05-2020 influenza, injectabl e, quadrivalent, preservative free Mattiesteven Doll [facility] 03-05-2020 influenza virus vaccine, unspecified formulation Mattie Doll [facility] 03-29-2018 seasonal influenza, intradermal, preservative free Mattie Doll [facility] 11-22-2015 tetanus toxoid, redu annette diphtheria toxoid, and acellular pertussis vaccine, adsorbed Justin Brown [facility] Comment on above: Reason for Medicatio n: Other (see comment) 08-07-2012 meningococcal polysaccharide (groups A, C, Y and W-135) diphtheria toxoid conjugate vaccine (MCV4P) Mattie Doll [facility] 04-05-2011 influenza virus vaccine, live, attenuated, for intranasal use Mattie Doll [facility] 07-29-2008 HPV, unspecified formulation Mattiesteven Doll [facility] 07-29-2008 human papilloma viru s vaccine, quadrivalent Mattie Doll [facility] 03-04-2008 HPV, unspecified formulation Mattiesteven Doll [facility] 03-04-2008 human papilloma viru s vaccine, quadrivalent [facility] 01-01-2008 HPV, unspecified formulation Mattiesteven Doll [facility] 01-01-2008 human papilloma viru s vaccine, quadrivalent [facility] 01-01-2008 meningococcal ACWY vaccine, unspecified formulation [facility] 01-01-2008 meningococcal polysaccharide (groups A, C, Y and W-135) diphtheria toxoid conjugate vaccine (MCV4P) [facility] 01-24-2006 tetanus toxoid, redu annette diphtheria toxoid, and acellular pertussis vaccine, adsorbed [facility] 09-12-2000 diphtheria, tetanus toxoids and acellular pertussis vaccine [facility] 09-12-2000 diphtheria, tetanus toxoids and acellular pertussis vaccine, unspecified formulation [facility] 09-12-2000 measles, mumps and rubella virus vaccine [facility] 09-12-2000 poliovirus vaccine, inactivated [facility] 02-17-1997 diphtheria, tetanus toxoids and acellular pertussis vaccine [facility] 02-17-1997 diphtheria, tetanus toxoids and acellular pertussis vaccine, unspecified formulation [facility] 02-17-1997 poliovirus vaccine, inactivated [facility] 02-17-1997 trivalent poliovirus vaccine, live, oral [facility] 12-16-1996 haemophilus influenz ae type b vaccine, conjugate unspecified formulation [facility] 12-16-1996 haemophilus influenz ae type b vaccine, PRP-OMP conjugate [facility] 02-15-1996 diphtheria, tetanus toxoids and acellular pertussis vaccine [facility] 02-15-1996 DTP-Haemophilus influenzae type b conjugate vaccine [facility] 02-15-1996 haemophilus influenz ae type b vaccine, conjugate unspecified formulation [facility] 02-15-1996 hepatitis B vaccine, adult dosage [facility] 02-15-1996 hepatitis B vaccine, pediatric or pediatric/adolescent dosage [facility] 1995 measles, mumps and rubella virus vaccine [facility] 1995 diphtheria, tetanus toxoids and acellular pertussis vaccine [facility] 1995 diphtheria, tetanus toxoids and acellular pertussis vaccine, unspecified formulation [facility] 1995 haemophilus influenz ae type b vaccine, conjugate unspecified formulation [facility] 1995 haemophilus influenz ae type b vaccine, PRP-OMP conjugate [facility] 1995 poliovirus vaccine, inactivated [facility] 1995 diphtheria, tetanus toxoids and acellular pertussis vaccine [facility] 1995 diphtheria, tetanus toxoids and acellular pertussis vaccine, unspecified formulation [facility] 1995 haemophilus influenz ae type b vaccine, conjugate unspecified formulation [facility] 1995 haemophilus influenz ae type b vaccine, PRP-OMP conjugate [facility] 1995 hepatitis B vaccine, adult dosage [facility] 1995 hepatitis B vaccine, pediatric or pediatric/adolescent dosage [facility] 1995 poliovirus vaccine, inactivated [facility] 1995 hepatitis B vaccine, adult dosage [facility] 1995 hepatitis B vaccine, pediatric or pediatric/adolescent dosage [facility] Payers Date Payer Category Payer [facility] [employer] [id number] 2022 Unknown [id number] 2020 Self-pay [id number] 1995 Unknown [id number] 2.16.840.1.526098.3.579.2. 593 1995 Unknown [id number] 2.16.840.1.515240.3.579.2. 593 1995 Unknown [id number] 2.16.840.1.808980.3.579.2. 593 1995 Unknown [id number] 2.16.840.1.083219.3.579.2. 727 1995 Unknown [id number] 2.16.840.1.266541.3.579.2. 727 1995 Unknown [id number] 2.16.840.1.274825.3.579.2. 727 1995 Unknown [id number] 2.16.840.1.160937.3.579.2. 727 1995 Unknown [id number] 2.16.840.1.718655.3.579.2. 1259 1995 Unknown [id number] 2.16.840.1.707115.3.579.2. 1259 1995 Unknown [id number] 2.16.840.1.935310.3.579.2. 1259 1995 Unknown [id number] 2.16.840.1.694182.3.579.2. 1259 1995 Unknown [id number] 2.16.840.1.247661.3.579.2. 1259 1995 Unknown [id number] 2.16.840.1.010901.3.579.2. 1259 1995 Unknown [id number] 2.16.840.1.962341.3.579.2. 1259 1995 Unknown [id number] 2.16.840.1.122665.3.579.2. 1259 1995 Unknown [id number] 2.16.840.1.563819.3.579.2. 1259 1959 Unknown [id number] 2.16.840.1.550180.19 Unknown Digna ESCOBAR/MONTEZ [id number] Unknown [id number] 2.16.840.1.783536.3.579.2. 531 Social History Date Type Detail Facility Start: 03-01-2023 End: 06-05-2023 Sex Assigned At [facility] Start: 1995 Sex Assigned At [facility] Start: 05-11-2023 Tobacco smoking status Smokeless tobacco user within last 30 days [facility] Start: 03-01-2023 Tobacco smoking status NEIS Never smoked tobacco [facility] Start: 03-01-2023 Tobacco use and exposure Smokeless tobacco non-user [facility] Start: 06-06-2023 End: 01-18-2024 Alcohol intake Current drinker of alcohol (finding) [...] Gender identity Identifies as female gender (finding) [facility] Start: 12-26-2022 Sexual orientation Heterosexual (finding) [facility] Start: 02-15-2024 End: 01-06-2025 Alcoholic beverage intake Ex-drinker (finding) [facility] Start: 08-03-2023 Alcohol Comment Every once in a while [facility] Medical Equipment Procedure Code Equipment Code Equipment Original Text Equipment Identifier Dates KNEE MEDIAL PATELLOFEMORAL LIGAMENT BRADLEY Justin Vail DO 08/18/23 Unknown Knee L FDA Start: 08-18-2023 KNEE MEDIAL PATELLOFEMORAL LIGAMENT BRADLEY Justin Vail DO 08/18/23 Unknown Knee L FDA Start: 08-18-2023 KNEE MEDIAL PATELLOFEMORAL LIGAMENT BRADLEY Justin Vail DO 08/18/23 Unknown Knee L FDA Start: 08-18-2023 KNEE MEDIAL PATELLOFEMORAL LIGAMENT BRADLEY Justin Vail DO 08/18/23 Unknown Knee L FDA Start: 08-18-2023 Functional Status Date Assessment Result Facility 08-03-2023 Functional Status No [facility] 05-11-2023 Functional Status No [facility] Clinical Notes 02-24-2021 to 01-06-2025 Toña Babcock NP - 01/06/2025 10:00 AM Lotus Babcock NP - 10/03/2024 9:30 AM ROD Nevarez - 07/11/2024 9:30 AM ESTTelephone Encounter - Sánchez Salmeron - 04/25/2024 1:03 PM EST Note Date & Type Note Facility 01-06-2025 History of Presen t illness Narrative Reason for Appointment: Patient ID: Alexus Mata is a 29 y.o. female who presents for Weight Management Patient presents today for Consult appointment. and Weight Management Consult. MEDICATIONS Current Outpatient Medications Medication Instructions Acetaminophen Extra Strength 500 MG tablet 1 tablet, Every 4 hours PRN albuterol HFA 90 mcg/act inhaler INHALE 1 PUFF INTO THE LUNGS EVERY 4 HOURS NEEDED FOR 30 DAYS fexofenadine (Rosanne Allergy) 180 MG tablet Every 24 hours fluticasone (Flonase) 50 MCG/ACT nasal spray USE 1 SPRAY IN EACH NOSTRIL ONCE A DAY for 90 phentermine (ADIPEX-P) 37.5 mg, Oral, Daily before breakfast phentermine (ADIPEX-P) 37.5 mg, Oral, Daily before breakfast phentermine (ADIPEX-P) 37.5 mg, Oral, Daily before breakfast Slynd 4 MG tablet 1 tablet, Oral, Daily ALLERGIES Allergies Allergen Reactions Amoxicillin-Pot Clavulanate GI intolerance Cat Dander Unknown Cefdinir Other Reaction(s): stomach upset Dust Mite Extract Unknown Mixed Ragweed Unknown Other Reaction(s): Nasal congestion Pollen Extract Other Reaction(s): Congestion PROBLEMS Active Ambulatory Problems Diagnosis Date Noted Abnormal uterine bleeding 02/28/2023 Anxiety 01/24/2020 Mixed anxiety depressive disorder 11/06/2020 Anxiety with depression 02/28/2023 Asthma exacerbation (HCC) 04/18/2021 Atopic dermatitis 02/17/2021 Chronic cholecystitis with calculus 12/25/2015 Female hirsutism 02/28/2023 Hyperlipidemia 03/08/2018 Hyperlipidemia LDL goal <100 02/28/2023 Morbid obesity ([facility]) 03/08/2018 Obesity 02/28/2023 Polycystic ovaries 02/28/2023 Recurrent sinusitis 02/28/2023 Seasonal allergies 03/06/2018 Weight gain 02/28/2023 Resolved Ambulatory Problems Diagnosis Date Noted No Resolved Ambulatory Problems Past Medical History: Diagnosis Date Abnormal uterine bleeding (AUB) Allergies Asthma (HCC) Depression Encounter for gynecological examination (general) (routine) without abnormal findings Obesity (BMI 30-39.9) PCOS (polycystic ovarian syndrome) HISTORY PAST MEDICAL HISTORY SOCIAL HISTORY Past Medical History: Diagnosis Date Abnormal uterine bleeding (AUB) Allergies Anxiety Asthma (HCC) as a child Depression Encounter for gynecological examination (general) (routine) without abnormal findings Female hirsutism Hyperlipidemia Obesity (BMI 30-39.9) PCOS (polycystic ovarian syndrome) Weight gain Social History Tobacco Use Smoking status: Never Smokeless tobacco: Never Vaping Use Vaping status: Every Day Substance Use Topics Alcohol use: Not Currently Comment: Every once in a while Drug use: Never FAMILY HISTORY Family History Problem Relation Name Age of Onset Hypertension Mother Taylor Alzheimer's disease Mother Taylor Diabetes Father Jr Lymphoma Father Jr Cancer Father Jr Hypertension Brother Addy No Known Problems Daughter SURGICAL HISTORY Past Surgical History: Procedure Laterality Date CHOLECYSTECTOMY 2016 INNER EAR SURGERY 1998 Procedure:tubes in ears;Disease: KNEE ARTHROSCOPY W/ DEBRIDEMENT Left 05/26/2023 JAB KNEE ARTHROSCOPY W/ DEBRIDEMENT Left 08/18/2023 L Knee ALEXANDRA JAB KNEE SURGERY Left 2010 Procedure:Arthroscopy L knee MTP;Disease: VAGINAL DELIVERY childbirth REVIEW OF SYSTEMS Review of Systems: Review of Systems Constitutional: Negative. HENT: Negative. Eyes: Negative. Respiratory: Negative. Cardiovascular: Negative. Gastrointestinal: Negative. Genitourinary: Positive for menstrual problem and vaginal bleeding. Musculoskeletal: Negative. Skin: Negative. Neurological: Negative. All other systems reviewed and are negative. Hematological: Negative. Endocrine: Negative. Allergic/Immunologic: Negative. OBJECTIVE Objective: Physical Exam Constitutional: Appearance: Normal appearance. She is well-developed. Pulmonary: Effort: Pulmonary effort is normal. Breath sounds: Normal breath sounds. Abdominal: General: Bowel sounds are normal. There is no distension. Palpations: Abdomen is soft. Tenderness: There is no abdominal tenderness. There is no guarding or rebound. Musculoskeletal: General: No swelling. Normal range of motion. Right lower leg: No edema. Left lower leg: No edema. Neurological: Mental Status: She is alert and oriented to person, place, and time. Skin: General: Skin is warm and dry. Psychiatric: Mood and Affect: Mood normal. Behavior: Behavior normal. Vitals and nursing note reviewed. Exam conducted with a flight radio officer present. Vitals: Estimated body mass index is 34.17 kg/m as calculated from the following: Height as of 04/18/24: 5' 2 . Weight as of this encounter: 186 lb 12.8 oz. BP: 108/70 No LMP recorded. ASSESSMENT & PLAN ICD-10-CM 1. Encounter for contraceptive management, unspecified type Z30.9 2. Encounter for weight management Z76.89 phentermine (Adipex-P) 37.5 MG tablet Patient presents today for 6th Adipex prescription. Patient desires additional weigh loss and she is currently taking metformin along with working out to achieve further results. The possibility of Ozempic for future use has been discussed. Weight and blood pressure has been captured and it has been discussed/reiterated the importance of keeping a food journal, proper nutrition/diet, and exercise regimen. Patient verbalized understanding. Patient has lost more than 5% of her initial body weight. Patient has continued to have Menorrhagia and dysmenorrhea with AUB. She would like to discuss trialing a new OCP as she does not think Slynd is helping her control her menstrual cycle. She does not want to move forward with uterine ablation at this time as she may want more children in the future. She reports intermittent abdominal cramping and pain and would like to trial cycle control but if she continues with no relief she is open to obtaining an exploratory lap procedure. Follow Up: Patient is to return in 3 months to monitor weight management and to evaluate menstrual cycle control with Cem. Patient is to return to office for annual well women exam unless needed otherwise. Documented by Toña Babcock NP on behalf of: Toña Babcock NP documented in this encounter [facility] 10-03-2024 History of Presen t illness Narrative Reason for Appointment: Patient ID: Alexus Mata is a 29 y.o. female who presents for Weight Management Patient presents today for a weight management consultation. Patient has been prescribed Adipex and she is here for her 7th prescription. Today's Vitals: Estimated body mass index is 33.68 kg/m as calculated from the following: Height as of 04/18/24: 5' 2 . Weight as of this encounter: 184 lb 2 oz. Previous Weight/BMI: Wt Readings from Last 3 Encounters: 10/03/24 184 lb 2 oz 07/11/24 191 lb 12.8 oz 04/18/24 197 lb BMI Readings from Last 3 Encounters: 10/03/24 33.68 kg/m 07/11/24 35.08 kg/m 04/18/24 36.03 kg/m Allergies as of 10/03/2024 - Reviewed 10/03/2024 Allergen Reaction Noted Amoxicillin-pot clavulanate GI intolerance 08/03/2023 Cat dander Unknown 04/18/2021 Cefdinir 03/29/2023 Dust mite extract Unknown 04/18/2021 Mixed ragweed Unknown 04/18/2021 Pollen extract 08/29/2023 Past Medical History: Diagnosis Date Abnormal uterine bleeding (AUB) Allergies Anxiety Asthma (CMS/HCC) as a child Depression (CMS/HCC) Encounter for gynecological examination (general) (routine) without abnormal findings Female hirsutism Hyperlipidemia (CMS/HCC) Obesity (BMI 30-39.9) PCOS (polycystic ovarian syndrome) Weight gain Past Surgical History: Procedure Laterality Date CHOLECYSTECTOMY 2016 INNER EAR SURGERY 1998 Procedure:tubes in ears;Disease: KNEE ARTHROSCOPY W/ DEBRIDEMENT Left 05/26/2023 JAB KNEE ARTHROSCOPY W/ DEBRIDEMENT Left 08/18/2023 L Knee ALEXANDRA JAB KNEE SURGERY Left 2010 Procedure:Arthroscopy L knee MTP;Disease: VAGINAL DELIVERY childbirth Review of Systems: Review of Systems Constitutional: Negative. HENT: Negative. Eyes: Negative. Respiratory: Negative. Cardiovascular: Negative. Gastrointestinal: Negative. Genitourinary: Negative. Musculoskeletal: Negative. Skin: Negative. Neurological: Negative. All other systems reviewed and are negative. Hematological: Negative. Endocrine: Negative. Allergic/Immunologic: Negative. Objective Physical Exam Constitutional: Appearance: Normal appearance. She is well-developed. Cardiovascular: Rate and Rhythm: Normal rate and regular rhythm. Pulmonary: Effort: Pulmonary effort is normal. Breath sounds: Normal breath sounds. Abdominal: General: Bowel sounds are normal. There is no distension. Palpations: Abdomen is soft. Tenderness: There is no abdominal tenderness. There is no guarding or rebound. Musculoskeletal: General: No swelling. Normal range of motion. Right lower leg: No edema. Left lower leg: No edema. Neurological: Mental Status: She is alert and oriented to person, place, and time. Skin: General: Skin is warm and dry. Psychiatric: Mood and Affect: Mood normal. Behavior: Behavior normal. Vitals and nursing note reviewed. Exam conducted with a flight radio officer present. Assessment/Plan Encounter Diagnosis Name Primary? Encounter for weight management Adipex: Patient presents today for 3rd Adipex prescription. Patient desires additional weigh loss and she is currently taking metformin along with working out to achieve further results. Weight and blood pressure has been captured and I have discussed/reiterated the importance of keeping a food journal, proper nutrition/diet, and exercise regimen. Patient verbalized understanding. Patient has lost more than 5% of her initial body weight Follow Up: Patient will return in 3 months for evaluation and will review weight loss and future weight loss goals at next visit. She reports no current side effects with Adipex at this time. Documented by: Toña Babcock NP on behalf of Toña Babcock NP documented in this encounter [facility] 07-11-2024 History of Presen t illness Narrative Reason for Appointment: Patient ID: Alexus Mata is a 29 y.o. female who presents for encounter for weight management Patient presents today for Weight Management Consult. MEDICATIONS Current Outpatient Medications Medication Instructions Acetaminophen Extra Strength 500 MG tablet 1 tablet, Every 4 hours PRN albuterol HFA 90 mcg/act inhaler INHALE 1 PUFF INTO THE LUNGS EVERY 4 HOURS NEEDED FOR 30 DAYS fexofenadine (Rosanne Allergy) 180 MG tablet Every 24 hours fluticasone (Flonase) 50 MCG/ACT nasal spray USE 1 SPRAY IN EACH NOSTRIL ONCE A DAY for 90 phentermine (ADIPEX-P) 37.5 mg, Oral, Daily before breakfast ALLERGIES Allergies Allergen Reactions Amoxicillin-Pot Clavulanate GI intolerance Cat Dander Unknown Cefdinir Other Reaction(s): stomach upset Dust Mite Extract Unknown Mixed Ragweed Unknown Other Reaction(s): Nasal congestion Pollen Extract Other Reaction(s): Congestion PROBLEMS Active Ambulatory Problems Diagnosis Date Noted Abnormal uterine bleeding 02/28/2023 Anxiety 01/24/2020 Mixed anxiety depressive disorder 11/06/2020 Anxiety with depression 02/28/2023 Asthma exacerbation ([facility]) 04/18/2021 Atopic dermatitis 02/17/2021 Chronic cholecystitis with calculus 12/25/2015 Female hirsutism 02/28/2023 Hyperlipidemia ([facility]) 03/08/2018 Hyperlipidemia LDL goal <100 ([facility]) 02/28/2023 Morbid obesity ([facility]) 03/08/2018 Obesity 02/28/2023 Polycystic ovaries 02/28/2023 Recurrent sinusitis 02/28/2023 Seasonal allergies 03/06/2018 Weight gain 02/28/2023 Resolved Ambulatory Problems Diagnosis Date Noted No Resolved Ambulatory Problems Past Medical History: Diagnosis Date Abnormal uterine bleeding (AUB) Allergies Asthma ([facility]) Depression ([facility]) Encounter for gynecological examination (general) (routine) without abnormal findings Obesity (BMI 30-39.9) PCOS (polycystic ovarian syndrome) HISTORY PAST MEDICAL HISTORY SOCIAL HISTORY Past Medical History: Diagnosis Date Abnormal uterine bleeding (AUB) Allergies Anxiety Asthma ([facility]) as a child Depression ([facility]) Encounter for gynecological examination (general) (routine) without abnormal findings Female hirsutism Hyperlipidemia ([facility]) Obesity (BMI 30-39.9) PCOS (polycystic ovarian syndrome) Weight gain Social History Tobacco Use Smoking status: Never Smokeless tobacco: Never Vaping Use Vaping status: Every Day Substance Use Topics Alcohol use: Not Currently Comment: Every once in a while Drug use: Never FAMILY HISTORY Family History Problem Relation Name Age of Onset Hypertension Mother Taylor Alzheimer's disease Mother Taylor Diabetes Father Jr Lymphoma Father Jr Cancer Father Jr Hypertension Brother Addy No Known Problems Daughter SURGICAL HISTORY Past Surgical History: Procedure Laterality Date CHOLECYSTECTOMY 2016 INNER EAR SURGERY 1998 Procedure:tubes in ears;Disease: KNEE ARTHROSCOPY W/ DEBRIDEMENT Left 05/26/2023 JAB KNEE ARTHROSCOPY W/ DEBRIDEMENT Left 08/18/2023 L Knee ALEXANDRA JAB KNEE SURGERY Left 2010 Procedure:Arthroscopy L knee MTP;Disease: VAGINAL DELIVERY childbirth [...] reviewed. Vitals: Estimated body mass index is 35.08 kg/m as calculated from the following: Height as of 04/18/24: 5' 2 . Weight as of this encounter: 191 lb 12.8 oz. BP: 120/70 No LMP recorded. ASSESSMENT & PLAN ICD-10-CM 1. Encounter for weight management Z76.89 phentermine (Adipex-P) 37.5 MG tablet Patient presents today for Adipex prescription. Patient desires additional weigh loss and she is currently taking metformin along with working out to achieve further results. Patient states having some issues of feeling like blood sugar dropping, pt encouraged to increase proteins and snack in afternoon. Weight and blood pressure has been captured and it has been discussed/reiterated the importance of keeping a food journal, proper nutrition/diet, and exercise regimen. Patient verbalized understanding. Patient has lost more than 5% of her initial body weight Follow Up: Patient is to return to the office in 3 month for further evaluation to assess patient progress. Weight and blood pressure will need to be obtained Documented by ROD Asher on behalf of: ROD Asher documented in this encounter [facility] 04-25-2024 Telephone encounter Note LVM to RC in regard to BLE referral from Dr Vail--Approved to schedule--50.00 applied to deductible due at visit [facility] 04-25-2024 Miscellaneous Notes LVM to RC in regard to BLE referral from Dr Vail--Approved to schedule--50.00 applied to deductible due at visit documented in this encounter [facility] 04-18-2024 History of Presen t illness Narrative Images from the original note were not included. @ENCDATE@ Carrie Ford Adolfo is a 28 y.o. female who presents for No chief complaint on file. HPI: History of Present Illness The patient is a 28-year-old female, 8 months status post left knee arthroscopy, MPFL reconstruction, ALEXANDRA implantation to the patella. Date of surgery 08/18/2023. She reports a persistent numbness along the medial aspect of the leg distal to knee. This extends to just above the medial ankle and into the posterior aspect of the knee. Her left foot consistently feels colder than the right, particularly when she is seated. She experiences discomfort in her knee after prolonged periods of standing or climbing stairs. Additionally, her entire leg twitches when she is relaxed in bed. She sleeps with a pillow between the knees. Overall is doing well with the knee without any swelling, instability, or locking. Despite these symptoms, she has resumed her workout routine, which includes cycling at the gym and walking on a treadmill. SUBJECTIVE: MEDICATIONS: Current Outpatient Medications Medication Instructions Acetaminophen Extra Strength 500 MG tablet 1 tablet, Every 4 hours PRN albuterol HFA 90 mcg/act inhaler INHALE 1 PUFF INTO THE LUNGS EVERY 4 HOURS NEEDED FOR 30 DAYS fexofenadine (Rosanne Allergy) 180 MG tablet Every 24 hours fluticasone (Flonase) 50 MCG/ACT nasal spray USE 1 SPRAY IN EACH NOSTRIL ONCE A DAY for 90 phentermine (ADIPEX-P) 37.5 mg, Oral, Daily before breakfast ALLERGIES: Allergies Allergen Reactions Amoxicillin-Pot Clavulanate GI intolerance Cat Hair Extract Unknown Cefdinir Other Reaction(s): stomach upset Dust Mite Extract Unknown Mixed Ragweed Unknown Other Reaction(s): Nasal congestion Pollen Extract Other Reaction(s): Congestion SURGICAL HISTORY: Past Surgical History: Procedure Laterality Date CHOLECYSTECTOMY 2016 INNER EAR SURGERY 1998 Procedure:tubes in ears;Disease: KNEE ARTHROSCOPY W/ DEBRIDEMENT Left 05/26/2023 JAB KNEE ARTHROSCOPY W/ DEBRIDEMENT Left 08/18/2023 L Knee ALEXANDRA JAB KNEE SURGERY Left 2010 Procedure:Arthroscopy L knee MTP;Disease: VAGINAL DELIVERY childbirth FAMILY HISTORY: Family History Problem Relation Name Age of Onset Hypertension Mother Taylor Alzheimer's disease Mother Taylor Diabetes Father Jr Lymphoma Father Jr Cancer Father Jr Hypertension Brother Addy No Known Problems Daughter SOCIAL HISTORY: Social History Tobacco Use Smoking status: Never Smokeless tobacco: Never Vaping Use Vaping status: Every Day Substance Use Topics Alcohol use: Not Currently Comment: Every once in a while Drug use: Never Depression: Not at risk (03/01/2023) PHQ-2 PHQ-2 Score: 0 REVIEW OF SYMPTOMS: Review of Systems The review of systems, history and current medications list are all reviewed today. OBJECTIVE: Visit Vitals LMP 04/07/2024 OB Status Having periods Smoking Status Never Physical Exam Alert and oriented, no acute distress. Mood and affect are appropriate. Ambulating independently. Gait is nonantalgic. Wearing boots with a small heel. LEFT KNEE Incisions well healed. No effusion. No erythema. Full flexion and extension, ROM symmetric to right knee. 1-2 quadrant lateral patellar translation, equal to right knee. No apprehension. RIGHT KNEE The skin is warm, dry and intact. There is no effusion, no erythema. Full flexion and extension. Good quadriceps bulk and tone. There is no tenderness at the patellofemoral joint, medial or lateral joint line, patellar tendon, femoral condyles or proximal tibia. No cruciate or collateral instability. Negative Dwayne's. Sensation intact over medial and lateral borders of foot. Sensation intact over thigh and lateral leg. Ankle PF/DF/inversion/eversion 5/5. 5/5 knee flex/extension. 5/5 EHL. Foot well perfused. No discoloration or temperature differences between feet. Ortho Exam Results ASSESSMENT AND PLAN: I reviewed the history, physical exam, diagnostic studies, and diagnosis with the patient. Assessment & Plan 1. 8 months status post left knee arthroscopy, MPFL reconstruction, ALEXANDRA implantation to the patella. Referral to neurologist Dr. Morgan will be made for EMG/NCS bilateral lower extremities. A nerve test is recommended to establish a baseline and identify any potential nerve-related issues, likely involving the saphenous nerve.. She will follow up after completion. The patient was advised to keep the treadmill flat to avoid additional stress on the knees. A total of 20 to 29 minutes was spent on this patient encounter which included chart review, check in, nurse triage, history taking, physical examination, diagnostic study review, patient counseling and discussion, entering information into the patient's medical record, and coordinating patient care There are no diagnoses linked to this encounter. Justin Vail D.O. Attestation This note was created using voice recognition through [employer] artificial ELIKE. documented in this encounter [facility] 04-18-2024 Miscellaneous Notes Addended by: MAGNOLIA RODRÍGUEZ on: 04/19/2024 10:19 AM Modules accepted: Orders documented in this encounter [facility] 04-18-2024 Note Addended by: MAGNOLIA RODRÍGUEZ on: 04/19/2024 10:19 AM Modules accepted: Orders [facility] 04-18-2024 Note Addended by: MAGNOLIA RODRÍGUEZ on: 04/19/2024 10:19 AM Modules accepted: Orders [facility] 04-11-2024 History of Presen t illness Narrative Reason for Appointment: Patient ID: Alexus Mata is a 28 y.o. female who presents for Well Women Visit and encounter for weight management (Adipex #4) Patient presents today for Annual appointment and Adipex #4 MEDICATIONS Current Outpatient Medications Medication Instructions Acetaminophen Extra Strength 500 MG tablet 1 tablet, Every 4 hours PRN albuterol HFA 90 mcg/act inhaler INHALE 1 PUFF INTO THE LUNGS EVERY 4 HOURS NEEDED FOR 30 DAYS fexofenadine (Rosanne Allergy) 180 MG tablet Every 24 hours fluticasone (Flonase) 50 MCG/ACT nasal spray USE 1 SPRAY IN EACH NOSTRIL ONCE A DAY for 90 phentermine (ADIPEX-P) 37.5 mg, Oral, Daily before [...] 11/06/2020 Anxiety with depression 02/28/2023 Asthma exacerbation ([facility]) 04/18/2021 Atopic dermatitis 02/17/2021 Chronic cholecystitis with calculus 12/25/2015 Female hirsutism 02/28/2023 Hyperlipidemia ([facility]) 03/08/2018 Hyperlipidemia LDL goal <100 ([facility]) 02/28/2023 Morbid obesity ([facility]) 03/08/2018 Obesity 02/28/2023 Polycystic ovaries 02/28/2023 Recurrent sinusitis 02/28/2023 Seasonal allergies 03/06/2018 Weight gain 02/28/2023 Resolved Ambulatory Problems Diagnosis Date Noted No Resolved Ambulatory Problems Past Medical History: Diagnosis Date Abnormal uterine bleeding (AUB) Allergies Asthma ([facility]) Depression ([facility]) Encounter for gynecological examination (general) (routine) without abnormal findings Obesity (BMI 30-39.9) PCOS (polycystic ovarian syndrome) HISTORY PAST MEDICAL HISTORY SOCIAL HISTORY Past Medical History: Diagnosis Date Abnormal uterine bleeding (AUB) Allergies Anxiety Asthma (CMS/HCC) as a child Depression (CMS/HCC) Encounter for gynecological examination (general) (routine) without abnormal findings Female hirsutism Hyperlipidemia (CMS/HCC) Obesity (BMI 30-39.9) PCOS (polycystic ovarian syndrome) Weight gain Social History Tobacco Use Smoking status: Never Smokeless tobacco: Never Vaping Use Vaping status: Every Day Substance Use Topics Alcohol use: Not Currently Comment: Every once in a while Drug use: Never FAMILY HISTORY Family History Problem Relation Name Age of Onset Hypertension Mother Taylor Alzheimer's disease Mother Taylor Diabetes Father Jr Lymphoma Father Jr Cancer Father Jr Hypertension Brother Addy No Known Problems Daughter SURGICAL HISTORY Past Surgical History: Procedure Laterality Date CHOLECYSTECTOMY 2016 INNER EAR SURGERY 1998 Procedure:tubes in ears;Disease: KNEE ARTHROSCOPY W/ DEBRIDEMENT Left 05/26/2023 JAB KNEE ARTHROSCOPY W/ DEBRIDEMENT Left 08/18/2023 L Knee ALEXANDRA JAB KNEE SURGERY Left 2010 Procedure:Arthroscopy L knee MTP;Disease: VAGINAL DELIVERY childbirth REVIEW OF SYSTEMS Review of Systems: Review of Systems Constitutional: Negative. HENT: Negative. Eyes: Negative. Respiratory: Negative. Cardiovascular: Negative. Gastrointestinal: Negative. Genitourinary: Negative. Musculoskeletal: Negative. Skin: Negative. Neurological: Negative. All other systems reviewed and are negative. Hematological: Negative. Endocrine: Negative. Allergic/Immunologic: Negative. OBJECTIVE Objective: Physical Exam Constitutional: Appearance: Normal appearance. She is well-developed. Genitourinary: Vulva normal. Right Adnexa: not tender and no mass present. Left Adnexa: not tender and no mass present. No cervical discharge. Breasts: Breasts are soft. Right: Normal. Left: Normal. HENT: Head: Normocephalic. Nose: Nose normal. Mouth/Throat: Mouth: Mucous membranes are moist. Cardiovascular: Rate and Rhythm: Normal rate and regular rhythm. Pulmonary: Effort: Pulmonary effort is normal. Breath sounds: Normal breath sounds. Abdominal: General: Bowel sounds are normal. There is no distension. Palpations: Abdomen is soft. Tenderness: There is no abdominal tenderness. There is no guarding or rebound. Musculoskeletal: General: No swelling. Normal range of motion. Cervical back: Normal range of motion. Right lower leg: No edema. Left lower leg: No edema. Neurological: General: No focal deficit present. Mental Status: She is alert and oriented to person, place, and time. Skin: General: Skin is warm and dry. Psychiatric: Mood and Affect: Mood normal. Behavior: Behavior normal. Vitals and nursing note reviewed. Exam conducted with a flight radio officer present. Vitals: Estimated body mass index is 36.03 kg/m as calculated from the following: Height as of 24: 5' 2 . Weight as of this encounter: 197 lb. BP: 120/70 Patient's last menstrual period was 04/07/2024. ASSESSMENT & PLAN ICD-10-CM 1. Well woman exam with routine gynecological exam Z01.419 Pap Smear 2. Encounter for weight management Z76.89 phentermine (Adipex-P) 37.5 MG tablet Annual Exam: Patient presents today for an annual exam. Patient states she is doing well and has no complaints. Pap was obtained without difficulty. Patient presents for Adipex #4 script. Encouraged to continue on Diet and exercise plan and keep log. Patient to return in 3 months. Patient to return cof blood pressure and weight check. Follow Up: Patient is to return in one year for annual unless needed otherwise. Documented by Maris Pedraza LPN on behalf of: ROD Asher documented in this encounter [facility] 03-14-2024 History of Presen t illness Narrative [...] 11/06/2020 Anxiety with depression 02/28/2023 Asthma exacerbation ([facility]) 04/18/2021 Atopic dermatitis 02/17/2021 Chronic cholecystitis with calculus 12/25/2015 Female hirsutism 02/28/2023 Hyperlipidemia ([facility]) 03/08/2018 Hyperlipidemia LDL goal <100 ([facility]) 02/28/2023 Morbid obesity ([facility]) 03/08/2018 Obesity 02/28/2023 Polycystic ovaries 02/28/2023 Recurrent sinusitis 02/28/2023 Seasonal allergies 03/06/2018 Weight gain 02/28/2023 Resolved Ambulatory Problems Diagnosis Date Noted No Resolved Ambulatory Problems Past Medical History: Diagnosis Date Abnormal uterine bleeding (AUB) Allergies Asthma ([facility]) Depression ([facility]) Encounter for gynecological examination (general) (routine) without abnormal findings Obesity (BMI 30-39.9) PCOS (polycystic ovarian syndrome) HISTORY PAST MEDICAL HISTORY SOCIAL HISTORY Past Medical History: Diagnosis Date Abnormal uterine bleeding (AUB) Allergies Anxiety Asthma ([facility]) as a child Depression ([facility]) Encounter for gynecological examination (general) (routine) without abnormal findings Female hirsutism Hyperlipidemia ([facility]) Obesity (BMI 30-39.9) PCOS (polycystic [...] L Knee ALEXANDRA JAB KNEE SURGERY Left 2010 Procedure:Arthroscopy L knee MTP;Disease: VAGINAL DELIVERY childbirth [...] of: ROD Asher documented in this encounter [facility] 02-15-2024 History of Presen t illness Narrative Reason for Appointment: Patient ID: Alexus Mata is a 28 y.o. female who presents for Results Patient presents today for Follow up appointment to discuss results. MEDICATIONS Current Outpatient Medications Medication Instructions Acetaminophen [...] EACH NOSTRIL ONCE A DAY for 90 norgestimate-ethinyl estradiol (Sarah) 0.25-35 MG-MCG tablet 1 tablet, Oral, Daily phentermine (ADIPEX-P) 37.5 mg, Oral, Daily phentermine [...] 11/06/2020 Anxiety with depression 02/28/2023 Asthma exacerbation ([facility]) 04/18/2021 Atopic dermatitis 02/17/2021 Chronic cholecystitis with calculus 12/25/2015 Female hirsutism 02/28/2023 Hyperlipidemia ([facility]) 03/08/2018 Hyperlipidemia LDL goal <100 ([facility]) 02/28/2023 Morbid obesity ([facility]) 03/08/2018 Obesity 02/28/2023 Polycystic ovaries 02/28/2023 Recurrent sinusitis 02/28/2023 Seasonal allergies 03/06/2018 Weight gain 02/28/2023 Resolved Ambulatory Problems Diagnosis Date Noted No Resolved Ambulatory Problems Past Medical History: Diagnosis Date Abnormal uterine bleeding (AUB) Allergies Asthma (CMS/HCC) Depression ([facility]) Encounter for gynecological examination (general) (routine) without abnormal findings Obesity (BMI 30-39.9) PCOS (polycystic ovarian syndrome) HISTORY PAST MEDICAL HISTORY SOCIAL HISTORY Past Medical History: Diagnosis Date Abnormal uterine bleeding (AUB) Allergies Anxiety Asthma (CMS/HCC) as a child Depression ([facility]) Encounter for gynecological examination (general) (routine) without abnormal findings Female hirsutism Hyperlipidemia (CMS/HCC) Obesity (BMI 30-39.9) PCOS (polycystic ovarian syndrome) [...] L Knee ALEXANDRA JAB KNEE SURGERY Left 2010 Procedure:Arthroscopy L knee MTP;Disease: VAGINAL DELIVERY childbirth REVIEW OF SYSTEMS Review of Systems: Review of Systems All other systems reviewed and are negative. OBJECTIVE Objective: Physical Exam Constitutional: Appearance: Normal appearance. She is well-developed. Cardiovascular: Rate and Rhythm: Normal rate and regular rhythm. Pulmonary: Effort: Pulmonary effort is normal. Breath sounds: Normal breath sounds. Abdominal: General: Bowel sounds are normal. There is no distension. Palpations: Abdomen is soft. Tenderness: There is no abdominal tenderness. There is no guarding or rebound. Musculoskeletal: General: No swelling. Normal range of motion. Right lower leg: No edema. Left lower leg: No edema. Neurological: Mental Status: She is alert and oriented to person, place, and time. Skin: General: Skin is warm and dry. Psychiatric: Mood and Affect: Mood normal. Behavior: Behavior normal. Vitals and nursing note reviewed. Exam conducted with a flight radio officer present. Vitals: Estimated body mass index is 37.31 kg/m as calculated from the following: Height as of this encounter: 5' 2 . Weight as of this encounter: 204 lb. BP: 118/72 Patient's last menstrual period was 12/16/2023 (approximate). ASSESSMENT & PLAN Patient presents today for results follow up. Reviewed US and labs and patient would like to continue Slynd and also Adipex. Slynd sent to pharmacy and Adipex prescription printed. Patient to RTC in 1 month for Adipex. Documented by Jaelyn Maddox LPN on behalf of: Petar Hamilton DO documented in this encounter [facility] 08-18-2023 Hospital Discharg e instructions Patient Education 08/18/2023 16:07:56 Post Op Patient Instructions - FT (Custom) (CUSTOM) 08/18/2023 11:46:44 Wallace Vail - ACL Reconstruction/Meniscus Repair (Custom) [place], [place] [facility] DISCHARGE INSTRUCTIONS: KNEE SURGERY [...] your appointment. Justin Vail, DO [facility] [address] [place] [address] Reviewed: 11-20 Follow Up Care 07/14/2023 10:31:08 With:Justin Vail Address: [address] [place] [address] Business (1) When:08/29/2023 14:30:00 Comments:Appointment has already been scheduled. Call for any problems. [facility] 08-18-2023 Evaluation + Plan note Extrac tho from: Title:ANES Post-operative Note - General Author: Brandon Schilling Jr., DO Date:08/18/23 Plan Transfer/Discharge: Transfer/Discharge Discharge when meets criteria ( From PACU to Ambulatory Surgery Unit, and To home ). Extracted from: Title:Jas Basic PRE Author:Jas Houston siology ()Siri Date:08/18/23 Plan [place] [employer] (ASA) physical status classification: Class II. Anesthetic Preoperative Plan: Anesthesia General. [facility]. [facility]03-14-2024 Note [id number]#1.00[facility] 05-25-2023 [id number] Encounter Date Diagnosis Assessment Notes Treatment Notes Treatment Clinical Notes Mar, Hypercholesterolemia (ICD-10 - E78.00) Mar, Obesity (BMI 35.0-39 .9 without comorbidity) (ICD-10 - E66.9) Mar, PCOS (polycystic ova richard syndrome) (ICD-10 - E28.2) Mar, Anxiety (ICD-10 - F41.9) [employer] Other 09-13-2023 Evaluation note* Encounter Date Diagnosis Assessment Notes Treatment Notes Treatment Clinical Notes Feb, Obesity (BMI 35.0-39.9 without comorbidity) (ICD-10 - E66.9) [employer] Other 08-02-2023 Evaluation note* Encounter Date Diagnosis Assessment Notes Treatment Notes Treatment Clinical Notes Jan, Hypercholesterolemia (ICD-10 - E78.00) Jan, Obesity (BMI 35.0-39 .9 without comorbidity) (ICD-10 - E66.9) Jan, PCOS (polycystic ova richard syndrome) (ICD-10 - E28.2) Jan, Anxiety (ICD-10 - F41.9) [employer] Other 06-14-2023 Evaluation note* Encounter Date Diagnosis Assessment Notes Treatment Notes Treatment Clinical Notes Nov, Hypercholesterolemia (ICD-10 - E78.00) Nov, Obesity (BMI 35.0-39 .9 without comorbidity) (ICD-10 - E66.9) Nov, PCOS (polycystic ova richard syndrome) (ICD-10 - E28.2) Nov, Anxiety (ICD-10 - F41.9) [employer] Other 05-10-2023 Evaluation note* Encounter Date Diagnosis Assessment Notes Treatment Notes Treatment Clinical Notes October, Hypercholesterolemia (ICD-10 - E78.00) October, Obesity (BMI 35.0-39 .9 without comorbidity) (ICD-10 - E66.9) October, PCOS (polycystic ova richard syndrome) (ICD-10 - E28.2) October, Anxiety (ICD-10 - F41.9) [employer] Other 02-17-2023 Evaluation note* Encounter Date Diagnosis Assessment Notes Treatment Notes Treatment Clinical Notes Jul, Hypercholesterolemia (ICD-10 - E78.00) Jul, Obesity (BMI 35.0-39 .9 without comorbidity) (ICD-10 - E66.9) Jul, PCOS (polycystic ova richard syndrome) (ICD-10 - E28.2) Jul, Anxiety (ICD-10 - F41.9) [employer] Other 02-03-2023 Evaluation note* Encounter Date Diagnosis Assessment Notes Treatment Notes Treatment Clinical Notes Jul, Hypercholesterolemia (ICD-10 - E78.00) Jul, Medication monitorin g encounter (ICD-10 - Z51.81) Jul, Abnormal weight gain (ICD-10 - R63.5) [employer] Other 12-09-2022 Evaluation note* Encounter Date Diagnosis Assessment Notes Treatment Notes Treatment Clinical Notes May, Hypercholesterolemia (ICD-10 - E78.00) May, Obesity (BMI 30.0-34 .9) (ICD-10 - E66.9) May, PCOS (polycystic ova richard syndrome) (ICD-10 - E28.2) May, Anxiety (ICD-10 - F41.9) [employer] Other 08-11-2022 Evaluation note* Encounter Date Diagnosis Assessment Notes Treatment Notes Treatment Clinical Notes Jan, Hypercholesterolemia (ICD-10 - E78.00) Jan, Obesity (BMI 30.0-34 .9) (ICD-10 - E66.9) Jan, Nausea (ICD-10 - R11.0) Jan, PCOS (polycystic ova richard syndrome) (ICD-10 - E28.2) Jan, Anxiety (ICD-10 - F41.9) [employer] Other 06-10-2022 Evaluation note* Encounter Date Diagnosis Assessment Notes Treatment Notes Treatment Clinical Notes Nov, Obesity (BMI 35.0-39 .9 without comorbidity) (ICD-10 - E66.9) Nov, Nausea (ICD-10 - R11.0) Nov, PCOS (polycystic ova richard syndrome) (ICD-10 - E28.2) Nov, Hypercholesterolemia (ICD-10 - E78.00) Nov, Anxiety (ICD-10 - F41.9) Nov, Medication monitorin g encounter (ICD-10 - Z51.81) [employer] Other 04-29-2022 Evaluation note* Encounter Date Diagnosis Assessment Notes Treatment Notes Treatment Clinical Notes Sep, Obesity, unspecified classification, unspecified obesity type, unspecified whether serious comorbidity present (ICD-10 - E66.9) Sep, BMI 35.0-35.9,adult (ICD-10 - Z68.35) Sep, Other Summary of Visi t: (A) Discussed self-care (B) Continue current nutrition habits (C) Discussed options for exercise [employer] Other 02-18-2022 Evaluation note* Encounter Date Diagnosis Assessment Notes Treatment Notes Treatment Clinical Notes Jul, PCOS (polycystic ova richard syndrome) (ICD-10 - E28.2) Jul, Obesity (BMI 35.0-39 .9 without comorbidity) (ICD-10 - E66.9) Jul, Hypercholesterolemia (ICD-10 - E78.00) Jul, Anxiety (ICD-10 - F41.9) Jul, Medication monitorin g encounter (ICD-10 - Z51.81) [employer] Other 01-14-2022 Evaluation note* Encounter Date Diagnosis Assessment Notes Treatment Notes Treatment Clinical Notes Jun, Obesity, unspecified classification, unspecified obesity type, unspecified whether serious comorbidity present (ICD-10 - E66.9) Jun, BMI 37.0-37.9, adult (ICD-10 - Z68.37) Jun, Other Summary of Visit: (A) Meal planning apps available (B) Continue current nutrition regimen [employer] Other 12-19-2021 Evaluation note* Encounter Date Diagnosis [...] Patient care instructions given in writting by [facility] document. [employer] Other 10-22-2021 Evaluation note* Encounter Date Diagnosis Assessment Notes Treatment Notes Treatment Clinical Notes Mar, Obesity (BMI 35.0-39 .9 without comorbidity) (ICD-10 - E66.9) Mar, Hypercholesterolemia (ICD-10 - E78.00) Mar, Diarrhea (ICD-10 - R19.7) Mar, PCOS (polycystic ova richard syndrome) (ICD-10 - E28.2) Mar, Anxiety (ICD-10 - F41.9) [employer] Other 10-11-2021 Evaluation note* Encounter Date Diagnosis Assessment Notes Treatment Notes Treatment Clinical Notes Mar, PCOS (polycystic ovarian syndrome) (ICD-10 - E28.2) [employer] Other 10-06-2021 Evaluation note* Encounter Date Diagnosis Assessment Notes Treatment Notes Treatment Clinical Notes Mar, PCOS (polycystic ovarian syndrome) (ICD-10 - E28.2) [employer] Other 09-24-2021 Evaluation note* Encounter Date Diagnosis Assessment Notes Treatment Notes Treatment Clinical Notes Feb, Obesity, unspecified classification, unspecified obesity type, unspecified whether serious comorbidity present (ICD-10 - E66.9) Feb, BMI 38.0-38.9,adult (ICD-10 - Z68.38) Feb, Other Summary of Visit: (A) discussed positive self talk (B) discussed finding and maintaining motivation for the gym (C) continue current healthy eating habits [employer] Other 09-22-2021 Evaluation note* Encounter Date Diagnosis Assessment Notes Treatment Notes Treatment Clinical Notes Feb, Obesity (BMI 35.0-39 .9 without comorbidity) (ICD-10 - E66.9) Feb, Hypercholesterolemia (ICD-10 - E78.00) Feb, PCOS (polycystic ova richard syndrome) (ICD-10 - E28.2) Feb, Diarrhea (ICD-10 - R19.7) Feb, Anxiety (ICD-10 - F41.9) [employer] Other Evaluation + Plan note Future Appointments Appointment Date:05/26/2023 10:15:00 AM Scheduled Provider: Location:[facility] Future Appointments Appointment Date:08/18/2023 01:00:00 PM Scheduled Provider: Location:[facility] noteNo InformationNort [employer] Other evaluation noteNo assessment information available [facility] Work Phone: evaluation note* Diagnosis S/P arthroscopic surgery of left knee- Primary Other postprocedural status Acute pain of left knee [facility] Diagnosis Encounter for weight management Weight gain Other symptoms concerning nutrition, metabolism, and development [facility]* Diagnosis Well woman exam with routine gynecological exam Routine gynecological examination Encounter for weight management [facility]* Diagnosis S/P left knee arthroscopy- Primary Numbness Disturbance of skin sensation Leg pain, left Pain in soft tissues of limb Leg pain, right Pain in soft tissues of limb Bilateral leg weakness Muscle weakness (generalized) [facility]* Diagnosis PCOS (polycystic ovarian syndrome) Polycystic ovaries Encounter for weight management [facility] Diagnosis Encounter for weight management [facility] Diagnosis Encounter for weight management [facility] Diagnosis Encounter for contraceptive management, unspecified type- Primary documented in this encounter [facility] Narrative - Reported* Type Description Date Medical History anxiety Medical History high testerone Medical History Environmental Allergies Medical History depression Medical History high cholesterol Surgical History left knee arthroscopy 2009 Surgical History gall bladder removal 2016 Hospitalization History childbirth 2015 [employer] Other Hospital course Narrative No data available for this section [facility] No data available for this section [facility] No data available for this section [facility] Narrative* Consultation (Routine) - Closed Specialty Diagnoses / Procedures Referred By Pura ballard Referred To Contact Physical Therapy Diagnoses Acute pain of left knee Procedures [place] OFFICE/OUTPATIENT NEW HIGH MDM 60 MINUTES Justin Vail, DO [address] [place] [address] Erik Zacarias, PT [address] [place] [address] Referral ID Status Reason Start Date Expiration Date V isits Requested Visits Authorized [id number] Closed Consult and Treat 06/06/2023 12/03/2023 20 20 [facility] Chief Complaint and Reason for Visit Chief Complaint Obesity J06.9 Advance Directives No Advanced Directives Records Found Advance Directive Response Recorded Date/ Time Advance Directives No March 27, 2017 9:58am Summary Purpose Family History No Family History Records Found Relationship Condition Age at Onset Recorded Date/T sujit family member Obesity Unknown father Diabetes mellitus Unknown grandparent Obesity Unknown Not Specified Hypertension Unknown Additional Source Comments REASON FOR VISIT (unrecogniz ed section and content) Reason Comments Weight Management Reason Comments Well Women Visit encounter for weight management Adipex # 4 Reason Comments Post-op Reason Comments Results Reason Comments encounter for weight management Reason Comments Weight Management Care Teams (unrecognized sec tion and content) Team Status: Active Member Role Status Dates Kim Goemz NP-Tomas Primary Care Provider Active Reese Ramos MD Attending Provider Active Team Status: Inactive Member Role Status Dates Kim Gomez NP-Tomas Primary Care Provider, Attending Pro vider Active Team Status: Active Member Role Status Dates Kim Gomez NP-Tomas Primary Care Provider Active Power Manager Relationship Specialty Start Date End Date Ty Roach DO [address] [place] [address] PCP - General Family Medicine 10/11/22 Power Manager Relationship Specialty Start Date End Date Ty Roach DO [address] [place] [address] PCP - General Family Medicine 10/11/22 Power Manager Relationship Specialty Start Date End Date Ty Roach DO [address] [place] [address] PCP - General Family Medicine 10/11/22 Power Manager Relationship Specialty Start Date End Date Ty Roach DO [address] [place] [address] PCP - General Family Medicine 10/11/22 Power Manager Relationship Specialty Start Date End Date Ty Roach DO [address] [place] [address] PCP - General Family Medicine 10/11/22 Power Manager Relationship Specialty Start Date End Date Ty Roach DO [address] [place] [address] PCP - General Family Medicine 10/11/22 Power Manager Relationship Specialty Start Date End Date Ty Roach DO [address] [place] [address] PCP - General Family Medicine 10/11/22 Power Manager Relationship Specialty Start Date End Date Ty Roach DO [address] [place] [address] PCP - General Family Medicine 10/11/22 Power Manager Relationship Specialty Start Date End Date Ty Roach DO [address] [place] [address] PCP - General Family Medicine 10/11/22 Power Manager Relationship Specialty Start Date End Date Ty Roach DO [address] [place] [address] PCP - General Family Medicine 10/11/22 Power Manager Relationship Specialty Start Date End Date Ty Roach DO [address] [place] [address] PCP - General Family Medicine 10/11/22 Power Manager Relationship Specialty Start Date End Date Ty Roach DO [address] [place] [address] PCP - General Family Medicine 10/11/22 Power Manager Relationship Specialty Start Date End Date Ty Roach DO [address] [place] [address] PCP - General Family Medicine 10/11/22 Power Manager Relationship Specialty Start Date End Date Ty Roach DO [address] [place] [address] PCP - General Family Medicine 10/11/22 Power Manager Relationship Specialty Start Date End Date Ty Roach DO [address] [place] [address] PCP - General Family Medicine 10/11/22 Goals (unrecognized section and content) Goals may be documented in a n alternate section INFORMATION SOURCE (unrecogn ized section and content) DATE CREATED AUTHOR 07/31/2022 [facility] DATE CREATED AUTHOR AUTHOR'S ORGANIZ ATION 08/27/2023 [facility] DATE CREATED AUTHOR AUTHOR'S ORGANIZ ATION 09/26/2023 [facility] DATE CREATED AUTHOR AUTHOR'S REGINE LIU 01/07/2025 [facility] dical Specialists [facility] FOR RECORDS PERTAINING TO PATIENTS WHO [...] BE BASED ON THE PRIMARY CLINICAL RECORDS. [facility] Sample6 [facility]. provides no warranty or guarantee of the accuracy or completeness of information in this document.
== END 2025-02-24 09:47 | disposition home or self-care (01) ==
LOC: RAD 09:54
PROVIDERS: Visit Provider Podiatrist Foot & Ankle Surgery
DX: M25.572 Pain in left ankle and joints of left foot (principal); M79.672 Pain in left foot
CPT/HCPCS: 73610; 73630

== ENCOUNTER 2025-04-10 08:57 | Outpatient (RCR) | payer OTHER, SELFPAY | END 2025-04-19 15:08 | disposition home or self-care (01) | LOC: PT 08:57 | PROVIDERS: Visit Provider Podiatrist Foot & Ankle Surgery | DX: M77.42 Metatarsalgia, left foot (principal); M25.80 Other specified joint disorders, unspecified joint | CPT/HCPCS: 97035; 97110; 97161 ==

== ENCOUNTER 2025-04-18 08:51 | Outpatient (OUT) | payer OTHER, SELFPAY ==
--- OUTSIDE RECORDS SUMMARY | 2025-04-18 08:54 | XMS_ITS | Clinical Summary ---
Author Organization [facility] Address [address] [place] [address] Care Team Providers Care Market Research Executive Name Role Phone SheaTy raines Primary Care Provider [phone] Allergies Active AllergyReactionsCriticalityNoted DateCommentsAmoxicillin-Pot Clavulanate GI cryftxzyuds00/29/2024at LznemyCommgzu21/14/0796Tqumvcse97/25/2023 Other Reaction(s): stomach upset Dust Mite BwhbuyxYpitigu55/14/2021Mixed GpmvnmcRzlqwrz06/14/2021 Other Reaction(s): Nasal congestion Pollen Gmxlaso8608/29/2023 Other Reaction(s): Congestion Medications MedicationSigDispense QuantityRefillsLast FilledStart DateEnd DateStatus fluticasone (Flonase) 50 MCG/ACT nasal spray USE 1 SPRAY IN EACH NOSTRIL ONCE A DAY for 90Active fexofenadine (Rosanne Allergy) 180 MG tablet 1 (one) time each day at the same time.Active Acetaminophen Extra Strength 500 MG tablet Take 1 tablet by mouth every 4 (four) hours if askqvu964Active albuterol HFA 90 mcg/act inhaler Indications:Exacerbation of asthma, unspecified asthma severity, unspecified whether persistent (HCC)INHALE 1 PUFF INTO THE LUNGS EVERY 4 HOURS NEEDED FOR 30 DAYS 18 g 4Active phentermine (Adipex-P) 37.5 MG tablet Indications:Encounter for weight managementTake 1 tablet (37.5 mg) by mouth in the morning. Take before meals. 90 tablet 5Active phentermine (Adipex-P) 37.5 MG tablet Indications:Encounter for weight managementTake 1 tablet (37.5 mg) by mouth in the morning. Take before meals. 90 tablet 5Active Slynd 4 MG tablet Indications:PCOS (polycystic ovarian syndrome)TAKE 1 TABLET BY MOUTH EVERY DAY 28 tablet 1105Active phentermine (Adipex-P) 37.5 MG tablet Indications:Encounter for weight managementTake 1 tablet (37.5 mg) by mouth in the morning. Take before meals. 90 tablet 5Active Active Problems ProblemNoted DateDiagnosed DateAbnormal uterine hcbtsefa00/26/2023nxiety with dpaimjgcnl03/26/2023Female equwctgvz05/26/2023Hyperlipidemia LDL goal <100 02/28/20234390Cmbcgxn60/26/2023olycystic qsusrfz4102/28/2023Recurrent sinusitis 02/28/2023Weight gain02/28/2023sthma /14/2021topic dermatitis 02/17/2021Mixed anxiety depressive rzmiijyb27/04/5290Ygzmucc26/21/2020 Grvezyrevsavup55/04/2018Morbid xuevxlx9203/08/2018Seasonal czwmiumfu95/02/2018 Chronic cholecystitis with hidsexeq98/22/2016 Encounters DateTypeDepartmentCare UqiqKqvnxizkwed34/04/2025Telephone [facility] [address] [place] [address] [place] [address] Maria Elena Whitney PA from Last 3 Months Immunizations ImmunizationAdministration DatesNext DueDTP / HiB02/15/1996DTaP09/12/2000, 02/17/1997,02/15/1996,1995,1995DTaP, Ihofyslbvrx04/10/2001, 02/17/1997,1995,1995HPV, Movnbzpenpsz80/24/2009,03/04/2008, 01/01/2008HPV, Ylpcgwuuaed55/24/2009,03/04/2008,01/01/2008Hep B, Adolescent or Ynfqrwzln39/12/1996,1995,1995Hep B, adult02/15/1996,1995, 1995HiB, dgmbifyssny81/14/1997,02/15/1996,1995,1995Hib (PRP-OMP)12/16/1996,1995,1995IPV09/12/2000,02/17/1997,1995, 1995Influenza, injectable, quadrivalent, preservative free03/05/2020 Influenza, live, lcjnslokpx15/01/2011Influenza, seasonal, intradermal, preservative free03/29/2018MMR09/12/2000,1995Meningococcal ACWY, zezmacvjhgt94/29/2008Meningococcal LCD6H6908/07/2012,01/01/2008OPV02/17/1997Tdap 11/22/2015,01/24/2006 Family History Medical HistoryRelationNameCommentsHypertensionBrotherDerekNo Known Problems DaughterCancerFatherDuaneDiabetesFatherDuaneLymphomaFatherDuaneAlzheimer's diseaseMotherLynelleHypertensionMotherLynelleRelationNameStatusCommentsBrother DerekAlive2, healthyDaughter1, healthyFatherDuaneAliveMotherLynelleAlive Social History Tobacco UseTypesPacks/DayYears UsedDateSmoking Tobacco: NeverSmokeless Tobacco: Never Tobacco Cessation:Counseling Given: Not Answered Alcohol UseStandard Drinks/WeekCommentsNot Currently0 (1 standard drink = 0.6 oz pure alcohol)Every once in a whileAUDIT-CAnswerDate RecordedQ1: How often do you have a drink containing alcohol?2-4 times a month08/16/2023Q2: How many drinks containing alcohol do you have on a typical day when you are drinking?1 or 2 08/16/2023Q3: How often do you have six or more drinks on one occasion?Never 08/16/2023HQ-2AnswerDate RecordedPatient Health Questionnaire-2 Score0 3CommentsNoSex and Gender InformationValueDate RecordedSex Assigned at QxtzaMnjxbx68/24/2023 5:26 PM EDTLegal DueTcjxif30/15/2023 6:37 PM EDTGender EaflefxjLtfupw06/24/2023 5:26 PM EDTSexual OrientationStraight 12/26/2022 5:26 PM EDT Last Filed Vital Signs Vital SignReadingTime TakenCommentsBlood Eujkouoo197/7008 10:06 AM EDT Ysxnk30574/27/2023 9:26 AM ZDFWbgmvupekpz89.3 ??C (97.4 ??F)01/16/2024 3:39 PM EDTRespiratory Rate--Oxygen Sqrnyxllhk02%03/01/2023 9:26 AM EDTInhaled Oxygen Concentration--Jbmlqy85.7 kg (186 lb 12.8 oz)01/06/2025 10:06 AM PCDOkgdtj962.5 cm (5' 2 )04/18/2024 3:52 PM ESTBody Mass Index34.17106/18/2023 3:52 PM EST Plan of Treatment Health MaintenanceDue DateLast DoneCommentsPneumococcal Vaccine: Pediatrics (0 to 5 Years) and At-Risk Patients (6 to 64 Years) (1 of 2 - PCV)2014COVID- 19 Vaccine (3 - season)/09/2020, 06/11/2020Influenza Vaccine (#1)/06/2019, 03/29/2018, 04/05/2011 Insurance * Guarantor: Alexus Li TypeRelation to PatientDate of BirthPhone Billing AddressPersonal/KnvswoHbup23/31/[address] [address] Care Teams Team MemberRelationshipSpecialtyStart DateEnd Date Ty Roach DO [address] [place] [address] PCP - Generalmily Medicine10/11/22
--- OUTSIDE RECORDS SUMMARY | 2025-04-18 08:54 | XMS_ITS | Patient Health Record ---
Author Organization [employer] [facility] Address [address] [address], [place] [address] Care Team Providers Care Farm Management Professor Name Role Phone Levy Parsons Unavailable [phone] Allergies Allergen (clinical drug ingredient) Drug/Non Drug Allergy documented on EMR Reaction Allergy Type Onset Date Status CatsUnknownAllergyActiveDogsUnknownAllergyActiveRagweedUnknownAllergyActive Reason For Referral No Information Medications Medication SIG (Take, Route, Frequency, Duration) Notes Start Date End Date Status Phentermine HCl 37.5 MG Tablet TAKE ONE TABLET BY MOUTH ONCE DAILY IN THE MORNING -TAKE BEFORE MEALS Oral; Duration: 30 Days ActiveSlynd 4 MG TabletOral; Duration: 28 DaysActiveFluticasone FuroateActive AllegraActiveMedrol 4 MG Tablet Therapy Packas directed Orally daily; Duration: 6 days5ActiveMeloxicam 15 MG Tablet1 tablet Orally daily; Duration: 30 days5Active Social History Section Notes: Patient is a nonsmoker. No alcohol use. Patient is a nonsmoker. No alcohol use. 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 Patient education provided and all questions answered to satisfaction. I recommended nonsurgical treatment at this time. Treatment advices included: - RICE therapy as well as shoe and activity modification - Jobst compression stockings order was provided - Discussed medications and potential side effect. Medication(s) recommended/prescribed: meloxicam and medrol dose pack - Imaging ordered & reviewed showing intact cortices with no signs of fracture. metatarsus adductus is noted. 02/24/2025Metatarsus adductus of left foot (ICD-10 - Q66.222)03/31/2025 Subluxation of metatarsophalangeal joint of left lesser toe(s), initial encounter (ICD-10 - S93.145A) Patient presents for f/u and is marginally better with nonoperative treatment outlined in HPI. She has hx of left knee issues which raises question if her foot pain is secondary to mechanical issues.Her father has RA and she relates to hypermobility of wrists, and knees which may suggest underlying systemic issue. I recommended she f/u with her PCP for laboratory work-up. She did well with medrol dose pack so I recommended to repeat while we continue to work her up for multiple sources of her pain and dysfunction. I recommended and ordered an MRI of left foot w/o contrast to aide in proper diagnosis which may include but not limited to predislocation syndrome, sesamoid pathology, neuroma, occult stress fracture/reaction (previous xrays were negative). I also discussed PT for knee and foot if the MRI suggest mechanical sources of symptoms. She will call if she decides to pursue PT so I can prescribe dexamethasone for iontophoresis. 03/31/2025Sesamoiditis of left foot (ICD-10 - M25.872)03/31/2025Morton's neuroma of left foot (ICD-10 - G57.62) Plan Of Treatment Next Appt Details Provider Name:Levy patricia, 04/29/2025 10:30:00 AM, [address] [facility], [address], [address], [place], [address], Insurance Providers Payer Name Payer Address Payer Phone Subscriber Number Group Number Insured Name Patient Relationship to Insured Coverage Start Date Coverage End Date [employer] [address] [place], [place] [id number] Bacilio Li - patient is the spouse of the insured Medical (General) History Surgical History Surgery Date(Month/Year) Gall bladder ALEXANDRA Left Knee
--- OUTSIDE RECORDS SUMMARY | 2025-04-18 08:54 | XMS_ITS | Encounter Summary ---
Author Organization [facility] Address [address] [place] [address] Care Team Providers Care Pulverizer Mill Operator Name Role Phone SheaTy raines Primary Care Provider [phone] Encounter Details DateTypeDepartmentCare Team (Latest Contact Info)Tdmtdqdzejz52/04/2025Telephone [facility] [address] [place] [id number] Maria Elena Whitney PA [address] [place] [address] Social History Tobacco UseTypesPacks/DayYears UsedDateSmoking Tobacco: NeverSmokeless Tobacco: NeverAlcohol UseStandard Drinks/WeekCommentsNot Currently0 (1 standard drink = 0.6 oz pure alcohol)Every once in a whileAUDIT-CAnswerDate RecordedQ1: How often do you have a drink containing alcohol?2-4 times a month08/16/2023Q2: How many drinks containing alcohol do you have on a typical day when you are drinking?1 or Q3: How often do you have six or more drinks on one occasion?Never 4PHQ-2AnswerDate RecordedPatient Health Questionnaire-2 Score0 3CommentsNoSex and Gender InformationValueDate RecordedSex Assigned at WgdlsXallto67/24/2023 5:26 PM EDTLegal DffSozszc90/15/2023 6:37 PM EDTGender JdlsdvxtCpwege58/24/2023 5:26 PM EDTSexual OrientationStraight 12/26/2022 5:26 PM EDTdocumented as of this encounter Miscellaneous Notes * Telephone Encounter - Maris Pedraza LPN - 04/08/2025 1:51 PM EST Maria Elena Shelton called from [facility] called asking if ok to fill script for the patient she did have this script in January and would be able to fill 03/28 advised she is able to fill script she does have appointment scheduled this week. documented in this encounter Plan of Treatment Not on file documented as of this encounter Visit Diagnoses Not on filedocumented in this encounter Care Teams Team MemberRelationshipSpecialtyStart DateEnd Date Ty Roach DO [address] [facility] [address] [place] [address] PCP - GeneralFamily Medicine10/11/22documented as of this encounter
--- OUTSIDE RECORDS SUMMARY | 2025-04-18 08:54 | XMS_ITS | Clinical Summary ---
Author Organization [facility] Address [address], [address] [place] [address] Care Team Providers Care Digital Imager Name Role Phone Janusz Marinelli MD Primary Care Provider [phone]- [phone] Allergies No known active allergies Medications MedicationSigDispense QuantityRefillsLast FilledStart DateEnd DateStatus omeprazole (PRILOSEC) 20 MG capsule Take 20 mg by mouth dailyActive NUVARING 0.12-0.015 MG/24HR vaginal ring Insert 1 ring vaginally in for 3 weeks, then out for 1 fqzi446Active Active Problems ProblemNoted DateDiagnosed DateChronic cholecystitis with hhlsegvi56/22/2016 Immunizations ImmunizationAdministration DatesNext FoiRHwD7909/12/2000,02/17/1997,02/15/1996, 1995,1995HPV Quadrivalent (Gardasil)07/29/2008,03/04/2008,01/01/2008 Hepatitis B002/15/1996,1995,1995Hib, /14/1997,02/15/1996 ,1995,1995MMR, PRIORIX, M-M-R II, (age 12m+), SC, 0.5mL09/12/2000, 1995Meningococcal ACWY, MENACTRA (MenACWY-D), (age 9m-55y), IM, 0.5mL 08/07/2012,01/01/2008Poliovirus, IPOL, (age 6w+), SC/IM, 0.5mL04/03/2001, 02/17/1997,1995,1995TDaP, ADACEL (age 10y-64y), BOOSTRIX (age 10y+), IM, 0.5mL08/ Family History Medical HistoryRelationNameCommentsCancerBrotherHigh Blood PressureMother RelationNameStatusCommentsBrotherMother Social History Tobacco UseTypesPacks/DayYears UsedDateSmoking Tobacco: Never Tobacco Cessation:Counseling Given: No Alcohol UseStandard Drinks/WeekCommentsNo0 (1 standard drink = 0.6 oz pure alcohol)CommentsNoSex and Gender InformationValueDate RecordedSex Assigned at BirthNot on fileLegal UwtYigbdk75/11/2013 11:04 PM ESTGender IdentityNot on fileSexual OrientationNot on file Last Filed Vital Signs Vital SignReadingTime TakenCommentsBlood Rbrrxzhb719/6208 3:06 PM EDT Xqdlo7991 2:37 PM GZKOycpjtharvg86 ??C (98.6 ??F)01/18/2016 3:06 PM EDT Respiratory Usqj5541 2:37 PM EDTOxygen Saturation--Inhaled Oxygen Concentration--Lhevts337.8 kg (231 lb)01/18/2016 3:06 PM RFTPluizm682.5 cm (5' 2 )01/18/2016 3:06 PM EDTBody Mass Index42.2508 3:06 PM EDT Plan of Treatment Not on file Insurance * Guarantor: Alexus Li TypeRelation to PatientDate of BirthPhone Billing AddressPersonal/PrlvnnUjqf76/31/1996 [address] [place] [address] Care Teams Team MemberRelationshipSpecialtyStart DateEnd Date Jaunsz Marinelli MD [address], [place] [id number] [facility]08/28/18
--- NOTE | 2025-04-18 08:58 | MR_ITS ---
[address] [address] Patient Name: GEOVANNA MATA MRN: [id number] date: 1995 Sex: F Assigned Patient Location: MRI Current Patient Location: MRI Accession/Order Number: [id number] Exam Date: 04/18/2025 09:05 Report Date: 04/18/2025 12:24 At the request of: ELLEN MURPHY DPM Procedure: MR foot LT wo con MR foot LT wo con 04/18/2025 10:02 AM SIGNS AND SYMPTOMS: sesmoiditis, neuroma, acute pain at the left first metacarpal phalangeal joint PROTOCOL: Multiplanar multisequence MR images of the left foot without IV contrast COMPARISON: None. FINDINGS: Lisfranc ligament: Intact. Hallux: Osseous: Normal. Extensor tendon: Normal. Flexor tendon: Normal. First metatarsophalangeal joint: Intact. Hallux-sesamoid complex: Normal. Second ray: Osseous: Normal. Extensor tendon: Normal. Flexor tendon: Normal. Second metatarsophalangeal joint: Intact. Plantar plate: Normal. Third ray: Osseous: Normal. Extensor tendon: Normal. Flexor tendon: Normal. Third metatarsophalangeal joint: Intact. Plantar plate: Normal. Fourth ray: Osseous: Normal. Extensor tendon: Normal. Flexor tendon: Normal. Fourth metatarsophalangeal joint: Intact. Plantar plate: Normal. Fifth ray: Osseous: Normal. Extensor tendon: Normal. Flexor tendon: Normal. Fifth metatarsophalangeal joint: Intact. Plantar plate: Normal. Interspaces: Interdigital (Lee) neuroma: None. Intermetatarsal bursitis: None. Soft tissues: There is nonspecific soft tissue swelling along the dorsum of the foot overlying the metatarsophalangeal joints. Muscles: Normal. Bones: Normal. Nerves: Normal. Blood vessels: Normal. MR/MR foot LT wo con IMPRESSION: There is nonspecific soft tissue swelling along the dorsum of the foot overlying the metatarsophalangeal joints. The sesamoid complex is within normal limits without evidence of marrow edema or adjacent soft tissue swelling. The first metatarsophalangeal joint is preserved. No evidence of soft tissue mass or abnormal T2 hyperintense signal to suggest the presence of a neuroma. Impression dictated by: John Ryan M.D. 04/18/2025 12:24 PM Dictation Location: [place] [address] Electronically authenticated by: [id number] Y Date: 04/18/2025 12:24
== END 2025-04-18 08:52 | disposition home or self-care (01) ==
LOC: MRI 08:51
PROVIDERS: Visit Provider Podiatrist Foot & Ankle Surgery
DX: M25.872 Other specified joint disorders, left ankle and foot (principal)
CPT/HCPCS: 73718